=== PATIENT | female | born 1990 | race Caucasian/White ===

== ENCOUNTER 2022-03-24 09:41 | Outpatient (CLI) | payer BC, SELFPAY ==
--- OUTSIDE RECORDS SUMMARY | 2022-03-24 08:35 | XMS_ITS | Encounter Summary ---
:1990 Author Organization [place] Address [address] [place] [address] Care Team Providers Name Role Phone No Ref-Primary, Physician Primary Care Provider [phone] Encounter Details Date Type Department Care Team Description 12/14/2020 Travel Social History Tobacco Use Types Packs/Day Years Used Date Current Every Day Smoker Smokeless Tobacco: Never Used Sex Assigned at Date Recorded Not on file COVID-19 Exposure Response Date Recorded In the last month, have you been in contact with No / Unsure 12/14/2020 11:08 AM CDT someone who was confirmed or suspected to have Coronavirus / COVID-19? documented as of this encounter Plan of Treatment Not on filedocumented as of this encounter Visit Diagnoses Not on filedocumented in this encounter Care Teams Gas Line Servicer Relationship Specialty Start Date End Date No Ref-Primary, Physician PCP - General 12/14/20 documented as of this encounter
--- OUTSIDE RECORDS SUMMARY | 2022-03-24 08:35 | XMS_ITS | Encounter Summary ---
:1990 Author Organization [place] Address [address] [place] [address] Care Team Providers Name Role Phone No Ref-Primary, Physician Primary Care Provider [phone] Encounter Details Date Type Department Care Team Description 01/13/2022 Travel Social History Tobacco Use Types Packs/Day Years Used Date Current Every Day Smoker Smokeless Tobacco: Never Used Sex Assigned at Date Recorded Not on file COVID-19 Exposure Response Date Recorded In the last 10 days, have you been in contact with No / Unsu re 01/13/2022 8:33 AM CDT someone who was confirmed or suspected to have Coronavirus/COVID-19? documented as of this encounter Plan of Treatment Not on filedocumented as of this encounter Visit Diagnoses Not on filedocumented in this encounter Care Teams Elect Equip Maint Eng Relationship Specialty Start Date End Date No Ref-Primary, Physician PCP - General 12/14/20 documented as of this encounter
--- OUTSIDE RECORDS SUMMARY | 2022-03-24 08:35 | XMS_ITS | Encounter Summary ---
:1990 Author Organization [place] Address [address] [place] [address] Care Team Providers Name Role Phone No Ref-Primary, Physician Primary Care Provider [phone] Reason for Visit Reason Comments Ultrasound L2- covid in Encounter Details Date Type Department Care Team Description 01/05/2022 PRE VISIT [facility], Ultrasound (L2- covid in Maternal Medicine TIFFANIE Chavira ) [place] [address] [facility] [address] [place] [address] Social History Tobacco Use Types Packs/Day Years Used Date Current Every Day Smoker Smokeless Tobacco: Never Used Sex Assigned at Date Recorded Not on file documented as of this encounter Plan of Treatment Not on filedocumented as of this encounter Visit Diagnoses Not on filedocumented in this encounter Care Teams Paper Sales Representative Relationship Specialty Start Date End Date No Ref-Primary, Physician PCP - General 12/14/20 documented as of this encounter
--- OUTSIDE RECORDS SUMMARY | 2022-03-24 08:35 | XMS_ITS | Encounter Summary ---
:1990 Author Organization [place] Address [facility] [place] [address] Care Team Providers Name Role Phone No Ref-Primary, Physician Primary Care Provider [phone] Reason for Visit Reason Comments Ultrasound L2- covid in Encounter Details Date Type Department Care Team Description 01/13/[address] [facility] Non-Fv Credent ialed Provider, Radiology COVID-19 affecting Maternal Contag, Chau Frazier MD [address] [place], [place] [address] in [facility] Osmin Aiken MD [address] [place] [address] trimester (Primary [place] Dx) [address] [facility] [address] [place] [address] Social History Tobacco Use Types [...] have Coronavirus/COVID-19? documented as of this encounter Progress Notes Osmin Aiken MD - 01/13/2022 9:15 AM CDT Please see Imaging tab under Chart Review for details of today's US at the [facility]. Osmin Aiken MD Maternal- Medicine documented in this encounter Plan of Treatment Not on filedocumented as of this encounter Visit Diagnoses Diagnosis COVID-19 affecting in second t rimester - Primary documented in this encounter Care Teams Construction Skills Teacher Relationship Specialty Start Date End Date No Ref-Primary, Physician PCP - General 12/14/20 documented as of this encounter
--- OUTSIDE RECORDS SUMMARY | 2022-03-24 08:35 | XMS_ITS | Encounter Summary ---
:1990 Author Organization [place] Address [address] [place] [address]. [place] [address] Care Team Providers Name Role Phone No Ref-Primary, Physician Primary Care Provider [phone] Encounter Details Date Type Department Care Team Description 07/13/2021 Medical Correspondence [facility] Scan, MATERNAL Health Info Mgmt Non-Provider MEDICINE CE NTER Srvcs PROVIDER SERVICE [address] [place] [address] [place] [address] [facility] [phone] [place] Social History Tobacco Use Types Packs/Day Years Used Date Current Every Day Smoker Smokeless Tobacco: Never Used Sex Assigned at Date Recorded Not on file documented as of this encounter Plan of Treatment Not on filedocumented as of this encounter Visit Diagnoses Not on filedocumented in this encounter Care Teams Customer Service Advisor Relationship Specialty Start Date End Date No Ref-Primary, Physician PCP - General 12/14/20 documented as of this encounter
--- OUTSIDE RECORDS SUMMARY | 2022-03-24 08:35 | XMS_ITS | Encounter Summary ---
:1990 Author Organization [place] Address [address] [place] [address] Care Team Providers Name Role Phone No Ref-Primary, Physician Primary Care Provider [phone] Reason for Referral Diagnostic Imaging Ultrasound (Routine) - Pending Review Specialty Diagnoses / Procedures Referred By Contact Refer red To Contact Diagnoses related condition, antepartum Rh Maternal Med Procedures [facility] US Comprehensive Single [address] [facility] [address] [place] [address] Referral ID Status Reason Start Date Expiration Date Visits V isits Requested Authorized [id number] Pending 01/03/2022 01/03/2023 1 1 Review Reason for Visit Diagnostic Imaging Ultrasound (Routine) - Pending Review Specialty Diagnoses / Procedures Referred By Contact Refer red To Contact Diagnoses related condition, antepartum Rh Maternal Med Procedures [facility] US Comprehensive Single [address] [facility] [address] [place] [address] Referral ID Status Reason Start Date Expiration Date Visits V isits Requested Authorized [id number] Pending 01/03/2022 01/03/2023 1 1 Review Encounter Details Date Type Department Care Team Description 01/13/2022 [facility] Non-Fv Credentialed Pro vider, Radiology related Encounter Maternal ContChau bey MD [address] [place] [address] condition, Medicine Center Osmin Aiken MD [address] [place] [address] antepartum [place] [address] [facility] [address] [place] [address] Social History Tobacco Use Types [...] have Coronavirus/COVID-19? documented as of this encounter Medications at Time of Discharge Medication Sig Dispensed Refills Start Date End Date ciprofloxacin (CIPRO) 500 Take 1 tablet (500 1 tablet 0 MG tabletIndications: mg) by mouth 2 times Kidney stone daily HYDROcodone-acetaminophen Take 1-2 tablets by 5 tablet 0 0 04/06/2017 (NORCO) 5-325 MG per mouth every 4 hours tabletIndications: as needed for Calculus of left ureter moderate to severe pain (Moderate to Severe Pain) tamsulosin (FLOMAX) 0.4 MG Take 1 capsule (0.4 10 capsule 1 04/06/2017 capsuleIndications: mg) by mouth daily Calculus of left ureter documented as of this encounter Plan of Treatment Not on filedocumented as of this encounter Procedures Procedure Name Priority Date/Time Associated Comments Diagnosis [facility] US COMPREHENSIVE Routine 01/13/2022 9:39 AM rela seferino Results for this SINGLE CDT condition, procedure are i n antepartum the results section. documented in this encounter Results [facility] US Comprehensive Single (01/13/2022 9:39 AM CDT) Anatomical Region Laterality Modality Ultrasound Specimen (Source) Anatomical Collection Method Collection Time Re ceived Time Location / / Volume Laterality 01/13/2022 8:45 AM CDT Impressions 01/13/2022 9:41 AM CDT IMPRESSION Sonographic biometry agrees with gestati onal age predicted by LMP. The anatomy was adequately visualized and appeared normal. None of the anomalies commonly detected by ultrasound were evident. Narrative 01/13/2022 9:41 AM CDT Comprehensive Pat. Name: ALE COLEMANLRFAUZIA MEJÍA Study Date: 01/13/2022 8:45am Pat. NO: [id number] Referring ??MD: NIURKA MENDIETA Site: [facility] Cartography Teacher: Salma Piña : 1990 Age: 31 INDICATION COVID in METHOD Transabdominal ultrasound examination. V iew: Sufficient Contreras . Number of fetuses: 1 DATING ? Date ?Details ?Gest. age ?EBER LMP ?08/27/2021 ? 19 w + 6 d ? 06/03/2022 Prior assessment ? 4/ 05/2022 ? GA: 9 w + 2 d ?19 w + 6 d ? 06/03/2022 U/S ? 01/13/2022 ? based upon AC, BPD, Femur, HC ? 21 w + 1 d ? 05/25/2022 Assigned dating ?Dating performed on 01/13/2022, based on the LMP ?19 w + 6 d ? 06/03/2022 GENERAL EVALUATION Cardiac activity present. FHR 148 bpm. movements present. Presentation Variable. Placenta Anterior, No Previa, > 2 cm fro m internal os. Umbilical cord 3 vessel cord. Amniotic fluid Amount of AF: normal. MVP 6.5 cm. BIOMETRY Main Biometry: BPD ?48.6 ?mm ? 20w 5d ?Hadlock OFD ?66.9 ?mm ? 21w 0d ?Nicolaides HC ?185.5 ?mm ?20w 6d ?Hadlock Cerebellum tr ?21.8 ? mm ?20w 6d ?Nicolaides AC ?174.3 ?mm ?22w 3d ?98% ?Hadlock Femur ?33.3 ? mm ?20w 3d ?Hadlock Humerus ?31.8 ?mm ? 20w 4d ?Shay Weight Calculation: EFW ? 421 ? g ? 99% ?Hadlock EFW (lb,oz) ? 0 lb 15 ? oz EFW by ?Hadlock ([id number]) Head / Face / Neck Biometry: [employer] ? 6.5 ? mm CM ?4.2 ? mm Nasal bone ? 5.3 ? mm Nuchal fold ? 5.1 ? mm ANATOMY The following structures appear normal: Head / Neck ? Cranium. Head size. Head shape. Lateral ventricles. Choroid plexus. Midline falx. Cavum septi pellucidi. Cerebellum. Cisterna magna. ? Parenchyma. Thalami. Vermis. ? Neck. Nuchal fold. Face ? Lips. Profile. Nose. Maxilla. Mandible. Orbits. Lens. Heart / Thorax ?4-chamber view. RVOT view. LVOT view. Situs. Aortic arch view. Bicaval view. Ductal arch view. Superior vena cava. Inferior vena cava. 3-vessel ? view. 5-mhxapc-peffzxy view. Cardiac position. Cardiac size. Cardiac rhythm. ? Right lung. Left lung. Diaphragm. Abdomen ? Abdominal wall. Cord insertion. Stomach. Kidneys. Bladder. Liver. Bowel. Genitals. Spine ?Cervical spine. Thoracic spine. Lumbar spine. Sacral spine. Extremities / Skeleton ?Rig ht arm. Right hand. Left arm. Left hand. Right leg. Right foot. Left leg. Left foot. Gender: male. MATERNAL STRUCTURES Cervix ?Visualized ? Appearance: Appears Closed ? Cervical length 45.3 mm Right Ovary ?Visualized Left Ovary ?Visualized RECOMMENDATION We discussed the findings on today's ult rasound with the patient. COVID infection in early has n ot been associated with any defects. We therefore no longer recommend a comprehensive ultrasound for this indication alone. We do however recommend that you assess growth at 32 weeks due to the association of COVID infection with increased risk for FGR. Return to primary provider for continued care. Thank-you for the opportunity to particvivien paris in the care of this patient. If you have questions regarding today's evaluation or if we can be of further service, please contact the Maternal- Medicine Center. anomalies may be present but not detected Procedure Note Osmin Aiken MD - 01/13/2022Forma tting of this note might be different from the original. Comprehensive Name:Newton ESPOSITO te:01/13/2022 8:45am Pat. NO: [id number] MD:MAGY MENDIETA Site:Tobygrapher:Germainbhakti Mcnally RDMS :1990Age:31 INDICATION COVID in METHOD Transabdominal ultrasound examination. V iew: Sufficient Contreras . Number of fetuses: 1 DATING Date Details Gest. age EBER LMP 08/27/2021 19 w + 6 d 06/03/2022 Prior assessment 10/31/2021 GA: 9 w + 2 d 19 w + 6 d 06/03/2022 U/S 01/13/2022 based upon AC, BPD, Femur, HC 21 w + 1 d 05/25/2022 Assigned dating Dating performed on 12/22, based on the LMP 19 w + 6 d 06/03/2022 GENERAL EVALUATION Cardiac activity present. FHR 148 bpm. movements present. Presentation Variable. Placenta Anterior, No Previa, > 2 cm fro m internal os. Umbilical cord 3 vessel cord. Amniotic fluid Amount of AF: normal. MVP 6.5 cm. BIOMETRY Main Biometry: BPD 48.6 mm 20w 5d Hadlock OFD 66.9 mm 21w 0d Nicolaides HC 185.5 mm 20w 6d Hadlock Cerebellum tr 21.8 mm 20w 6d Nicolaides AC 174.3 mm 22w 3d 98% Hadlock Femur 33.3 mm 20w 3d Hadlock Humerus 31.8 mm 20w 4d Shay Weight Calculation: EFW 421 g 99% Hadlock EFW (lb,oz) 0 lb 15 oz EFW by Hadlock ([id number]) Head / Face / Neck Biometry: [employer] 6.5 mm CM 4.2 mm Nasal bone 5.3 mm Nuchal fold 5.1 mm ANATOMY The following structures appear normal: Head / Neck Cranium. Head size. Head sha pe. Lateral ventricles. Choroid plexus. Midline falx. Cavum septi pellucidi. Cerebellum. Cisterna magna. Parenchyma. Thalami. Vermis. Neck. Nuchal fold. Face Lips. Profile. Nose. Maxilla. Anastasia ble. Orbits. Lens. Heart / Thorax 4-chamber view. RVOT view . LVOT view. Situs. Aortic arch view. Bicaval view. Ductal arch view. Superior vena cava. Inferior vena cava. 3-vessel view. 1-pvjheb-iicdwgl view. Cardiac po sition. Cardiac size. Cardiac rhythm. Right lung. Left lung. Diaphragm. Abdomen Abdominal wall. Cord insertion. Stomach. Kidneys. Bladder. Liver. Bowel. Genitals. Spine Cervical spine. Thoracic spine. Katt mbar spine. Sacral spine. Extremities / Skeleton Right arm. Right hand. Left arm. Left hand. Right leg. Right foot. Left leg. Left foot. Gender: male. MATERNAL STRUCTURES Cervix Visualized Appearance: Appears Closed Cervical length 45.3 mm Right Ovary Visualized Left Ovary Visualized RECOMMENDATION We discussed the findings on today's ult rasound with the patient. COVID infection in early has n ot been associated with any defects. We therefore no longer recommend a comprehensive ultrasound for this indication alone. We do however recommend that you assess growth at 32 weeks due to the association of COVID infection with increased risk for FGR. Return to primary provider for continued care. Thank-you for the opportunity to partici raina in the care of this patient. If you have questions regarding today's evaluation or if we can be of further service, please contact the Maternal- Medicine Center. anomalies may be present but not detected IMPRESSION Sonographic biometry agrees with gestati onal age predicted by LMP. The anatomy was adequately visualized and appeared normal. None of the anomalies commonly detected by ultrasound were evident. Radiology Non-Fv Credentialed Provider ELAINE [facility] US TL LEWIS documented in this encounter Visit Diagnoses Diagnosis related condition, antepartum documented in this encounter Care Teams Psychiatric Aide Relationship Specialty Start Date End Date No Ref-Primary, Physician PCP - General 12/14/20 documented as of this encounter
--- OUTSIDE RECORDS SUMMARY | 2022-03-24 08:35 | XMS_ITS | Clinical Summary ---
:1990 Author Organization [place] Address [address] [place] [address] Care Team Providers Name Role Phone No Ref-Primary, Physician Primary Care Provider [phone] Allergies Active Allergy Reactions Severity Noted Date Comments Penicillins Shortness Of Breath High 04/06/2017 Medications Medication Sig Dispensed Refills Start Date End Date Status HYDROcodone-acetaminop Take 1-2 tablets 5 tablet 0 04/06/2017 Active hen (NORCO) 5-325 MG by mouth every 4 per tabletIndications: hours as needed Calculus of left for moderate to ureter severe pain (Moderate to Severe Pain) tamsulosin (FLOMAX) Take 1 capsule 10 capsule 1 04/06/2017 Active 0.4 MG (0.4 mg) by mouth capsuleIndications: daily Calculus of left ureter ciprofloxacin (CIPRO) Take 1 tablet 1 tablet 0 04/17/2017 Active 500 MG (500 mg) by mouth tabletIndications: 2 times daily Kidney stone Resolved Problems Problem Noted Date Resolved Date Calculus of left ureter 04/06/2017 04/06/2017 Encounters Date Type Specialty Care Team Description 01/13/2022 Office Visit Maternal and Non-Fv Credentialed COVID-19 affecting Medicine Provider, Radiol ogy in second Chau Kessler, trimester (Primary MD Dx) Osmin Aiken MD 01/13/2022 Hospital Encounter Radiology. Non-Fv Credentialed Pr egnancy related Provider, Radiol ogy condition, Chau Kessler, antepartu m Osmin Jaramillo MD 01/13/2022 Travel 01/05/2022 PRE VISIT Maternal and Cait Davis Ultrasou nd (L2- Medicine RN covid in preg yosef ) 01/03/2022 Transcribe Orders Maternal and Jimbo, Lexi, Pregn eva related Medicine METAL FURNITURE ASSEMBLY SUPERVISOR CNM condition, antepartum (Audra neely Dx) from Last 3 Months Family History Medical History Relation Comments Cancer Paternal Grandmother Relation Status Comments Paternal Grandmother Social History Tobacco Use Types Packs/Day Years Used Date Current Every Day Smoker Smokeless Tobacco: Never Used Estimated Date of Delivery Comments Yes 06/03/2022 Based on last menstr ual period of 08/27/2021 Sex Assigned at Date Recorded Not on file Last Filed Vital Signs Vital Sign Reading Time Taken Comments Blood Pressure 118/74 12/14/2020 5:37 PM CDT Pulse 68 12/14/2020 5:37 PM CDT Temperature 36.9 ??C (98.4 ??F) 12/14/2020 5:37 PM CDT Respiratory Rate 16 12/14/2020 5:37 PM CDT Oxygen Saturation 100% 12/14/2020 5:37 PM CDT Inhaled Oxygen Concentration - - Weight 88.5 kg (195 lb) 12/14/2020 11:09 AM CDT Height 182.9 cm (6') 12/14/2020 11:09 AM CDT Body Mass Index 26.45 12/14/2020 11:09 AM CDT Plan of Treatment Health Maintenance Due Date Last Done Comments ADVANCE CARE PLANNING 1990 ANNUAL REVIEW OF HM ORDERS 1990 NICOTINE/TOBACCO CESSATION 1990 COUNSELING Q 1 YR PREVENTIVE CARE VISIT 1990 Pneumococcal Vaccine: 1998 Pediatrics (0 to 5 Years) and At-Risk Patients (6 to 64 Years) (1 - PCV) HEPATITIS B IMMUNIZATION (3 08/07/2005 06/12/2005, 02/29/20 05 of 3 - 3-dose primary series) HIV SCREENING 2007 HEPATITIS C SCREENING 2010 PAP 2013 DTAP/TDAP/TD IMMUNIZATION 02/28/2015 02/28/2005, 02/28/2005 , (6 - Td or Tdap) 03/03/1998, Additional history exists PHQ-2 (once per calendar 07/23/2021 year) MATERNAL SCREENING 12/10/2021 OBGCT (OB) 02/11/2022 REPEAT ANTIBODY SCREEN (OB) 03/11/2022 INFLUENZA VACCINE (#1) 2022 07/13/2021, 04/06/2016 IPV IMMUNIZATION Aged Out 10/03/1995, 09/05/1994, No long er eligible 1990 based on patient 's age to complete this topic COVID-19 Vaccine Completed 08/31/2021, 12/17/2020, 11/19/2020 MENINGITIS IMMUNIZATION Aged Out No longe r eligible based on patient 's age to complete this topic Medical Devices Implanted Type Area Zoology Technical Officer Device Shelf Model / Identifier Expiration Serial / Date Lot Stent Ureteral Dbl Pigtail Inlay [id number] Stent Left: CR BARD 05/12/2021 [id number] / Implanted: Qty: 1 on 04/06/2017 by Jae diego, Chau Ribeiro MD at [facility] [employer]-UR[employer]IC / [id number] Procedures Procedure Name Priority Date/Time Associated Comments Diagnosis [facility] US COMPREHENSIVE Routine 01/13/2022 9:39 AM rela seferino Results for this SINGLE CDT condition, procedure are i n antepartum the results section. from Last 3 Months Results [facility] US Comprehensive Single (01/13/2022 9:39 AM CDT) [...] 01/13/2022 9:41 AM CDT Comprehensive Pat. Name: FAUZIA ESPOSITO Study Date: 01/13/2022 8:45am Pat. NO: [id number] Referring ??MD: NIURKA MENDIETA Site: [facility] [employer] Balancer: Salma Piña : 1990 Age: 31 INDICATION COVID in METHOD Transabdominal ultrasound examination. V iew: Sufficient Contreras . Number of fetuses: 1 DATING ? Date ?Details ?Gest. age ?EBER LMP ?08/27/2021 ? 19 w + 6 d ? 06/03/2022 Prior assessment ? 05/2022 ? GA: 9 w + 2 [...] Biometry: BPD ?48.6 ?mm ? 20w 5d ?Angus ABEL ?66.9 ?mm ? 21w 0d ?Nicolaides HC ?185.5 ?mm ?20w 6d ?Hadlock Cerebellum tr ?21.8 ? mm ?20w 6d ?Nicolaides AC ?174.3 ?mm ?22w 3d ?98% ?Hadlock Femur ?33.3 ? mm ?20w 3d ?Hadlock Humerus ?31.8 ?mm ? 20w 4d ?Shay Weight Calculation: EFW ? 421 ? g ? 99% ?Hadlock EFW (lb,oz) ? 0 lb 15 ? oz EFW by ?Hadlock ([id number]) Head / Face / Neck Biometry: Warehouse Worker 2Nd Shift ? 6.5 ? mm CM ?4.2 ? [...] cava. Inferior vena cava. 3-vessel ? view. 5-xataus-ltigcmi view. Cardiac position. Cardiac size. Cardiac rhythm. [...] might be different from the original. Comprehensive Pat. Name:Newton ESPOSITO te:01/13/2022 8:45am Pat. NO: [id number] :LEXI MENDIETA [facility]Germain Mcnally RDMS :1990Age:31 INDICATION COVID in METHOD [...] 0 lb 15 oz EFW by Hadlock ([id number]) Head / Face / Neck Biometry: Warehouse Worker 2Nd Shift 6.5 mm CM 4.2 mm Nasal bone [...] vena cava. Inferior vena cava. 3-vessel view. 1-hgvovj-uoojgun view. Cardiac po sition. Cardiac size. Cardiac [...] care. Thank-you for the opportunity to partici paris in the care of this patient. [...] ultrasound were evident. Radiology Non-Fv Credentialed Provider [facility] TL [facility] from Last 3 Months Insurance Payer Benefit Plan / Subscriber ID Effective Dates Phone Addre ss Type Group BCBS BCBS OUT OF [id number] 2021-Present [phone] [address] [address] [place] [address] Advance Directives For more information, please contact: [phone] Latest Code Status on File Code Status Date Activated Date Inactivated Comments Full Code 04/06/2017 9:39 AM 12/14/2020 10:47 AM Full Code 04/06/2017 6:57 AM 04/06/2017 9:39 AM Care Teams Cold Mill Supervisor Relationship Specialty Start Date End Date No Ref-Primary, Physician PCP - General 12/14/20
--- OUTSIDE RECORDS SUMMARY | 2022-03-24 08:35 | XMS_ITS | Encounter Summary ---
:1990 Author Organization [facility] Address [address] [place] [id number] Care Team Providers Name Role Phone No Ref-Primary, Physician Primary Care Provider [phone] Reason for Referral Diagnostic Imaging Ultrasound (Routine) - Pending Review Specialty Diagnoses / Procedures Referred By Contact Refer red To Contact Diagnoses related condition, antepartum Rh Maternal Med Procedures MFM US Comprehensive Single [address] [place] [address] Referral ID Status Reason Start Date Expiration Date Visits V isits Requested Authorized [id number] Pending 01/03/2022 01/03/2023 1 1 Review onsultation (Routine: Next available opening) - Pending Review Specialty Diagnoses / Procedures Referred By Contact Refer red To Contact Diagnoses related condition, antepartum Rh Maternal Med [address] [place] [address] Referral ID Status Reason Start Date Expiration Date Visits V isits Requested Authorized [id number] Pending 01/03/2022 01/03/2023 1 1 Review Encounter Details Date Type Department Care Team Description 01/03/2022 Transcribe Orders [facility] Lexi Mendieta, related [facility] antepartum (Primary [address] Dx) [address] [place] [place] [phone] Social History Tobacco Use Types Packs/Day Years Used Date Current Every Day Smoker Smokeless Tobacco: Never Used Sex Assigned at Date Recorded Not on file documented as of this encounter Plan of Treatment Scheduled Referrals Name Type Priority Associated Diagnoses Order [facility] Referral Routine: Next related Expe cted: Referral - available opening condition, 01/03/2022 antepartum (Approximate), Expires: 07/02/2022 documented as of this encounter Results [facility] US Comprehensive Single (01/13/2022 9:39 AM CDT) [...] ESPOSITO Study Date: 01/13/2022 8:45am Pat. NO: [id number] Referring ??: NIURKA MENDIETA Site: [facility] [employer] Architect: Salma Piña : 1990 Age: 31 INDICATION COVID in METHOD Transabdominal ultrasound examination. V iew: Sufficient Contreras . Number of fetuses: 1 DATING ? Date ?Details ?Gest. age ?EBER LMP ?08/27/2021 ? 19 w + 6 d ? 06/03/2022 Prior assessment ? / 05/2022 ? GA: 9 w + 2 [...] lb 15 ? oz EFW by ?Hadlock ([id number]) Head / Face / Neck Biometry: Pit Manager ? 6.5 ? mm CM ?4.2 ? [...] cava. Inferior vena cava. 3-vessel ? view. 3-enybfh-ktftegu view. Cardiac position. Cardiac size. Cardiac rhythm. [...] Pat. Name:Newton ESPOSITO te:01/13/2022 8:45am Pat. NO: [id number] MD:LEXI MENDIETA [facility]Germain Mcnally RDMS :1990Age:31 INDICATION COVID in METHOD [...] 0 lb 15 oz EFW by Hadlock ([id number]) Head / Face / Neck Biometry: Pit Manager 6.5 mm CM 4.2 mm Nasal bone [...] vena cava. Inferior vena cava. 3-vessel view. 7-pdclel-mtvxfdv view. Cardiac po sition. Cardiac size. Cardiac [...] ultrasound were evident. Radiology Non-Fv Credentialed Provider IMBrandon STOCK US TL LEWIS documented in this encounter Visit Diagnoses Diagnosis related condition, antepartum - Primary related condition, antepartum documented in this encounter Care Teams Experimental Worker Relationship Specialty Start Date End Date No Ref-Primary, Physician PCP - General 12/14/20 documented as of this encounter
--- OUTSIDE RECORDS SUMMARY | 2022-03-24 08:36 | XMS_ITS | Encounter Summary ---
:1990 Author Organization [facility] Address [address] [place] [address] Care Team Providers Name Role Phone No Ref-Primary, Physician Primary Care Provider Unavailable Encounter Details Date Type Department Care Team Description 04/11/2017 Telephone [facility] Pricilla Shin, [address] [place] [address] [address] [phone] [place], [place] [phone] (Wo rk) Social History Tobacco Use Types Packs/Day Years Used Date Never Assessed Sex Assigned at Date Recorded Not on file documented as of this encounter Miscellaneous Notes Telephone Encounter - Pricilla Shin PA-C - 04/11/2017 3:46 PM CDT Attempted to call patient regarding positive urine culture for E coli. Would like to start on antibiotic based on if she is breast feeding or not. documented in this encounter Plan of Treatment Not on filedocumented as of this encounter Visit Diagnoses Not on filedocumented in this encounter Care Teams Medical Services Coordinator Relationship Specialty Start Date End Date No Ref-Primary, Physician PCP - General 04/06/17 documented as of this encounter
--- OUTSIDE RECORDS SUMMARY | 2022-03-24 08:36 | XMS_ITS | Encounter Summary ---
:1990 Author Organization [facility] Address [address] [place] [id number] Care Team Providers Name Role Phone No Ref-Primary, Physician Primary Care Provider Unavailable Reason for Visit Reason Comments Flank Pain Encounter Details Date Type Department Care Team Description 04/06/2017 [facility] Luis Jones MD [facility] [address] [place] [address] [place] [id number] Calculus of left ureter (Primary Dx); [facility] Mary Beth Barry MD Pyelonephritis; [address] [place] [address] Social History Tobacco Use Types Packs/Day Years Used Date Never Assessed Sex Assigned at Date Recorded Not on file documented as of this encounter Last Filed Vital Signs Vital Sign Reading Time Taken Comments Blood Pressure 113/68 04/06/2017 2:04 PM CDT Pulse 72 04/06/2017 7:00 AM CDT Temperature 36.3 ??C (97.4 ??F) 04/06/2017 2:04 PM CDT Respiratory Rate 16 04/06/2017 2:04 PM CDT Oxygen Saturation 99% 04/06/2017 2:04 PM CDT Inhaled Oxygen Concentration - - Weight - - Height - - Body Mass Index - - documented in this encounter Discharge Summaries Vilma Carvajal PA-C - 04/06/2017 9:39 AM CDT [facility] Outpatient / Observation Unit Discharge Summary Fauzia Stubbs Date of : 1990 Age: [age] year old Date of Admission: 04/06/2017 Date of Discharge: 04/06/2017 Admitting Physician: Mary Beth Barry MD Discharge Physician: Vilma Carvajal PA-C Discharging Service: Hospitalist Primary Provider: No Ref-Primary, Physician Primary Care Physician Phone Number: None Primary Discharge Diagnoses: Fauzia Stubbs was admitted on 04/06/2017 for acute renal colic. 1. Acute renal colic-sxs improved. 2. S/p Cysto and stent, please see Op notes Secondary Discharge Diagnoses: History reviewed. No pertinent past medical history. Code Status: Full Code Brief Hospital Summary: Reason for your hospital stay You were admitted for left sided kidney stone. You were seen by Urology and underwent surgery. Please follow up with Dr. Ortega as instructed. Please refer to initial admission history and physical for further details. Briefly, Fauzia Stubbs was admitted on 04/06/2017 with acute renal colic. Initial work up in the ED did not reveal evidence of grossly infected stone or significant renal failure/ATN to require inpatient hospitalization. Pt was registered to the Observation Unit for pain control and supportive measures. Pt was resuscitated with IVF, and anti-emetics. Urology consult was obtained. She underwent cysto and stent (pls see op note). Follow up with Dr. Ortega as instructed. Pain control was transitioned from IV to PO form. Labs reviewed and significant results addressed. On the day of discharge, pt's pain was controlled and was able to tolerate PO intake. Medications werereviewed and adjustments made as necessary. Pt is instructed to follow up as below. Significant Lab During Hospitalization: Recent Labs Lab 04/06/17 0410 WBC 8.1 HGB 13.5 HCT 40.0 MCV 91 PLT 278 Recent Labs Lab 04/06/17 0410 NA 137 POTASSIUM 3.2* CHLORIDE 104 CO2 25 ANIONGAP 8 GLC 102* BUN 12 CR 0.80 GFRESTIMATED 88 GFRESTBLACK >90 MARILYN 8.9 Significant Imaging During Hospitalization: Results for orders placed or performed during the hospital encounter of 04/06/17 Abd/pelvis CT no contrast - Stone Protocol Narrative CT ABDOMEN PELVIS W/O CONTRAST 04/06/2017 5:02 AM HISTORY: Left flank pain. TECHNIQUE: Imaging performed from the diaphragm to the base of the bladder using the renal stone protocol. No oral or intravenous contrast. Radiation dose for this scan was reduced using automated exposure control, adjustment of the mA and/or kV according to patient size, or iterative reconstruction technique. COMPARISON: None. FINDINGS: Abdomen: There is moderate dilatation of the left renal collecting system and ureter into the pelvis where there are two distal ureteral stones measuring up to 0.7 cm. These are approximately 4 cm above the ureterovesical junction. There is a single 0.1 cm stone in the lower pole of the left kidney. No right-sided urinary stones. There is minimal dependent atelectasis at the lung bases. Evaluation of the solid abdominal organs is limited by the lack of intravenous contrast. The liver, spleen, gallbladder, pancreas and adrenal glands are normal in appearance. There is no abdominal or pelvic lymph node enlargement. Pelvis: There is an IUD in place. No adnexal mass. There is no bowel obstruction. The appendix is within normal limits. No free intraperitoneal gas or fluid. Multiple pelvic phleboliths. Impression IMPRESSION: 1. There are two distal left ureteral stones measuring up to 0.7 cm and causing moderate hydronephrosis. 2. Single tiny left intrarenal stone. NARAYAN ARROYO MD Pending Results: Unresulted Labs Ordered in the Past 30 Days of this Admission Date and Time Order Name Status Description 04/06/2017 0450 Urine Culture Aerobic Bacterial Preliminary Consultations This Hospital Stay: Consultation during this admission received from urology Discharge Instructions and Follow-Up: Follow-up and recommended labs and tests Follow up with Dr. Nair as instructed. Discharge Disposition: Discharged to home Discharge Medications: There are no discharge medications for this patient. Allergies: Allergies Allergen Reactions ??? Penicillins Condition and Physical on Discharge: Discharge condition: Stable Vitals: Blood pressure 124/69, pulse 72, temperature 96.4 ??F (35.8 ??C), temperature source Oral, resp. rate 16, SpO2 96 %. 0 lbs 0 oz GENERAL: Comfortable. PSYCH: pleasant, oriented, No acute distress. HEENT: PERRLA. Normal conjunctiva, normal hearing, nasal mucosa and Oropharynx are normal. NECK: Supple, no neck vein distention, adenopathy or bruits, normal thyroid. HEART: Normal S1, S2 with no murmur, no pericardial rub, gallops or S3 or S4. LUNGS: Clear to auscultation, normal Respiratory effort. No wheezing, rales or ronchi. ABDOMEN: Soft, no hepatosplenomegaly, normal bowel sounds. Non-tender, non distended. EXTREMITIES: No pedal edema, +2 pulses bilateral and equal. SKIN: Dry to touch, No rash, wound or ulcerations. NEUROLOGIC: CN 2-12 intact, BL 5/5 symmetric upper and lower extremity strength, sensation is intactwith no focal deficits. Associated attestation - Jesse Zaragoza MD - 04/06/2017 10:16 AM CDT Physician Attestation I, Jesse Zaragoza, have reviewed and discussed with the advanced practice provider their discharge plan for Fauzia Stubbs. I did not participate in a shared visit by interviewing or examining the patient and this should be billed as an advanced practice provider only discharge. Jesse Zaragoza Date of Service (when I saw the patient): I did not personally see this patient today. documented in this encounter Discharge Instructions Discharge InstructionsMary Jane Napoles RN - 04/06/2017 1:28 PM CDT CYSTOSCOPY DISCHARGE INSTRUCTIONS YOU MAY GO BACK TO YOUR NORMAL DIET AND ACTIVITY, UNLESS YOUR DOCTOR TELLS YOU NOT TO. FOR THE NEXT TWO DAYS, YOU MAY NOTICE: SOME BLOOD IN YOUR URINE. SOME BURNING WHEN YOU URINATE (USE THE TOILET). AN URGE TO URINATE MORE OFTEN. BLADDER SPASMS. THESE ARE NORMAL AFTER THE PROCEDURE. THEY SHOULD GO AWAY AFTER A DAY OR TWO. TO RELIEVE THESE PROBLEMS: DRINK 6 TO 8 LARGE GLASSES OF WATER EACH DAY (INCLUDES DRINKS AT MEALS). THIS WILL HELP CLEAR THE URINE. TAKE WARM BATHS TO RELIEVE PAIN AND BLADDER SPASMS. DO NOT ADD ANYTHING TO THE BATH WATER. YOUR DOCTOR MAY PRESCRIBE PAIN MEDICINE. YOU MAY ALSO TAKE TYLENOL (ACETAMINOPHEN) FOR PAIN. CALL YOUR SURGEON IF YOU HAVE: A FEVER OVER 100 DEGREES FOR MORE THAN A DAY. CHECK YOUR TEMPERATURE UNDER YOUR TONGUE. CHILLS. FAILURE TO URINATE (NO URINE COMES OUT WHEN YOU TRY TO USE THE TOILET). TRY SOAKING IN A BATHTUB FULL OF WARM WATER. IF STILL NO URINE, CALL YOUR DOCTOR. A LOT OF BLOOD IN THE URINE, OR BLOOD CLOTS LARGER THAN A NICKEL. PAIN IN THE BACK OR BELLY AREA (ABDOMEN). PAIN OR SPASMS THAT ARE NOT RELIEVED BY WARM TUB BATHS AND PAIN MEDICINE. SEVERE PAIN, BURNING OR OTHER PROBLEMS WHILE PASSING URINE. PAIN THAT GETS WORSE AFTER TWO DAYS. STENT INFORMATION/DISCHARGE INSTRUCTIONS [facility] [phone] During surgery, a stent may be placed in the ureter. The ureter is the tube that drains urine from the kidney to the bladder. The stent is placed to dilate (open) the ureter so stone fragments can passeasily through the ureter or to decrease ureteral swelling after surgery or to relieve an obstruction. The stent is made of silicone. The upper end of the stent curls in the kidney while the lower end rests in the bladder. While the stent is in place you may experience the following symptoms: Blood and/or small blood clots in the urine Bladder spasms (frequency and urgency of urination) Discomfort or aching in the back or side where the stent is Burning or discomfort at the end of urine stream To decrease these symptoms you should: Take antispasmodic medication as prescribed (Detrol, Ditropan, etc.) Drink plenty of fluids but avoid caffeine and citrus (include cranberry) If you are having discomfort in back or side, decrease activity Please call your physician or the physician track repair person if you experience: Fever greater than 101 degrees Severe pain not relieved by pain medication or rest Please make an appointment for the removal of the stent according to your physician's instructions. EXTRACORPOREAL SHOCK LITHOTRIPSY (ESWL) DISCHARGE INSTRUCTIONS [facility] [phone] Your stone(s) has been fragmented into many tiny pieces, which must now pass in your urine. Usually this process is uneventful. Most fragments pass in the first one or two weeks, but some may continue to pass for three months or more. Some pain or discomfort may accompany the passage of these fragments. To aid in the passage of fragments, drink lots of fluid. Aim for 2 liters of water daily for the next one to two weeks. Most patients will benefit from a continued high fluid intake and urine output indefinitely, even after the fragments are gone. This helps prevent new stone formation. Strain your urine. Take the stone fragments to your urologist. They will have them analyzed to help determine the cause of your stone(s). You should walk around and resume every day activities. Activity may help the stone fragments pass. You should, however, avoid sports or really strenuous exercise for about one week, or at least until there is no more blood in your urine. You may resume regular diet. Call your urologist if you have: a. Persistent severe pain not relieved by oral medications. b. Fever (over 101??). c. Persistent vomiting. See your urologist as directed. They will need to take an x-ray to check your progress. Take your stone fragments to your follow-up appointment. You were give 1 pain pill at 12:17 pm today GENERAL ANESTHESIA OR SEDATION ADULT DISCHARGE INSTRUCTIONS SPECIAL PRECAUTIONS FOR 24 HOURS AFTER SURGERY IT IS NOT UNUSUAL TO FEEL LIGHT-HEADED OR FAINT, UP TO 24 HOURS AFTER SURGERY OR WHILE TAKING PAIN MEDICATION. IF YOU HAVE THESE SYMPTOMS; SIT FOR A FEW MINUTES BEFORE STANDING AND HAVE SOMEONE ASSIST YOU WHEN YOU GET UP TO WALK OR USE THE BATHROOM. YOU SHOULD REST AND RELAX FOR THE NEXT 24 HOURS AND YOU MUST MAKE ARRANGEMENTS TO HAVE SOMEONE STAY WITH YOU FOR AT LEAST 24 HOURS AFTER YOUR DISCHARGE. AVOID HAZARDOUS AND STRENUOUS ACTIVITIES. DO NOTMAKE IMPORTANT DECISIONS FOR [address] ANY VEHICLE OR OPERATE MECHANICAL EQUIPMENT FOR 24 HOURS FOLLOWING THE END OF YOUR SURGERY. EVEN THOUGH YOU MAY FEEL NORMAL, YOUR REACTIONS MAY BE AFFECTED BY THE MEDICATION YOU HAVE RECEIVED. DO NOT DRINK ALCOHOLIC BEVERAGES FOR 24 HOURS FOLLOWING YOUR SURGERY. DRINK CLEAR LIQUIDS (APPLE JUICE, FARRAH LASHAE, 7-UP, BROTH, ETC.). PROGRESS TO YOUR REGULAR DIET YOU FEEL ABLE. YOU MAY HAVE A DRY MOUTH, A SORE THROAT, MUSCLES ACHES OR TROUBLE SLEEPING. THESE SHOULD GO AWAY AFTER 24 HOURS. CALL YOUR DOCTOR FOR ANY OF THE FOLLOWING: SIGNS OF INFECTION (FEVER, GROWING TENDERNESS AT THE SURGERY SITE, A LARGE AMOUNT OF DRAINAGE OR BLEEDING, SEVERE PAIN, FOUL-SMELLING DRAINAGE, REDNESS OR SWELLING. IT HAS BEEN OVER 8 TO 10 HOURS SINCE SURGERY AND YOU ARE STILL NOT ABLE TO URINATE (PASS WATER). documented in this encounter Medications at Time of Discharge Medication Sig Dispensed Refills Start Date End Date HYDROcodone-acetaminophe Take 1-2 tablets by 5 tablet 0 n (NORCO) 5-325 MG per mouth every 4 hours as tabletIndications: needed for moderate to Calculus of left ureter severe pain (Moderate to Severe Pain) tamsulosin (FLOMAX) 0.4 Take 1 capsule (0.4 10 capsule 1 MG capsuleIndications: mg) by mouth daily Calculus of left ureter documented as of this encounter Progress Notes Ting Nava RN - 04/06/2017 8:40 AM CDT OBSERVATION PRE-OP NOTE Discharge Plan (Initial) - plan is for pt to discharge from Same Day Surgery: Yes. Discharge Order - has been entered by the attending hospitalist or P.A.: Ride Home/Caregiver - pt has someone to take them home and stay with them for 24 hours: Yes. Name: Sindhu (sammy), Contact information: [phone] Belongings/Valuables - Will be sent to [facility] with pt. Prosthetics Lab Technician - Pt DOES NOT need an parts interpreter. Beta Kristi - Pt is NOT on a beta kristi. LABS Last Labs: Recent Labs Lab 04/06/17 0410 HGB 13.5 PLT 278 POTASSIUM 3.2* BUN 12 CR 0.80 HCG - has been completed on day of surgery. Last Result is: Negative Abnormal Labs - n/a NPO - Pt has been NPO since 04/06/17 at 12:00 AM. Shower/Bath - PreOp shower or OREN bath has not been done on day of surgery. Consent Status (if pt unable to sign consent) - Family IS present and able to be in the PreOp area to sign consent. Pt able to sign own consent. OBS Nurse Completing Pre-Op Handoff: Ting Nava, 8:41 AM Above Pre Op Nurse Handoff Report was reviewed by: documented in this encounter H&P Notes Mary Beth Barry MD - 04/06/2017 6:19 AM CDT Chief complaint Severe left flank pain beginning at 2 AM radiating to the groin area Primary care none History of present illness Fauzia Stubbs is a 26-year-old female in good health and who presents to the ER after developing severe left flank pain radiating to the groin that woke her up from sleep at 2 AM. She states that thepain was worse than her labor contractions and she was unable to find any way to relieve it. The intensity of the pain would increase intermittently. Before she awoke at 2 AM she did not have any problems and denies any nausea, vomiting, fevers or shaking chills. White count is normal along with lactic acid. Urinalysis showed 126 white cells, 15 red cells, large amount leukocyte esterase. CT showed 2distal left ureteral stones measuring up to 0.7 cm located 4 cm above the ureterovesical junction wit h moderate dilatation of the left renal collecting system. IV Dilaudid has helped her discomfort. She has never had any kidney stones before. Past medical history 1.Vaginal delivery and is the mother of a 10 month old son 2. 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 No smoking,occasional alcohol intake Family history Family history of kidney stones or coronary artery disease Physical exam Interactive and not uncomfortable at this time Understands the treatment plan 116/80 80 18 temperature 97 HEENT exam mucous membranes are moist JVP normal carotids normal Lungs clear throughout without wheezing rhonchi or rales Heart sounds normal without murmur Abdomen soft and nontender active bowel sounds no nausea no dysuria when urinating, there is left flank tenderness Musculoskeletal negative joint swelling or inflammation Skin is without lesions or rashes Neurologic no focal weakness is alert and oriented Psychologically coping well Medications None Results CT moderate dilatation of the left renal collecting system to distal left ureter stones measuring upto 0.7 cm 4 cm above the ureterovesical junction Sodium 137 potassium 3.2 bicarbonate 25 creatinine 0.8 hCG negative lactic acid 0.4 Venous 7.38 PCO2 38 White count 8.1 hemoglobin 13.5 platelets 278 Urinalysis large leukocyte esterase 126 white cells 15 red cells Impression Fauzia Stubbs is a 26-year-old female in good health and who presents to the ER after developing severe left flank pain radiating to the groin that woke her up from sleep at 2 AM. She has renal colicand to obstructing stones in the distal ureter 4 cm above the ureterovesical junction. And she has evidence for urinary tract infection. She is admitted under observational stay to undergo cystoscopic ureter stone extraction,stent placement and IV antibiotics. Plan 1 admit to observational stay. n.p.o. for anticipated cystoscopic exam for removal of the distal ureters stones and placement of stents. 2. She is allergic to penicillin and IV ciprofloxacin has been started, this will be continued 3. Lactated Ringer's at 100 cc/h, replace potassium as per protocol 4. IV Dilaudid and oral oxycodone for pain control 5. Follow the results of the urine culture documented in this encounter Consult Notes Aliya Dahl PA-C - 04/06/2017 8:28 AM CDTAssociated Order(s): UROLOGY IP CONSULT [facility] Consult Name: Fauzia Stubbs Date of : 1990 We were asked to see Fauzia Stubbs at the request of Dr. Barry for evaluation and treatment of the following chief complaint. Chief Complaint: Ureteral stone History is obtained from pt and EMR. History of Present Illness: Fauzia Stubbs is a 26 year old female with newly diagnosed left ureteral stones measuring 7mm. Presented to the ED with left flank and groin pain. No nausea, vomiting, fevers or chills. U/A revealed WBC and RBCs, large leuk est. Cx pending. CT showed two obstructing distal ureteral stones. Currently much more comfortable. Has been NPO. No previous history of stones. Past Medical History: History reviewed. No pertinent past medical history. Past Surgical History: History reviewed. No pertinent surgical history. Social History: Denies tobacco or ETOH abuse. Family History: No history of stones. Allergies: Allergies Allergen Reactions ??? Penicillins Medications: Current Facility-Administered Medications Medication ??? naloxone (NARCAN) injection 0.1-0.4 mg ??? lactated ringers infusion ??? acetaminophen (TYLENOL) tablet 650 mg ??? oxyCODONE (ROXICODONE) IR tablet 5-10 mg ??? HYDROmorphone (PF) (DILAUDID) injection 0.3-0.5 mg ??? senna-docusate (SENOKOT-S;PERICOLACE) 8.6-50 MG per tablet 1-2 tablet ??? polyethylene glycol (MIRALAX/GLYCOLAX) Packet 17 g ??? ondansetron (ZOFRAN-ODT) ODT tab 4 mg Or ??? ondansetron (ZOFRAN) injection 4 mg ??? prochlorperazine (COMPAZINE) injection 5-10 mg Or ??? prochlorperazine (COMPAZINE) tablet 5-10 mg Or ??? prochlorperazine (COMPAZINE) Suppository 25 mg ??? ciprofloxacin (CIPRO) infusion 400 mg Review of Systems: ROS: 14-point ROS negative other than that noted in the HPI. Physical Exam: VS: T: 96.4 HR: 72 BP: 124/69 RR: 16 GEN: AOx3. NAD. Pleasant. HEENT: EOMI NECK: Supple. CV: RRR LUNGS: Non-labored breathing. BACK: No costoverterbral tenderness. ABD: Soft. NT. EXT: Warm, well perfused. No lower extremity edema bilaterally SKIN: Warm. Dry. No rashes. NEURO: CN grossly intact. Normal gait Data: All laboratory data reviewed: Recent Labs Lab 04/06/17 0410 WBC 8.1 HGB 13.5 PLT 278 Recent Labs Lab 04/06/17 0410 NA 137 POTASSIUM 3.2* CHLORIDE 104 CO2 25 BUN 12 CR 0.80 GLC 102* MARILYN 8.9 Recent Labs Lab 04/06/17 0410 COLOR Yellow APPEARANCE Slightly Cloudy URINEGLC Negative URINEBILI Negative URINEKETONE Negative SG 1.013 URINEPH 5.0 PROTEIN 30* NITRITE Negative LEUKEST Large* RBCU 15* WBCU 126* All pertinent imaging reviewed: CT scan of the abdomen: CT ABDOMEN PELVIS W/O CONTRAST 04/06/2017 5:02 AM ?? HISTORY: Left flank pain. ?? TECHNIQUE: Imaging performed from the diaphragm to the base of the bladder using the renal stone protocol. No oral or intravenous contrast. Radiation dose for this scan was reduced using automated exposure control, adjustment of the mA and/or kV according to patient size, or iterative reconstruction technique. ?? COMPARISON: None. ?? FINDINGS: Abdomen: There is moderate dilatation of the left renal collecting system and ureter into the pelvis where there are two distal ureteral stones measuring up to 0.7 cm. These are approximately 4 cm above the ureterovesical junction. There is a single 0.1 cm stone in the lower pole of the left kidney. No right-sided urinary stones. ?? There is minimal dependent atelectasis at the lung bases. Evaluation of the solid abdominal organs is limited by the lack of intravenous contrast. The liver, spleen, gallbladder, pancreas and adrenal glands are normal in appearance. There is no abdominal or pelvic lymph node enlargement. ?? Pelvis: There is an IUD in place. No adnexal mass. There is no bowel obstruction. The appendix is within normal limits. No free intraperitoneal gas or fluid. Multiple pelvic phleboliths. ? IMPRESSION: 1. There are two distal left ureteral stones measuring up to 0.7 cm and causing moderate hydronephrosis. 2. Single tiny left intrarenal stone. Impression and Plan: Impression: Fauzia Stubbs is a 26 year old female with left ureteral stones. Plan: -plan to OR today for cysto, left ureteroscopy, poss laser and stent around 4:30pm today -IVF fluids -Flomax 0.4mg QHS - monitor for orthostatic hypotension. -Thank you for involving us in the care of this patient. We will continue to follow along. - Hopeful for home later today Discussed with Dr. Jordan Dahl PA-C [facility] Urology (text or call, Mon-Wed & Fri until 5pm) Associated attestation - Chau Ortega MD - 04/06/2017 9:25 AM CDT I have seen and examined the patient and I agree with the above findings and plan Discussed surgery and its risks, she wishes to proceed to OR today documented in this encounter ED Notes Du Cooper V, RN - 04/06/2017 6:10 AM CDT Hospitalist in to evaluate pt Du Cooper RN - 04/06/2017 6:02 AM CDT Observation Brochure and Video Patient and family informed of observation status based on provider's order. Observation Brochure was given and video watched. Du Cooper RN Chiqui Jeff RN - 04/06/2017 5:33 AM CDT [facility] ED Nurse Handoff Report Fauzia Stubbs is a 26 year old female ED Chief complaint: Flank Pain . ED Diagnosis: Final diagnoses: Pyelonephritis Calculus of ureter Allergies: Allergies Allergen Reactions ??? Penicillins Code Status: Full Code Activity level - Baseline/Home: Independent. Activity Level - Current: Independent. Lift room needed: No. Bariatric: No Prosthetics Lab Technician Needed: No Isolation: No. Infection: Not Applicable. Vital Signs: Vitals: 04/06/17 0351 04/06/17 0506 04/06/17 0507 BP: 124/85 117/74 Pulse: 88 Resp: 18 Temp: 97 ??F (36.1 ??C) SpO2: 100% 97% Cardiac Rhythm: , Pain level: 0-10 Pain Scale: 10 Patient confused: No. Patient Falls Risk: No. Elimination Status: Has voided Patient Report - Initial Complaint: Pt in with L sided flank pain. Focused Assessment: L sided flankpain and L sided abd tenderness. Pt is afebrile on arrival, pain and nausea controlled at this time.Pt A&O x 4, no S/S of acute distress Tests Performed: CT, Labs. Abnormal Results: Labs Ordered and Resulted from Time of ED Arrival Up to the Time of Departure from the ED ROUTINE UA WITH MICROSCOPIC - Abnormal; Notable for the following: Result Value Blood Urine Small (*) Protein Albumin Urine 30 (*) Leukocyte Esterase Urine Large (*) WBC Urine 126 (*) RBC Urine 15 (*) WBC Clumps Present (*) Bacteria Urine Many (*) Mucous Urine Present (*) All other components within normal limits COMPREHENSIVE METABOLIC PANEL - Abnormal; Notable for the following: Potassium 3.2 (*) Glucose 102 (*) All other components within normal limits ISTAT GASES LACTATE THOMAS POCT - Abnormal; Notable for the following: PCO2 Venous 38 (*) Lactic Acid 0.4 (*) All other components within normal limits HCG QUALITATIVE URINE CBC WITH PLATELETS DIFFERENTIAL LIPASE PERIPHERAL IV CATHETER ISTAT CG4 GASES LACTATE THOMAS NURSING POCT URINE CULTURE AEROBIC BACTERIAL Abd/pelvis CT no contrast - Stone Protocol (Preliminary result) Result time: 04/06/17 05:18:04 ?? Preliminary result by Rahul, Tia Ib (04/06/17 05:18:04) ?? Impression: ?? IMPRESSION: 1. There are two distal left ureteral stones measuring up to 0.7 cm and causing moderate hydronephrosis. 2. Single tiny left intrarenal stone. Treatments provided:IV fluid, IV abx Family Comments: Mother at bedside OBS brochure/video discussed/provided to patient: N/A ED Medications: Medications 0.9% sodium chloride BOLUS (1,000 mLs Intravenous New Bag 04/06/17414) Followed by 0.9% sodium chloride infusion (not administered) ondansetron (ZOFRAN) injection 4 mg (4 mg Intravenous Given 04/06/17415) ciprofloxacin (CIPRO) infusion 400 mg (not administered) HYDROmorphone (PF) (DILAUDID) injection 0.5 mg (not administered) tamsulosin (FLOMAX) capsule 0.4 mg (not administered) ketorolac (TORADOL) injection 30 mg (30 mg Intravenous Given 04/06/17415) Drips infusing: Yes For the majority of the shift, the patient's behavior Yellow. Interventions performed were . Severe Sepsis OR Septic Shock Diagnosis Present: No ED Nurse Name/Phone Number: Du Cooper, 5:33 AM RECEIVING UNIT ED HANDOFF REVIEW Above ED Nurse Handoff Report was reviewed: Yes Reviewed by: Chiqui Jeff on April 06, 2017 at 6:45 AM Du Cooper RN - 04/06/2017 4:22 AM CDT Pt in with C/O L flank pain, Pt A&O x 4 on arrival, family present Chula Shin RN - 04/06/2017 3:52 AM CDT Pt to ER with c/o left flank pain that awoke her from her sleep. Pt has hx of kidney infections, pt has has chills but no fever at this time Luis Jones MD - 04/06/2017 3:48 AM CDT History Chief Complaint: Flank Pain The history is provided by the patient. Fauzia Stubbs is a 26 year old female who presents with flank pain. Patient woke this morning [id number] with left sided flank pain associated by chills, nausea, and vomiting. It subsequently moved into her left abdomen prompting visit to the emergency department. Currently patient rates pain at 10/10 in severity. She notes it was initially constant but is now coming and going, lasting for approximately 1 minute at a time. This feels similar to when she had a past kidney infection. Patient had nothing for pain prior to arrival. She denies measured fever or other complaint. Allergies: Penicillins Medications: The patient is not currently taking any prescribed medications. Past Medical History: The patient does not have any past pertinent medical history. Past Surgical History: History reviewed. No pertinent surgical history. Family History: History reviewed. No pertinent family history. Social History: Presents with mother Marital Status: Single Review of Systems Constitutional: Positive for chills. Negative for fever. Gastrointestinal: Positive for abdominal pain, nausea and vomiting. Genitourinary: Positive for flank pain. All other systems reviewed and are negative. Physical Exam Patient Vitals for the past 24 hrs: BP Temp Pulse Resp SpO2 04/06/17 0507 - - - - 97 % 04/06/17 0506 117/74 - - - - 04/06/17 0351 124/85 97 ??F (36.1 ??C) 88 18 100 % Physical Exam Constitutional: Oriented to person, place, and time. In minor distress secondary to pain. HENT: Head: Normocephalic. Mouth/Throat: Oropharynx is clear and moist. Eyes: EOM are normal. Pupils are equal, round, and reactive to light. Neck: Neck supple. Cardiovascular: Normal rate, regular rhythm and normal heart sounds. Exam reveals no gallop and no friction rub. No murmur heard. Pulmonary/Chest: Effort normal and breath sounds normal. No respiratory distress. No wheezes. No rales. No reproducible chest wall pain. Abdominal: Soft. No distension. Mild LLQ tenderness, no guarding or rebound. Pain with percussion of left flank. Musculoskeletal: Normal range of motion. Neurological: Alert and oriented to person, place, and time. Moves all 4 extremities spontaneously Skin: No rash noted. No pallor. Emergency Department Course Imaging: Radiographic findings were communicated with the patient and family who voiced understanding of the findings. CT Abd/pelvis without contrast: IMPRESSION: 1. There are two distal left ureteral stones measuring up to 0.7 cm and causing moderate hydronephrosis. 2. Single tiny left intrarenal stone. Imaging independently reviewed and agree with radiologist interpretation. Laboratory: CBC: WNL (WBC 8.1, HGB 13.5, PLT 278) CMP: Potassium 3.2 (L), Glucose 102 (H) ow WNL (Creatinine 0.80) Lipase: 148 Venous Blood Gas Lab 04/06/17 0454 PHV 7.38 PCO2V 38* PO2V 35 HCO3V 22 Lactic 0.4 (L) UA: Blood small, Albumin 30, Leuk esterase large, WBC 126 (H), RBC 15 (H), WBC clumps present, Bacteria many, Mucous present, o/w Negative Urine culture: pending UPT: Negative Interventions: Medications 0.9% sodium chloride BOLUS (1,000 mLs Intravenous New Bag 04/06/17 3760) Followed by 0.9% sodium chloride infusion (not administered) ondansetron (ZOFRAN) injection 4 mg (4 mg Intravenous Given 04/06/17 4023) ciprofloxacin (CIPRO) infusion 400 mg (400 mg Intravenous New Bag 04/06/17 4764) HYDROmorphone (PF) (DILAUDID) injection 0.5 mg (not administered) ketorolac (TORADOL) injection 30 mg (30 mg Intravenous Given 04/06/17 0416) tamsulosin (FLOMAX) capsule 0.4 mg (0.4 mg Oral Given 04/06/17 0544) 0415: NS 1L IV Bolus 0416: Zofran 4 mg IV 0416: Toradol 30 mg IV 0543: Cipro 400 mg IV Infusion 0544: Flomax 0.4 mg PO Emergency Department Course: Past medical records, nursing notes, and vitals reviewed. 0401: I performed an exam of the patient and obtained history, as documented above. IV inserted and blood drawn. Above interventions provided. 0445: I rechecked the patient. Explained findings to patient and mother. The patient was sent for a CT while in the emergency department, findings above. 0527: Discussed patient with Dr. Eduardo of urology. 0530: The patient was offered additional pain medications while in the ED; they are declining this at this time. I personally reviewed the laboratory results with the Patient and mother and answered all related questions prior to admission. Findings and plan explained to the Patient and mother who consents to admission. 0558: Discussed the patient with Dr. Barry, who will admit the patient to a med surg bed for furthermonitoring, evaluation, and treatment. Impression & Plan Medical Decision Making: Fauzia Stubbs is a 26 year old female coming in with left sided flank pain. Differential includes renal colic, ureteral calculi, diverticulitis, ovarian cyst, ovarian torsion, among other causes. She underwent workup as seen. Urine has quite significant pyuria consistent with pyelonephritis. I didobtain a CT for possible ureteral calculi which does show 0.7 cm stones x2 in distal ureter. She is afebrile with negative lactic acid and otherwise stable for admission. I did consult with Dr. Eduardo of urology who agreed with plan to have patient go in for urological procedure in the am. Diagnosis: ICD-10-CM 1. Pyelonephritis N12 2. Calculus of ureter N20.1 Disposition: Admitted to hospitalist service. Osmin Toure 04/06/2017 [facility] EMERGENCY DEPARTMENT I, Osmin Toure, am serving as a scribe at 4:01 AM on 04/06/2017 to document services personally performed by Luis Jones MD based on my observations and the provider's statements to me. Luis Jones MD 04/06/17 0600 documented in this encounter Miscellaneous Notes Op Note - Chau Ortega MD - 04/06/2017 12:43 PM CDT DATE OF PROCEDURE: 04/06/2017 SURGEON: Chau Ortega MD PREOPERATIVE DIAGNOSIS: Left ureteral stone. POSTOPERATIVE DIAGNOSIS: Left ureteral stone. PROCEDURE PERFORMED: Cystoscopy, left retrograde pyelogram, interpretation of fluoroscopic views, left ureteroscopy with holmium laser lithotripsy and stone basketing, placement of 4.7 x 26 double-J left ureteral stent. ANESTHESIA: General. COMPLICATIONS: None. INDICATIONS FOR PROCEDURE: Fauzia Stubbs is a 26-year-old woman with a distal left ureteral stone and now presents for removal. DETAILS OF THE PROCEDURE: The risks and benefits of the procedure were explained in detail with the patient and informed consent was obtained. The patient was brought to the operating room, placed supine on the table. She underwent general endotracheal anesthetic. She was then moved down to the dorsallithotomy position where she was prepped and draped in standard sterile fashion. The procedure began by introducing the 22 [place] rigid cystoscope through the urethra into the bladder and performing cystoscopy. There were no urothelial abnormalities identified. The left ureter was identified and cathed with a ureteral catheter. Retrograde pyelogram was taken. There was found to be hydronephrosis, hydroureter down to the level of the distal ureteral stone. I passed a Glidewire into the left kidney and backed off the ureteral catheter along the scope. Alongside the Glidewire, I passed the rigid ureteroscope through the urethra into the bladder and up the left ureter. The stone was seen in the distal left ureter. I used the 365 micron holmium laser fiber to break up the stone in multiple fragments. The stone was quite soft and it broke up very easily. I used a stone basket to remove all of stone burden and placed it in the bladder. I then performed ureteroscopy all the way intothe left kidney and no stones remained. I removed the ureteroscope. I then loaded a 4.7 x 26 double-J ureteral stent over the wire. The wire was pulled back and a good curl could be seen in the renal pelvis under fluoroscopy. I reinserted the scope and a good curl seen in the bladder under direct visualization. I drained the stone fragments out of the bladder and the procedure was concluded. I placeda B&O suppository at the end of the case. The patient tolerated the procedure well without complications. She went to the post-anesthetic carein good condition. She will go home from there. She should come back to clinic in 1-2 weeks for stent removal in the office. CHAU ORTEGA MD MT: [id number] Name: FAUZIA STUBBS MRN: [id number] Account: [id number] : 1990 Procedure Date: 04/06/2017 Document: [id number] Pharmacy-Admission Medication History - Rosie Enrique RPH - 04/06/2017 9:41 AM CDT Admission medication history interview status for this patient is complete. See [facility] admission navigator for allergy information, prior to admission medications and immunization status. Medication history interview source(s): patient's mother Medication history resources (including written lists, pill bottles, clinic record):None Changes made to [employer] medication list: Added: none Deleted: none Changed: none No home medications. Actions taken by pharmacist (provider contacted, etc):None Additional medication history information:None Medication reconciliation/reorder completed by provider prior to medication history? yes Not on File Plan of Care - Ting Nava RN - 04/06/2017 8:16 AM CDT Problem: Discharge Planning Goal: Discharge Planning (Adult, OB, Behavioral, Peds) PRIMARY DIAGNOSIS: ACUTE RENAL COLIC OUTPATIENT/OBSERVATION GOALS TO BE MET BEFORE DISCHARGE 1. Pain Status: Pain free. 2. Tolerating adequate PO diet: NPO 3. Surgical Intervention planned: Pending urology consult 4. Cleared by consultants (if involved): No 5. Return to near baseline physical activity: Yes, SBA for safety d/t meds Pt A&Ox4, VSS. Pt denies pain or nausea at this time. NPO pending urology consult. IVF infusing.Straining urine. SBA when oob for safety. Will continue to monitor. Corrosion Technician Nurse Safe discharge environment identified: Yes Barriers to discharge: Not once medically cleared Entered by: Ting Nava 04/06/2017 8:37 AM Please review provider order for any additional goals. Nurse to notify provider when observation goals have been met and patient is ready for discharge. Plan of Care - Missy Blake RN - 04/06/2017 7:30 AM CDT Problem: Discharge Planning Goal: Discharge Planning (Adult, OB, Behavioral, Peds) ROOM # 227 Living Situation (if not independent, order SW consult): ind with boyfriend bellperson: Sindhu, (Mother) Activity level at baseline: Ind Activity level on admit: SBA Patient registered to observation; given Patient Bill of Rights; given the opportunity to ask questions about observation status and their plan of care. Patient has been oriented to the observation room, bathroom and call light is in place. Discussed discharge goals and expectations with patient/family. documented in this encounter Plan of Treatment Not on filedocumented as of this encounter Procedures Procedure Name Priority Date/Time Associated Diagnosis Comme nts XR SURGERY ANGELICA Routine 04/06/2017 11:30 Results for this FLUORO LESS THAN 5 AM CDT procedure are in MIN W STILLS the results section. SURGICAL PATHOLOGY Routine 04/06/2017 11:23 Resul ts for this EXAM AM CDT procedure are i n the results section. STONE ANALYSIS Routine 04/06/2017 11:23 Calculus of left Resul ts for this AM CDT ureter procedure are i n the results section. CYSTOURETEROSCOPY, 04/06/2017 10:54 unknown WITH LITHOTRIPSY AM CDT USING LASER AND URETERAL STENT INSERTION CT ABDOMEN PELVIS W/O STAT 04/06/2017 5:02 Res ults for this CONTRAST AM CDT procedure are i n the results section. ISTAT GASES LACTATE Routine 04/06/2017 4:54 Resul ts for this VENOUS POCT AM CDT procedure are i n the results section. HCG QUALITATIVE URINE STAT 04/06/2017 4:10 Res ults for this AM CDT procedure are i n the results section. CBC WITH PLATELETS & STAT 04/06/2017 4:10 Resu lts for this DIFFERENTIAL AM CDT procedure are i n the results section. ROUTINE UA WITH STAT 04/06/2017 4:10 Results f or this MICROSCOPIC AM CDT procedure are i n the results section. LIPASE STAT 04/06/2017 4:10 Results for this AM CDT procedure are i n the results section. COMPREHENSIVE STAT 04/06/2017 4:10 Results for this METABOLIC PANEL AM CDT procedure ar e in the results section. URINE CULTURE Routine 04/06/2017 4:10 Pyelonephritis Results f or this AM CDT procedure are i n the results section. documented in this encounter Results XR Surgery ANGELICA L/T 5 Min Fluoro w Stills (04/06/2017 11:30 AM CDT) Specimen (Source) Anatomical Location Collection Method / Collectio n Time Received Time / Laterality Volume Narrative [facility] - 04/06/2017 11:31 AM CDT This exam was marked as non-reportable because it will not be read by a radiologist or a [place] non-radiologis t provider. Chau Ortega MD IM DIAGNOSTIC IMAGING ORDER MARGARET Performing Organization Address City/State/ZIP Code Phon e Number [facility] Surgical pathology exam (04/06/2017 11:23 AM CDT) Component Value Ref Test Analysis Performed At [facility] Range Method Time Signature Copath Report Patient Name: FAUZIA STUBBS MR#: [id number] Specimen #: [id number] Collected: 04/06/2017 Received: 04/06/2017 Reported: 04/06/2017 13:04 Ordering Phy(s): CHAU ORTEGA For improved result formatting, select 'View Enhanced Report Format' under Linked Documents section. SPECIMEN(S): Stone, left ureteral FINAL DIAGNOSIS: Left ureteral stone(s)- - Gross pathology the admission performed. - Submitted for chemical/stone analysis (see separate [facility] oming report for results). Electronically signed out by: Aleta Cody M.D. CLINICAL HISTORY: Left ureteral stone. GROSS: The specimen labeled left ureteral stone consists of multi ple crawford-baldwin granular concretions with an aggregate dimension of 0.5 and 0.5 x 0.3 cm. ??Submitted for chemical/stone analysis (see separate rthcoming report for results). (Dictated by: Aleta Cody MD 04/06/20 17 12:38 PM) MICROSCOPIC: No microscopic sections are obtained. CPT Codes: A: 41390-PF TESTING LAB LOCATION: [address] ??[address] COLLECTION SITE: Client: [facility] Location: RHERA (R) Specimen Anatomical Collection Method Collection Time Receive d Time (Source) Location / / Volume Laterality 04/06/2017 11:23 04/06/2017 AM CDT 12:28 PM CDT Chau Ortega MD [facility] Performing Organization Address City/State/ZIP Code Phon e Number [place] Stone analysis (04/06/2017 11:23 AM CDT) [facility] Method Time Signature Stone SEE NOTE 04/10/2017 [place] Composition 6:47 PM CDT [facility] Comment: (Note) Calculi composed primarily of: 10% calcium oxalate monohydrate, and 90% calcium phosphate (hydroxy- and carb donnie- apatite). INTERPRETIVE INFORMATION: Calculi (Stone ) analysis Calculi are the products of physiologica l processes that yield crystalline compounds in a matrix of biological compounds and blood. ??Matrix components are not reported. ?? The clinically significant crystalline c omponents identified in calculi specimens are repo rted. ??Gross description may not be consistent with c omposition determined by FTIR analysis. Performed by [facility], [address] [place] [email or web address] Endy Reilly MD, Lab. Director Calculi Number Numerous 04/10/2017 6:47 PM CDT [facility] Calculi Size 1 to 4 mm 04/10/2017 6:47 PM CDT [facility] Calculi Description SEE NOTE 04/10/2017 6:[address] [facility] Comment: (Note) Specimen consists of numerous, small, brown/baldwin, irregular calculi fragments. Stone Mass 30 mg 04/10/2017 6:47 PM CDT [facility] Specimen (Source) Anatomical Collection Method Collection Time Re ceived Time Location / / Volume Laterality Calculus specimen STRUCTURE OF LEFT 04/06/2017 11:23 (specimen) URETER / Unknown AM CDT Chau Ortega MD LAB - BODY FLUIDS ORDERABLES Performing Organization Address City/State/ZIP Code Phon e Number M [place] [address], [place] [address] [facility] [address] [place], [place] [address] [phone] Abd/pelvis CT no contrast - Stone Protocol (04/06/2017 5:02 AM CDT) Anatomical Region Laterality Modality Abdomen/Pelvis, SUBRAD CT BODY, UMP CT ABDOMEN PELVIS Computed Tomography Specimen (Source) Anatomical Location Collection Method / Collectio n Time Received Time / Laterality Volume Impressions 04/06/2017 6:57 AM CDT IMPRESSION: 1. There are two distal left ureteral st ones measuring up to 0.7 cm and causing moderate hydronephrosis. 2. Single tiny left intrarenal stone. NARAYAN ARROYO MD Narrative 04/06/2017 6:[address] ABDOMEN PELVIS W/O CONTRAST ??04/06/2017 5:02 AM ?? HISTORY: Left flank pain. TECHNIQUE: Imaging performed from the di aphragm to the base of the bladder using the renal stone protocol. No oral or intravenous contrast. Radiation dose for this scan w as reduced using automated exposure control, adjustment of the mA a nd/or kV according to patient size, or iterative reconstruction techni que. COMPARISON: None. FINDINGS: Abdomen: There is moderate dilatation of the left renal collecting system and ureter into the pelvis where there are two distal ureteral stones measuring up to 0.7 cm. These are approximately 4 cm above the ureterovesical junction. There is a sing le 0.1 cm stone in the lower pole of the left kidney. No right-sided urinary stones. There is minimal dependent atelectasis a t the lung bases. Evaluation of the solid abdominal organs is limited by the lack of intravenous contrast. The liver, spleen, gallbladder , pancreas and adrenal glands are normal in appearance. There is no ab dominal or pelvic lymph node enlargement. Pelvis: There is an IUD in place. No adn exal mass. There is no bowel obstruction. The appendix is within norm al limits. No free intraperitoneal gas or fluid. Multiple p elvic phleboliths. Procedure Note Narayan Arroyo MD - 04/06/2017Form atting of this note might be different from the original. CT ABDOMEN PELVIS W/O CONTRAST 04/06/2017 5:02 AM HISTORY: Left flank pain. TECHNIQUE: Imaging performed from the di aphragm to the base of the bladder using the renal stone protocol. No oral or intravenous contrast. Radiation dose for this scan w as reduced using automated exposure control, adjustment of the mA a nd/or kV according to patient size, or iterative reconstruction techni que. COMPARISON: None. FINDINGS: Abdomen: There is moderate dilatation of the left renal collecting system and ureter into the pelvis where there are two distal ureteral stones measuring up to 0.7 cm. These are approximately 4 cm above the ureterovesical junction. There is a sing le 0.1 cm stone in the lower pole of the left kidney. No right-sided urinary stones. There is minimal dependent atelectasis a t the lung bases. Evaluation of the solid abdominal organs is limited by the lack of intravenous contrast. The liver, spleen, gallbladder , pancreas and adrenal glands are normal in appearance. There is no ab dominal or pelvic lymph node enlargement. Pelvis: There is an IUD in place. No adn exal mass. There is no bowel obstruction. The appendix is within norm al limits. No free intraperitoneal gas or fluid. Multiple p elvic phleboliths. IMPRESSION: 1. There are two distal left ureteral st ones measuring up to 0.7 cm and causing moderate hydronephrosis. 2. Single tiny left intrarenal stone. NARAYAN ARROYO MD Luis Jones MD IMG CT ORDERABLES (ABNORMAL) ISTAT gases lactate thomas POCT (04/06/2017 4:54 AM CDT) Analysis Performed At Patho logist Time Signature Ph Venous 7.38 7.32 - 04/06/2017 POINT OF CARE 7.43 pH 5:00 AM CDT TEST, HANDHELD METER PCO2 Venous 38 (L) 40 - 50 mm 04/06/2017 POINT OF CARE Hg 5:00 AM CDT TEST, HANDHELD METER PO2 Venous 35 25 - 47 mm 04/06/2017 POINT OF CARE Hg 5:00 AM CDT TEST, HANDHELD METER Bicarbonate 22 21 - 28 04/06/2017 POINT OF CARE Venous mmol/L 5:00 AM CDT TEST, HANDHELD METER O2 Sat Venous 66 % 04/06/2017 POINT OF CARE 5:00 AM CDT TEST, HANDHELD METER Lactic Acid 0.4 (L) 0.7 - 2.1 04/06/2017 POINT OF CARE mmol/L 5:00 AM CDT TEST, HANDHELD METER Specimen Anatomical Collection Method Collection Time Receive d Time (Source) Location / / Volume Laterality 04/06/2017 4:54 AM 7 5:00 CDT AM CDT Luis Jones MD LAB - BEAKER POCT Performing Organization Address City/State/ZIP Code Phon e Number FV POINT OF CARE TEST, HANDHELD METER POINT OF CARE TEST, HANDHELD METER (ABNORMAL) Urine Culture Aerobic Bacterial (04/06/2017 4:10 AM CDT) Component Value Ref Test Analysis Performed At [facility] gist Range Method Time Signature Specimen Midstream Urine [facility] Special Specimen 04/06/2017 [facility] Requests received in 8:[address] [facility] preservative [facility] Culture Micro >100,000 colonies/mL 04/07/2017 [facility] Escherichia coli 9:[address] [facility] (A) [facility] Specimen (Source) Anatomical Collection Method Collection Time Re ceived Time Location / / Volume Laterality Examination of 04/06/2017 4:10 04/06/2017 4:24 midstream urine AM CDT AM CDT specimen (procedure) Organism Antibiotic Method Susceptibility Escherichia coli Ampicillin REMA <=2 ug/mL: Susc eptible Escherichia coli Cefazolin REMA <=4 ug/mL: Susc eptible Comment: Cefazolin REMA breakpoints ar e for the treatment of uncomplicated urinary tract infections. ??For the treat ment of systemic infections, please contact the laboratory for additional te sting. Escherichia coli Cefoxitin REMA <=4 ug/mL: Susc eptible Escherichia coli Ceftazidime REMA <=1 ug/mL: Susc eptible Escherichia coli Ceftriaxone REMA <=1 ug/mL: Susc eptible Escherichia coli Ciprofloxacin REMA <=0.25 ug/mL: S usceptible Escherichia coli Gentamicin REMA <=1 ug/mL: Susc eptible Escherichia coli Levofloxacin REMA <=0.12 ug/mL: S usceptible Escherichia coli Nitrofurantoin REMA <=16 ug/mL: Graciela ceptible Escherichia coli Tobramycin REMA <=1 ug/mL: Susc eptible Escherichia coli Trimethoprim/Sulfamethoxazole REMA < =1/19 ug/mL: Susceptible Escherichia coli Ampicillin/Sulbactam REMA <=2 ug/mL: Susceptible Escherichia coli Piperacillin/Tazo REMA <=4 ug/mL: Almonte sceptible Escherichia coli Cefepime REMA <=1 ug/mL: Susc eptible Luis Jones MD LAB - MICRO GENERAL ORDERABL ES Performing Organization Address City/State/ZIP Code Phon e Number [address] [address] [facility] [place] Lipase (04/06/2017 4:10 AM CDT) athologist Signature Lipase 148 73 - 393 04/06/[address] [facility] U/L 4:44 AM [facility] Specimen Anatomical Collection Method Collection Time Receive d Time (Source) Location / / Volume Laterality Blood specimen 04/06/2017 4:10 AM 017 4:24 (specimen) CDT AM CDT Luis Jones MD LAB - BLOOD ORDERABLES Performing Organization Address City/[facility] Phon e Number [facility] [address] [address] [facility] [address] [phone] (ABNORMAL) Comprehensive metabolic panel (04/06/2017 4:10 AM CDT) athologist Signature Sodium 137 133 - 144 04/06/2017 [place] mmol/L 4:44 AM [facility] Potassium 3.2 (L) 3.4 - 5.3 04/06/2017 [place] mmol/L 4:44 AM [facility] Chloride 104 94 - 109 04/06/2017 [place] mmol/L 4:44 AM [facility] Carbon Dioxide 25 20 - 32 04/06/2017 [place] mmol/L 4:44 AM [facility] Anion Gap 8 3 - 14 04/06/2017 [place] mmol/L 4:44 AM [facility] Glucose 102 (H) 70 - 99 04/06/2017 [place] mg/dL 4:44 AM [facility] Urea Nitrogen 12 7 - 30 04/06/2017 [place] mg/dL 4:44 AM [facility] Creatinine 0.80 0.52 - 04/06/2017 [facility] 1.04 mg/dL 4:44 AM [facility] GFR Estimate 88 >60 04/06/2017 [place] mL/min/1.7 4:[address] Comment: Non GFR Calc GFR Estimate If >90 >60 mL/min/1.7m2 04/06/2017 4:[address] [facility] Comment: GFR Calc Calcium 8.9 8.5 - 10.1 mg/dL 04/06/2017 4:44 AM [facility] Bilirubin Total 0.4 0.2 - 1.3 mg/dL 04/06/2017 4:44 AM [facility] Albumin 4.1 3.4 - 5.0 g/dL 04/06/2017 4:44 AM [facility] Protein Total 8.1 6.8 - 8.8 g/dL 04/06/2017 4:[address] [facility] Alkaline Phosphatase 108 40 - 150 U/L 04/06/2017 4:44 AM [facility] ALT 23 0 - 50 U/L 04/06/2017 4:44 AM [facility] AST 10 0 - 45 U/L 04/06/2017 4:44 AM [facility] Specimen Anatomical Collection Method Collection Time Receive d Time (Source) Location / / Volume Laterality Blood specimen 04/06/2017 4:10 AM 017 4:24 (specimen) CDT [facility] Luis Jones MD LAB - BLOOD ORDERABLES Performing Organization Address City/State/ZIP Code Phon e Number M [facility] [address] [place], [place] [address] [facility] [address] [place], [place] [address] [phone] CBC with platelets differential (04/06/2017 4:10 AM T) [facility] gist Method Time Signature WBC 8.1 4.0 - 04/06/2017 [facility] 11.0 4:28 AM [facility] 10e9/L [facility] RBC Count 4.40 3.8 - 5.2 04/06/2017 [facility] 10e12/L 4:28 AM [facility] Hemoglobin 13.5 11.7 - 04/06/2017 [facility] 15.7 g/dL 4:28 AM [facility] Hematocrit 40.0 35.0 - 04/06/2017 [facility] 47.0 % 4:28 AM [facility] MCV 91 78 - 100 04/06/2017 [facility] fl 4:28 AM [facility] MCH 30.7 26.5 - 04/06/2017 [facility] 33.0 pg 4:28 AM [facility] MCHC 33.8 31.5 - 04/06/2017 [facility] 36.5 g/dL 4:28 AM [facility] RDW 13.1 10.0 - 04/06/2017 [facility] 15.0 % 4:28 AM [facility] Platelet Count 278 150 - 450 04/06/2017 [facility] 10e9/L 4:28 AM [facility] Diff Method Automated 04/06/2017 [facility] Method 4:28 AM [facility] % Neutrophils 60.6 % 04/06/2017 [facility] 4:28 AM [facility] % Lymphocytes 29.5 % 04/06/2017 [facility] 4:28 AM [facility] % Monocytes 7.7 % 04/06/2017 [facility] 4:28 AM [facility] % Eosinophils 1.5 % 04/06/2017 [facility] 4:28 AM [facility] % Basophils 0.5 % 04/06/2017 [facility] 4:28 AM [facility] % Immature 0.2 % 04/06/2017 [facility] Granulocytes 4:28 AM [facility] Nucleated RBCs 0 0 /100 04/06/2017 [facility] 4:28 AM [facility] Absolute 4.9 1.6 - 8.3 04/06/2017 [facility] Neutrophil 10e9/L 4:28 AM [facility] Absolute 2.4 0.8 - 5.3 04/06/2017 [facility] Lymphocytes 10e9/L 4:28 AM [facility] Absolute 0.6 0.0 - 1.3 04/06/2017 [facility] Monocytes 10e9/L 4:28 AM [facility] Absolute 0.1 0.0 - 0.7 04/06/2017 [facility] Eosinophils 10e9/L 4:28 AM [facility] Absolute 0.0 0.0 - 0.2 04/06/2017 [place] Basophils 10e9/L 4:28 AM [facility] Abs Immature 0.0 0 - 0.4 04/06/2017 [facility] Granulocytes 10e9/L 4:28 AM [facility] Absolute 0.0 04/06/2017 [facility] Nucleated RBC 4:28 AM [facility] Specimen Anatomical Collection Method Collection Time Receive d Time (Source) Location / / Volume Laterality Blood specimen 04/06/2017 4:10 AM 017 4:24 (specimen) CDT CDT Luis Jones MD LAB - BLOOD ORDERABLES Performing Organization Address City/State/ZIP Code Phon e Number [address] [place] [address] [facility] [address] [phone] (ABNORMAL) UA with Microscopic (04/06/2017 4:10 AM CDT) [facility] Method Time Signature Color Urine Yellow 04/06/2017 [facility] 4:38 AM [facility] Appearance Urine Slightly 04/06/2017 [place] Cloudy 4:38 AM [facility] Glucose Urine Negative NEG^Negat 04/06/2017 [facility] kvng mg/dL 4:38 AM [facility] Bilirubin Urine Negative NEG^Negat 04/06/2017 [facility] kvng 4:38 AM [facility] Ketones Urine Negative NEG^Negat 04/06/2017 [place] kvng mg/dL 4:38 AM [facility] Specific [place] 1.013 1.003 - 04/06/2017 [place] Urine 1.035 4:38 AM [facility] Blood Urine Small (A) NEG^Negat 04/06/2017 [facility] kvng 4:38 AM [facility] pH Urine 5.0 5.0 - 7.0 04/06/2017 [place] pH 4:38 AM [facility] Protein Albumin 30 (A) NEG^Negat 04/06/2017 [place] Urine kvng mg/dL 4:38 AM [facility] Urobilinogen 0.0 0.0 - 2.0 04/06/2017 [place] mg/dL mg/dL 4:38 AM [facility] Nitrite Urine Negative NEG^Negat 04/06/2017 [place] kvng 4:38 AM [facility] Leukocyte Large (A) NEG^Negat 04/06/2017 [place] Esterase Urine kvng 4:38 AM [facility] Source Midstream 04/06/2017 [place] Urine 4:25 AM [facility] WBC Urine 126 (H) 0 - 2 04/06/2017 [facility] /HPF 4:38 AM [facility] RBC Urine 15 (H) 0 - 2 04/06/2017 [facility] /HPF 4:38 AM [facility] WBC Clumps Present (A) NEG^Negat 04/06/2017 [place] kvng /HPF 4:38 AM [facility] Bacteria Urine Many (A) NEG^Negat 04/06/2017 [facility] kvng /HPF 4:38 AM [facility] Squamous 1 0 - 1 04/06/2017 [place] Epithelial /HPF /HPF 4:38 AM [facility] Mucous Urine Present (A) NEG^Negat 04/06/2017 [place] /LPF 4:38 AM [facility] Specimen (Source) Anatomical Collection Method Collection Time Re ceived Time Location / / Volume Laterality Examination of URINE SPECIMEN 04/06/2017 4:10 04/06/20 17 4:24 midstream urine OBTAINED BY CLEAN AM [facility] specimen CATCH PROCEDURE / (procedure) Unknown Luis Jones MD LAB - URINE ORDERABLES Performing Organization Address [facility] Phon e Number [facility] [address] [place], [place] [address] [facility] [address] [place], [place] [address] [phone] HCG qualitative urine (04/06/2017 4:10 AM CDT) athologist Signature HCG Qual Urine Negative NEG^Negati 04/06/2017 [facility] 4:41 AM CDT [facility] Comment: This test is for screening purposes. ??R esults should be interpreted along with the clinical picture. ??Confirmation te sting is available if warranted by ordering [id number], HCG Quantitative Pregna ncy. Specimen Anatomical Collection Method Collection Time Receive d Time (Source) Location / / Volume Laterality Urine specimen URINE SPECIMEN 04/06/2017 4:10 AM 04/06 4:24 (specimen) OBTAINED BY CLEAN CDT AM CDT CATCH PROCEDURE / Unknown Luis Jones MD LAB - URINE ORDERABLES Performing Organization Address [facility] Phon e Number [facility] [address] [place], [place] [address] [facility] [address] [place], [place] [address] [phone] documented in this encounter Visit Diagnoses Diagnosis Calculus of left ureter - Primary Calculus of ureter Pyelonephritis Pyelonephritis, unspecified Calculus of ureter documented in this encounter Administered Medications Inactive Administered Medications - up to 3 most recent administrations Medication Order MAR Action Action Date Dose Rate Site 0.9% sodium chloride BOLUS New Bag 04/06/2017 4:15 AM CDT 1,000 mLs 1000 mL/hr Intravenous, 1,000 mL, ONCE, at 1,000 mL/hr, Administer over 1 Hours, On Sun04/06/17 at 0406, For 1 dose ciprofloxacin (CIPRO) infusion 400 New Bag 04/06/2017 5:43 AM CDT 400 mg 200 mL/hr mg STAT, 400 mg, Intravenous, ONCE, On Sun04/06/17 at 0530, For 1 dose, FREQ per ED MD: Q12H. NOTE: This E.D. medication will NOT continue upon admission unless ordered by admitting physician. Irritant., Indications: Pyelonephritis fentaNYL (PF) (SUBLIMAZE) injection 25-50 Given 04/06/2017 12:27 PM CDT 50 mcg mcg 25-50 mcg, Intravenous, EVERY 2 MIN PRN, other, acute pain while in PACU., Starting on Sun04/06/17 at 1213, MAX cumulative dose = 250 mcg. Use Fentanyl initially, as a short acting agent for acute pain control. If insufficient, or a longer acting agent is needed, begin Morphine or Hydromorphone if ordered., PACU fentaNYL (PF) (SUBLIMAZE) injection 25-5 0 mcg 25-50 mcg, Intravenous, EVERY 15 MIN PRN, other, acute pain while in Phase II, Starting on Sun04/06/17 at 1213, MAX cumulative dose = 250 mcg. Use Fentanyl initially, as a short acting agent for a cute pain control. If insufficient, or a longer acting agent is needed, begin Mor phine or Hydromorphone if ordered., Phase ll HYDROcodone-acetaminophen (NORCO) 5-325 MG Given 04/06 12:17 PM CDT 1 tablet per tablet 1-2 tablet 1-2 tablet, Oral, EVERY 4 HOURS PRN, moderate to severe pain, Starting on Sun04/06/17 at 1214, Maximum acetaminophen dose from all sources= 75 mg/kg/day not to exceed 4 grams, PACU/Phase II HYDROmorphone (PF) (DILAUDID) injection 0.3-0.5 mg 0.3-0.5 mg, Intravenous, EVERY 10 MIN RI N, other, acute pain.?May administer if Respiratory Rate is greater than 10, Sta rting on Sun04/06/17 at 1213, If fentanyl is also ordered, use HYDROmorphone if pa in control insufficient with fentanyl or a longer acting agent is needed. Max cumulative dose = 2 mg, PACU/Phase II HYDROmorphone (PF) (DILAUDID) injection 0.5 Given 04/06/2017 6:19 AM CDT 0.5 mg mg 0.5 mg, Intravenous, EVERY 15 MIN PRN, moderate to severe pain, Starting on Sun04/06/17 at 0532, For 3 doses ketorolac (TORADOL) injection 30 mg Given 04/06/2017 4:16 AM CDT 30 mg 30 mg, Intravenous, ONCE, On Sun04/06/17 at 0406, For 1 dose, Do not give within 6 hours of Ibuprofen. lactated ringers infusion New Bag 04/06/2017 8:16 AM CDT 150 mL/hr at 150 mL/hr, Intravenous, CONTINUOUS, Starting on Sun04/06/17 at 0658, Until Sun04/06/17 at 1652 lactated ringers infusion New Bag 04/06/2017 12:24 PM CDT 100 mL/hr at 100 mL/hr, Intravenous, CONTINUOUS, Continue until IV catheter is weaned, PACU/Phase II, Starting on Sun04/06/17 at 1215, Until Sun04/06/17 at 1652 meperidine (DEMEROL) injection 12.5 mg 12.5 mg, Intravenous, EVERY 15 MIN PRN, post anesthesia shivering, Starting on Sun04/06/17 at 1213, For 2 doses, PACU/Phase II naloxone (NARCAN) injection 0.1-0.4 mg 0.1-0.4 mg, Intravenous, EVERY 2 MIN PRN , opioid reversal, Starting on Sun04/06/17 at 1213, For 24 hours, For apnea or imminent respirato ry arrest: give 0.4 mg IV undiluted Q 2 minutes PRN until desired degree of reversal is obtained, stop opioid and notify provider. Continue monitoring until dischar ge are criteria met for a minimum of 2 hours. For severe sedation, decrease in respiratory depth, quality or Respiratory Rate greater than 8: give 0. 1 mg IV Q 2 minutes x 3 doses, stop opioid and notify provider. Try to minimize reversal of analg esia especially in end-of-life patients. Continue monitorin g until discharge criteria are met for a minimum of 2 hours., PACU/Phase II ondansetron (ZOFRAN) injection 4 mg Given 04/06/2017 6:43 AM CDT 4 mg 4 mg, Intravenous, EVERY 30 MIN PRN, nausea, vomiting, Administer over 2-5 Minutes, Starting on Sun04/06/17 at 0405, For 3 doses, May repeat in 30 minutes as needed, up to 3 doses. Irritant. Given 04/06/2017 4:16 AM CDT 4 mg ondansetron (ZOFRAN) injection 4 mg Given 04/06/2017 11:15 AM CDT 4 mg 4 mg, Intravenous, EVERY 6 HOURS PRN, nausea, vomiting, Administer over 2-5 Minutes, Starting on Sun04/06/17 at 0657, This is Step 1 of nausea and vomiting management. If nausea not resolved in 15 minutes, go to Step 2 prochlorperazine (COMPAZINE). Irritant. ondansetron (ZOFRAN) injection 4 mg 4 mg, Intravenous, EVERY 30 MIN PRN, patricia sea, vomiting, Administer over 2-5 Minutes, Starting on Sun04/06/17 at 1213, For 2 d oses, MAX total dose = 8 mg, including OR dosing. This is step 1 of the nausea and vomiting protocol. If not resolved in 15 minutes, then go to step 2 (Prochlorpera zine if ordered). Irritant., PACU/Phase II ondansetron (ZOFRAN-ODT) ODT tab 4 mg 4 mg, Oral, EVERY 6 HOURS PRN, nausea, v omiting, Starting on Sun04/06/17 at 0657, This is Step 1 of nausea and vomiting management. If n ausea not resolved in 15 minutes, go to Step 2 prochlorperazine (COMPAZINE). Do not push through foil backing. Peel back foil and gently remove. Place on to ngue immediately. Administration with liquid unnecessary ondansetron (ZOFRAN-ODT) ODT tab 4 mg 4 mg, Oral, EVERY 30 MIN PRN, nausea, vo miting, Starting on Sun04/06/17 at 1213, For 2 doses, MAX total dose = 8 mg, including OR dosin g. This is step 1 of the nausea and vomiting protocol. If not resolved in 15 mi nutes, then go to step 2 (Prochlorperazine if ordered)., PACU/Phase II ORAL Pain Medications - may administer a s ordered by surgeon for take home use CONTINUOUS PRN, Starting on Sun04/06/17 at 1213, Until Sun04/06/17 at 1652, May administer oral pain medications as ordered by surgeon for take home use. Discontinue IV pain medication prior to administration of oral pain medication., PACU/Phase II prochlorperazine (COMPAZINE) injection 5 -10 mg 5-10 mg, Intravenous, EVERY 6 HOURS PRN, nausea, vomiting, Starting on Sun04/06/17 at 0657, This is Step 2 of nausea and vo miting management. If nausea not resolved in 15 minutes, give metoclopramide (REGLAN) if ordered (step 3 of nausea and vomiting management) prochlorperazine (COMPAZINE) injection 5 -10 mg 5-10 mg, Intravenous, EVERY 6 HOURS PRN, nausea, vomiting, Starting on Sun04/06/17 at 1213, This is Step 2 of the nausea an d vomiting protocol. If nausea not resolved in 15 minutes, give Metoclopramide if ordered (step 3 of nausea and vomiting protocol) , PACU/Phase II prochlorperazine (COMPAZINE) Suppository 25 mg 25 mg, Rectal, EVERY 12 HOURS PRN, nausea, vomiting, S tarting on Sun04/06/17 at 0657, This is Step 2 of nausea and vomit ing management. If nausea not resolved in 15 minutes, give metoclopramide (REGLAN) if ordered (step 3 of nausea and vomiting management) prochlorperazine (COMPAZINE) tablet 5-10 mg 5-10 mg, Oral, EVERY 6 HOURS PRN, vomiti ng, Starting on Sun04/06/17 at 0657, This is Step 2 of nausea and vomiting managem ent. If nausea not resolved in 15 minutes, give metoclopramide (REGLANI) if ordered (step 3 of nausea and vomiting management) tamsulosin (FLOMAX) capsule 0.4 mg Given 04/06/2017 5:44 AM CDT 0.4 mg 0.4 mg, Oral, ONCE, On Sun04/06/17 at 0533, For 1 dose, Administer 30 minutes after the same meal each day. Capsules should be swallowed whole; do not crush chew or open. documented in this encounter Active and Recently Administered Medications Times are shown in CDT. Scheduled Medication Order 04/04/2017 04/05/2017 04/06/2017 0.9% sodium chloride BOLUS (COMPLETED) 3789 (New Bag - Provider: Du Daniel RN)3815 (Stopped - Provider: Du Daniel RN) Intravenous, 1,000 mL, ONCE, at 1,000 mL /hr, Administer over 1 Hours, Sun04/06/17 at 0406, For 1 dose ciprofloxacin (CIPRO) infusion 400 mg (COMPLETED) 0543 (New Bag - Provider: Du Daniel RN)0651 (ED Infusing on Admission/transfer - Provider: Du Daniel RN) 400 mg, Intravenous, ONCE, Sun04/06/17 a t 0530, For 1 dose, FREQ per ED MD: Q12H. NOTE: This E.D. medication will NOT continue upon admission unless ordered by admitting physician. Irritant., Indications: Pyelonephritis ciprofloxacin (CIPRO) infusion 400 mg 1017 (Auto Hold - Provider: Orders Generic Provider - Reason: Transfer to a procedural area)165 (Unhold - Provider: Orders Generic Provider) 400 mg, Intravenous, EVERY 12 HOURS, Fir st dose on Sun04/06/17 at 1600, Irritant., Indications: Urinary Tract Infection ketorolac (TORADOL) injection 30 mg (COMPLETED) 041 (Given - Provider: Du Daniel RN) 30 mg, Intravenous, ONCE, Sun04/06/17 at 0406, For 1 dose, Do not give within 6 hours of Ibuprofen. senna-docusate (SENOKOT-S;PERICOLACE) 8.6-50 MG per tablet 1-2 t ablet 0819 (Not Given - Provider: Ting Nava RN - Reason: Patient/family refused)1017 (Auto Hold - Provider: Orders Generic Provider - Reason: Transfer to a procedural area)165 (Unhold - Provider: Orders Generic Provider) 1-2 tablet, Oral, 2 TIMES DAILY, First d ose on Sun04/06/17 at 0800, Start with 1 tablet PO BID, If no bowel movement in 24 hours, increase to 2 tablets PO BID. Hold for loose stools. tamsulosin (FLOMAX) capsule 0.4 mg (COMPLETED) 05 (Given - Provider: Du Daniel RN) 0.4 mg, Oral, ONCE, Sun04/06/17 at 0533, For 1 dose, Administer 30 minutes after the same meal each day. Capsules should be swallowed whole; do not crush chew or open. Continuous Medication Order 04/04/2017 04/05/2017 04/06/2017 lactated ringers infusion 0816 ( New Bag - Provider: Ting Nava RN) at 150 mL/hr, Intravenous, CONTINUOUS, S tarting Sun04/06/17 at 0658, Until Sun04/06/17 at 1652 lactated ringers infusion (CANCELED) 1051 (New Bag - Provider: Rahul Almaraz APRN TECHNICAL OPERATIONS MANAGER)1140 (Anesthesia Volume Adjustment - Provider: Rahul Almaraz APRN TECHNICAL OPERATIONS MANAGER) at 25 mL/hr, Intravenous, CONTINUOUS, IF patient NOT on dialysis., Pre- procedure, Starting Sun04/06/17 at 1030, Until Sun04/06/17 at 1137 lactated ringers infusion 1224 ( New Bag - Provider: Gloria Eduardo RN) at 100 mL/hr, Intravenous, CONTINUOUS, C ontinue until IV catheter is weaned, PACU/Phase II, Starting Sun04/06/17 at 1215, Until Sun04/06/17 at 1652 PRN Medication Order 04/04/2017 04/05/2017 04/06/2017 acetaminophen (TYLENOL) tablet 650 mg 1017 (Auto Hold - Provider: Orders Generic Provider - Reason: Transfer to a procedural area)1652 (Unhold - Provider: Orders Generic Provider) 650 mg, Oral, EVERY 4 HOURS PRN, mild pa in, Starting Sun04/06/17 at 0657, Alternate ibuprofen (if ordered) with acetaminophen. Maximum acetaminophen dose from all sources = 75 mg/kg/day not to exceed 4 grams/day. fentaNYL (PF) (SUBLIMAZE) injection 25-50 mcg (CANCELED) 1227 (Given - Provider: Gloria Eduardo RN) 25-50 mcg, Intravenous, EVERY 2 MIN PRN, Starting Sun04/06/17 at 1213, other, acute pain while in PACU., MAX cumulative dose = 250 mcg. Use Fentanyl initially, as a short acting agent for acute pain con trol. If insufficient, or a longer actin g agent is needed, begin Morphine or Hydromorphone if ordered., PACU fentaNYL (PF) (SUBLIMAZE) injection 25-50 mcg 25-50 mcg, Intravenous, EVERY 15 MIN PRN , Starting Sun04/06/17 at 1213, other, acute pain while in Phase II, MAX cumulative dose = 250 mcg. Use Fentanyl initially, as a short acting agent for acute pain control. If insufficient, or a longer a cting agent is needed, begin Morphine or Hydromorphone if ordered., Phase ll HYDROcodone-acetaminophen (NORCO) 5-325 MG per tablet 1-2 tablet 1217 (Given - Provider: Gloria Eduardo RN) 1-2 tablet, Oral, EVERY 4 HOURS PRN, mod erate to severe pain, Starting Sun04/06/17 at 1214, Maximum acetaminophen dose from all sources= 75 mg/kg/day not to exceed 4 grams, PACU/Phase II HYDROmorphone (PF) (DILAUDID) injection 0.3-0.5 mg 1017 (Auto Hold - Provider: Orders Generic Provider - Reason: Transfer to a procedural area)1652 (Unhold - Provider: Orders Generic Provider) 0.3-0.5 mg, Intravenous, EVERY 2 HOURS P RN, Starting Sun04/06/17 at 0657, Until Sun04/06/17 at 1652, severe pain, breakthrough pain, If needing IV pain meds for 2 or more doses call provider to have ora l medications adjusted to get pain contr olled on oral regimen prior to discharge. HYDROmorphone (PF) (DILAUDID) injection 0.3-0.5 mg 0.3-0.5 mg, Intravenous, EVERY 10 MIN RI N, Starting Sun04/06/17 at 1213, Until Sun04/06/17 at 1652, other, acute pain.?May administer if Respiratory Rate is greater than 10, PACU/Phase II, If fentany l is also ordered, use HYDROmorphone if pain control insufficient with fentanyl or a longer acting agent is needed. Max cumulative dose = 2 mg HYDROmorphone (PF) (DILAUDID) injection 0.5 mg (CANCELED) 0619 (Given - Provider: Du Daniel RN) 0.5 mg, Intravenous, EVERY 15 MIN PRN, 3 doses, Starting Sun04/06/17 at 0532, Until Sun04/06/17 at 0709, moderate to severe pain ioversol 68% (OPTIRAY 320) 50 mL + sterile water 50 mL injection (CANCELED) 1127 (Given - Provider: Chau Ortega MD) 60 ml given, PRN, Starting Sun04/06/17 at 1127, Intra-procedure meperidine (DEMEROL) injection 12.5 mg 12.5 mg, Intravenous, EVERY 15 MIN PRN, 2 doses, Starting Sun04/06/17 at 1213, Until Sun04/06/17 at 1652, post anesthesia shivering, PACU/Phase II naloxone (NARCAN) injection 0.1-0.4 mg 1017 (Auto Hold - Provider: Orders Generic Provider - Reason: Transfer to a procedural area)1652 (Unhold - Provider: Orders Generic Provider) 0.1-0.4 mg, Intravenous, EVERY 2 MIN PRN , opioid reversal, Starting Sun04/06/17 at 0657, For respiratory rate LESS than or EQUAL to 8. Partial reversal dose: 0.1 mg titrated q 2 minutes for Analgesia Si de Effects Monitoring Sedation Level of 3 (frequently drowsy, arousable, drifts to sleep during conversation).Full reversal dose: 0.4 mg bolus for Analgesia Side Effects Monitoring Sedation Level of 4 ( somnolent, minimal or no response to stimulation). naloxone (NARCAN) injection 0.1-0.4 mg 0.1-0.4 mg, Intravenous, EVERY 2 MIN PRN , opioid reversal, Starting Sun04/06/17 at 1213, For 24 hours, For apnea or imminent respiratory arrest: give 0.4 mg IV undiluted Q 2 minutes PRN until desired de gree of reversal is obtained, stop opioi d and notify provider. Continue monitoring until discharge are criteria met for a minimum of 2 hours. For severe sedation, decrease in respiratory depth, quality or Respiratory Rate greater than 8: give 0.1 mg IV Q 2 minutes x 3 doses, stop opioid and notify provider. Try to minimize reversal of analgesia especially in end-of-life patients. Continue monitoring u ntil discharge criteria are met for a minimum of 2 hours., PACU/ Phase II ondansetron (ZOFRAN) injection 4 mg (CANCELED) 0416 (Given - Provider: Du Daniel RN)0643 (Given - Provider: Du Daniel RN) 4 mg, Intravenous, EVERY 30 MIN PRN, patricia sea, vomiting, Administer over 2-5 Minutes, Starting Sun04/06/17 at 0405, For 3 doses, May repeat in 30 minutes as needed, up to 3 doses. Irritant. ondansetron (ZOFRAN) injection 4 mg(Linked Group 1) 1017 (Auto Hold - Provider: Orders Generic Provider - Reason: Transfer to a procedural area)1115 (Given - Provider: Rahul Almaraz APRN CRNA)165 (Unhold - Provider: Orders Generic Provider) 4 mg, Intravenous, EVERY 6 HOURS PRN, na usea, vomiting, Administer over 2-5 Minutes, Starting Sun04/06/17 at 0657, This is Step 1 of nausea and vomiting management. If nausea not resolved in 15 minutes, go to Step 2 prochlorperazine (COMPAZINE). Irritant. ondansetron (ZOFRAN) injection 4 mg(Linked Group 2) 4 mg, Intravenous, EVERY 30 MIN PRN, patricia sea, vomiting, Administer over 2-5 Minutes, Starting Sun04/06/17 at 1213, For 2 doses, MAX total dose = 8 mg, including OR dosing. This is step 1 of the nausea an d vomiting protocol. If not resolved in 15 minutes, then go to step 2 (Prochlorperazine if ordered). Irritant., PACU/Phase II ondansetron (ZOFRAN-ODT) ODT tab 4 mg(Linked Group 1) 1017 (Auto Hold - Provider: Orders Generic Provider - Reason: Transfer to a procedural area)1115 (See Alternative - Provider: Rahul Almaraz APRN TECHNICAL OPERATIONS MANAGER)165 (Unhold - Provider: Orders Generic Provider) 4 mg, Oral, EVERY 6 HOURS PRN, nausea, v omiting, Starting Sun04/06/17 at 0657, This is Step 1 of nausea and vomiting management. If nausea not resolved in 15 minutes, go to Step 2 prochlorperazine (COMP AZINE). Do not push through foil backing . Peel back foil and gently remove. Place on tongue immediately. Administration with liquid unnecessary ondansetron (ZOFRAN-ODT) ODT tab 4 mg(Linked Group 2) 4 mg, Oral, EVERY 30 MIN PRN, nausea, vo miting, Starting Sun04/06/17 at 1213, For 2 doses, MAX total dose = 8 mg, including OR dosing. This is step 1 of the nausea and vomiting protocol. If not resolved in 15 minutes, then go to step 2 (Prochlorperazine if ordered)., PACU/Phase II opium-belladonna (B&O SUPPRETTES) 30-16.2 MG per suppository (CA NCELED) 1125 (Given - Provider: Chau Ortega MD) PRN, Starting Sun04/06/17 at 1125, Intra-procedure ORAL Pain Medications - may administer as ordered by surgeon for take home use CONTINUOUS PRN, Starting Sun04/06/17 at 1213, Until Sun04/06/17 at 1652, May administer oral pain medications as ordered by surgeon for take home use. Discontinue IV pain medication prior to administration of oral pain medication., PACU/Phase II oxyCODONE (ROXICODONE) IR tablet 5-10 mg 1017 (Auto Hold - Provider: Orders Generic Provider - Reason: Transfer to a procedural area)1651 (Unhold - Provider: Orders Generic Provider) 5-10 mg, Oral, EVERY 3 HOURS PRN, modera te to severe pain, Starting Sun04/06/17 at 0657, If age greater than 65 use lower dose for first time use. polyethylene glycol (MIRALAX/GLYCOLAX) Packet 17 g 1017 (Auto Hold - Provider: Orders Generic Provider - Reason: Transfer to a procedural area)1651 (Unhold - Provider: Orders Generic Provider) 17 g, Oral, DAILY PRN, constipation, Sta rting Sun04/06/17 at 0657, Give in 8oz of water, juice, or soda. Hold for loose stools. This is the second step of a three step constipation treatment protocol. 1 Packet = 17 grams. Mixed prescribed dos e in 8 ounces of water. Follow with 8 oz. of water. prochlorperazine (COMPAZINE) injection 5-10 mg(Linked Group 3) 1017 (Auto Hold - Provider: Orders Generic Provider - Reason: Transfer to a procedural area)1651 (Unhold - Provider: Orders Generic Provider) 5-10 mg, Intravenous, EVERY 6 HOURS PRN, nausea, vomiting, Starting Sun04/06/17 at 0657, This is Step 2 of nausea and vomiting management. If nausea not resolved in 15 minutes, give metoclopramide (REGL AN) if ordered (step 3 of nausea and vomiting management) prochlorperazine (COMPAZINE) injection 5-10 mg 5-10 mg, Intravenous, EVERY 6 HOURS PRN, nausea, vomiting, Starting Sun04/06/17 at 1213, This is Step 2 of the nausea and vomiting protocol. If nausea not resolved in 15 minutes, give Metoclopramide if ordered (step 3 of nausea and vomiting protocol) , PACU/Phase II prochlorperazine (COMPAZINE) Suppository 25 mg(Linked Group 3) 1017 (Auto Hold - Provider: Orders Generic Provider - Reason: Transfer to a procedural area)1652 (Unhold - Provider: Orders Generic Provider) 25 mg, Rectal, EVERY 12 HOURS PRN, nause a, vomiting, Starting Sun04/06/17 at 0657, This is Step 2 of nausea and vomiting management. If nausea not resolved in 15 minutes, give metoclopramide (REGLAN) if ordered (step 3 of nausea and vomiting management) prochlorperazine (COMPAZINE) tablet 5-10 mg(Linked Group 3) 1017 (Auto Hold - Provider: Orders Generic Provider - Reason: Transfer to a procedural area)1652 (Unhold - Provider: Orders Generic Provider) 5-10 mg, Oral, EVERY 6 HOURS PRN, vomiti ng, Starting Sun04/06/17 at 0657, This is Step 2 of nausea and vomiting management. If nausea not resolved in 15 minutes, give metoclopramide (REGLANI) if ordered (step 3 of nausea and vomiting management) sterile water irrigation (bag) (CANCELED) 1125 (Given - Provider: Chau Ortega MD) PRN, Intra-procedure, Starting Sun04/06/17 at 1125, Until Sun at 1331 Linked Groups Order Group 1: ondansetron (ZOFRAN-ODT) ODT tab 4 mgJump to med 4 mg, Oral, EVERY 6 HOURS PRN, nausea, v omiting, Starting Sun04/06/17 at 0657
This is Step 1 of nausea and vomiting management. If nausea not resolved in 15 minutes, go to ep 2 prochlorperazine (COMPAZINE). Do no t push through foil backing. Peel back foil and gently remove. Place on tongue immediately. Administration with liquid unnecessary
Or ondansetron (ZOFRAN) injection 4 mgJump to med 4 mg, Intravenous, EVERY 6 HOURS PRN, na usea, vomiting, Administer over 2-5 Minutes, Starting Sun04/06/17 at 0657
This is Step 1 of nausea and vomiting management. If nausea not resolved in 15 minutes, go to Step 2 prochlorperazine (COMPAZINE). Irritant.
Group 2: ondansetron (ZOFRAN-ODT) ODT tab 4 mgJump to med 4 mg, Oral, EVERY 30 MIN PRN, nausea, vo miting, Starting Sun04/06/17 at 1213, For 2 doses
MAX total dose = 8 mg, including OR dosing. This is step 1 of the nausea and vomiting protocol.&nbs p; If not resolved in 15 minutes, t hen go to step 2 (Prochlorperazine if ordered).
PACU/Phase II Or ondansetron (ZOFRAN) injection 4 mgJump to med 4 mg, Intravenous, EVERY 30 MIN PRN, patricia sea, vomiting, Administer over 2-5 Minutes, Starting Sun04/06/17 at 1213, For 2 doses
MAX total dose = 8 mg, including OR dosing. This is step 1 of the n ausea and vomiting protocol. If not resolved in 15 minutes, then go to step 2 (Prochlorperazine if ordered). Irritant.
PACU/Phase II Group 3: prochlorperazine (COMPAZINE) injection 5-10 mgJump to med 5-10 mg, Intravenous, EVERY 6 HOURS PRN, nausea, vomiting, Starting Sun04/06/17 at 0657
This is Step 2 of nausea and vomiting management. If nausea not resolved in 15 minutes, give me toclopramide (REGLAN) if ordered (step 3 of nausea and vomiting management)
Or prochlorperazine (COMPAZINE) tablet 5-10 mgJump to med 5-10 mg, Oral, EVERY 6 HOURS PRN, vomiti ng, Starting 04/06/17 at 0657
This is Step 2 of nausea and vomiting management. If nausea not resolved in 15 minutes, give metoclopramide (R EGLANI) if ordered (step 3 of nausea and vomiting management)
Or prochlorperazine (COMPAZINE) Suppository 25 mgJump to med 25 mg, Rectal, EVERY 12 HOURS PRN, nause a, vomiting, Starting 04/06/17 at 0657
This is Step 2 of nausea and vomiting management. If nausea not resolved in 15 minutes, give metoclop ramide (REGLAN) if ordered (step 3 of na usea and vomiting management)
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
--- OUTSIDE RECORDS SUMMARY | 2022-03-24 08:36 | XMS_ITS | Encounter Summary ---
:1990 Author Organization [place] Address [address] [place] [address] Care Team Providers Name Role Phone No Ref-Primary, Physician Primary Care Provider Unavailable Reason for Visit Reason Comments Flank Pain Encounter Details Date Type Department Care Team Description 04/06/2017 Surgery [facility] Chau Ortega ED CYSTOSCOPY, [facility] Ribeiro MD LEFT URETEROSCOPY, [address] [facility] [place], [place] [address] LITHOTRIPSY URETER, [address] [place] [address] INSERTION LEFT STENT, (Wo rk) stone basketing, stone removal Surgery Details Date/Time Status Location OR Service Patient Class Case Case Trauma Class Type Case? 04/06/17 10:50 Posted [facility] OR OR 14 Laser Inpatient AM Urology Panel 1 Procedure LRB Anes Op Region Wound Class Commen ts COMBINED CYSTOSCOPY, Left General Flank II-Clean Contam inated COMBINED CYSTOSCOPY, LEFT URETEROSCOPY, LEFT U RETEROSCOPY, LASER HOLMIUM LASER HOLMI UM LITHOTRIPSY URETER, LITHO TRIPSY URETER, INSERTION LEFT STENT, INS ERTION LEFT stone basketing, STENT, s tone stone removal basketing, stone removal Surgeon Surgeon Role Service Panel Chau Ortega MD Primary Laser Urology 1 documented in this encounter Social History Tobacco Use Types Packs/Day Years Used Date Never Assessed Sex Assigned at Date Recorded Not on file documented as of this encounter Last Filed Vital Signs Vital Sign Reading Time Taken Comments Blood Pressure 115/87 04/06/2017 11:45 AM CDT Pulse 72 04/06/2017 7:00 AM CDT Temperature 36.5 ??C (97.7 ??F) 04/06/2017 11:41 AM CDT Respiratory Rate 13 04/06/2017 11:45 AM CDT Oxygen Saturation 100% 04/06/2017 11:45 AM CDT Inhaled Oxygen Concentration - - Weight - - Height - - Body Mass Index - - documented in this encounter Discharge Summaries Wei, Vilma Taylor PA-C - 04/06/2017 9:39 AM CDT [facility] Outpatient / Observation Unit Discharge Summary Fauzia [...] [facility] [phone] During surgery, a stent may be placed [...] Please call your physician or the physician litigation counsel if you experience: Fever greater than 101 degrees Severe pain not relieved by pain medication or rest Please make an appointment for the removal of the stent according to your physician's instructions. EXTRACORPOREAL SHOCK LITHOTRIPSY (ESWL) DISCHARGE INSTRUCTIONS [facility] [phone] Your stone(s) has been fragmented into many [...] them for 24 hours: Yes. Name: Sindhu (mom), Contact information: [phone] Belongings/Valuables - Will be sent to PeriOp with pt. Foam Tank Laminator - Pt DOES NOT need an acute dialysis registered nurse. 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 Jordan Dahl PA-C [facility] Urology (text or call, Sun-Sun & Fri until 5pm) Associated attestation - Chau Ortega MD - 04/06/2017 9:25 AM CDT I have seen and examined the patient and I agree with the above findings and plan Discussed surgery and its risks, she wishes to proceed to OR today documented in this encounter ED Notes Du Cooper RN - 04/06/2017 6:10 AM CDT Hospitalist in to evaluate pt Du Cooper RN - 04/06/2017 6:02 AM CDT Observation Brochure and Video Patient and family informed of observation status based on provider's order. Observation Brochure was given and video watched. Du Cooper RN Chiqui Jeff RN - 04/06/2017 5:[address] [facility] ED Nurse Handoff Report Fauzia Stubbs is a 26 year old female ED Chief complaint: Flank Pain . ED Diagnosis: Final diagnoses: Pyelonephritis Calculus of ureter Allergies: Allergies Allergen Reactions ??? Penicillins Code Status: Full Code Activity level - Baseline/Home: Independent. Activity Level - Current: Independent. Lift room needed: No. Bariatric: No Foam Tank Laminator Needed: No Isolation: No. Infection: Not Applicable. [...] time: 04/06/17 05:18:04 ?? Preliminary result by Tia Kay (04/06/17 05:18:04) ?? Impression: ?? IMPRESSION: 1. There are two distal left ureteral stones measuring up to 0.7 cm and causing moderate hydronephrosis. 2. Single tiny left intrarenal stone. Treatments provided:IV fluid, IV abx Family Comments: Mother at bedside OBS brochure/video discussed/provided to patient: N/A ED Medications: Medications 0.9% sodium chloride BOLUS (1,000 mLs Intravenous New Bag 04/06/17 2501) Followed by 0.9% sodium chloride infusion (not administered) ondansetron (ZOFRAN) injection 4 mg (4 mg Intravenous Given 04/06/17 5039) ciprofloxacin (CIPRO) infusion 400 mg (not administered) HYDROmorphone (PF) (DILAUDID) injection 0.5 mg (not administered) tamsulosin (FLOMAX) capsule 0.4 mg (not administered) ketorolac (TORADOL) injection 30 mg (30 mg Intravenous Given 04/06/17 0416) Drips infusing: Yes For the majority of [...] with flank pain. Patient woke this morning [id number] with left sided flank pain associated by [...] BOLUS (1,000 mLs Intravenous New Bag 04/06/17 0415) Followed by 0.9% sodium chloride infusion (not administered) ondansetron (ZOFRAN) injection 4 mg (4 mg Intravenous Given 04/06/17 0416) ciprofloxacin (CIPRO) infusion 400 mg (400 mg Intravenous New Bag 04/06/17 0543) HYDROmorphone (PF) (DILAUDID) injection 0.5 mg (not [...] N20.1 Disposition: Admitted to hospitalist service. Osmin Basurtoyder 04/06/2017 [facility] EMERGENCY DEPARTMENT I, Osmin Toure am serving as a scribe at 4:01 [...] The procedure began by introducing the 22 [place] rigid cystoscope through the urethra into the [...] in the office. CHAU ORTEGA MD MT: [id number] Name: FAUZIA STUBBS MRN: [id number] Account: [id number] : 1990 Procedure Date: 04/06/2017 Document: [id number] Pharmacy-Admission Medication History - Rosie Enrique [facility] - 04/06/2017 9:41 AM CDT Admission medication history interview status for this patient is complete. See [facility] admission navigator for allergy information, prior to admission medications and immunization status. 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 Will continue to monitor. Signal Repairer Nurse Safe discharge environment identified: Yes Barriers [...] independent, order SW consult): ind with boyfriend salesperson toy trains and accessories: Sindhu, (Mother) Activity level at baseline: Ind [...] be read by a radiologist or a [facility] non-radiologis t provider. Chau Ortega MD IMG DIAGNOSTIC IMAGING ORDER MARGARET Performing Organization Address City/State/ZIP Code Phon e Number [facility] Surgical pathology exam (04/06/2017 11:23 AM CDT) Component Value Ref Test Analysis Performed At [facility] Range Method Time Signature Copath Report Patient Name: FAUZIA STUBBS MR#: [id number] Specimen #: [id number] Collected: 04/06/2017 Received: 04/06/2017 Reported: 04/06/2017 13:04 Ordering Phy(s): CHAU ORTEGA For improved result formatting, select 'View Enhanced Report Format' under Linked Documents section. SPECIMEN(S): Stone, left ureteral FINAL DIAGNOSIS: Left ureteral stone(s)- - Gross pathology the admission performed. - Submitted for chemical/stone analysis (see separate [facility] oming report for results). Electronically signed out [...] microscopic sections are obtained. CPT Codes: A: 18503-ET TESTING LAB LOCATION: [address] ??[id number] COLLECTION SITE: Client: [facility] Location: [facility] (R) Specimen Anatomical Collection Method Collection Time Receive d Time (Source) Location / / Volume Laterality 04/06/2017 11:23 04/06/2017 AM CDT 12:28 PM CDT Chau Ortega MD LAB - [facility] Performing Organization Address City/State/ZIP Code Phon e Number [place] Stone analysis (04/06/2017 11:23 AM CDT) [facility] Method Time Signature Stone SEE NOTE 04/10/2017 [place] Composition 6:47 PM CDT [facility] Comment: (Note) Calculi composed primarily of: 10% [...] omposition determined by FTIR analysis. Performed by [employer], [facility] [place] [address] [email or web address], Endy Reilly MD, Lab. Director Calculi Number Numerous 04/10/2017 6:47 PM CDT [facility] Calculi Size 1 to 4 mm 04/10/2017 6:47 PM CDT [facility] Calculi Description SEE NOTE 04/10/2017 6:47 PM C DT [facility] Comment: (Note) Specimen consists of numerous, small, brown/baldwin, irregular calculi fragments. Stone Mass 30 mg 04/10/2017 6:47 PM CDT [facility] Specimen (Source) Anatomical Collection Method Collection Time Re ceived Time Location / / Volume Laterality Calculus specimen STRUCTURE OF LEFT 04/06/2017 11:23 (specimen) URETER / Unknown AM CDT Chau Ortega MD LAB - BODY FLUIDS ORDERABLES Performing Organization Address City/State/ZIP Code Phon e Number [place] [address] [facility] [address] [phone] Abd/pelvis CT no contrast - Stone Protocol [...] fluid. Multiple p elvic phleboliths. Procedure Note StrandNarayan MD - 04/06/2017Form atting of this note [...] Component Value Ref Test Analysis Performed At Patholo gist Range Method Time Signature Specimen Midstream Urine [facility] Description [facility] Special Specimen 04/06/2017 [facility] Requests received in 8:21 AM CDT [facility] preservative [facility] Culture Micro >100,000 colonies/mL 04/07/2017 [facility] Escherichia coli 9:26 PM CDT [facility] (A) [facility] Specimen (Source) Anatomical Collection Method Collection [...] Organization Address City/State/ZIP Code Phon e Number [address] [address] [facility] Lipase (04/06/2017 4:10 AM CDT) athologist Signature Lipase 148 73 - 393 04/06/2017 [facility] U/L 4:44 AM CDT HOSPITAL Specimen Anatomical Collection Method Collection Time Receive d Time (Source) Location / / Volume Laterality Blood specimen 04/06/2017 4:10 AM 017 4:24 (specimen) CDT AM CDT Luis Jones MD LAB - BLOOD ORDERABLES Performing Organization Address City/State/ZIP Code Phon e Number [facility] [address] [place] [phone] [facility] [address] [place], [place] [address] [place] [address] (ABNORMAL) Comprehensive metabolic panel (04/06/2017 4:10 AM [facility]) P athologist Signature Sodium 137 133 - 144 04/06/2017 [place] mmol/L 4:44 AM [facility] Potassium 3.2 (L) 3.4 - 5.3 04/06/2017 [place] mmol/L 4:44 AM [facility] Chloride 104 94 - 109 04/06/2017 [place] mmol/L 4:44 AM [facility] Carbon Dioxide 25 20 - 32 04/06/2017 [place] mmol/L 4:44 AM [facility] Anion Gap 8 3 - 14 04/06/2017 [place] mmol/L 4:44 AM [facility] Glucose 102 (H) 70 - 99 04/06/2017 [facility] mg/dL 4:44 AM [facility] Urea Nitrogen 12 7 - 30 04/06/2017 [place] mg/dL 4:44 AM [facility] Creatinine 0.80 0.52 - 04/06/2017 [place] 1.04 mg/dL 4:44 AM [facility] GFR Estimate 88 >60 04/06/2017 [place] mL/min/1.7 4:[address] Comment: Non GFR Calc GFR Estimate If >90 >60 mL/min/1.7m2 04/06/2017 4:44 A [facility] Comment: GFR Calc Calcium 8.9 8.5 - 10.1 mg/dL 04/06/2017 4:44 AM [facility] Bilirubin Total 0.4 0.2 - 1.3 mg/dL 04/06/2017 4:44 AM [facility] Albumin 4.1 3.4 - 5.0 g/dL 04/06/2017 4:44 AM [facility] Protein Total 8.1 6.8 - 8.8 g/dL 04/06/2017 4:44 AM [facility] Alkaline Phosphatase 108 40 - 150 U/L 04/06/2017 4:44 AM [facility] ALT 23 0 - 50 U/L 04/06/2017 4:44 AM [facility] AST 10 0 - 45 U/L 04/06/2017 4:44 AM [facility] Specimen Anatomical Collection Method Collection Time Receive d Time (Source) Location / / Volume Laterality Blood specimen 04/06/2017 4:10 AM 017 4:24 (specimen) CDT AM CDT Luis Jones MD LAB - BLOOD ORDERABLES Performing Organization Address City/State/ZIP Code Phon e Number [place] [address] [address] [place] [address] [facility] [address] [phone] CBC with platelets differential (04/06/2017 4:10 AM CDT) [facility] Method Time Signature WBC 8.1 4.0 - 04/06/2017 [facility] 11.0 4:28 AM [facility] 10e9/L [facility] RBC Count 4.40 3.8 - 5.2 04/06/2017 [facility] 10e12/L 4:28 AM [facility] Hemoglobin 13.5 11.7 - 04/06/2017 [facility] 15.7 g/dL 4:28 AM [facility] Hematocrit 40.0 35.0 - 04/06/2017 [facility] 47.0 % 4:28 AM [facility] MCV 91 78 - 100 04/06/2017 [facility] fl 4:28 AM [facility] MCH 30.7 26.5 - 04/06/2017 [facility] 33.0 pg 4:28 AM [facility] MCHC 33.8 31.5 - 04/06/2017 [facility] 36.5 g/dL 4:28 AM [facility] RDW 13.1 10.0 - 04/06/2017 [facility] 15.0 % 4:28 AM [facility] Platelet Count 278 150 - 450 04/06/2017 [facility] 10e9/L 4:28 AM [facility] Diff Method Automated 04/06/2017 [facility] Method 4:28 AM [facility] % Neutrophils 60.6 % 04/06/2017 [facility] 4:28 AM [facility] % Lymphocytes 29.5 % 04/06/2017 [facility] 4:28 AM [facility] % Monocytes 7.7 % 04/06/2017 [facility] 4:28 AM [facility] % Eosinophils 1.5 % 04/06/2017 [facility] 4:28 AM [facility] % Basophils 0.5 % 04/06/2017 [facility] 4:28 AM [facility] % Immature 0.2 % 04/06/2017 [facility] Granulocytes 4:28 AM [facility] Nucleated RBCs 0 0 /100 04/06/2017 [facility] 4:28 AM [facility] Absolute 4.9 1.6 - 8.3 04/06/2017 [place] Neutrophil 10e9/L 4:28 AM [facility] Absolute 2.4 0.8 - 5.3 04/06/2017 [place] Lymphocytes 10e9/L 4:28 AM [facility] Absolute 0.6 0.0 - 1.3 04/06/2017 [place] Monocytes 10e9/L 4:28 AM [facility] Absolute 0.1 0.0 - 0.7 04/06/2017 [facility] Eosinophils 10e9/L 4:28 AM [facility] Absolute 0.0 0.0 - 0.2 04/06/2017 [place] Basophils 10e9/L 4:28 AM [facility] Abs Immature 0.0 0 - 0.4 04/06/2017 [place] Granulocytes 10e9/L 4:28 AM [facility] Absolute 0.0 04/06/2017 [place] Nucleated RBC 4:28 AM [facility] Specimen Anatomical Collection Method Collection Time Receive d Time (Source) Location / / Volume Laterality Blood specimen 04/06/2017 4:10 AM 017 4:24 (specimen) CDT [facility] Luis Jones MD LAB - BLOOD ORDERABLES Performing Organization Address City/State/ZIP Code Phon e Number [place] [address] [address] [place] [address] [facility] [address] [phone] (ABNORMAL) UA with Microscopic (04/06/2017 4:10 AM T) [facility] Method Time Signature Color Urine Yellow 04/06/2017 [facility] 4:38 AM [facility] Appearance Urine Slightly 04/06/2017 [facility] Cloudy 4:38 AM [facility] Glucose Urine Negative NEG^Negat 04/06/2017 [facility] kvng mg/dL 4:38 AM [facility] Bilirubin Urine Negative NEG^Negat 04/06/2017 [facility] kvng 4:38 AM [facility] Ketones Urine Negative NEG^Negat 04/06/2017 [facility] kvng mg/dL 4:38 AM [facility] Specific [place] 1.013 1.003 - 04/06/2017 [facility] Urine 1.035 4:38 AM [facility] Blood Urine Small (A) NEG^Negat 04/06/2017 [facility] kvng 4:38 AM [facility] pH Urine 5.0 5.0 - 7.0 04/06/2017 [facility] pH 4:38 AM [facility] Protein Albumin 30 (A) NEG^Negat 04/06/2017 [facility] Urine kvng mg/dL 4:38 AM [facility] Urobilinogen 0.0 0.0 - 2.0 04/06/2017 [facility] mg/dL mg/dL 4:38 AM [facility] Nitrite Urine Negative NEG^Negat 04/06/2017 [facility] kvng 4:38 AM [facility] Leukocyte Large (A) NEG^Negat 04/06/2017 [facility] Esterase Urine kvng 4:38 AM [facility] Source Midstream 04/06/2017 [facility] Urine 4:25 AM [facility] WBC Urine 126 (H) 0 - 2 04/06/2017 [facility] /HPF 4:38 AM [facility] RBC Urine 15 (H) 0 - 2 04/06/2017 [facility] /HPF 4:38 AM [facility] WBC Clumps Present (A) NEG^Negat 04/06/2017 [facility] kvng /HPF 4:38 AM [facility] Bacteria Urine Many (A) NEG^Negat 04/06/2017 [facility] kvng /HPF 4:38 AM [facility] Squamous 1 0 - 1 04/06/2017 [place] Epithelial /HPF /HPF 4:38 AM [facility] Mucous Urine Present (A) NEG^Negat 04/06/2017 [place] kvng /LPF 4:38 AM [facility] Specimen (Source) Anatomical Collection Method Collection Time Re ceived Time Location / / Volume Laterality Examination of URINE SPECIMEN 04/06/2017 4:10 04/06/20 17 4:24 midstream urine OBTAINED BY CLEAN AM CDT AM CDT specimen CATCH PROCEDURE / (procedure) Unknown Luis Jones MD LAB - URINE ORDERABLES Performing Organization Address City/[facility] Phon e Number M [facility] [address] [place], [place] [address] [facility] [address] [place], [place] [address], [facility] [phone] HCG qualitative urine (04/06/2017 4:10 AM CDT) athologist Signature HCG Qual Urine Negative NEG^Negati 04/06/2017 [place] ve 4:41 AM [facility] Comment: This test is for screening purposes. ??R esults should be interpreted along with the clinical picture. ??Confirmation te sting is available if warranted by ordering [id number], HCG Quantitative Pregna ncy. Specimen Anatomical Collection Method Collection Time Receive d Time (Source) Location / / Volume Laterality Urine specimen URINE SPECIMEN 04/06/2017 4:10 AM 04/06 4:24 (specimen) OBTAINED BY CLEAN CDT AM CDT CATCH PROCEDURE / Unknown Luis Jones MD LAB - URINE ORDERABLES Performing Organization Address [facility] Phon e Number M [facility] [address] [place], [place] [address] [facility] [address] [place], [place] [address], [facility] [phone] documented in this encounter Visit Diagnoses Not on filedocumented in this encounter Administered Medications Inactive Administered [...] mg 0.3-0.5 mg, Intravenous, EVERY 10 MIN IN N, other, acute pain.?May administer if Respiratory [...] on Sun04/06/17 at 0532, For 3 doses ioversol 68% (OPTIRAY Given 04/06/2017 11:27 AM 60 ml given Operative 320) 50 mL + sterile CDT Site /Surgical Site water 50 mL injection PRN, Starting on Sun04/06/17 at 1127, Intra-procedure ketorolac (TORADOL) injection 30 mg Given 04/06/2017 [...] PACU/Phase II opium-belladonna (B&O SUPPRETTES) 30-16.2 MG Given 11:25 AM CDT 30 mg per suppository PRN, Starting on Sun04/06/17 at 1125, Intra-procedure ORAL Pain Medications - may administer a [...] nausea and vomiting management) sterile water irrigation Given 04/06/2017 11:25 AM 500 mLs Operative Site/Surgical (bag) CDT Site PRN, Intra-procedure, Starting on Sun04/06/17 at 1125, Until Sun04/06/17 at 1331 tamsulosin (FLOMAX) capsule 0.4 mg Given 04/06/2017 [...] 04/05/2017 04/06/2017 0.9% sodium chloride BOLUS (COMPLETED) 0415 (New Bag - Provider: Du Daniel RN)0515 (Stopped - Provider: Du Daniel RN) Intravenous, [...] area)1652 (Unhold - Provider: Orders Generic Provider) 400 mg, Intravenous, EVERY 12 HOURS, Fir st dose on Sun04/06/17 at 1600, Irritant., Indications: Urinary Tract Infection ketorolac (TORADOL) injection 30 mg (COMPLETED) 0416 (Given - Provider: Du Daniel RN) 30 [...] area)1652 (Unhold - Provider: Orders Generic Provider) 1-2 [...] (New Bag - Provider: Rahul Almaraz APRN MUD TRUCKER)1140 (Anesthesia Volume Adjustment - Provider: Rahul Almaraz APRN CRNA) at 25 mL/hr, Intravenous, CONTINUOUS, IF patient [...] area)165 (Unhold - Provider: Orders Generic Provider) 650 [...] area)165 (Unhold - Provider: Orders Generic Provider) 0.3-0.5 [...] mg 0.3-0.5 mg, Intravenous, EVERY 10 MIN IN N, Starting Sun04/06/17 at 1213, Until Sun04/06/17 at 1652, other, acute pain.?May administer if Respiratory Rate is greater than 10, PACU/Phase II, If fentany l is also ordered, use HYDROmorphone if pain control insufficient with fentanyl or a longer acting agent is needed. Max cumulative dose = 2 mg HYDROmorphone (PF) (DILAUDID) injection 0.5 mg (CANCELED) 0619 (Given - Provider: Du Cooper V RN) 0.5 mg, Intravenous, EVERY 15 MIN [...] a procedural area)1115 (Given - Provider: Rahul Almaraz, ARMY MANAGER MUD TRUCKER)1652 (Unhold - Provider: Orders Generic Provider) 4 [...] procedural area)1115 (See Alternative - Provider: Rahul Almaraz, ARMY MANAGER MUD TRUCKER)165 (Unhold - Provider: Orders Generic Provider) 4 [...] area)165 (Unhold - Provider: Orders Generic Provider) 5-10 [...] prochlorperazine (COMPAZINE) injection 5-10 mg(Linked Group 3) 1016 (Auto Hold - Provider: Orders Generic Provider [...] prochlorperazine (COMPAZINE) Suppository 25 mg(Linked Group 3) 7 (Auto Hold - Provider: Orders Generic Provider - Reason: Transfer to a procedural area)1651 (Unhold - Provider: Orders Generic Provider) 25 [...] not resolved in 15 minutes, go to St ep 2 prochlorperazine (COMPAZINE). Do no t [...] HOURS PRN, vomiti ng, Starting Sun04/06/17 at 0657
This is Step 2 of nausea and vomiting management. If nausea not resolved in 15 minutes, give metoclopramide (R EGLANI) if ordered (step 3 of nausea and vomiting management)
Or prochlorperazine (COMPAZINE) Suppository 25 mgJump to med 25 mg, Rectal, EVERY 12 HOURS PRN, nause a, vomiting, Starting Sun04/06/17 at 0657
This is Step 2 of nausea and vomiting management. If nausea not resolved in 15 minutes, give metoclop ramide (REGLAN) if ordered (step 3 of na usea and vomiting management)
documented in this encounter Care Teams Kiln [employer] House Operator Relationship Specialty Start Date End Date No Ref-Primary, Physician PCP - General 04/06/17 documented as of this encounter
--- OUTSIDE RECORDS SUMMARY | 2022-03-24 08:36 | XMS_ITS | Encounter Summary ---
:1990 Author Organization [facility] Address [address] [place] [address] Care Team Providers Name Role Phone No Ref-Primary, Physician Primary Care Provider [phone] Reason for Visit Reason Comments Chest Pain Encounter Details Date Type Department Care Team Description 12/14/2020 Emergency [facility] Daniel Avelar, Chest pain Emergency Dept PA-C [address] [facility] [place] [phone] [employer]ael ALEXANDER [phone] [address] [place], [place] [id number] (Wo rk) Social History Tobacco Use Types [...] / COVID-19? documented as of this encounter Last Filed [...] Mass Index 26.45 12/14/2020 11:09 AM CDT documented in this encounter Discharge Instructions Discharge InstructionsDaniel Mckinnon PA-C - 12/14/2020 4:58 PM CDT Discharge Instructions Chest Pain You have been seen today for chest pain or discomfort. At this time, your provider has found no signs that your chest pain is due to a serious or life- threatening condition, (or you have declined more testing and/or admission to the hospital). However, sometimes there is a serious problem that does not show up right away. Your evaluation today may not be complete and you may need further testing and evaluation. Generally, every Emergency Department visit should have a follow-up clinic visit with either a primary or a specialty clinic/provider. Please follow-up as instructed by your emergency provider today. Return to the Emergency Department if: Your chest pain changes, gets worse, starts to happen more often, or comes with less activity. You are newly short of breath. You get very weak or tired. You pass out or faint. You have any new symptoms, like fever, cough, numb legs, or you cough up blood. You have anything else that worries you. Until you follow-up with your regular provider, please do the following: Take one aspirin daily unless you have an allergy or are told not to by your provider. If a stress test appointment has been made, go to the appointment. If you have questions, contact your regular provider. Follow-up with your regular provider/clinic as directed; this is very important. If you were given a prescription for medicine here today, be sure to read all of the information (including the package insert) that comes with your prescription. This will include important information about the medicine, its side effects, and any warnings that you need to know about. The pharmacist who fills the prescription can provide more information and answer questions you may have about the medicine. If you have questions or concerns that the pharmacist cannot address, please call or return to the Emergency Department. Remember that you can always come back to the Emergency Department if you are not able to see your regular provider in the amount of time listed above, if you get any new symptoms, or if there is anything that worries you. AttachmentsThe following attachments cannot be sent through Care Everywhere. Chest Pain, Noncardiac (Thai)documented in this encounter Medications at Time of [...] left ureter documented as of this encounter ED Notes Nely Riggins RN - 12/14/2020 11:09 AM CDT Patient complaining of several days of chest pain that comes of goes. Worse when she is up and working. Better when she sits and rests. ABCs intact. Alert and oriented x 3. Daniel Mckinnon PA-C - 12/14/2020 10:47 AM CDT History Chief Complaint: Chest Pain The history is provided by the patient. Fauzia Moore is a 30 year old female who presents for evaluation of chest pain. For the last 2-3 days, she reports dealing with a constant chest pressure that will radiate into her neck. Shestates the pressure is constant but she has been experiencing intermittent sharp pains throughout these days. She states this sharpening tends to happen when she exhales as she describes feeling her chest clench up with breathing. 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 She states the pain improves at rest or when she bends forward. She does report a previous episode of this type of chest pain however it occurred a couple years ago and resolved on its own after less than a day of symptoms. Given the more prolonged nature of this pain, she presented to the ED today. In addition to the pain, she reports feeling warm and feverish however her temperature has always been normal when checked. She also reports mild shortness of breath, but she states this is not worse than her baseline as she is a smoker. She denies nausea, vomiting, orcough. She does report about one week of right leg pain without swelling. She denies recent surgery,long travel, hospitalizations, or other immobilizations. She also denies personal or family history of heart or lung disease. She also denies chance of . Allergies: Penicillins Medications: The patient is currently on no regular medications. Past Medical History: Kidney stones Past Surgical History: Laser holmium lithotripsy, left stent placed Family History: She denies family history of heart problems in parents or siblings. Social History: Presents with her fiance Philip. She does report tobacco use. Review of Systems Constitutional: Positive for diaphoresis. Negative for fever. Respiratory: Positive for shortness of breath. Cardiovascular: Positive for chest pain. Negative for leg swelling. Gastrointestinal: Negative for nausea and vomiting. Musculoskeletal: Right leg pain All other systems reviewed and are negative. Physical Exam Patient Vitals for the past 24 hrs: BP Temp Temp src Pulse Resp SpO2 Height Weight 12/14/20 1109 130/87 98.3 ??F (36.8 ??C) Temporal 102 18 97 % 1.829 m (6') 88.5 kg (195 lb) Physical Exam General: Awake, alert, pleasant, non-toxic. Head: Scalp is NC/AT Eyes: Conjunctiva normal, PERRL ENT: The external nose and ears are normal. Neck: Normal range of motion without rigidity. CV: Regular rate and rhythm No pathologic murmur, rubs, or gallops. Resp: Breath sounds are clear bilaterally. No crackles, wheezes, rhonchi, stridor. Non-labored, no retractions or accessory muscle use Abdomen: Abdomen is soft, no distension, no tenderness, no masses. No CVA tenderness. MS: No lower extremity edema or asymmetric calf swelling. Normal ROM in all joints without effusions. No midline cervical, thoracic, or lumbar tenderness Skin: Warm and dry, No rash or lesions noted. 2+ peripheral pulses in all extremities Neuro: Alert and oriented x3. No gross motor deficits. No facial asymmetry. Psych: Awake. Alert. Normal affect. Appropriate interactions. Emergency Department Course ECG ECG taken at 1242, ECG read at [address] Estrada Normal sinus rhythm with sinus arrhythmia. Normal ECG. Rate 66 bpm. ME interval 138 ms. QRS duration 104 ms. QT/QTc 402/421 ms. P-R-T axes 43 44 61. Imaging: Chest XR, PA & LAT: Heart size is normal. No pleural effusion, pneumothorax, or abnormal area of consolidation. Reading per radiology. Laboratory: CBC: WBC 5.5, HGB: 11.9, PLT: 195 BMP: Gl: 110 (H), o/w WNL (Creatinine: 0.88) Troponin (Collected at 1355): <0.015 D dimer: 0.3 Qualitative hCG: Negative Emergency Department Course: Reviewed: I reviewed the patient's nursing notes, vitals, past medical records, and Care Everywhere. Assessments: 1453: I performed an exam of the patient, as documented above. History obtained and plan for ED workup discussed as well. 165: I reassessed the patient and discussed the results of the work up and discussed recommendations for home. Disposition: The patient was discharged to home. Impression & Plan Medical Decision Makin30 year old female who presents with chest pain. Patient history and records reviewed. Broad differential considered including: ACS, PE, dissection, pneumothorax, pneumonia, esophageal rupture, musculoskeletal chest wall pain, referred pain from abdomen. Patient well appearing with non-concerning vitals. EKG without evidence of acute ischemia or arrythmia. Troponin negative despite constant symptoms >6 hours, and patient is a HEART score of 1 ([id number]) and I feel ACS or mycocarditis is unlikely. D dimer negative and not high risk by Well's criteria making PE very unlikely. Chest x-ray shows no evidence of pneumonia, pneumothorax, CHF, or mediastinal widening. No other high risk factors present for aortic dissection very unlikely at this time. Abdominal examination non-tender and doubt referred pain from intra-abdominal catastrophe, pancreatitis, gallbladder pathology. Suspect musculoskeletal etiology is most likely. Counseled on smoking cessation. OTC analgesics and anti-inflammatories. Follow-up with PCP within 2 to 3 days. Return precautions for new or worsening symptoms given. Diagnosis: ICD-10-CM 1. Chest pain R07.9 Scribe Disclosure: I, Zulema Umanzor, am serving as a scribe on 12/14/2020 at 2:53 PM to personally document services performed by Daniel Mckinnno PA-C, based on my observations and the provider's statements to me. 12/14/2020 EMERGENCY DEPARTMENT Daniel Mckinnon PA-C 12/14/20 1835 documented in this encounter Plan of Treatment Not on filedocumented as of this encounter Procedures Procedure Name Priority Date/Time Associated Comments Diagnosis XR CHEST 2 VIEWS STAT 12/14/2020 4:48 PM Resul ts for this CDT procedure are i n the results section. CBC WITH PLATELETS & STAT 12/14/2020 3:45 PM R esults for this DIFFERENTIAL CDT procedure are i n the results section. D DIMER QUANTITATIVE STAT 12/14/2020 3:45 PM R esults for this CDT procedure are i n the results section. TROPONIN I STAT 12/14/2020 1:55 PM Results f or this CDT procedure are i n the results section. HCG QUALITATIVE Routine 12/14/2020 1:55 PM Result s for this CDT procedure are i n the results section. BASIC METABOLIC PANEL STAT 12/14/2020 1:55 PM Results for this CDT procedure are i n the results section. EKG 12-LEAD, TRACING STAT 12/14/2020 12:42 Res ults for this ONLY PM CDT procedure are i n the results section. documented in this encounter Results Chest XR, PA & LAT (12/14/2020 4:48 PM CDT) Anatomical Region Laterality Modality Chest Computed Radiography Specimen (Source) Anatomical Location Collection Method / Collectio n Time Received Time / Laterality Volume Impressions 12/14/2020 4:53 PM CDT IMPRESSION: Heart size is normal. No pleural effusion, pneumothorax, or abnormal area of consolidation. TONY CEDILLO MD Narrative 12/14/2020 4:53 PM CDT CHEST TWO VIEWS ??12/14/2020 4:48 PM HISTORY: 30-year-old woman with chest pa in. COMPARISON: None Procedure Note Tony Cedillo MD - 12/14/2020 CHEST TWO VIEWS 12/14/2020 4:48 PM HISTORY: 30-year-old woman with chest pa in. COMPARISON: None IMPRESSION: Heart size is normal. No ple ural effusion, pneumothorax, or abnormal area of consolidation. TONY CEDILLO MD Daniel Mckinnon PA-C IMG DIAGNOSTIC IMAGING TL MTMICKIE (ABNORMAL) CBC with platelets differential (12/14/2020 3:45 PM CDT) [facility] Method Time Signature WBC 5.5 4.0 - 12/14/2020 [facility] 11.0 4:09 PM [facility] 10e9/L [facility] RBC Count 3.79 (L) 3.8 - 5.2 12/14/2020 [facility] 10e12/L 4:09 PM [facility] Hemoglobin 11.9 11.7 - 12/14/2020 [facility] 15.7 g/dL 4:09 PM [facility] Hematocrit 37.2 35.0 - 12/14/2020 [facility] 47.0 % 4:09 PM [facility] MCV 98 78 - 100 12/14/2020 [facility] fl 4:09 PM [facility] MCH 31.4 26.5 - 12/14/2020 [facility] 33.0 pg 4:09 PM [facility] MCHC 32.0 31.5 - 12/14/2020 [facility] 36.5 g/dL 4:09 PM [facility] RDW 12.8 10.0 - 12/14/2020 [facility] 15.0 % 4:09 PM [facility] Platelet Count 195 150 - 450 12/14/2020 [facility] 10e9/L 4:09 PM [facility] Diff Method Automated 12/14/2020 [facility] Method 4:09 PM [facility] % Neutrophils 58.3 % 12/14/2020 [facility] 4:09 PM [facility] % Lymphocytes 27.5 % 12/14/2020 [facility] 4:09 PM [facility] % Monocytes 11.5 % 12/14/2020 [facility] 4:09 PM [facility] % Eosinophils 1.8 % 12/14/2020 [facility] 4:09 PM [facility] % Basophils 0.5 % 12/14/2020 [facility] 4:09 PM [facility] % Immature 0.4 % 12/14/2020 [facility] Granulocytes 4:09 PM [facility] Nucleated RBCs 0 0 /100 12/14/2020 [facility] 4:09 PM [facility] Absolute 3.2 1.6 - 8.3 12/14/2020 [facility] Neutrophil 10e9/L 4:09 PM [facility] Absolute 1.5 0.8 - 5.3 12/14/2020 [facility] Lymphocytes 10e9/L 4:09 PM [facility] Absolute 0.6 0.0 - 1.3 12/14/2020 [facility] Monocytes 10e9/L 4:09 PM [facility] Absolute 0.1 0.0 - 0.7 12/14/2020 [facility] Eosinophils 10e9/L 4:09 PM [facility] Absolute 0.0 0.0 - 0.2 12/14/2020 [facility] Basophils 10e9/L 4:09 PM [facility] Abs Immature 0.0 0 - 0.4 12/14/2020 [facility] Granulocytes 10e9/L 4:09 PM [facility] Absolute 0.0 12/14/2020 [place] [place] Nucleated RBC 4:09 PM [facility] Specimen Anatomical Collection Method Collection Time Receive d Time (Source) Location / / Volume Laterality 12/14/2020 3:45 PM 3:58 CDT PM CDT Daniel Mckinnon PA-C LAB - BLOOD ORDERABLES Performing Organization Address City/State/ZIP Code Phon e Number M [facility] [address] [place], [place] [address] [facility] [address] [place] [id number] [phone] D dimer quantitative (12/14/2020 3:45 PM CDT) athologist Signature D Dimer 0.3 0.0 - 0.50 12/14/2020 [facility] ug/ml FEU 4:30 PM CDT [facility] Comment: This D-dimer assay is intended for use i n conjunction with a clinical pretest probability assessment model to exclude pulmonary embolism (PE) and deep venous thrombosis (DVT) in outpatients s uspected of PE or DVT. The cut-off value is 0.5 ug/mL FEU. Specimen Anatomical Collection Method Collection Time Receive d Time (Source) Location / / Volume Laterality Blood 12/14/2020 3:45 PM 1 3:58 CDT PM CDT Daniel Mckinnon PA-C LAB - BLOOD ORDERABLES Performing Organization Address [facility] Phon e Number [facility] [address] [place], [place] [address] [facility] [address] [place], [place] [address], [facility] [phone] HCG qualitative (12/14/2020 1:55 PM CDT) [facility] Method Time Signature HCG Qualitative Negative NEG^Negati 12/14/2020 [place] [place] Serum ve 3:57 PM CDT [facility] Comment: This test is for screening purposes. ??R esults should be interpreted along with the clinical picture. ??Confirmation te sting is available if warranted by ordering [id number], HCG Quantitative Pregna ncy. Specimen Anatomical Collection Method Collection Time Receive d Time (Source) Location / / Volume Laterality 12/14/2020 1:55 PM 1 2:45 CDT PM CDT Edith Ortega MD LAB - BLOOD ORDERABLES Performing Organization Address [facility] Phon e Number [facility] [address] [place], [place] [address] [facility] [address] [place], [place] [address], [facility] [phone] Troponin I (12/14/2020 1:55 PM CDT) athologist Signature Troponin I ES <0.015 0.000 - 12/14/2020 [place] 0.045 ug/L 3:23 PM [facility] Comment: The 99th percentile for upper reference range is 0.045 ug/L. ??Troponin values in the range of 0.045 - 0.120 ug/L may b e associated with risks of adverse clinical events. Specimen Anatomical Collection Method Collection Time Receive d Time (Source) Location / / Volume Laterality Blood 12/14/2020 1:55 PM 2:45 CDT PM CDT Daniel Mckinnon PA-C LAB - BLOOD ORDERABLES Performing Organization Address City/State/ZIP Code Phon e Number M [facility] [address] [phone] [facility] [address] [address], [phone] (ABNORMAL) Basic metabolic panel (12/14/2020 1:55 PM CDT) athologist Signature Sodium 139 133 - 144 12/14/2020 [place] mmol/L 3:23 PM [facility] Potassium 3.8 3.4 - 5.3 12/14/2020 [place] mmol/L 3:23 PM [facility] Comment: Specimen slightly hemolyzed, po tassium may be falsely elevated Chloride 110 (H) 94 - 109 mmol/L 12/14/2020 3:23 PM [facility] Carbon Dioxide 23 20 - 32 mmol/L 12/14/2020 3:23 PM [facility] Anion Gap 6 3 - 14 mmol/L 12/14/2020 3:23 PM [facility] Glucose 84 70 - 99 mg/dL 12/14/2020 3:23 PM [facility] Urea Nitrogen 12 7 - 30 mg/dL 12/14/2020 3:23 PM [facility] Creatinine 0.88 0.52 - 1.04 mg/dL 12/14/2020 3:23 PM [facility] GFR Estimate 89 >60 12/14/2020 3:23 PM [facility] mL/min/{1.73_m2} [facility] Comment: Non GFR Calc Starting 07/09/2018, serum creatinine ba sed estimated GFR (eGFR) will be calculated using the Chronic Kidney Dise [facility] Epidemiology Collaboration (CKD-EPI) equation. GFR Estimate If >90 >60 mL/min/{1.73_m2} 12/14/2020 3: 23 PM [facility] Comment: GFR Calc Starting 07/09/2018, serum creatinine ba sed estimated GFR (eGFR) will be calculated using the Chronic Kidney Dise [facility] Epidemiology Collaboration (CKD-EPI) equation. Calcium 8.7 8.5 - 10.1 mg/dL 12/14/2020 3:23 PM CDT [facility] Specimen Anatomical Collection Method Collection Time Receive d Time (Source) Location / / Volume Laterality Blood 12/14/2020 1:55 PM 2:45 CDT PM CDT Daniel Mckinnon PA-C LAB - BLOOD ORDERABLES Performing Organization Address City/State/ZIP Code Phon e Number [facility] [address] [phone] [facility] [address] [place] [address], [facility] [phone] EKG 12 lead (12/14/2020 12:42 PM CDT) [facility] Method Time Signature Interpretation ECG Click View RADIOLOGY Image link RESULTS to view waveform and result Specimen (Source) Anatomical Collection Method Collection Time Re ceived Time Location / / Volume Laterality 12/14/2020 12:42 PM CDT Daniel Mckinnon PA-C ECG ORDERABLES Performing Organization Address City/State/ZIP Code Phon e Number RADIOLOGY RESULTS documented in this encounter Visit Diagnoses Diagnosis Chest pain Chest pain, unspecified documented in this encounter Care Teams Line Assigner Relationship Specialty Start Date End Date No Ref-Primary, Physician PCP - General 12/14/20 documented as of this encounter
--- OUTSIDE RECORDS SUMMARY | 2022-03-24 08:36 | XMS_ITS | Encounter Summary ---
:1990 Author Organization [facility] Address [address] [place] [address] Care Team Providers Name Role Phone No Ref-Primary, Physician Primary Care Provider Unavailable Encounter Details Date Type Department Care Team Description 04/06/2017 Anesthesia Event M [facility] Eleanor Alfredo mami PeriOp Services MD [place] [address] [place], [place] ANESTHESIA [address] [address] [place], [place] [address] Anesthesia Record Procedure Summary Procedure Name Responsible Anesthesia Start Anesthesia Stop Anesthesiologist Time Time COMBINED CYSTOSCOPY, Tarik Alfredo, 04/06/17 1105 0 04/06/17 1140 LEFT URETEROSCOPY, LASER HOLMIUM LITHOTRIPSY URETER, INSERTION LEFT STENT, stone basketing, stone removal (Left Flank) Events Date Time Event Comment 04/06/2017 1105 An Start 1105 An Start Data 1108 An Induction 1108 MD Present 1109 AN START SEVO 1110 An LMA 1135 AN END SEVO 1135 LMA Removed 1136 an stop data 1140 An Stop Electronically s igned by Rahul Almaraz on April 06 11:40 AM 1140 Present Name Total midazolam 1mg/mL 2 mg fentaNYL (SUBLIMAZE) injection 50 mcg lidocaine 1% 50 mg propofol (DIPRIVAN) injection 10 mg/mL vial 200 mg dexamethasone 4 mg/mL 4 mg ondansetron (ZOFRAN) injection 4 mg 4 mg lactated ringers infusion 600 mL Agents Name NO HELIOX O2 N2O Air Exp Sevoflurane Exp Isoflurane Exp Desflurane Exp N2O Ins Sevoflurane Ins Isoflurane Ins Desflurane O2 Auxiliary Blood No blood administrations on file. Lines, Drains, and Airways Type Details Placement Removal Incision/Surgical Site 04/06/17; 1118; Other 04/06/17 1118 by (Comment); urethra Angelique Porter, TIFFANIE Retired Non-Surgical 04/06/17; 1110; Easy; 04/06/17 1110 by 03/23 12/06 1135 by Airway Intravenous; Easy; 4; Almaraz, Rahul Joshua, Buen o, Rahul laryngeal mask airway; FACTORY HAND KOSHER DIETARY SERVICE SUPERVISOR Joshua, FACTORY HAND KOSHER DIETARY SERVICE SUPERVISOR center of mouth; Equal, clear and bilateral; KOSHER DIETARY SERVICE SUPERVISOR Peripheral IV 04/06/17; 1140; 20 G; 04/06/17 1140 by 04/06/17 1408 by Right Gloria Eduardo Seal, Jennif er RN RN documented in this encounter Social History Tobacco Use Types Packs/Day Years Used Date Never Assessed Sex Assigned at Date Recorded Not on file documented as of this encounter OR Notes Anesthesia Postprocedure Evaluation - Tarik Alfredo MD - 04/06/2017 12:01 PM CDT Patient: Fauzia Richard Procedure(s): COMBINED CYSTOSCOPY, LEFT URETEROSCOPY, LASER HOLMIUM LITHOTRIPSY URETER, INSERTION LEFT STENT, stone basketing, stone removal - Wound Class: II-Clean Contaminated Diagnosis:unknown Diagnosis Additional Information: Left ureteral stone Anesthesia Type: General, LMA Note: Anesthesia Post Evaluation Patient location during evaluation: PACU Patient participation: Able to fully participate in evaluation Level of consciousness: awake and alert Pain management: adequate Airway patency: patent Cardiovascular status: acceptable Respiratory status: acceptable Hydration status: acceptable PONV: none Anesthetic complications: None Last vitals: Vitals: 04/06/17 1020 04/06/17 1021 04/06/17 1141 BP: 99/65 115/84 Pulse: Resp: 16 26 Temp: 97.3 ??F (36.3 ??C) 97.7 ??F (36.5 ??C) SpO2: 100% 100% Electronically Signed By: Tarik Alfredo MD April 06, 2017 12:01 PM Anesthesia Preprocedure Evaluation - Tarik Alfredo MD - 04/06/2017 10:46 AM CDT Anesthesia Evaluation . Pt has had prior anesthetic. Type: General No history of anesthetic complications ROS/MED HX ENT/Pulmonary: - neg pulmonary ROS Neurologic: - neg neurologic ROS Cardiovascular: - neg cardiovascular ROS METS/Exercise Tolerance: Hematologic: - neg hematologic ROS Musculoskeletal: - neg musculoskeletal ROS GI/Hepatic: - neg GI/hepatic ROS Renal/Genitourinary: (+) Nephrolithiasis , Endo: - neg endo ROS Psychiatric: - neg psychiatric ROS Infectious Disease: - neg infectious disease ROS Malignancy: - no malignancy Other: - neg other ROS Physical Exam Normal systems: cardiovascular, pulmonary and dental Airway Mallampati: I TM distance: >3 FB Neck ROM: full Dental Cardiovascular Pulmonary Anesthesia Plan History & Physical Review History and physical reviewed and following examination; no interval change. ASA Status: 1 . NPO Status: > 8 hours Plan for General and LMA with Intravenous and Propofol induction. Maintenance will be Balanced. PONV prophylaxis: Ondansetron (or other 5HT-3) and Dexamethasone or Solumedrol Postoperative Care Postoperative pain management: IV analgesics and Oral pain medications. Consents Anesthetic plan, risks, benefits and alternatives discussed with: Patient or food service representative and Patient.. . documented in this encounter Miscellaneous Notes Anesthesia Care Transfer Note - Rahul Almaraz APRN CRNA - 04/06/2017 11:40 AM CDT Patient: Fauzia Richard Procedure(s): COMBINED CYSTOSCOPY, LEFT URETEROSCOPY, LASER HOLMIUM LITHOTRIPSY URETER, INSERTION LEFT STENT, stone basketing, stone removal - Wound Class: II-Clean Contaminated Diagnosis: unknown Diagnosis Additional Information: No value filed. Anesthesia Type: General, LMA Note: Airway :Face Mask Patient transferred to:PACU Comments: Pt sv good tidal volumes, awake LMA removed prepare to transfer to PACU, Report to GROUND OPERATIONS CREW MEMBER. VSS transfer care Vitals: (Last set prior to Anesthesia Care Transfer) KOSHER DIETARY SERVICE SUPERVISOR VITALS 04/06/2017 1106 - 04/06/2017 1140 04/06/2017 Pulse: 126 SpO2: 100 % Resp Rate (observed): 10 Electronically Signed By: Rahul Almaraz APRN CRNA April 06, 2017 11:40 AM documented in this encounter Plan of Treatment Not on filedocumented as of this encounter Visit Diagnoses Not on filedocumented in this encounter Administered Medications Inactive Administered Medications - up to 3 most recent administrations Medication Order MAR Action Action Date Dose Rate Site dexamethasone (DECADRON) injection Given 04/06/2017 11:09 AM CDT 4 mg Intravenous, PRN, Administer over 1-4 Minutes, Starting on Sun04/06/17 at 1109, Anesthesia Intra-op fentaNYL (PF) (SUBLIMAZE) injection Given 04/06/2017 11:08 AM CDT 50 mcg PRN, moderate to severe pain, Starting on Sun04/06/17 at 1108, Anesthesia Intra-op lactated ringers infusion New Bag 04/06/2017 10:51 AM CDT at 25 mL/hr, Intravenous, CONTINUOUS, IF patient NOT on dialysis., Pre-procedure, Starting on Sun04/06/17 at 1030, Until Sun04/06/17 at 1137 lidocaine 1 % injection Given 04/06/2017 11:08 AM CDT 50 mg PRN, Starting on Sun04/06/17 at 1108, Anesthesia Intra-op midazolam (VERSED) injection Given 04/06/2017 11:10 AM CDT 2 mg PRN, anxiety, Starting on Sun04/06/17 at 1110, Anesthesia Intra-op ondansetron (ZOFRAN) injection 4 mg Given 04/06/2017 11:15 AM CDT 4 mg 4 mg, Intravenous, EVERY 6 HOURS PRN, nausea, vomiting, Administer over 2-5 Minutes, Starting on Sun04/06/17 at 0657, This is Step 1 of nausea and vomiting management. If nausea not resolved in 15 minutes, go to Step 2 prochlorperazine (COMPAZINE). Irritant. propofol (DIPRIVAN) injection 10 mg/mL v ial Given 04/06/2017 11:08 AM CDT 200 mg PRN, Starting on Sun04/06/17 at 1108, Anesthesia Intra-op documented in this encounter Care Teams Field Aide Relationship Specialty Start Date End Date No Ref-Primary, Physician PCP - General 04/06/17 documented as of this encounter
--- OUTSIDE RECORDS SUMMARY | 2022-03-24 08:36 | XMS_ITS | Encounter Summary ---
:1990 Author Organization [facility] Address [address] [place] [address] Care Team Providers Name Role Phone Unavailable Primary Care Provider Unavailable Encounter Details Date Type Department Care Team Description 05/01/2017 Telephone [facility] RE[facility] Chioma Harding PA-C [address] [place] [address] [place] [address] [address] [place], [place] [address] (Wo rk) Social History Tobacco Use Types Packs/Day Years Used Date Current Every Day Smoker Smokeless Tobacco: Never Used Sex Assigned at Date Recorded Not on file documented as of this encounter Miscellaneous Notes Telephone Encounter - Chioam Harding PA-C - 05/01/2017 4:55 PM CDT Attempted to call patient but no answer. Positive urine culture, has followed up with urology at this point and did get a dose of ciprofloxacin in the clinic. Was unable to discuss with patient if she was on an abx course vs a one-time dose. Would recommend attempting to call again tomorrow. Chioma Harding PA-C documented in this encounter Plan of Treatment Not on filedocumented as of this encounter Visit Diagnoses Not on filedocumented in this encounter
--- OUTSIDE RECORDS SUMMARY | 2022-03-24 08:36 | XMS_ITS | Encounter Summary ---
:1990 Author Organization [facility] Address [address] [place] [address]. [place] [address] Care Team Providers Name Role Phone No Ref-Primary, Physician Primary Care Provider Unavailable Reason for Visit Reason Comments Cystoscopy Stent Removal: Ureteral Ston e Encounter Details Date Type Department Care Team Description 04/17/2017 [facility] Rowena Babin MD Dx) [address] [place] [address] [place] [address] [phone] Social History Tobacco Use Types Packs/Day Years Used Date Current Every Day Smoker Smokeless Tobacco: Never Used Sex Assigned at Date Recorded Not on file documented as of this encounter Last Filed Vital Signs Vital Sign Reading Time Taken Comments Blood Pressure 116/70 04/17/2017 10:30 AM CDT Pulse 70 04/17/2017 10:30 AM CDT Temperature - - Respiratory Rate - - Oxygen Saturation - - Inhaled Oxygen Concentration - - Weight - - Height - - Body Mass Index - - documented in this encounter Patient Instructions Patient InstructionsGeorge Goldberg MD - 04/17/2017 11:20 AM CDT AFTER YOUR CYSTOSCOPY ? You have just completed a cystoscopy, or cysto, which allowed your physician to learn more about your bladder (or to remove a stent placed after surgery). We suggest that you continue to avoid caffeine, fruit juice, and alcohol for the next 24 hours, however, you are encouraged to return to your normal activities. ? A few things that are considered normal after your cystoscopy: ?? * Small amount of bleeding (or spotting) that clears within the next 24 hours ?? * Slight burning sensation with urination ?? * Sensation to of needing to avoid more frequently ?? * The feeling of air in your urine ?? * Mild discomfort that is relieved with Tylenol ? Please contact our office promptly if you: ?? * Develop a fever above 101 degrees ?? * Are unable to urinate ?? * Develop bright red blood that does not stop ?? * Severe pain or swelling ? Please contact our office with any concerns or questions @[facility], [facility]. documented in this encounter Progress Notes George Goldberg MD - 04/17/2017 10:00 AM CDT This very pleasant 26-year-old lady returns today for cystoscopy and removal of the stent. We recall, she recently presented with left ureteric colic as a result of an 8 mm stone in the left distal ureter. This was subsequently treated by ureteroscopy with holmium laser lithotripsy. A stent was placed. Stone analysis shows the stone is 10% calcium oxalate and 90% calcium phosphate. Procedure. Cystoscopy with removal of stent. Surgeon.Ashlyn Anesthesia. Local anesthesia. Description. With the patient in the dorsal lithotomy position, and with the genital area prepped and draped in the customary fashion with flexible cystoscope was carefully inserted. The urethra is normal. The interior of the bladder was carefully inspected. No neoplasm was seen in the bladder. Stent was, seen, grasped, and removed without difficulty. There were no other remarkable features. Impression. This was her first stone and there is no apparent family history of stones. The CT scan is showing no other significant stones in the urinary tract other than 1 mm stone in thelower calyx of the left kidney. I had a discussion with her today about preventative measures including hydration, reduction in salt, and increasing citrate, magnesium and calcium in the diet. I do not think we need to embark upon formal metabolic evaluation at this point as this was her first stone, but should there be evidence of recurrence of stone we will need to have consultation with anephrologist. I did discuss entire situation with the patient in detail today. I answered all questions Plan. I will see him on a p.r.n. Basis Time. 10 minutes was spent in addition to the procedure in order to discuss the findings, discussed the stone analysis, talked about any other stones and urinary tract, and to talk about preventative measures. This dictation was performed with voice recognition software and may contain errors, omissions and inadvertent word substitution. . documented in this encounter Nursing Notes Roaslee Shin LPN - 04/17/2017 10:00 AM CDT Chief Complaint Patient presents with ??? Cystoscopy Stent Removal: Ureteral Stone Prior to the start of the procedure and with procedural staff participation, I verbally confirmed the patient???s identity using two indicators, relevant allergies, that the procedure was appropriate and matched the consent or emergent situation, and that the correct equipment/implants were available. Immediately prior to starting the procedure I conducted the Time Out with the procedural staff and re-confirmed the patient???s name, procedure, and site/side. (The Joint Commission universal protocol was followed.) Yes Sedation (Moderate or Deep): None Rosalee Shin LPN documented in this encounter Plan of Treatment Not on filedocumented as of this encounter Procedures Procedure Name Priority Date/Time Associated Diagnosis Comme nts HC CYSTOURETHROSCOPY Routine 04/17/2017 11:20 AM Kidney stone CDT HC CYSTOSCOPY W FOREIGN BODY Routine 04/17/2017 11:09 AM Kidne y stone REMOVAL, SIMPLE CDT documented in this encounter Visit Diagnoses Diagnosis Kidney stone - Primary Calculus of kidney documented in this encounter Care Teams Subcontracts Manager Relationship Specialty Start Date End Date No Ref-Primary, Physician PCP - General 04/06/17 documented as of this encounter
[2022-03-25 17:29] LABS: Rapid Plasma Reagin (RPR) Reactive (Non Reactive)
[2022-03-27 07:27] LABS: Treponema pallidum AbTP-PA Non Reactive (Non Reactive)
== END 2022-03-24 09:42 | disposition home or self-care (01) ==
PROVIDERS: Visit Provider Advanced Practice Midwife
DX: Z34.90 Encounter for supervision of normal pregnancy, unspecified, unspecified trimester (principal)
CPT/HCPCS: 86592

== ENCOUNTER 2022-03-28 07:57 | Outpatient (CLI) | payer BC, SELFPAY ==
--- OUTSIDE RECORDS SUMMARY | 2022-03-28 08:08 | XMS_ITS | Encounter Summary ---
:1990 Author Organization [facility] Address [address] [place] [address]. [place] [address] Care Team Providers Name Role Phone No Ref-Primary, Physician Primary Care Provider Unavailable Reason for Visit Reason Comments Cystoscopy Stent Removal: Ureteral Ston e Encounter Details Date Type Department Care Team Description [facility] Rowena Babin MD Dx) [address] [place] [address] [place] [address] [phone] Social History Tobacco Use Types Packs/Day Years [...] our office with any concerns or questions @[facility]. documented in this encounter Progress Notes George [...] . documented in this encounter Nursing Notes Rosalee Shin LPN - 04/17/2017 10:00 AM CDT [...] kidney documented in this encounter Care Teams Nuclear Radiologist Relationship Specialty Start Date End Date No Ref-Primary, Physician PCP - General 04/06/17 documented as of this encounter
--- OUTSIDE RECORDS SUMMARY | 2022-03-28 08:08 | XMS_ITS | Encounter Summary ---
:1990 Author Organization [facility] Address [address] [place] [address] Care Team Providers Name Role Phone No Ref-Primary, Physician Primary Care Provider [phone] Encounter Details Date Type Department Care [...] on filedocumented in this encounter Care Teams Community Affairs Director Relationship Specialty Start Date End Date No Ref-Primary, Physician PCP - General 12/14/20 documented as of this encounter
--- OUTSIDE RECORDS SUMMARY | 2022-03-28 08:08 | XMS_ITS | Encounter Summary ---
:1990 Author Organization [facility] [facility] Address [facility] [place] [address] Care Team Providers Name Role Phone No Ref-Primary, Physician Primary Care Provider [phone] Reason for Visit Reason Comments Ultrasound L2- covid in Encounter Details Date Type Department Care Team Description 01/13/2022 Office Visit [facility] Non-Fv Credent ialed Provider, Radiology COVID-19 affecting Maternal Contag, Chau Frazier MD [address] [place], [place] [address] in [facility] Osmin Aiken MD [address] [place] [address] trimester (Primary [place] Dx) [address] [facility] [address] [place] [address] Social History Tobacco Use Types [...] for details of today's US at the [facility]. Osmin Aiken MD Maternal- Medicine documented in this encounter Plan of Treatment Not on filedocumented as of this encounter Visit Diagnoses Diagnosis COVID-19 affecting in second t rimester - Primary documented in this encounter Care Teams Assistant Manager Airside Operations Relationship Specialty Start Date End Date No Ref-Primary, Physician PCP - General 12/14/20 documented as of this encounter
--- OUTSIDE RECORDS SUMMARY | 2022-03-28 08:08 | XMS_ITS | Encounter Summary ---
:1990 Author Organization [facility] Address [address] [place] [address] Care Team Providers Name Role Phone No Ref-Primary, Physician Primary Care Provider [phone] Reason for Referral Diagnostic Imaging Ultrasound (Routine) - Pending Review Specialty Diagnoses / Procedures Referred By Contact Refer red To Contact Diagnoses related condition, antepartum Rh Maternal Med Procedures [facility] US Comprehensive Single [address] [facility] [address] [place] [address] Referral ID Status Reason Start Date Expiration Date Visits V isits Requested Authorized [id number] Pending 01/03/2022 01/03/2023 1 1 Review Reason for Visit Diagnostic Imaging Ultrasound (Routine) - Pending Review Specialty Diagnoses / Procedures Referred By Contact Refer red To Contact Diagnoses related condition, antepartum Rh Maternal Med Procedures [facility] US Comprehensive Single [address] [facility] [address] [place] [address] Referral ID Status Reason Start Date Expiration Date Visits V isits Requested Authorized [id number] Pending 01/03/2022 01/03/2023 1 1 Review Encounter Details Date Type Department Care Team Description 01/13/2022 [facility] Non-Fv Credentialed Pro vider, Radiology related Encounter Maternal ContChau bey MD [address] [place] [address] condition, Medicine Center Osmin Aiken MD [address] [place] [address] antepartum [place] [address] [facility] [address] [place] [address] Social History Tobacco Use Types [...] Procedure Name Priority Date/Time Associated Comments Diagnosis [facility] US COMPREHENSIVE Routine 01/13/2022 9:39 AM rela seferino Results for this SINGLE CDT condition, procedure are i n antepartum the results section. documented in this encounter Results [facility] US Comprehensive Single (01/13/2022 9:39 AM CDT) [...] MEJÍA Study Date: 01/13/2022 8:45am Pat. NO: [id number] Referring ??MD: NIURKA MENDIETA Site: [facility] Millinery Salesperson: Salma Piña : 1990 Age: 31 INDICATION [...] lb 15 ? oz EFW by ?Hadlock (LCT-[id number]-FL) Head / Face / Neck Biometry: Diamond Picker ? 6.5 ? mm CM ?4.2 ? [...] cava. Inferior vena cava. 3-vessel ? view. 4-nriyhq-mrqtzhm view. Cardiac position. Cardiac size. Cardiac rhythm. [...] Comprehensive Name:Newton ESPOSITO te:01/13/2022 8:45am Pat. NO: [id number] MD:MAGY MENDIETA Site:Tobygrapher:Germainbhakti Mcnally RDMS :1990Age:31 INDICATION [...] 0 lb 15 oz EFW by Hadlock (RNA-AD-BE-FL) Head / Face / Neck Biometry: Diamond Picker 6.5 mm CM 4.2 mm Nasal bone [...] vena cava. Inferior vena cava. 3-vessel view. 7-kdwbfr-wismfja view. Cardiac po sition. Cardiac size. Cardiac [...] were evident. Radiology Non-Fv Credentialed Provider ELAINE [facility] US TL LEWIS documented in this encounter Visit Diagnoses Diagnosis related condition, antepartum documented in this encounter Care Teams Contract Admin Relationship Specialty Start Date End Date No Ref-Primary, Physician PCP - General 12/14/20 documented as of this encounter
--- OUTSIDE RECORDS SUMMARY | 2022-03-28 08:08 | XMS_ITS | Clinical Summary ---
:1990 Author Organization [facility] Address [address] [place] [address] Care Team Providers Name Role Phone No Ref-Primary, Physician Primary Care Provider [phone] Allergies Active Allergy Reactions Severity Noted [...] and Jimbo, Lexi, Pregn eva related Medicine FIREARMS SPECIALIST CNM condition, antepartum (Audra neely Dx) from [...] this topic Medical Devices Implanted Type Area Utility Inspector Device Shelf Model / Identifier Expiration Serial / Date Lot Stent Ureteral Dbl Pigtail Inlay [id number] Stent Left: CR BARD 05/12/2021 [id number] / Implanted: Qty: 1 on 04/06/2017 by Jae diego, Chau Ribeiro MD at [facility] [employer] / [id number] Procedures Procedure Name Priority Date/Time Associated Comments Diagnosis [facility] US COMPREHENSIVE Routine 01/13/2022 9:39 AM rela seferino Results for this SINGLE CDT condition, procedure are i n antepartum the results section. from Last 3 Months Results [facility] US Comprehensive Single (01/13/2022 9:39 AM [...] ESPOSITO Study Date: 01/13/2022 8:45am Pat. NO: [id number] Referring ??MD: NIURKA MENDIETA Site: [facility] [place] [employer] Apprentice: Salma Piña : 1990 Age: 31 INDICATION [...] lb 15 ? oz EFW by ?Hadlock (LIW-FK-ZL-FL) Head / Face / Neck Biometry: Parking Enforcer ? 6.5 ? mm CM ?4.2 ? [...] cava. Inferior vena cava. 3-vessel ? view. 0-wxayfj-viabkzk view. Cardiac position. Cardiac size. Cardiac rhythm. [...] Pat. Name:Newton ESPOSITO te:01/13/2022 8:45am Pat. NO: [id number] :LEXI MENDIETA [facility]Germain Mcnally RDMS :1990Age:31 INDICATION COVID in [...] 0 lb 15 oz EFW by Hadlock (ZRP-YN-PF-FL) Head / Face / Neck Biometry: Parking Enforcer 6.5 mm CM 4.2 mm Nasal bone [...] vena cava. Inferior vena cava. 3-vessel view. 5-alxtti-xbdjtaa view. Cardiac po sition. Cardiac size. Cardiac [...] ultrasound were evident. Radiology Non-Fv Credentialed Provider [facility] from Last 3 Months Insurance Payer Benefit Plan / Subscriber ID Effective Dates Phone Addre ss Type Group BCBS BCBS OUT OF [id number] 2021-Present [phone] [address] [address] [place] [address] Advance Directives For more information, please contact: [phone] Latest Code Status on File Code Status Date Activated Date Inactivated Comments Full Code 04/06/2017 9:39 AM 12/14/2020 10:47 AM Full Code 04/06/2017 6:57 AM 04/06/2017 9:39 AM Care Teams Continuous Churn Buttermaker Relationship Specialty Start Date End Date No Ref-Primary, Physician PCP - General 12/14/20
--- OUTSIDE RECORDS SUMMARY | 2022-03-28 08:08 | XMS_ITS | Encounter Summary ---
:1990 Author Organization [facility] Address [address] [place] [address] Care Team Providers Name Role Phone No Ref-Primary, Physician Primary Care Provider Unavailable Encounter Details Date Type Department Care Team Description 04/11/2017 Telephone [facility] REPORTING Pricilla Shin, [address] [place] [address] [address] [phone] [place], [place] [address] (Wo rk) Social History [...] on filedocumented in this encounter Care Teams Paperhanger Pipe Relationship Specialty Start Date End Date No Ref-Primary, Physician PCP - General 04/06/17 documented as of this encounter
--- OUTSIDE RECORDS SUMMARY | 2022-03-28 08:08 | XMS_ITS | Encounter Summary ---
:1990 Author Organization [place] Address [address] [place] [address] Care Team Providers Name Role Phone No Ref-Primary, Physician Primary Care Provider [phone] Reason for Visit Reason Comments Chest Pain Encounter Details Date Type Department Care Team Description 12/14/2020 Emergency [facility] Daniel Avelar, Chest pain Emergency Dept PA-C [address] [facility] [address] LogicSARATOGAYael ALEXANDER [phone] [address] [place], [place] [address] (Wo rk) Social History Tobacco Use Types [...] sent through Care Everywhere. Chest Pain, Noncardiac (Portuguese)documented in this encounter Medications at Time of [...] sinus arrhythmia. Normal ECG. Rate 66 bpm. WA interval 138 ms. QRS duration 104 ms. [...] patient is a HEART score of 1 ([id number]) and I feel ACS or mycocarditis is [...] to personally document services performed by Daniel Mckinnon PA-C, based on my observations and the [...] with platelets differential (12/14/2020 3:45 PM CDT) [facility] Method Time Signature WBC 5.5 4.0 - 12/14/2020 [facility] 11.0 4:09 PM [facility] 10e9/L [facility] RBC Count 3.79 (L) 3.8 - 5.2 12/14/2020 [facility] 10e12/L 4:09 PM [facility] Hemoglobin 11.9 11.7 - 12/14/2020 [facility] 15.7 g/dL 4:09 PM [facility] Hematocrit 37.2 35.0 - 12/14/2020 [facility] 47.0 % 4:09 PM [facility] MCV 98 78 - 100 12/14/2020 [facility] fl 4:09 PM [facility] MCH 31.4 26.5 - 12/14/2020 [facility] 33.0 pg 4:09 PM [facility] MCHC 32.0 31.5 - 12/14/2020 [facility] 36.5 g/dL 4:09 PM [facility] RDW 12.8 10.0 - 12/14/2020 [facility] 15.0 % 4:09 PM [facility] Platelet Count 195 150 - 450 12/14/2020 [facility] 10e9/L 4:09 PM [facility] Diff Method Automated 12/14/2020 [facility] Method 4:09 PM [facility] % Neutrophils 58.3 % 12/14/2020 [facility] 4:09 PM [facility] % Lymphocytes 27.5 % 12/14/2020 [facility] 4:09 PM [facility] % Monocytes 11.5 % 12/14/2020 [facility] 4:09 PM [facility] % Eosinophils 1.8 % 12/14/2020 [facility] 4:09 PM [facility] % Basophils 0.5 % 12/14/2020 [facility] 4:09 PM [facility] % Immature 0.4 % 12/14/2020 [facility] Granulocytes 4:09 PM [facility] Nucleated RBCs 0 0 /100 12/14/2020 [facility] 4:09 PM [facility] Absolute 3.2 1.6 - 8.3 12/14/2020 [facility] Neutrophil 10e9/L 4:09 PM [facility] Absolute 1.5 0.8 - 5.3 12/14/2020 [facility] Lymphocytes 10e9/L 4:09 PM [facility] Absolute 0.6 0.0 - 1.3 12/14/2020 [facility] Monocytes 10e9/L 4:09 PM [facility] Absolute 0.1 0.0 - 0.7 12/14/2020 [facility] Eosinophils 10e9/L 4:09 PM [facility] Absolute 0.0 0.0 - 0.2 [facility] Bas[facility] 10[facility]9/L 4:09 PM [facility] Abs Immature 0.0 0 - 0.4 12/14/2020 [facility] Granulocytes 10e9/L 4:09 PM [facility] Absolute 0.0 12/14/2020 [facility] Nucleated RBC 4:09 PM [facility] Specimen Anatomical Collection Method Collection Time Receive d Time (Source) Location / / Volume Laterality 12/14/2020 3:45 PM 3:58 CDT PM CDT Daniel Mckinnon PA-C LAB - BLOOD ORDERABLES Performing Organization Address City/State/ZIP Code Phon e Number M [facility] [address], [place] [address] [facility] [address] [address] [facility] [phone] D dimer quantitative (12/14/2020 3:45 PM CDT) athologist Signature D Dimer 0.3 0.0 - 0.50 12/14/2020 [facility] ug/ml FEU 4:30 PM CDT [facility] Comment: This D-dimer assay is intended [...] LAB - BLOOD ORDERABLES Performing Organization Address [facility] Phon e Number [facility] [address], [place] [address] [facility] [address], [place] [address], [facility] [phone] HCG qualitative (12/14/2020 1:55 PM CDT) [facility] Method Time Signature HCG Qualitative Negative NEG^Negati 12/14/2020 [facility] Serum ve 3:57 PM CDT [facility] Comment: This test is for screening purposes. ??R esults should be interpreted along with the clinical picture. ??Confirmation te sting is available if warranted by ordering [id number], HCG Quantitative Pregna ncy. Specimen Anatomical Collection Method Collection Time Receive d Time (Source) Location / / Volume Laterality 12/14/2020 1:55 PM 1 2:45 CDT PM CDT Edith Ortega MD LAB - BLOOD ORDERABLES Performing Organization Address [facility] Phon e Number [facility] [address], [place] [address] [facility] [address], [place] [address], [facility] [phone] Troponin I (12/14/2020 1:55 PM CDT) athologist Signature Troponin I ES <0.015 0.000 - 12/14/2020 [facility] 0.045 ug/L 3:23 PM [facility] Comment: The 99th percentile for upper reference [...] Address City/State/ZIP Code Phon e Number M [facility] [address] [address] [phone] [facility] [address] [address], U [phone] (ABNORMAL) Basic metabolic panel (12/14/2020 1:55 PM CDT) athologist Signature Sodium 139 133 - 144 12/14/2020 [facility] mmol/L 3:23 PM [facility] Potassium 3.8 3.4 - 5.3 12/14/2020 [facility] mmol/L 3:23 PM [facility] Comment: Specimen slightly hemolyzed, po tassium may be falsely elevated Chloride 110 (H) 94 - 109 mmol/L 12/14/2020 3:23 PM [facility] Carbon Dioxide 23 20 - 32 mmol/L 12/14/2020 3:23 PM [facility] Anion Gap 6 3 - 14 mmol/L 12/14/2020 3:23 PM [facility] Glucose 84 70 - 99 mg/dL 12/14/2020 3:23 PM [facility] Urea Nitrogen 12 7 - 30 mg/dL 12/14/2020 3:23 PM [facility] Creatinine 0.88 0.52 - 1.04 mg/dL 12/14/2020 3:23 PM [facility] GFR Estimate 89 >60 12/14/2020 3:23 PM [facility] mL/min/{1.73_m2} [facility] Comment: Non GFR Calc Starting 07/09/2018, serum creatinine ba sed estimated GFR (eGFR) will be calculated using the Chronic Kidney Dise [facility] Epidemiology Collaboration (CKD-EPI) equation. GFR Estimate If >90 >60 mL/min/{1.73_m2} 12/14/2020 3: 23 PM [facility] Comment: GFR Calc Starting 07/09/2018, serum creatinine ba sed estimated GFR (eGFR) will be calculated using the Chronic Kidney Dise [facility] Epidemiology Collaboration (CKD-EPI) equation. Calcium 8.7 8.5 - 10.1 mg/dL 12/14/2020 3:23 PM CDT [facility] Specimen Anatomical Collection Method Collection Time Receive d Time (Source) Location / / Volume Laterality Blood 12/14/2020 1:55 PM 2:45 CDT PM CDT Daniel Mckinnon PA-C LAB - BLOOD ORDERABLES Performing Organization Address City/State/ZIP Code Phon e Number [facility] [address] [phone] [facility] [address] [place] [address], [facility] [phone] EKG 12 lead (12/14/2020 12:42 PM CDT) [facility] Method Time Signature Interpretation ECG [...] unspecified documented in this encounter Care Teams Risk Management Professional Relationship Specialty Start Date End Date No Ref-Primary, Physician PCP - General 12/14/20 documented as of this encounter
--- OUTSIDE RECORDS SUMMARY | 2022-03-28 08:08 | XMS_ITS | Encounter Summary ---
:1990 Author Organization [place] Address [address] [place] [address] Care Team Providers Name Role Phone No Ref-Primary, Physician Primary Care Provider [phone] Encounter Details Date Type Department Care Team [...] on filedocumented in this encounter Care Teams Vehicle Controls Engineer Relationship Specialty Start Date End Date No Ref-Primary, Physician PCP - General 12/14/20 documented as of this encounter
--- OUTSIDE RECORDS SUMMARY | 2022-03-28 08:08 | XMS_ITS | Encounter Summary ---
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 . documented in this [...] prepare to transfer to PACU, Report to WAX BLEACHER. VSS transfer care Vitals: (Last set prior to Anesthesia Care Transfer) SUPERVISOR [employer] VITALS 04/06/2017 1106 - 04/06/2017 1140 04/06/2017 [...] Intra-op documented in this encounter Care Teams Manager Chinese Relationship Specialty Start Date End Date No Ref-Primary, Physician PCP - General 04/06/17 documented as of this encounter
--- OUTSIDE RECORDS SUMMARY | 2022-03-28 08:08 | XMS_ITS | Encounter Summary ---
:1990 Author Organization [place] Address [address] [place] [address] Care Team Providers Name Role Phone No Ref-Primary, Physician Primary Care Provider [phone] Reason for Referral Diagnostic Imaging Ultrasound (Routine) - Pending Review Specialty Diagnoses / Procedures Referred By Contact Refer red To Contact Diagnoses related condition, antepartum Rh Maternal Med Procedures MFM US Comprehensive Single [address] [place] [address] Referral ID Status Reason Start Date Expiration Date Visits V isits Requested Authorized [id number] Pending 01/03/2022 01/03/2023 1 1 Review onsultation (Routine: Next available opening) - Pending Review Specialty Diagnoses / Procedures Referred By Contact Refer red To Contact Diagnoses related condition, antepartum Rh Maternal Med [address] [place] [address] Referral ID Status Reason Start Date Expiration Date Visits V isits Requested Authorized [id number] Pending 01/03/2022 01/03/2023 1 1 Review Encounter Details Date Type Department Care Team Description 01/03/2022 Transcribe Orders [facility] Lexi Mendieta, related Maternal MEDICAL BILLING SPECIALIST [facility] antepartum (Primary [address] Dx) [address] [place] [address] Social History Tobacco Use Types Packs/Day [...] 07/02/2022 documented as of this encounter Results [facility] US Comprehensive Single (01/13/2022 9:39 AM [...] ESPOSITO Study Date: 01/13/2022 8:45am Pat. NO: [id number] Referring ??: NIURKA MENDIETA Site: [facility] [employer] Security Analyst: Salma Piña : 1990 Age: 31 INDICATION [...] lb 15 ? oz EFW by ?Hadlock ([id number]) Head / Face / Neck Biometry: Sales Team Leader ? 6.5 ? mm CM ?4.2 ? [...] cava. Inferior vena cava. 3-vessel ? view. 2-dramvh-zvifmmd view. Cardiac position. Cardiac size. Cardiac rhythm. [...] Pat. Name:Newton ESPOSITO te:01/13/2022 8:45am Pat. NO: [id number] MD:LEXI MENDIETA [facility]Germain Mcnally RDMS :1990Age:31 INDICATION COVID in [...] 0 lb 15 oz EFW by Hadlock ([id number]) Head / Face / Neck Biometry: Sales Team Leader 6.5 mm CM 4.2 mm Nasal bone [...] vena cava. Inferior vena cava. 3-vessel view. 5-pgwqro-oitingz view. Cardiac po sition. Cardiac size. Cardiac [...] antepartum documented in this encounter Care Teams Rn Interventional Relationship Specialty Start Date End Date No Ref-Primary, Physician PCP - General 12/14/20 documented as of this encounter
--- OUTSIDE RECORDS SUMMARY | 2022-03-28 08:08 | XMS_ITS | Encounter Summary ---
:1990 Author Organization [place] Address [address] [place] [address]. [place] [address] Care Team Providers Name Role Phone No Ref-Primary, Physician Primary Care Provider [phone] Encounter Details Date Type Department Care Team Description 07/13/2021 Medical Correspondence [facility] Scan, MATERNAL Health Info Mgmt Non-Provider MEDICINE CE NTER Srvcs PROVIDER SERVICE [address] [place] [address] [place] [address] [facility] [phone] [place] Social History Tobacco Use Types Packs/Day Years Used Date Current Every Day Smoker Smokeless Tobacco: Never Used Sex Assigned at Date Recorded Not on file documented as of this encounter Plan of Treatment Not on filedocumented as of this encounter Visit Diagnoses Not on filedocumented in this encounter Care Teams Teacher Of Gifted Students Relationship Specialty Start Date End Date No Ref-Primary, Physician PCP - General 12/14/20 documented as of this encounter
--- OUTSIDE RECORDS SUMMARY | 2022-03-28 08:09 | XMS_ITS | Encounter Summary ---
:1990 Author Organization [facility] Address [address] [place] [address] Care Team Providers Name Role Phone No Ref-Primary, Physician Primary Care Provider Unavailable Reason for Visit Reason Comments Flank Pain Encounter Details Date Type Department Care Team Description 04/06/2017 Surgery [facility] Chau Ortega ED CYSTOSCOPY, [facility]ane Ribeiro MD LEFT URETEROSCOPY, [address] [facility] [place], [place] [address] LITHOTRIPSY URETER, [address] [place] [address] INSERTION LEFT STENT, (Wo rk) stone basketing, [...] Taylor PA-C - 04/06/2017 9:39 AM CDT [facility] Outpatient / Observation Unit Discharge Summary Fauzia [...] [facility] VICENTE BLANDON & JORDAN [phone] During surgery, a stent may be placed [...] Please call your physician or the physician percussion instructor if you experience: Fever greater than 101 degrees Severe pain not relieved by pain medication or rest Please make an appointment for the removal of the stent according to your physician's instructions. EXTRACORPOREAL SHOCK LITHOTRIPSY (ESWL) DISCHARGE INSTRUCTIONS VICENTE BLANDON & JORDAN [phone] Your stone(s) has been fragmented into many [...] hours: Yes. Name: Sindhu (mom), Contact information: [phone] Belongings/Valuables - Will be sent to PeriOp with pt. Starch And Prosize Mixer - Pt DOES NOT need an icebox man. 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 Urology Consult Name: Fauzia Stubbs Date [...] today Discussed with Dr. Jordan Dahl PA-C [facility] Urology (text or call, Sun-Sun & Fri [...] Jeff RN - 04/06/2017 5:33 AM CDT [facility] ED Nurse Handoff Report Fauzia Stubbs is a 26 year old female ED Chief complaint: Flank Pain . ED Diagnosis: Final diagnoses: Pyelonephritis Calculus of ureter Allergies: Allergies Allergen Reactions ??? Penicillins Code Status: Full Code Activity level - Baseline/Home: Independent. Activity Level - Current: Independent. Lift room needed: No. Bariatric: No Starch And Prosize Mixer Needed: No Isolation: No. Infection: Not Applicable. [...] BOLUS (1,000 mLs Intravenous New Bag 04/06/17 3109) Followed by 0.9% sodium chloride infusion (not administered) ondansetron (ZOFRAN) injection 4 mg (4 mg Intravenous Given 04/06/17 3735) ciprofloxacin (CIPRO) infusion 400 mg (not administered) [...] with flank pain. Patient woke this morning [id number] with left sided flank pain associated by [...] Admitted to hospitalist service. Osmin Basurtoyder 04/06/2017 [facility] EM[facility]Y [facility] I, Osmin Toure am serving [...] The procedure began by introducing the 22 Nepalese rigid cystoscope through the urethra into the [...] EM#[id number] Name: FAUZIA STUBBS MRN: [id number] Account: [id number] : 1990 Procedure Date: 04/06/2017 Document: [id number] Pharmacy-Admission Medication History - Rosie Enrique [facility] - 04/06/2017 9:41 AM CDT Admission medication history interview status for this patient is complete. See [facility] admission navigator for allergy information, prior to admission medications and immunization status. Medication history interview source(s): patient's mother Medication history resources (including written lists, pill bottles, clinic record):None Changes made to [employer] medication list: Added: none Deleted: none Changed: [...] oob for safety. Will continue to monitor. Supervisor Television Chassis Repair Nurse Safe discharge environment identified: Yes Barriers [...] independent, order SW consult): ind with boyfriend communications department chairperson: Sindhu, (Mother) Activity level at baseline: Ind [...] documented in this encounter Results XR Surgery [place] L/T 5 Min Fluoro w Stills (04/06/2017 11:30 AM CDT) Specimen (Source) Anatomical Location Collection Method / Collectio n Time Received Time / Laterality Volume Narrative [facility] - 04/06/2017 11:31 AM CDT This exam was marked as non-reportable because it will not be read by a radiologist or a [facility] non-radiologis t provider. Chau Ortega MD IMG DIAGNOSTIC IMAGING ORDER MARGARET Performing Organization Address City/State/ZIP Code Phon e Number [facility] Surgical pathology exam (04/06/2017 11:23 AM CDT) Component Value Ref Test Analysis Performed At [facility] Range Method Time Signature Copath Report Patient Name: FAUZIA STUBBS MR#: [id number] Specimen #: [id number] Collected: 04/06/2017 Received: 04/06/2017 Reported: 04/06/2017 13:04 Ordering Phy(s): HCAU ORTEGA For improved result formatting, select 'View Enhanced Report Format' under Linked Documents section. SPECIMEN(S): Stone, left ureteral FINAL DIAGNOSIS: Left ureteral stone(s)- - Gross pathology the admission performed. - Submitted for chemical/stone analysis (see separate [facility] oming report for results). Electronically signed out [...] microscopic sections are obtained. CPT Codes: A: 56983-DE TESTING LAB LOCATION: [address] ??[address] COLLECTION SITE: Client: [facility] Location: [facility] (R) Specimen Anatomical Collection Method Collection Time Receive d Time (Source) Location / / Volume Laterality 04/06/2017 11:23 04/06/2017 AM CDT 12:28 PM CDT Chau Ortega MD LAB - [facility] Performing Organization Address City/State/ZIP Code Phon e Number [place] Stone analysis (04/06/2017 11:23 AM CDT) [facility] Method Time Signature Stone SEE NOTE 04/10/2017 [place] Composition 6:47 PM CDT [facility] Comment: (Note) Calculi composed primarily of: 10% [...] omposition determined by FTIR analysis. Performed by [employer], [facility] [place] [address] [email or web address], Endy Reilly MD, Lab. Director Calculi Number Numerous 04/10/2017 6:47 PM CDT [facility] Calculi Size 1 to 4 mm 04/10/2017 6:47 PM CDT [facility] Calculi Description SEE NOTE 04/10/2017 6:47 PM C DT [facility] Comment: (Note) Specimen consists of numerous, small, brown/baldwin, irregular calculi fragments. Stone Mass 30 mg 04/10/2017 6:47 PM CDT [facility] Specimen (Source) Anatomical Collection Method Collection Time Re ceived Time Location / / Volume Laterality Calculus specimen STRUCTURE OF LEFT 04/06/2017 11:23 (specimen) URETER / Unknown AM CDT Chau Ortega MD LAB - BODY FLUIDS ORDERABLES Performing Organization Address City/State/ZIP Code Phon e Number [place] [address] [facility] [address] [phone] Abd/pelvis CT no contrast - Stone Protocol [...] Signature Specimen Midstream Urine [facility] Description [facility] Special Specimen 04/06/2017 [facility] Requests received in 8:21 AM CDT [facility] preservative [facility] Culture Micro >100,000 colonies/mL 04/07/2017 [facility] Escherichia coli 9:26 PM CDT [facility] (A) [facility] Specimen (Source) Anatomical Collection Method Collection Time [...] Organization Address City/State/ZIP Code Phon e Number [address] [phone] [place] Lipase (04/06/2017 4:10 AM CDT) athologist Signature Lipase 148 73 - 393 04/06/2017 [facility] U/L 4:44 AM CDT HOSPITAL Specimen Anatomical Collection Method Collection Time Receive d Time (Source) Location / / Volume Laterality Blood specimen 04/06/2017 4:10 AM 017 4:24 (specimen) CDT AM CDT Luis Jones MD LAB - BLOOD ORDERABLES Performing Organization Address City/State/ZIP Code Phon e Number [facility] [address] [place] [phone] [facility] [address] [place], [place] [address] [place] [address] (ABNORMAL) Comprehensive metabolic panel (04/06/2017 4:10 AM [facility]) P athologist Signature Sodium 137 133 - 144 04/06/2017 [place] mmol/L 4:44 AM [facility] Potassium 3.2 (L) 3.4 - 5.3 04/06/2017 [place] mmol/L 4:44 AM [facility] Chloride 104 94 - 109 04/06/2017 [place] mmol/L 4:44 AM [facility] Carbon Dioxide 25 20 - 32 04/06/2017 [place] mmol/L 4:44 AM [facility] Anion Gap 8 3 - 14 04/06/2017 [place] mmol/L 4:44 AM [facility] Glucose 102 (H) 70 - 99 04/06/2017 [facility] mg/dL 4:44 AM [facility] Urea Nitrogen 12 7 - 30 04/06/2017 [place] mg/dL 4:44 AM [facility] Creatinine 0.80 0.52 - 04/06/2017 [place] 1.04 mg/dL 4:44 AM [facility] GFR Estimate 88 >60 04/06/2017 [place] mL/min/1.7 4:[address] Comment: Non GFR Calc GFR Estimate If >90 >60 mL/min/1.7m2 04/06/2017 4:44 A [facility] Comment: GFR Calc Calcium 8.9 8.5 - 10.1 mg/dL 04/06/2017 4:44 AM [facility] Bilirubin Total 0.4 0.2 - 1.3 mg/dL 04/06/2017 4:44 AM [facility] Albumin 4.1 3.4 - 5.0 g/dL 04/06/2017 4:44 AM [facility] Protein Total 8.1 6.8 - 8.8 g/dL 04/06/2017 4:44 AM [facility] Alkaline Phosphatase 108 40 - 150 U/L 04/06/2017 4:44 AM [facility] ALT 23 0 - 50 U/L 04/06/2017 4:44 AM [facility] AST 10 0 - 45 U/L 04/06/2017 4:44 AM [facility] Specimen Anatomical Collection Method Collection Time Receive d Time (Source) Location / / Volume Laterality Blood specimen 04/06/2017 4:10 AM 017 4:24 (specimen) CDT AM CDT Luis Jones MD LAB - BLOOD ORDERABLES Performing Organization Address City/State/ZIP Code Phon e Number [place] [address] [address] [place] [address] [facility] [address] [phone] CBC with platelets differential (04/06/2017 4:10 AM CDT) [facility] Method Time Signature WBC 8.1 4.0 - 04/06/2017 [facility] 11.0 4:28 AM [facility] 10e9/L [facility] RBC Count 4.40 3.8 - 5.2 04/06/2017 [facility] 10e12/L 4:28 AM [facility] Hemoglobin 13.5 11.7 - 04/06/2017 [facility] 15.7 g/dL 4:28 AM [facility] Hematocrit 40.0 35.0 - 04/06/2017 [facility] 47.0 % 4:28 AM [facility] MCV 91 78 - 100 04/06/2017 [facility] fl 4:28 AM [facility] MCH 30.7 26.5 - 04/06/2017 [facility] 33.0 pg 4:28 AM [facility] MCHC 33.8 31.5 - 04/06/2017 [facility] 36.5 g/dL 4:28 AM [facility] RDW 13.1 10.0 - 04/06/2017 [facility] 15.0 % 4:28 AM [facility] Platelet Count 278 150 - 450 04/06/2017 [facility] 10e9/L 4:28 AM [facility] Diff Method Automated 04/06/2017 [facility] Method 4:28 AM [facility] % Neutrophils 60.6 % 04/06/2017 [facility] 4:28 AM [facility] % Lymphocytes 29.5 % 04/06/2017 [facility] 4:28 AM [facility] % Monocytes 7.7 % 04/06/2017 [facility] 4:28 AM [facility] % Eosinophils 1.5 % 04/06/2017 [facility] 4:28 AM [facility] % Basophils 0.5 % 04/06/2017 [facility] 4:28 AM [facility] % Immature 0.2 % 04/06/2017 [facility] Granulocytes 4:28 AM [facility] Nucleated RBCs 0 0 /100 04/06/2017 [facility] 4:28 AM [facility] Absolute 4.9 1.6 - 8.3 04/06/2017 [place] Neutrophil 10e9/L 4:28 AM [facility] Absolute 2.4 0.8 - 5.3 04/06/2017 [place] Lymphocytes 10e9/L 4:28 AM [facility] Absolute 0.6 0.0 - 1.3 04/06/2017 [place] Monocytes 10e9/L 4:28 AM [facility] Absolute 0.1 0.0 - 0.7 04/06/2017 [facility] Eosinophils 10e9/L 4:28 AM [facility] Absolute 0.0 0.0 - 0.2 04/06/2017 [place] Basophils 10e9/L 4:28 AM [facility] Abs Immature 0.0 0 - 0.4 04/06/2017 [place] Granulocytes 10e9/L 4:28 AM [facility] Absolute 0.0 04/06/2017 [place] Nucleated RBC 4:28 AM [facility] Specimen Anatomical Collection Method Collection Time Receive d Time (Source) Location / / Volume Laterality Blood specimen 04/06/2017 4:10 AM 017 4:24 (specimen) CDT [facility] MD LAB - BLOOD ORDERABLES Performing Organization Address City/State/ZIP Code Phon e Number [place] [address] [address] [place] [address] [facility] [address] [phone] (ABNORMAL) UA with Microscopic (04/06/2017 4:10 AM T) [facility] Method Time Signature Color Urine Yellow 04/06/2017 [facility] 4:38 AM [facility] Appearance Urine Slightly 04/06/2017 [facility] Cloudy 4:38 AM [facility] Glucose Urine Negative NEG^Negat 04/06/2017 [facility] kvng mg/dL 4:38 AM [facility] Bilirubin Urine Negative NEG^Negat 04/06/2017 [facility] kvng 4:38 AM [facility] Ketones Urine Negative NEG^Negat 04/06/2017 [facility] kvng mg/dL 4:38 AM [facility] Specific [place] 1.013 1.003 - 04/06/2017 [facility] Urine 1.035 4:38 AM [facility] Blood Urine Small (A) NEG^Negat 04/06/2017 [facility] kvng 4:38 AM [facility] pH Urine 5.0 5.0 - 7.0 04/06/2017 [facility] pH 4:38 AM [facility] Protein Albumin 30 (A) NEG^Negat 04/06/2017 [facility] Urine kvng mg/dL 4:38 AM [facility] Urobilinogen 0.0 0.0 - 2.0 04/06/2017 [facility] mg/dL mg/dL 4:38 AM [facility] Nitrite Urine Negative NEG^Negat 04/06/2017 [facility] kvng 4:38 AM [facility] Leukocyte Large (A) NEG^Negat 04/06/2017 [facility] Esterase Urine kvng 4:38 AM [facility] Source Midstream 04/06/2017 [facility] Urine 4:25 AM [facility] WBC Urine 126 (H) 0 - 2 04/06/2017 [facility] /HPF 4:38 AM [facility] RBC Urine 15 (H) 0 - 2 04/06/2017 [facility] /HPF 4:38 AM [facility] WBC Clumps Present (A) NEG^Negat 04/06/2017 [facility] kvng /HPF 4:38 AM [facility] Bacteria Urine Many (A) NEG^Negat 04/06/2017 [facility] kvng /HPF 4:38 AM [facility] Squamous 1 0 - 1 04/06/2017 [place] Epithelial /HPF /HPF 4:38 AM [facility] Mucous Urine Present (A) NEG^Negat 04/06/2017 [place] kvng /LPF 4:38 AM [facility] Specimen (Source) Anatomical Collection Method Collection Time Re ceived Time Location / / Volume Laterality Examination of URINE SPECIMEN 04/06/2017 4:10 04/06/20 17 4:24 midstream urine OBTAINED BY CLEAN AM CDT AM CDT specimen CATCH PROCEDURE / (procedure) Unknown Luis Jones MD LAB - URINE ORDERABLES Performing Organization Address City/[facility] Phon e Number M [facility] [address] [place], [place] [address] [facility] [address] [place], [place] [address], [facility] [phone] HCG qualitative urine (04/06/2017 4:10 AM CDT) athologist Signature HCG Qual Urine Negative NEG^Negati 04/06/2017 [place] ve 4:41 AM [facility] Comment: This test is for screening purposes. ??R esults should be interpreted along with the clinical picture. ??Confirmation te sting is available if warranted by ordering [id number], HCG Quantitative Pregna ncy. Specimen Anatomical Collection Method Collection Time Receive d Time (Source) Location / / Volume Laterality Urine specimen URINE SPECIMEN 04/06/2017 4:10 AM 04/06 4:24 (specimen) OBTAINED BY CLEAN CDT AM CDT CATCH PROCEDURE / Unknown Luis Jones MD LAB - URINE ORDERABLES Performing Organization Address [facility] Phon e Number M [facility] [address] [place], [place] [address] [facility] [address] [place], [place] [address], [facility] [phone] documented in this encounter Visit Diagnoses Not [...] mg 0.3-0.5 mg, Intravenous, EVERY 10 MIN IL N, other, acute pain.?May administer if Respiratory [...] RN)0651 (ED Infusing on Admission/transfer - Provider: uD Daniel RN) 400 mg, Intravenous, ONCE, Sun04/06/17 [...] (New Bag - Provider: Rahul Almaraz APRN DELINQUENT ACCOUNT CLERK)1140 (Anesthesia Volume Adjustment - Provider: Rahul Almaraz [...] mg 0.3-0.5 mg, Intravenous, EVERY 10 MIN IL N, Starting Sun04/06/17 at 1213, Until Sun04/06/17 [...] procedural area)1115 (Given - Provider: Rahul Almaraz, STRAW HAT MACHINE OPERATOR DELINQUENT ACCOUNT CLERK)1652 (Unhold - Provider: Orders Generic Provider) 4 [...] area)1115 (See Alternative - Provider: Rahul Almaraz, STRAW HAT MACHINE OPERATOR DELINQUENT ACCOUNT CLERK)165 (Unhold - Provider: Orders Generic Provider) 4 [...] management)
documented in this encounter Care Teams Mail Handler Sorter Relationship Specialty Start Date End Date No Ref-Primary, Physician PCP - General 04/06/17 documented as of this encounter
--- OUTSIDE RECORDS SUMMARY | 2022-03-28 08:09 | XMS_ITS | Encounter Summary ---
:1990 Author Organization [facility] Address [address] [place] [address] Care Team Providers Name Role Phone No Ref-Primary, Physician Primary Care Provider Unavailable Reason for Visit Reason Comments Flank Pain Encounter Details Date Type Department Care Team Description 04/06/2017 [facility] Luis Jones MD [facility] [address] [place] [address] [place] [phone] Calculus of left ureter (Primary Dx); [facility] PreOP/PostOP Mary Beth Barry MD Pyelonephritis; [address] [place] [address] Social History Tobacco Use Types [...] Carvajal PA-C - 04/06/2017 9:39 AM CDT [facility] Outpatient / Observation Unit Discharge Summary Fauzia [...] [facility]ENTE BL[facility]ON [facility] JORDAN [phone] During surgery, a stent may be placed [...] Please call your physician or the physician asic verification engineer if you experience: Fever greater than 101 degrees Severe pain not relieved by pain medication or rest Please make an appointment for the removal of the stent according to your physician's instructions. EXTRACORPOREAL SHOCK LITHOTRIPSY (ESWL) DISCHARGE INSTRUCTIONS [facility]ON [facility] JORDAN [phone] Your stone(s) has been fragmented into many [...] hours: Yes. Name: Sindhu (sammy), Contact information: [phone] Belongings/Valuables - Will be sent to [facility] with pt. Shop Welder - Pt DOES NOT need an safe deposit clerk. 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 Jordan Dahl PA-C [facility] Urology (text or call, Mon-Wed & Fri [...] Jeff RN - 04/06/2017 5:33 AM CDT [facility] ED Nurse Handoff Report Fauzia Stubbs is a 26 year old female ED Chief complaint: Flank Pain . ED Diagnosis: Final diagnoses: Pyelonephritis Calculus of ureter Allergies: Allergies Allergen Reactions ??? Penicillins Code Status: Full Code Activity level - Baseline/Home: Independent. Activity Level - Current: Independent. Lift room needed: No. Bariatric: No Shop Welder Needed: No Isolation: No. Infection: Not Applicable. [...] with flank pain. Patient woke this morning [id number] with left sided flank pain associated by [...] BOLUS (1,000 mLs Intravenous New Bag 04/06/17 1769) Followed by 0.9% sodium chloride infusion (not administered) ondansetron (ZOFRAN) injection 4 mg (4 mg Intravenous Given 04/06/17 0497) ciprofloxacin (CIPRO) infusion 400 mg (400 mg Intravenous New Bag 04/06/17 3860) HYDROmorphone (PF) (DILAUDID) injection 0.5 mg (not [...] Admitted to hospitalist service. Osmin Toure 04/06/2017 [facility] EMERGENCY DEPARTMENT I, Osmin Toure, am serving [...] The procedure began by introducing the 22 Nigerian rigid cystoscope through the urethra into the [...] JUDSON#[id number] Name: FAUZIA STUBBS MRN: [id number] Account: [id number] : 1990 Procedure Date: 04/06/2017 Document: [id number] Pharmacy-Admission Medication History - Rosie Enrique RPH - 04/06/2017 9:41 AM CDT Admission medication history interview status for this patient is complete. See [facility] admission navigator for allergy information, prior to admission medications and immunization status. Medication history interview source(s): patient's mother Medication history resources (including written lists, pill bottles, clinic record):None Changes made to MANAGER RETIREMENT medication list: Added: none Deleted: none Changed: [...] oob for safety. Will continue to monitor. Police Aide Nurse Safe discharge environment identified: Yes Barriers [...] order SW consult): ind with boyfriend salesperson men's hats: Sindhu, (Mother) Activity level at baseline: Ind [...] be read by a radiologist or a [facility] non-radiologis t provider. Chau Ortega MD IM DIAGNOSTIC IMAGING ORDER MARGARET Performing Organization Address City/State/ZIP Code Phon e Number RADIANT Surgical pathology exam (04/06/2017 11:23 AM CDT) Component Value Ref Test Analysis Performed At [facility] Range Method Time Signature Copath Report Patient Name: FAUZIA STUBBS MR#: [id number] Specimen #: [id number] Collected: 04/06/2017 Received: 04/06/2017 Reported: 04/06/2017 13:04 Ordering Phy(s): CHAU ORTEGA For improved result formatting, select 'View Enhanced Report Format' under Linked Documents section. SPECIMEN(S): Stone, left ureteral FINAL DIAGNOSIS: Left ureteral stone(s)- - Gross pathology the admission performed. - Submitted for chemical/stone analysis (see separate [facility] oming report for results). Electronically signed out by: Aleta Cody M.D. CLINICAL HISTORY: Left ureteral stone. GROSS: The specimen labeled left ureteral stone consists of multi ple crawford-baldiwn granular concretions with an aggregate dimension of 0.5 and 0.5 x 0.3 cm. ??Submitted for chemical/stone analysis (see separate rthcoming report for results). (Dictated by: Aleta Cody MD 04/06/20 17 12:38 PM) MICROSCOPIC: No microscopic sections are obtained. CPT Codes: A: 83648-TM TESTING LAB LOCATION: [address] ??[phone] COLLECTION SITE: Client: [facility] Location: RHERA (R) Specimen Anatomical Collection Method Collection Time Receive d Time (Source) Location / / Volume Laterality 04/06/2017 11:23 04/06/2017 AM CDT 12:28 PM CDT Chau Ortega MD [facility] Performing Organization Address City/State/ZIP Code Phon e Number COPATH Stone analysis (04/06/2017 11:23 AM CDT) [facility] Method Time Signature Stone SEE NOTE 04/10/2017 [place] Composition 6:47 PM CDT [facility] Comment: (Note) Calculi composed primarily of: 10% [...] omposition determined by FTIR analysis. Performed by [facility], [address] [place] [id number] [email or web address], Endy Reilly MD, Lab. Director Calculi Number Numerous 04/10/2017 6:47 PM CDT [facility] Calculi Size 1 to 4 mm 04/10/2017 6:47 PM CDT [facility] Calculi Description SEE NOTE 04/10/2017 6:47 PM C DT [facility] Comment: (Note) Specimen consists of numerous, small, brown/baldwin, irregular calculi fragments. Stone Mass 30 mg 04/10/2017 6:47 PM CDT [facility] Specimen (Source) Anatomical Collection Method Collection Time Re ceived Time Location / / Volume Laterality Calculus specimen STRUCTURE OF LEFT 04/06/2017 11:23 (specimen) URETER / Unknown AM CDT Chau Ortega MD LAB - BODY FLUIDS ORDERABLES Performing Organization Address City/State/ZIP Code Phon e Number [place] [address] [address] [place], [place] [address] [facility] [address] [place], [place] [address] [phone] Abd/pelvis CT no contrast - Stone Protocol [...] Component Value Ref Test Analysis Performed At [facility] gist Range Method Time Signature Specimen Midstream Urine [facility] Description [facility] Special Specimen 04/06/2017 [facility] Requests received in 8:21 AM CDT [facility] preservative [facility] Culture Micro >100,000 colonies/mL 04/07/2017 [facility] Escherichia coli 9:26 PM CDT [facility] (A) [facility] Specimen (Source) Anatomical Collection Method Collection [...] Organization Address City/State/ZIP Code Phon e Number [address] [address] [place] Lipase (04/06/2017 4:10 AM CDT) athologist Signature Lipase 148 73 - 393 04/06/2017 [facility] U/L 4:44 AM T HOSPITAL Specimen Anatomical Collection Method Collection Time Receive d Time (Source) Location / / Volume Laterality Blood specimen 04/06/2017 4:10 AM 017 4:24 (specimen) CDT AM CDT Luis Jones MD LAB - BLOOD ORDERABLES Performing Organization Address City/[facility] Phon e Number [facility] [address] [place] [address] [facility] [address] [phone] (ABNORMAL) Comprehensive metabolic panel (04/06/2017 4:10 AM CDT) athologist Signature Sodium 137 133 - 144 04/06/2017 [place] mmol/L 4:44 AM [facility] Potassium 3.2 (L) 3.4 - 5.3 04/06/2017 [place] mmol/L 4:44 AM [facility] Chloride 104 94 - 109 04/06/2017 [place] mmol/L 4:44 AM [facility] Carbon Dioxide 25 20 - 32 04/06/2017 [place] mmol/L 4:44 AM [facility] Anion Gap 8 3 - 14 04/06/2017 [place] mmol/L 4:44 AM [facility] Glucose 102 (H) 70 - 99 04/06/2017 [place] mg/dL 4:44 AM [facility] Urea Nitrogen 12 7 - 30 04/06/2017 [place] mg/dL 4:44 AM [facility] Creatinine 0.80 0.52 - 04/06/2017 [facility] 1.04 mg/dL 4:44 AM [facility] GFR Estimate 88 >60 04/06/2017 [place] mL/min/1.7 4:[address] Comment: Non GFR Calc GFR Estimate If >90 >60 mL/min/1.7m2 04/06/2017 4:44 A [facility] Comment: GFR Calc Calcium 8.9 8.5 - 10.1 mg/dL 04/06/2017 4:44 AM [facility] Bilirubin Total 0.4 0.2 - 1.3 mg/dL 04/06/2017 4:[address] [facility] Albumin 4.1 3.4 - 5.0 g/dL 04/06/2017 4:44 AM [facility] Protein Total 8.1 6.8 - 8.8 g/dL 04/06/2017 4:44 AM [facility] Alkaline Phosphatase 108 40 - 150 U/L 04/06/2017 4:[address] [facility] ALT 23 0 - 50 U/L 04/06/2017 4:44 AM [facility] AST 10 0 - 45 U/L 04/06/2017 4:44 AM [facility] Specimen Anatomical Collection Method Collection Time Receive d Time (Source) Location / / Volume Laterality Blood specimen 04/06/2017 4:10 AM 017 4:24 (specimen) CDT [facility] Luis Jones MD LAB - BLOOD ORDERABLES Performing Organization Address City/State/ZIP Code Phon e Number M [facility] [address] [place], [place] [address] [facility] [address] [place], [place] [address] [phone] CBC with platelets differential (04/06/2017 4:10 AM T) [facility] gist Method Time Signature WBC 8.1 4.0 - 04/06/2017 [facility] 11.0 4:28 AM [facility] 10e9/L [facility] RBC Count 4.40 3.8 - 5.2 04/06/2017 [facility] 10e12/L 4:28 AM [facility] Hemoglobin 13.5 11.7 - 04/06/2017 [facility] 15.7 g/dL 4:28 AM [facility] Hematocrit 40.0 35.0 - 04/06/2017 [facility] 47.0 % 4:28 AM [facility] MCV 91 78 - 100 04/06/2017 [facility] fl 4:28 AM [facility] MCH 30.7 26.5 - 04/06/2017 [facility] 33.0 pg 4:28 AM [facility] MCHC 33.8 31.5 - 04/06/2017 [facility] 36.5 g/dL 4:28 AM [facility] RDW 13.1 10.0 - 04/06/2017 [facility] 15.0 % 4:28 AM [facility] Platelet Count 278 150 - 450 04/06/2017 [facility] 10e9/L 4:28 AM [facility] Diff Method Automated 04/06/2017 [facility] Method 4:28 AM [facility] % Neutrophils 60.6 % 04/06/2017 [facility] 4:28 AM [facility] % Lymphocytes 29.5 % 04/06/2017 [facility] 4:28 AM [facility] % Monocytes 7.7 % 04/06/2017 [facility] 4:28 AM [facility] % Eosinophils 1.5 % 04/06/2017 [facility] 4:28 AM [facility] % Basophils 0.5 % 04/06/2017 [facility] 4:28 AM [facility] % Immature 0.2 % 04/06/2017 [facility] Granulocytes 4:28 AM [facility] Nucleated RBCs 0 0 /100 04/06/2017 [facility] 4:28 AM [facility] Absolute 4.9 1.6 - 8.3 04/06/2017 [facility] Neutrophil 10e9/L 4:28 AM [facility] Absolute 2.4 0.8 - 5.3 04/06/2017 [facility] Lymphocytes 10e9/L 4:28 AM [facility] Absolute 0.6 0.0 - 1.3 04/06/2017 [facility] Monocytes 10e9/L 4:28 AM [facility] Absolute 0.1 0.0 - 0.7 04/06/2017 [facility] Eosinophils 10e9/L 4:28 AM [facility] Absolute 0.0 0.0 - 0.2 04/06/2017 [place] Basophils 10e9/L 4:28 AM [facility] Abs Immature 0.0 0 - 0.4 04/06/2017 [facility] Granulocytes 10e9/L 4:28 AM [facility] Absolute 0.0 04/06/2017 [facility] Nucleated RBC 4:28 AM [facility] Specimen Anatomical Collection Method Collection Time Receive d Time (Source) Location / / Volume Laterality Blood specimen 04/06/2017 4:10 AM 017 4:24 (specimen) CDT CDT Luis Jones MD LAB - BLOOD ORDERABLES Performing Organization Address City/State/ZIP Code Phon e Number [place] [address] [address] [place] [address] [facility] [address] [phone] (ABNORMAL) UA with Microscopic (04/06/2017 4:10 AM CDT) [facility] Method Time Signature Color Urine Yellow 04/06/2017 [facility] 4:38 AM [facility] Appearance Urine Slightly 04/06/2017 [place] Cloudy 4:38 AM [facility] Glucose Urine Negative NEG^Negat 04/06/2017 [facility] kvng mg/dL 4:38 AM [facility] Bilirubin Urine Negative NEG^Negat 04/06/2017 [facility] kvng 4:38 AM [facility] Ketones Urine Negative NEG^Negat 04/06/2017 [place] kvng mg/dL 4:38 AM [facility] Specific Perry 1.013 1.003 - 04/06/2017 [place] Urine 1.035 4:38 AM [facility] Blood Urine Small (A) NEG^Negat 04/06/2017 [facility] kvng 4:38 AM [facility] pH Urine 5.0 5.0 - 7.0 04/06/2017 [place] pH 4:38 AM [facility] Protein Albumin 30 (A) NEG^Negat 04/06/2017 [place] Urine kvng mg/dL 4:38 AM [facility] Urobilinogen 0.0 0.0 - 2.0 04/06/2017 [place] mg/dL mg/dL 4:38 AM [facility] Nitrite Urine Negative NEG^Negat 04/06/2017 [place] kvng 4:38 AM [facility] Leukocyte Large (A) NEG^Negat 04/06/2017 [place] Esterase Urine kvng 4:38 AM [facility] Source Midstream 04/06/2017 [place] Urine 4:25 AM [facility] WBC Urine 126 (H) 0 - 2 04/06/2017 [facility] /HPF 4:38 AM [facility] RBC Urine 15 (H) 0 - 2 04/06/2017 [facility] /HPF 4:38 AM [facility] WBC Clumps Present (A) NEG^Negat 04/06/2017 [place] kvng /HPF 4:38 AM [facility] Bacteria Urine Many (A) NEG^Negat 04/06/2017 [facility] kvng /HPF 4:38 AM [facility] Squamous 1 0 - 1 04/06/2017 [place] Epithelial /HPF /HPF 4:38 AM [facility] Mucous Urine Present (A) NEG^Negat 04/06/2017 [place] kvng /LPF 4:38 AM [facility] Specimen (Source) Anatomical Collection Method Collection Time Re ceived Time Location / / Volume Laterality Examination of URINE SPECIMEN 04/06/2017 4:10 04/06/20 17 4:24 midstream urine OBTAINED BY CLEAN AM [facility] specimen CATCH PROCEDURE / (procedure) Unknown Luis Jones MD LAB - URINE ORDERABLES Performing Organization Address [facility] Phon e Number [facility] [address] [place], [place] [address] [facility] [address], [place] [address] [phone] HCG qualitative urine (04/06/2017 4:10 AM CDT) athologist Signature HCG Qual Urine Negative NEG^Negati 04/06/2017 [facility] 4:41 AM CDT [facility] Comment: This test is for screening purposes. ??R esults should be interpreted along with the clinical picture. ??Confirmation te sting is available if warranted by ordering [id number], HCG Quantitative Pregna ncy. Specimen Anatomical Collection Method Collection Time Receive d Time (Source) Location / / Volume Laterality Urine specimen URINE SPECIMEN 04/06/2017 4:10 AM 04/06 4:24 (specimen) OBTAINED BY CLEAN CDT AM CDT CATCH PROCEDURE / Unknown Luis Jones MD LAB - URINE ORDERABLES Performing Organization Address [facility] Phon e Number [facility] [address] [place], [place] [address] [facility] [address], [place] [address] [phone] documented in this encounter Visit Diagnoses Diagnosis [...] mg 0.3-0.5 mg, Intravenous, EVERY 10 MIN AR N, other, acute pain.?May administer if Respiratory [...] 04/05/2017 04/06/2017 0.9% sodium chloride BOLUS (COMPLETED) 6376 (New Bag - Provider: Du Daniel RN)6415 (Stopped - Provider: Du Daniel RN) Intravenous, [...] (New Bag - Provider: Rahul Almaraz APRN CERAMIC TILE SETTER)1140 (Anesthesia Volume Adjustment - Provider: Rahul Almaraz APRN CERAMIC TILE SETTER) at 25 mL/hr, Intravenous, CONTINUOUS, IF patient [...] mg 0.3-0.5 mg, Intravenous, EVERY 10 MIN AR N, Starting Sun04/06/17 at 1213, Until Sun04/06/17 [...] 4 mg, Intravenous, EVERY 30 MIN PRN, patricai sea, vomiting, Administer over 2-5 Minutes, Starting [...] (See Alternative - Provider: Rahul Almaraz APRN CERAMIC TILE SETTER)165 (Unhold - Provider: Orders Generic Provider) 4 [...] management)
documented in this encounter Care Teams Pilling Machine Operator Relationship Specialty Start Date End Date No Ref-Primary, Physician PCP - General 04/06/17 documented as of this encounter
[2022-03-28 12:49] LABS: Glucose 1 Hour Gest 164 mg/dl (70-180)
[2022-03-28 13:30] LABS: Glucose GTT-Gestational 3 Hr 36 mg/dl (70-140)
[2022-03-28 15:49] LABS: Glucose Fasting Check 85 mg/dl (60-115)
== END 2022-03-28 07:58 | disposition home or self-care (01) ==
PROVIDERS: Visit Provider Advanced Practice Midwife
DX: R73.09 Other abnormal glucose (principal)
CPT/HCPCS: 82951; 82952

== ENCOUNTER 2022-04-11 07:23 | Outpatient (CLI) | payer BC, SELFPAY ==
--- NOTE | 2022-04-11 07:15 | CRLHL7_ITS ---
For Patients: As a result of the Century Cures Act, medical imaging exams and procedure reports are released immediately into your electronic medical record. You may view this report before your referring provider. If you have questions, please contact your health care provider. INDICATION: Third trimester scan, evaluate growth. COVID IN COMPARISON: 10/31/2021 TECHNIQUE: Real time crawford scale imaging of the fetus was performed. FINDINGS: Sonographic imaging demonstrates a single living intrauterine gestation. Fetus demonstrates a regular cardiac rate of 171 beats per minute. Fetus has a vertex position. The placenta lies right anterior. Amniotic fluid volume appears normal and there is a single deepest vertical pocket: 7.3 cm. The estimated weight is 2632gm which lies at the greater than 97th %. BPD, HC, AC greater than 97th percentile. FL 54th percentile. The HC/AC ratio measures 1.02 range (0.93-1.10). IMPRESSION: Sonographic gestational age 35 weeks 3 days and sonographic due date 05/13/2022. Sonographic age 3 weeks ahead of the clinical age. Estimated weight greater than 97th percentile. BPD, HC, AC all greater than 97th percentile. Dictated by Quintin Leach MD @ 04/11/2022 9:08:42 AM (Electronically Signed)
--- OUTSIDE RECORDS SUMMARY | 2022-04-11 07:47 | XMS_ITS | Encounter Summary ---
:1990 Author Organization [place] Address [address] [place] [address] Care Team Providers Name Role Phone Unavailable Primary Care Provider Unavailable Encounter Details Date Type Department Care Team Description 05/01/2017 Telephone [facility] REPORTING Chioma Harding PA-C [address] [place] [address] [place] [address] [address] [address] [place], [place] [address] (Wo rk) Social History Tobacco Use Types Packs/Day Years Used Date Current Every Day Smoker Smokeless Tobacco: Never Used Sex Assigned at Date Recorded Not on file documented as of this encounter Miscellaneous Notes Telephone Encounter - Chioma Harding PA-C - 05/01/2017 4:55 PM CDT [...]
--- OUTSIDE RECORDS SUMMARY | 2022-04-11 07:47 | XMS_ITS | Encounter Summary ---
:1990 Author Organization [place] Address [address] [place] [address] Care Team Providers Name Role Phone No Ref-Primary, Physician Primary Care Provider [phone] Reason for Referral Diagnostic Imaging Ultrasound (Routine) - Pending Review Specialty Diagnoses / Procedures Referred By Contact Refer red To Contact Diagnoses related condition, antepartum Rh Maternal Med Procedures MFM US Comprehensive Single [address] [place] [address] Referral ID Status Reason Start Date Expiration Date Visits V isits Requested Authorized [id number] Pending 01/03/2022 01/03/2023 1 1 Review onsultation (Routine: Next available opening) - Pending Review Specialty Diagnoses / Procedures Referred By Contact Refer red To Contact Diagnoses related condition, antepartum Rh Maternal Med [address] [place] [address] Referral ID Status Reason Start Date Expiration Date Visits V isits Requested Authorized [id number] Pending 01/03/2022 01/03/2023 1 1 Review Encounter Details Date Type Department Care Team Description 01/03/2022 Transcribe Orders [facility] Lexi Mendieta, related Maternal NUTRITION COUNSELOR [facility] antepartum (Primary [address] Dx) [address] [facility] [address] [place] [address] Social History Tobacco Use Types Packs/Day [...] 07/02/2022 documented as of this encounter Results [facility] US Comprehensive Single (01/13/2022 9:39 AM [...] ESPOSITO Study Date: 01/13/2022 8:45am Pat. NO: [id number] Referring ??: NIURKA MENDIETA Site: [facility] Mgr: Salma Piña : 1990 Age: 31 INDICATION [...] lb 15 ? oz EFW by ?Hadlock ([id number]) Head / Face / Neck Biometry: Hr Associate ? 6.5 ? mm CM ?4.2 ? [...] cava. Inferior vena cava. 3-vessel ? view. 7-mviygm-gurieml view. Cardiac position. Cardiac size. Cardiac rhythm. [...] Pat. Name:Newton ESPOSITO te:01/13/2022 8:45am Pat. NO: [id number] MD:LEXI MENDIETA [facility]Germain Mcnally RDMS :1990Age:31 INDICATION COVID in METHOD [...] 0 lb 15 oz EFW by Hadlock ([id number]) Head / Face / Neck Biometry: Hr Associate 6.5 mm CM 4.2 mm Nasal bone [...] vena cava. Inferior vena cava. 3-vessel view. 9-govnfq-qramdad view. Cardiac po sition. Cardiac size. Cardiac [...] antepartum documented in this encounter Care Teams Assembler Relationship Specialty Start Date End Date No Ref-Primary, Physician PCP - General 12/14/20 documented as of this encounter
--- OUTSIDE RECORDS SUMMARY | 2022-04-11 07:47 | XMS_ITS | Encounter Summary ---
:1990 Author Organization [place] Address [address] [place] [address] Care Team Providers Name Role Phone No Ref-Primary, Physician Primary Care Provider [phone] Reason for Visit Reason Comments Chest Pain Encounter Details Date Type Department Care Team Description 12/14/2020 Emergency [facility] Daniel Avelar, Chest pain Emergency Dept PA-C [address] [facility] [address] Dem[address] LessonGLENBROOKYael ALEXANDER [phone] [address] [place], [place] [address] (Wo rk) Social History Tobacco Use Types [...] sent through Care Everywhere. Chest Pain, Noncardiac (Venezuelan)documented in this encounter Medications at Time of [...] sinus arrhythmia. Normal ECG. Rate 66 bpm. NV interval 138 ms. QRS duration 104 ms. [...] patient is a HEART score of 1 ([id number]) and I feel ACS or mycocarditis is [...] with platelets differential (12/14/2020 3:45 PM CDT) [facility] Method Time Signature WBC 5.5 4.0 - 12/14/2020 [facility] 11.0 4:09 PM [facility] 10e9/L [facility] RBC Count 3.79 (L) 3.8 - 5.2 12/14/2020 [facility] 10e12/L 4:09 PM [facility] Hemoglobin 11.9 11.7 - 12/14/2020 [facility] 15.7 g/dL 4:09 PM [facility] Hematocrit 37.2 35.0 - 12/14/2020 [facility] 47.0 % 4:09 PM [facility] MCV 98 78 - 100 12/14/2020 [facility] fl 4:09 PM [facility] MCH 31.4 26.5 - 12/14/2020 [facility] 33.0 pg 4:09 PM [facility] MCHC 32.0 31.5 - 12/14/2020 [facility] 36.5 g/dL 4:09 PM [facility] RDW 12.8 10.0 - 12/14/2020 [facility] 15.0 % 4:09 PM [facility] Platelet Count 195 150 - 450 12/14/2020 [facility] 10e9/L 4:09 PM [facility] Diff Method Automated 12/14/2020 [facility] Method 4:09 PM [facility] % Neutrophils 58.3 % 12/14/2020 [facility] 4:09 PM [facility] % Lymphocytes 27.5 % 12/14/2020 [facility] 4:09 PM [facility] % Monocytes 11.5 % 12/14/2020 [facility] 4:09 PM [facility] % Eosinophils 1.8 % 12/14/2020 [facility] 4:09 PM [facility] % Basophils 0.5 % 12/14/2020 [facility] 4:09 PM [facility] % Immature 0.4 % 12/14/2020 [facility] Granulocytes 4:09 PM [facility] Nucleated RBCs 0 0 /100 12/14/2020 [facility] 4:09 PM [facility] Absolute 3.2 1.6 - 8.3 12/14/2020 [place] Neutrophil 10e9/L 4:09 PM [facility] Absolute 1.5 0.8 - 5.3 12/14/2020 [place] Lymphocytes 10e9/L 4:09 PM [facility] Absolute 0.6 0.0 - 1.3 12/14/2020 [place] Monocytes 10e9/L 4:09 PM [facility] Absolute 0.1 0.0 - 0.7 12/14/2020 [facility] Eosinophils 10e9/L 4:09 PM [facility] Absolute 0.0 0.0 - 0.2 12/14/2020 [facility] Basophils 10e9/L 4:09 PM [facility] Abs Immature 0.0 0 - 0.4 12/14/2020 [place] Granulocytes 10e9/L 4:09 PM [facility] Absolute 0.0 12/14/2020 [place] Nucleated RBC 4:09 PM [facility] Specimen Anatomical Collection Method Collection Time Receive d Time (Source) Location / / Volume Laterality 12/14/2020 3:45 PM 3:58 CDT PM CDT Daniel Mckinnon PA-C LAB - BLOOD ORDERABLES Performing Organization Address City/State/ZIP Code Phon e Number M [facility] [address], [place] [address] [facility] [address] [address] [phone] D dimer quantitative (12/14/2020 3:45 PM CDT) athologist Signature D Dimer 0.3 0.0 - 0.50 12/14/2020 [facility] ug/ml FEU 4:[address] [facility] Comment: This D-dimer assay is intended [...] LAB - BLOOD ORDERABLES Performing Organization Address [facility] Phon e Number [facility] [address], [place] [address] [facility] [address] [place], [place] [address], [facility] [phone] HCG qualitative (12/14/2020 1:55 PM CDT) [facility] Method Time Signature HCG Qualitative Negative NEG^Negati 12/14/2020 [place] Serum ve 3:57 PM CDT [facility] Comment: This test is for screening purposes. ??R esults should be interpreted along with the clinical picture. ??Confirmation te sting is available if warranted by ordering [id number], HCG Quantitative Pregna ncy. Specimen Anatomical Collection Method Collection Time Receive d Time (Source) Location / / Volume Laterality 12/14/2020 1:55 PM 1 2:45 CDT PM CDT Edith Ortega MD LAB - BLOOD ORDERABLES Performing Organization Address [facility] Phon e Number [facility] [address], [place] [address] [facility] [address] [place], [place] [address], [facility] [phone] Troponin I (12/14/2020 1:55 PM CDT) athologist Signature Troponin I ES <0.015 0.000 - 12/14/2020 [place] 0.045 ug/L 3:23 PM [facility] Comment: The 99th percentile for upper [...] Address City/State/ZIP Code Phon e Number M [facility] [address] [address] [phone] [facility] [address] [address], U [phone] (ABNORMAL) Basic metabolic panel (12/14/2020 1:55 PM CDT) athologist Signature Sodium 139 133 - 144 12/14/2020 [place] mmol/L 3:23 PM [facility] Potassium 3.8 3.4 - 5.3 12/14/2020 [place] mmol/L 3:23 PM [facility] Comment: Specimen slightly hemolyzed, po tassium may be falsely elevated Chloride 110 (H) 94 - 109 mmol/L 12/14/2020 3:23 PM [facility] Carbon Dioxide 23 20 - 32 mmol/L 12/14/2020 3:23 PM [facility] Anion Gap 6 3 - 14 mmol/L 12/14/2020 3:23 PM [facility] Glucose 84 70 - 99 mg/dL 12/14/2020 3:23 PM [facility] Urea Nitrogen 12 7 - 30 mg/dL 12/14/2020 3:23 PM [facility] Creatinine 0.88 0.52 - 1.04 mg/dL 12/14/2020 3:23 PM [facility] GFR Estimate 89 >60 12/14/2020 3:23 PM [facility] mL/min/{1.73_m2} [facility] Comment: Non GFR Calc Starting 07/09/2018, serum creatinine ba sed estimated GFR (eGFR) will be calculated using the Chronic Kidney Dise [facility] Epidemiology Collaboration (CKD-EPI) equation. GFR Estimate If >90 >60 mL/min/{1.73_m2} 12/14/2020 3: 23 PM [facility] Comment: GFR Calc Starting 07/09/2018, serum creatinine ba sed estimated GFR (eGFR) will be calculated using the Chronic Kidney Dise [facility] Epidemiology Collaboration (CKD-EPI) equation. Calcium 8.7 8.5 - 10.1 mg/dL 12/14/2020 3:23 PM CDT [facility] Specimen Anatomical Collection Method Collection Time Receive d Time (Source) Location / / Volume Laterality Blood 12/14/2020 1:55 PM 2:45 CDT PM CDT Daniel Mckinnon PA-C LAB - BLOOD ORDERABLES Performing Organization Address City/State/ZIP Code Phon e Number [facility] [address] [address] [phone] [facility] [address] [place] [address], [facility] [phone] EKG 12 lead (12/14/2020 12:42 PM CDT) [facility] Method Time Signature Interpretation ECG Click View [...] unspecified documented in this encounter Care Teams Centrifugal Chiller Technician Relationship Specialty Start Date End Date No Ref-Primary, Physician PCP - General 12/14/20 documented as of this encounter
--- OUTSIDE RECORDS SUMMARY | 2022-04-11 07:47 | XMS_ITS | Clinical Summary ---
:1990 Author Organization [place] Address [address] [place] [address] Care Team Providers Name Role Phone No Ref-Primary, Physician Primary Care Provider [phone] Allergies Active Allergy Reactions Severity Noted [...] egnancy related Provider, Radiol ogy condition, Chau Kessler anteOsmin [place] MD, MD 01/13/2022 Travel from Last 3 Months Family History Medical [...] this topic Medical Devices Implanted Type Area Student Ministries Director Device Shelf Model / Identifier Expiration Serial / Date Lot Stent Ureteral Dbl Pigtail Inlay [id number] Stent Left: CR BARD 05/12/2021 [id number] / Implanted: Qty: 1 on 04/06/2017 by Jae diego, Chau Ribeiro MD at [facility] [employer]-UR[employer] / [id number] Procedures Procedure Name Priority Date/Time Associated Comments Diagnosis [facility] US COMPREHENSIVE Routine 01/13/2022 9:39 AM rela seferino Results for this SINGLE CDT condition, procedure are i n antepartum the results section. from Last 3 Months Results [facility] US Comprehensive Single (01/13/2022 9:39 AM CDT) [...] [place] Study Date: 01/13/2022 8:45am Pat. NO: [id number] Referring ??: NIURKA MENDIETA Site: [facility] Dairy Processing Equipment Operator: Salma Piña : 1990 Age: 31 INDICATION [...] lb 15 ? oz EFW by ?Hadlock ([id number]) Head / Face / Neck Biometry: Media Aid ? 6.5 ? mm CM ?4.2 ? [...] cava. Inferior vena cava. 3-vessel ? view. 2-rbmpxe-xozbjgs view. Cardiac position. Cardiac size. Cardiac rhythm. [...] from the original. Comprehensive Pat. Name:Newton ESPOSITO Jose te:01/13/2022 8:45am Pat. NO: [id number] MD:MAGY MENDIETA Site:[facility] Caregrapher:Germain Mcnally RDMS :1990Age:31 INDICATION COVID in METHOD [...] 0 lb 15 oz EFW by Hadlock ([id number]) Head / Face / Neck Biometry: Media Aid 6.5 mm CM 4.2 mm Nasal bone [...] vena cava. Inferior vena cava. 3-vessel view. 1-ojmmeo-kwotbpj view. Cardiac po sition. Cardiac size. Cardiac [...] ultrasound were evident. Radiology Non-Fv Credentialed Provider [facility] US TL [place] from Last 3 Months Insurance Payer Benefit Plan / Subscriber ID Effective Dates Phone Addre ss Type Group BCBS BCBS OUT OF [id number] 2021-Present [phone] [address] [address] [place] [address] Advance Directives For more information, please contact: [phone] Latest Code Status on File Code Status Date Activated Date Inactivated Comments Full Code 04/06/2017 9:39 AM 12/14/2020 10:47 AM Full Code 04/06/2017 6:57 AM 04/06/2017 9:39 AM Care Teams Sap Basis Consultant Relationship Specialty Start Date End Date No Ref-Primary, Physician PCP - General 12/14/20
--- OUTSIDE RECORDS SUMMARY | 2022-04-11 07:47 | XMS_ITS | Encounter Summary ---
:1990 Author Organization [place] Address [address] [place] [address]. [place] [address] Care Team Providers Name Role Phone No Ref-Primary, Physician Primary Care Provider Unavailable Reason for Visit Reason Comments Cystoscopy Stent Removal: Ureteral Ston e Encounter Details Date Type Department Care Team Description [facility] Rowena Babin MD Dx) [address] [place] [address] [place] [address] [phone] Social History Tobacco Use Types Packs/Day Years [...] office with any concerns or questions @[facility]. documented in this encounter Progress Notes George [...] kidney documented in this encounter Care Teams Retirement Specialist Relationship Specialty Start Date End Date No Ref-Primary, Physician PCP - General 04/06/17 documented as of this encounter
--- OUTSIDE RECORDS SUMMARY | 2022-04-11 07:47 | XMS_ITS | Encounter Summary ---
:1990 Author Organization [place] Address [address] [place] [address] Care Team Providers Name Role Phone No Ref-Primary, Physician Primary Care Provider Unavailable Encounter Details Date Type Department Care Team Description 04/06/2017 Anesthesia Event M [facility] Eleanor Alfredo mami PeriOp Services MD [place] [address] [place], [place] ANESTHESIA [address] [address] [place], [place] [address] Anesthesia Record Procedure Summary [...] Joshua, Buen o, Rahul laryngeal mask airway; LABEL DESIGNER AIRCRAFT MAINTENANCE DIRECTOR Joshua, LABEL DESIGNER AIRCRAFT MAINTENANCE DIRECTOR center of mouth; Equal, clear and bilateral; AIRCRAFT MAINTENANCE DIRECTOR Peripheral IV 04/06/17; 1140; 20 G; 04/06/17 [...] benefits and alternatives discussed with: Patient or international representative and Patient.. . documented in this [...] prepare to transfer to PACU, Report to TELECOMMUNICATOR. VSS transfer care Vitals: (Last set prior to Anesthesia Care Transfer) AIRCRAFT MAINTENANCE DIRECTOR VITALS 04/06/2017 1106 - 04/06/2017 1140 04/06/2017 [...] Intra-op documented in this encounter Care Teams Community Organization Worker Relationship Specialty Start Date End Date No Ref-Primary, Physician PCP - General 04/06/17 documented as of this encounter
--- OUTSIDE RECORDS SUMMARY | 2022-04-11 07:47 | XMS_ITS | Encounter Summary ---
:1990 Author Organization [place] Address [address] [address] Care Team Providers Name Role Phone No Ref-Primary, Physician Primary Care Provider [phone] Reason for Visit Reason Comments Ultrasound L2- covid in Encounter Details Date Type Department Care Team Description 01/05/[address] [facility], Ultrasound (L2- covid in Maternal Medicine TIFFANIE Chavira ) [place] [address] [address] [facility] [address] [place] [address] Social History Tobacco Use Types Packs/Day Years Used Date Current Every Day Smoker Smokeless Tobacco: Never Used Sex Assigned at Date Recorded Not on file documented as of this encounter Plan of Treatment Not on filedocumented as of this encounter Visit Diagnoses Not on filedocumented in this encounter Care Teams Mine Laborer Relationship Specialty Start Date End Date No Ref-Primary, Physician PCP - General 12/14/20 documented as of this encounter
--- OUTSIDE RECORDS SUMMARY | 2022-04-11 07:47 | XMS_ITS | Encounter Summary ---
:1990 Author Organization [place] Address [address] [place] [address]. [place] [address] Care Team Providers Name Role Phone No Ref-Primary, Physician Primary Care Provider [phone] Encounter Details Date Type Department Care Team Description 07/13/2021 Medical Correspondence [facility] Scan, MATERNAL Health Info Mgmt Non-Provider MEDICINE CE NTER Srvcs PROVIDER SERVICE [address] [place] [address] [place] [address] [facility] [phone] AMES Social History Tobacco Use Types Packs/Day Years Used Date Current Every Day Smoker Smokeless Tobacco: Never Used Sex Assigned at Date Recorded Not on file documented as of this encounter Plan of Treatment Not on filedocumented as of this encounter Visit Diagnoses Not on filedocumented in this encounter Care Teams Aircraft Pneudraulic Systems Mechanic Relationship Specialty Start Date End Date No Ref-Primary, Physician PCP - General 12/14/20 documented as of this encounter
--- OUTSIDE RECORDS SUMMARY | 2022-04-11 07:47 | XMS_ITS | Encounter Summary ---
:1990 Author Organization [place] Address [address] [place] [address] Care Team Providers Name Role Phone No Ref-Primary, Physician Primary Care Provider [phone] Encounter Details Date Type Department Care [...] on filedocumented in this encounter Care Teams Train Brake Operator Relationship Specialty Start Date End Date No Ref-Primary, Physician PCP - General 12/14/20 documented as of this encounter
--- OUTSIDE RECORDS SUMMARY | 2022-04-11 07:47 | XMS_ITS | Encounter Summary ---
:1990 Author Organization [place] Address [facility] [place] [address] Care Team Providers Name Role Phone No Ref-Primary, Physician Primary Care Provider [phone] Reason for Visit Reason Comments Ultrasound L2- covid in Encounter Details Date Type Department Care Team Description 01/13/2022 Office Visit [facility] Non-Fv Credent ialed Provider, Radiology COVID-19 affecting Maternal Contag, Chau Frazier MD [address] [place], [place] [address] in [facility] Osmin Aiken MD [address] [place] [address] trimester (Primary [place] Dx) [address] [facility] [address] [place] [address] Social History Tobacco Use Types [...] for details of today's US at the [facility]. Osmin Aiken MD Maternal- Medicine documented in this encounter Plan of Treatment Not on filedocumented as of this encounter Visit Diagnoses Diagnosis COVID-19 affecting in second t rimester - Primary documented in this encounter Care Teams Continuous Pickling Line Pickler Helper Relationship Specialty Start Date End Date No Ref-Primary, Physician PCP - General 12/14/20 documented as of this encounter
--- OUTSIDE RECORDS SUMMARY | 2022-04-11 07:47 | XMS_ITS | Encounter Summary ---
:1990 Author Organization [place] Address [address] [place] [address] Care Team Providers Name Role Phone No Ref-Primary, Physician Primary Care Provider Unavailable Encounter Details Date Type Department Care Team Description 04/11/2017 Telephone [facility] Pricilla Shin, [address] [place] [address] [address] [phone] [place], [place] [address] (Wo rk) Social History [...] on filedocumented in this encounter Care Teams Fruit Harvest Machine Operator Relationship Specialty Start Date End Date No Ref-Primary, Physician PCP - General 04/06/17 documented as of this encounter
--- OUTSIDE RECORDS SUMMARY | 2022-04-11 07:47 | XMS_ITS | Encounter Summary ---
:1990 Author Organization [facility] Address [address] [place] [address] Care Team Providers Name Role Phone No Ref-Primary, Physician Primary Care Provider [phone] Reason for Referral Diagnostic Imaging Ultrasound (Routine) - Pending Review Specialty Diagnoses / Procedures Referred By Contact Refer red To Contact Diagnoses related condition, antepartum Rh Maternal Med Procedures [facility] US Comprehensive Single [address] [facility] [address] [place] [address] Referral ID Status Reason Start Date Expiration Date Visits V isits Requested Authorized [id number] Pending 01/03/2022 01/03/2023 1 1 Review Reason for Visit Diagnostic Imaging Ultrasound (Routine) - Pending Review Specialty Diagnoses / Procedures Referred By Contact Refer red To Contact Diagnoses related condition, antepartum Rh Maternal Med Procedures [facility] US Comprehensive Single [address] [facility] [address] [place] [address] Referral ID Status Reason Start Date Expiration Date Visits V isits Requested Authorized [id number] Pending 01/03/2022 01/03/2023 1 1 Review Encounter Details Date Type Department Care Team Description 01/13/2022 [facility] Non-Fv Credentialed Pro vider, Radiology related Encounter Maternal ContChau bey MD [address] [place] [address] condition, Medicine Center Osmin Aiken MD [address] [place] [address] antepartum Perry [address] [facility] [address] [place] [address] Social History Tobacco Use Types [...] Procedure Name Priority Date/Time Associated Comments Diagnosis [facility] US COMPREHENSIVE Routine 01/13/2022 9:39 AM rela seferino Results for this SINGLE CDT condition, procedure are i n antepartum the results section. documented in this encounter Results [facility] US Comprehensive Single (01/13/2022 9:39 AM [...] MEJÍA Study Date: 01/13/2022 8:45am Pat. NO: [id number] Referring ??MD: NIURKA MENDIETA Site: [facility] Asphalt Tamper: Salma Piña : 1990 Age: 31 INDICATION [...] lb 15 ? oz EFW by ?Hadlock ([id number]) Head / Face / Neck Biometry: Vendor Management Specialist ? 6.5 ? mm CM ?4.2 ? [...] cava. Inferior vena cava. 3-vessel ? view. 2-akssbr-qqmqhjg view. Cardiac position. Cardiac size. Cardiac rhythm. [...] Comprehensive Name:Newton ESPOSITO te:01/13/2022 8:45am Pat. NO: [id number] MD:MAGY MENDIETA Site:Tobygrapher:Germainbhakti Mcnally RDMS :1990Age:31 INDICATION [...] 0 lb 15 oz EFW by Hadlock ([id number]) Head / Face / Neck Biometry: Vendor Management Specialist 6.5 mm CM 4.2 mm Nasal bone [...] vena cava. Inferior vena cava. 3-vessel view. 3-jdvkxj-fwyksyt view. Cardiac po sition. Cardiac size. Cardiac [...] were evident. Radiology Non-Fv Credentialed Provider [facility] US TL LEWIS documented in this encounter Visit Diagnoses Diagnosis related condition, antepartum documented in this encounter Care Teams Laundromat Manager Relationship Specialty Start Date End Date No Ref-Primary, Physician PCP - General 12/14/20 documented as of this encounter
--- OUTSIDE RECORDS SUMMARY | 2022-04-11 07:47 | XMS_ITS | Encounter Summary ---
:1990 Author Organization [facility] Address [address] [place] [address] Care Team Providers Name Role Phone No Ref-Primary, Physician Primary Care Provider Unavailable Reason for Visit Reason Comments Flank Pain Encounter Details Date Type Department Care Team Description 04/06/2017 Surgery [facility] Chau Ortega ED CYSTOSCOPY, [facility]ane Ribeiro MD LEFT URETEROSCOPY, [address] [facility] [place], [place] [address] LITHOTRIPSY [address]TER, [address] [place] [address] INSERTION LEFT STENT, (Wo rk) stone basketing, [...] Taylor PA-C - 04/06/2017 9:39 AM CDT [facility] Outpatient / Observation Unit Discharge Summary Fauzia [...] [facility]E [facility]ON [facility] JORDAN [phone] During surgery, a stent may be placed [...] Please call your physician or the physician correspondence analyst if you experience: Fever greater than 101 degrees Severe pain not relieved by pain medication or rest Please make an appointment for the removal of the stent according to your physician's instructions. EXTRACORPOREAL SHOCK LITHOTRIPSY (ESWL) DISCHARGE INSTRUCTIONS [facility]ON [facility] JORDAN [phone] Your stone(s) has been fragmented into many [...] hours: Yes. Name: Sindhu (mom), Contact information: [phone] Belongings/Valuables - Will be sent to PeriOp with pt. Doorshaker - Pt DOES NOT need an online editor. 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 Jordan Dahl PA-C [facility] Urology (text or call, Sun-Sun & Fri [...] RN - 04/06/2017 5:[address] [facility] ED Nurse Handoff Report Fauzia Stubbs is a 26 year old female ED Chief complaint: Flank Pain . ED Diagnosis: Final diagnoses: Pyelonephritis Calculus of ureter Allergies: Allergies Allergen Reactions ??? Penicillins Code Status: Full Code Activity level - Baseline/Home: Independent. Activity Level - Current: Independent. Lift room needed: No. Bariatric: No Doorshaker Needed: No Isolation: No. Infection: Not Applicable. [...] BOLUS (1,000 mLs Intravenous New Bag 04/06/17 5861) Followed by 0.9% sodium chloride infusion (not administered) ondansetron (ZOFRAN) injection 4 mg (4 mg Intravenous Given 04/06/17 8999) ciprofloxacin (CIPRO) infusion 400 mg (not administered) [...] with flank pain. Patient woke this morning [id number] with left sided flank pain associated by [...] Admitted to hospitalist service. Osmin Basurtoyder 04/06/2017 [facility] EMERGENCY DEPARTMENT I, Osmin Toure am serving [...] The procedure began by introducing the 22 Serbian rigid cystoscope through the urethra into the [...] EM#[id number] Name: FAUZIA STUBBS MRN: [id number] Account: [id number] : 1990 Procedure Date: 04/06/2017 Document: [id number] Pharmacy-Admission Medication History - Rosie Enrique [facility] - 04/06/2017 9:41 AM CDT Admission medication history interview status for this patient is complete. See [facility] admission navigator for allergy information, prior to admission medications and immunization status. Medication history interview source(s): patient's mother Medication history resources (including written lists, pill bottles, clinic record):None Changes made to MENTAL HEALTH CASE MANAGER medication list: Added: none Deleted: none Changed: [...] oob for safety. Will continue to monitor. 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 Chau Ortega MD IMG DIAGNOSTIC IMAGING ORDER MARGARET Performing Organization Address City/State/ZIP Code Phon e Number [facility] Surgical pathology exam (04/06/2017 11:23 AM CDT) Component Value Ref Test Analysis Performed At [facility] Range Method Time Signature Copath Report Patient Name: FAUZIA STUBBS MR#: [id number] Specimen #: [id number] Collected: 04/06/2017 Received: 04/06/2017 Reported: 04/06/2017 13:04 Ordering Phy(s): CHAU ORTEGA For improved result formatting, select 'View Enhanced Report Format' under Linked Documents section. SPECIMEN(S): Stone, left ureteral FINAL DIAGNOSIS: Left ureteral stone(s)- - Gross pathology the admission performed. - Submitted for chemical/stone analysis (see separate [facility] oming report for results). [...] microscopic sections are obtained. CPT Codes: A: 25053-JT TESTING LAB LOCATION: [address] ??[address] COLLECTION SITE: Client: [facility] Location: [facility] (R) Specimen Anatomical Collection Method Collection Time Receive d Time (Source) Location / / Volume Laterality 04/06/2017 11:23 04/06/2017 AM CDT 12:28 PM CDT Chau Ortega MD LAB - [facility] Performing Organization Address City/State/ZIP Code Phon e Number COPATH Stone analysis (04/06/2017 11:23 AM CDT) [facility] Method Time Signature Stone SEE NOTE 04/10/2017 [place] Composition 6:47 PM CDT [facility] Comment: (Note) Calculi composed primarily [...] omposition determined by FTIR analysis. Performed by [employer], [facility] [place] [facility] [place] [address] [email or web address], Endy Reilly MD, Lab. Director Calculi Number Numerous 04/10/2017 6:47 PM CDT [facility] Calculi Size 1 to 4 mm 04/10/2017 6:47 PM CDT [facility] Calculi Description SEE NOTE 04/10/2017 6:47 PM C DT [facility] Comment: (Note) Specimen consists of numerous, small, brown/baldwin, irregular calculi fragments. Stone Mass 30 mg 04/10/2017 6:47 PM CDT [facility] Specimen (Source) Anatomical Collection Method Collection Time Re ceived Time Location / / Volume Laterality Calculus specimen STRUCTURE OF LEFT 04/06/2017 11:23 (specimen) URETER / Unknown AM CDT Chau Ortega MD LAB - BODY FLUIDS ORDERABLES Performing Organization Address City/State/ZIP Code Phon e Number [place] [address] [facility] [address] [phone] Abd/pelvis CT no contrast - Stone Protocol [...] Signature Specimen Midstream Urine [facility] Description [facility] Special Specimen 04/06/2017 [facility] Requests received in 8:21 AM CDT [facility] preservative [facility] Culture Micro >100,000 colonies/mL 04/07/2017 [facility] Escherichia coli 9:26 PM CDT [facility] (A) [facility] Specimen (Source) Anatomical Collection Method [...] <=4 ug/mL: Susc eptible Escherichia coli Ceftazidime ERMA <=1 ug/mL: Susc eptible Escherichia coli Ceftriaxone [...] Organization Address City/State/ZIP Code Phon e Number [address] [address] [place] Lipase (04/06/2017 4:10 AM CDT) athologist Signature Lipase 148 73 - 393 04/06/2017 [facility] U/L 4:44 AM CDT HOSPITAL Specimen Anatomical Collection Method Collection Time Receive d Time (Source) Location / / Volume Laterality Blood specimen 04/06/2017 4:10 AM 017 4:24 (specimen) CDT AM CDT Luis Jones MD LAB - BLOOD ORDERABLES Performing Organization Address City/State/ZIP Code Phon e Number [facility] [address] [place] [id number] [facility] [address] [place], [place] [address] [place] [address] (ABNORMAL) Comprehensive metabolic panel (04/06/2017 4:10 AM [facility]) P athologist Signature Sodium 137 133 - 144 04/06/2017 [place] mmol/L 4:44 AM [facility] Potassium 3.2 (L) 3.4 - 5.3 04/06/2017 [place] mmol/L 4:44 AM [facility] Chloride 104 94 - 109 04/06/2017 [place] mmol/L 4:44 AM [facility] Carbon Dioxide 25 20 - 32 04/06/2017 [place] mmol/L 4:44 AM [facility] Anion Gap 8 3 - 14 04/06/2017 [place] mmol/L 4:44 AM [facility] Glucose 102 (H) 70 - 99 04/06/2017 [facility] mg/dL 4:44 AM [facility] Urea Nitrogen 12 7 - 30 04/06/2017 [place] mg/dL 4:44 AM [facility] Creatinine 0.80 0.52 - 04/06/2017 [place] 1.04 mg/dL 4:44 AM [facility] GFR Estimate 88 >60 04/06/2017 [place] mL/min/1.7 4:[address] Comment: Non GFR Calc GFR Estimate If >90 >60 mL/min/1.7m2 04/06/2017 4:[address] [facility] Comment: GFR Calc Calcium 8.9 8.5 - 10.1 mg/dL 04/06/2017 4:44 AM [facility] Bilirubin Total 0.4 0.2 - 1.3 mg/dL 04/06/2017 4:44 AM [facility] Albumin 4.1 3.4 - 5.0 g/dL 04/06/2017 4:44 AM [facility] Protein Total 8.1 6.8 - 8.8 g/dL 04/06/2017 4:44 AM [facility] Alkaline Phosphatase 108 40 - 150 U/L 04/06/2017 4:44 AM [facility] ALT 23 0 - 50 U/L 04/06/2017 4:44 AM [facility] AST 10 0 - 45 U/L 04/06/2017 4:44 AM [facility] Specimen Anatomical Collection Method Collection Time Receive d Time (Source) Location / / Volume Laterality Blood specimen 04/06/2017 4:10 AM 017 4:24 (specimen) CDT AM CDT Luis Jones MD LAB - BLOOD ORDERABLES Performing Organization Address City/State/ZIP Code Phon e Number [place] [address] [address] [place] [address] HOSPITAL [facility] [address] [phone] CBC with platelets differential (04/06/2017 4:10 AM CDT) [facility] Method Time Signature WBC 8.1 4.0 - 04/06/2017 [facility] 11.0 4:28 AM [facility] 10e9/L [facility] RBC Count 4.40 3.8 - 5.2 04/06/2017 [facility] 10e12/L 4:28 AM [facility] Hemoglobin 13.5 11.7 - 04/06/2017 [facility] 15.7 g/dL 4:28 AM [facility] Hematocrit 40.0 35.0 - 04/06/2017 [facility] 47.0 % 4:28 AM [facility] MCV 91 78 - 100 04/06/2017 [facility] fl 4:28 AM [facility] MCH 30.7 26.5 - 04/06/2017 [facility] 33.0 pg 4:28 AM [facility] MCHC 33.8 31.5 - 04/06/2017 [facility] 36.5 g/dL 4:28 AM [facility] RDW 13.1 10.0 - 04/06/2017 [facility] 15.0 % 4:28 AM [facility] Platelet Count 278 150 - 450 04/06/2017 [facility] 10e9/L 4:28 AM [facility] Diff Method Automated 04/06/2017 [facility] Method 4:28 AM [facility] % Neutrophils 60.6 % 04/06/2017 [facility] 4:28 AM [facility] % Lymphocytes 29.5 % 04/06/2017 [facility] 4:28 AM [facility] % Monocytes 7.7 % 04/06/2017 [facility] 4:28 AM [facility] % Eosinophils 1.5 % 04/06/2017 [facility] 4:28 AM [facility] % Basophils 0.5 % 04/06/2017 [facility] 4:28 AM [facility] % Immature 0.2 % 04/06/2017 [facility] Granulocytes 4:28 AM [facility] Nucleated RBCs 0 0 /100 04/06/2017 [facility] 4:28 AM [facility] Absolute 4.9 1.6 - 8.3 04/06/2017 [place] Neutrophil 10e9/L 4:28 AM [facility] Absolute 2.4 0.8 - 5.3 04/06/2017 [place] Lymphocytes 10e9/L 4:28 AM [facility] Absolute 0.6 0.0 - 1.3 04/06/2017 [place] Monocytes 10e9/L 4:28 AM [facility] Absolute 0.1 0.0 - 0.7 04/06/2017 [facility] Eosinophils 10e9/L 4:28 AM [facility] Absolute 0.0 0.0 - 0.2 04/06/2017 [place] Basophils 10e9/L 4:28 AM [facility] Abs Immature 0.0 0 - 0.4 04/06/2017 [place] Granulocytes 10e9/L 4:28 AM [facility] Absolute 0.0 04/06/2017 [place] Nucleated RBC 4:28 AM [facility] Specimen Anatomical Collection Method Collection Time Receive d Time (Source) Location / / Volume Laterality Blood specimen 04/06/2017 4:10 AM 017 4:24 (specimen) CDT [facility] Luis Jones MD LAB - BLOOD ORDERABLES Performing Organization Address City/State/ZIP Code Phon e Number [place] [address] [address] [place] [address] [facility] [address] [phone] (ABNORMAL) UA with Microscopic (04/06/2017 4:10 AM T) [facility] Method Time Signature Color Urine Yellow 04/06/2017 [facility] 4:38 AM [facility] Appearance Urine Slightly 04/06/2017 [facility] Cloudy 4:38 AM [facility] Glucose Urine Negative NEG^Negat 04/06/2017 [facility] kvng mg/dL 4:38 AM [facility] Bilirubin Urine Negative NEG^Negat 04/06/2017 [facility] kvng 4:38 AM [facility] Ketones Urine Negative NEG^Negat 04/06/2017 [facility] kvng mg/dL 4:38 AM [facility] Specific [place] 1.013 1.003 - 04/06/2017 [facility] Urine 1.035 4:38 AM [facility] Blood Urine Small (A) NEG^Negat 04/06/2017 [facility] kvng 4:38 AM [facility] pH Urine 5.0 5.0 - 7.0 04/06/2017 [facility] pH 4:38 AM [facility] Protein Albumin 30 (A) NEG^Negat 04/06/2017 [facility] Urine kvng mg/dL 4:38 AM [facility] Urobilinogen 0.0 0.0 - 2.0 04/06/2017 [facility] mg/dL mg/dL 4:38 AM [facility] Nitrite Urine Negative NEG^Negat 04/06/2017 [facility] kvng 4:38 AM [facility] Leukocyte Large (A) NEG^Negat 04/06/2017 [facility] Esterase Urine kvng 4:38 AM [facility] Source Midstream 04/06/2017 [facility] Urine 4:25 AM [facility] WBC Urine 126 (H) 0 - 2 04/06/2017 [facility] /HPF 4:38 AM [facility] RBC Urine 15 (H) 0 - 2 04/06/2017 [facility] /HPF 4:38 AM [facility] WBC Clumps Present (A) NEG^Negat 04/06/2017 [facility] kvng /HPF 4:38 AM [facility] Bacteria Urine Many (A) NEG^Negat 04/06/2017 [facility] kvng /HPF 4:38 AM [facility] Squamous 1 0 - 1 04/06/2017 [place] Epithelial /HPF /HPF 4:38 AM [facility] Mucous Urine Present (A) NEG^Negat 04/06/2017 [place] kvng /LPF 4:38 AM [facility] Specimen (Source) Anatomical Collection Method Collection Time Re ceived Time Location / / Volume Laterality Examination of URINE SPECIMEN 04/06/2017 4:10 04/06/20 17 4:24 midstream urine OBTAINED BY CLEAN AM CDT AM CDT specimen CATCH PROCEDURE / (procedure) Unknown Luis Jones MD LAB - URINE ORDERABLES Performing Organization Address City/[facility] Phon e Number M [facility] [address] [place], [place] [address] [facility] [address] [place], [place] [address], [facility] [phone] HCG qualitative urine (04/06/2017 4:10 AM CDT) athologist Signature HCG Qual Urine Negative NEG^Negati 04/06/2017 [place] ve 4:41 AM [facility] Comment: This test is for screening purposes. ??R esults should be interpreted along with the clinical picture. ??Confirmation te sting is available if warranted by ordering [id number], HCG Quantitative Pregna ncy. Specimen Anatomical Collection Method Collection Time Receive d Time (Source) Location / / Volume Laterality Urine specimen URINE SPECIMEN 04/06/2017 4:10 AM 04/06 4:24 (specimen) OBTAINED BY CLEAN CDT AM CDT CATCH PROCEDURE / Unknown Luis Jones MD LAB - URINE ORDERABLES Performing Organization Address [facility] Phon e Number M [facility] [address] [place], [place] [address] [facility] [address] [place], [place] [address], [facility] [phone] documented in this encounter Visit Diagnoses Not [...] (New Bag - Provider: Rahul Almaraz APRN OYSTER BUYER)1140 (Anesthesia Volume Adjustment - Provider: Rahul Almaraz [...] procedural area)1115 (Given - Provider: Rahul Almaraz, CIRCULAR SAWYER STONE OYSTER BUYER)1652 (Unhold - Provider: Orders Generic Provider) 4 [...] area)1115 (See Alternative - Provider: Rahul Almaraz, CIRCULAR SAWYER STONE OYSTER BUYER)165 (Unhold - Provider: Orders Generic Provider) 4 [...] management)
documented in this encounter Care Teams Crayon Sawyer Relationship Specialty Start Date End Date No Ref-Primary, Physician PCP - General 04/06/17 documented as of this encounter
--- OUTSIDE RECORDS SUMMARY | 2022-04-11 07:47 | XMS_ITS | Encounter Summary ---
:1990 Author Organization [facility] Address [address] [place] [address] Care Team Providers Name Role Phone No Ref-Primary, Physician Primary Care Provider [phone] Encounter Details Date Type Department Care Team [...] on filedocumented in this encounter Care Teams Energy Conservation Director Relationship Specialty Start Date End Date No Ref-Primary, Physician PCP - General 12/14/20 documented as of this encounter
--- OUTSIDE RECORDS SUMMARY | 2022-04-11 07:48 | XMS_ITS | Encounter Summary ---
:1990 Author Organization [facility] Address [address] [place] [address] Care Team Providers Name Role Phone No Ref-Primary, Physician Primary Care Provider Unavailable Reason for Visit Reason Comments Flank Pain Encounter Details Date Type Department Care Team Description 04/06/2017 [facility] Luis Jones MD [facility] [address] [place] [address] [place] [address] [id number] Calculus of left ureter (Primary Dx); [facility] Pre[facility]PostOP [facility] Barry MD Pyelonephritis; [address] [place] [address] Social History Tobacco Use Types [...] Carvajal PA-C - 04/06/2017 9:39 AM CDT [facility] Outpatient / Observation Unit Discharge Summary Fauzia [...] [facility]E [facility]ON [facility] JORDAN [phone] During surgery, a stent may be placed [...] Please call your physician or the physician hand stoner if you experience: Fever greater than 101 degrees Severe pain not relieved by pain medication or rest Please make an appointment for the removal of the stent according to your physician's instructions. EXTRACORPOREAL SHOCK LITHOTRIPSY (ESWL) DISCHARGE INSTRUCTIONS [facility] [phone] Your stone(s) has been fragmented into many [...] hours: Yes. Name: Sindhu (sammy), Contact information: [phone] Belongings/Valuables - Will be sent to [facility] with pt. Dental Cream Maker - Pt DOES NOT need an lubrication supervisor. 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 Jordan Dahl PA-C [facility] Urology (text or call, Mon-Wed & [...] Jeff RN - 04/06/2017 5:33 AM CDT [facility] ED Nurse Handoff Report Fauzia Stubbs is a 26 year old female ED Chief complaint: Flank Pain . ED Diagnosis: Final diagnoses: Pyelonephritis Calculus of ureter Allergies: Allergies Allergen Reactions ??? Penicillins Code Status: Full Code Activity level - Baseline/Home: Independent. Activity Level - Current: Independent. Lift room needed: No. Bariatric: No Dental Cream Maker Needed: No Isolation: No. Infection: Not Applicable. [...] with flank pain. Patient woke this morning [id number] with left sided flank pain associated by [...] BOLUS (1,000 mLs Intravenous New Bag 04/06/17 0959) Followed by 0.9% sodium chloride infusion (not administered) ondansetron (ZOFRAN) injection 4 mg (4 mg Intravenous Given 04/06/17 3430) ciprofloxacin (CIPRO) infusion 400 mg (400 mg Intravenous New Bag 04/06/17 4132) HYDROmorphone (PF) (DILAUDID) injection 0.5 mg (not [...] Admitted to hospitalist service. Osmin Toure 04/06/2017 [facility] EMERGENCY DEPARTMENT I, Osmin Toure, [...] The procedure began by introducing the 22 Turkish rigid cystoscope through the urethra into the [...] [id number] Name: FAUZIA STUBBS MRN: [id number] Account: [id number] : 1990 Procedure Date: 04/06/2017 Document: [id number] Pharmacy-Admission Medication History - Rosie Enrique RPH - 04/06/2017 9:41 AM CDT Admission medication history interview status for this patient is complete. See PSYCHIATRIC admission navigator for allergy information, prior to admission medications and immunization status. 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 Will continue to monitor. 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 Chau Ortega MD IM DIAGNOSTIC IMAGING ORDER MARGARET Performing Organization Address City/State/ZIP Code Phon e Number [facility] Surgical pathology exam (04/06/2017 11:23 AM CDT) Component Value Ref Test Analysis Performed At [facility] Range Method Time Signature Copath Report Patient Name: FAUZIA STUBBS MR#: [id number] Specimen #: [id number] Collected: 04/06/2017 Received: 04/06/2017 Reported: 04/06/2017 13:04 Ordering Phy(s): CHAU ORTEGA For improved result formatting, select 'View Enhanced Report Format' under Linked Documents section. SPECIMEN(S): Stone, left ureteral FINAL DIAGNOSIS: Left ureteral stone(s)- - Gross pathology the admission performed. - Submitted for chemical/stone analysis (see separate [facility] oming report for results). Electronically signed [...] microscopic sections are obtained. CPT Codes: A: 28928-RM TESTING LAB LOCATION: [address] ??[address] COLLECTION SITE: Client: [facility] Location: RHERA (R) Specimen Anatomical Collection Method Collection Time Receive d Time (Source) Location / / Volume Laterality 04/06/2017 11:23 04/06/2017 AM CDT 12:28 PM CDT Chau Ortega MD [facility] Performing Organization Address City/State/ZIP Code Phon e Number COPATH Stone analysis (04/06/2017 11:23 AM CDT) [facility] Method Time Signature Stone SEE NOTE 04/10/2017 [place] Composition 6:47 PM CDT [facility] Comment: (Note) Calculi composed primarily [...] omposition determined by FTIR analysis. Performed by [email or web address], [address] [place] [id number] [email or web address], Endy Reilly MD, Lab. Director Calculi Number Numerous 04/10/2017 6:47 PM CDT [facility] Calculi Size 1 to 4 mm 04/10/2017 6:47 PM CDT [facility] Calculi Description SEE NOTE 04/10/2017 6:47 PM C DT [facility] Comment: (Note) Specimen consists of numerous, small, brown/baldwin, irregular calculi fragments. Stone Mass 30 mg 04/10/2017 6:47 PM CDT [facility] Specimen (Source) Anatomical Collection Method Collection Time Re ceived Time Location / / Volume Laterality Calculus specimen STRUCTURE OF LEFT 04/06/2017 11:23 (specimen) URETER / Unknown AM CDT Chau Ortega MD LAB - BODY FLUIDS ORDERABLES Performing Organization Address City/State/ZIP Code Phon e Number [place] [address] [address] [place], [place] [address] [facility] [address] [place], [place] [address] [facility] [phone] Abd/pelvis CT no contrast - Stone Protocol [...] Component Value Ref Test Analysis Performed At [facility] gist Range Method Time Signature Specimen Midstream Urine [facility] Description [facility] Special Specimen 04/06/2017 [facility] Requests received in 8:21 AM CDT [facility] preservative [facility] Culture Micro >100,000 colonies/mL 04/07/2017 [facility] Escherichia coli 9:26 PM CDT [facility] (A) [facility] Specimen (Source) Anatomical Collection Method Collection [...] Organization Address City/State/ZIP Code Phon e Number [address] [address] [place] Lipase (04/06/2017 4:10 AM CDT) athologist Signature Lipase 148 73 - 393 04/06/2017 [facility] U/L 4:44 AM T HOSPITAL Specimen Anatomical Collection Method Collection Time Receive d Time (Source) Location / / Volume Laterality Blood specimen 04/06/2017 4:10 AM 017 4:24 (specimen) CDT AM CDT Luis Jones MD LAB - BLOOD ORDERABLES Performing Organization Address City/[facility] Phon e Number [facility] [address] [place] [address] [facility] [address] [phone] (ABNORMAL) Comprehensive metabolic panel (04/06/2017 4:10 AM CDT) athologist Signature Sodium 137 133 - 144 04/06/2017 [place] mmol/L 4:44 AM [facility] Potassium 3.2 (L) 3.4 - 5.3 04/06/2017 [place] mmol/L 4:44 AM [facility] Chloride 104 94 - 109 04/06/2017 [place] mmol/L 4:44 AM [facility] Carbon Dioxide 25 20 - 32 04/06/2017 [place] mmol/L 4:44 AM [facility] Anion Gap 8 3 - 14 04/06/2017 [place] mmol/L 4:44 AM [facility] Glucose 102 (H) 70 - 99 04/06/2017 [place] mg/dL 4:44 AM [facility] Urea Nitrogen 12 7 - 30 04/06/2017 [place] mg/dL 4:44 AM [facility] Creatinine 0.80 0.52 - 04/06/2017 [facility] 1.04 mg/dL 4:44 AM [facility] GFR Estimate 88 >60 04/06/2017 [place] mL/min/1.7 4:[address] Comment: Non GFR Calc GFR Estimate If >90 >60 mL/min/1.7m2 04/06/2017 4:44 A [facility] Comment: GFR Calc Calcium 8.9 8.5 - 10.1 mg/dL 04/06/2017 4:[address] [facility] Bilirubin Total 0.4 0.2 - 1.3 mg/dL 04/06/2017 4:44 AM [facility] Albumin 4.1 3.4 - 5.0 g/dL 04/06/2017 4:44 AM [facility] Protein Total 8.1 6.8 - 8.8 g/dL 04/06/2017 4:44 AM [facility] Alkaline Phosphatase 108 40 - 150 U/L 04/06/2017 4:44 AM [facility] ALT 23 0 - 50 U/L 04/06/2017 4:44 AM [facility] AST 10 0 - 45 U/L 04/06/2017 4:44 AM [facility] Specimen Anatomical Collection Method Collection Time Receive d Time (Source) Location / / Volume Laterality Blood specimen 04/06/2017 4:10 AM 017 4:24 (specimen) CDT [facility] Luis Jones MD LAB - BLOOD ORDERABLES Performing Organization Address City/State/ZIP Code Phon e Number M [facility] [address] [place], [place] [address] [facility] [address], [place] [address] [facility] [phone] CBC with platelets differential (04/06/2017 4:10 AM T) [facility] gist Method Time Signature WBC 8.1 4.0 - 04/06/2017 [facility] 11.0 4:28 AM [facility] 10e9/L [facility] RBC Count 4.40 3.8 - 5.2 04/06/2017 [facility] 10e12/L 4:28 AM [facility] Hemoglobin 13.5 11.7 - 04/06/2017 [facility] 15.7 g/dL 4:28 AM [facility] Hematocrit 40.0 35.0 - 04/06/2017 [facility] 47.0 % 4:28 AM [facility] MCV 91 78 - 100 04/06/2017 [facility] fl 4:28 AM [facility] MCH 30.7 26.5 - 04/06/2017 [facility] 33.0 pg 4:28 AM [facility] MCHC 33.8 31.5 - 04/06/2017 [facility] 36.5 g/dL 4:28 AM [facility] RDW 13.1 10.0 - 04/06/2017 [facility] 15.0 % 4:28 AM [facility] Platelet Count 278 150 - 450 04/06/2017 [facility] 10e9/L 4:28 AM [facility] Diff Method Automated 04/06/2017 [facility] Method 4:28 AM [facility] % Neutrophils 60.6 % 04/06/2017 [facility] 4:28 AM [facility] % Lymphocytes 29.5 % 04/06/2017 [facility] 4:28 AM [facility] % Monocytes 7.7 % 04/06/2017 [facility] 4:28 AM [facility] % Eosinophils 1.5 % 04/06/2017 [facility] 4:28 AM [facility] % Basophils 0.5 % 04/06/2017 [facility] 4:28 AM [facility] % Immature 0.2 % 04/06/2017 [facility] Granulocytes 4:28 AM [facility] Nucleated RBCs 0 0 /100 04/06/2017 [facility] 4:28 AM [facility] Absolute 4.9 1.6 - 8.3 04/06/2017 [facility] Neutrophil 10e9/L 4:28 AM [facility] Absolute 2.4 0.8 - 5.3 04/06/2017 [facility] Lymphocytes 10e9/L 4:28 AM [facility] Absolute 0.6 0.0 - 1.3 04/06/2017 [facility] Monocytes 10e9/L 4:28 AM [facility] Absolute 0.1 0.0 - 0.7 04/06/2017 [facility] Eosinophils 10e9/L 4:28 AM [facility] Absolute 0.0 0.0 - 0.2 04/06/2017 [place] Basophils 10e9/L 4:28 AM [facility] Abs Immature 0.0 0 - 0.4 04/06/2017 [facility] Granulocytes 10e9/L 4:28 AM [facility] Absolute 0.0 04/06/2017 [facility] Nucleated RBC 4:28 AM [facility] Specimen Anatomical Collection Method Collection Time Receive d Time (Source) Location / / Volume Laterality Blood specimen 04/06/2017 4:10 AM 017 4:24 (specimen) CDT CDT Luis Jones MD LAB - BLOOD ORDERABLES Performing Organization Address City/State/ZIP Code Phon e Number [place] [address] [place] [address] [facility] [address] [phone] (ABNORMAL) UA with Microscopic (04/06/2017 4:10 AM CDT) [facility] Method Time Signature Color Urine Yellow 04/06/2017 [facility] 4:38 AM [facility] Appearance Urine Slightly 04/06/2017 [place] Cloudy 4:38 AM [facility] Glucose Urine Negative NEG^Negat 04/06/2017 [facility] mg/dL 4:38 AM [facility] Bilirubin Urine Negative NEG^Negat 04/06/2017 [facility] 4:38 AM [facility] Ketones Urine Negative NEG^Negat 04/06/2017 [place] kvng mg/dL 4:38 AM [facility] Specific [place] 1.013 1.003 - 04/06/2017 [place] Urine 1.035 4:38 AM [facility] Blood Urine Small (A) NEG^Negat 04/06/2017 [facility] kvng 4:38 AM [facility] pH Urine 5.0 5.0 - 7.0 04/06/2017 [place] pH 4:38 AM [facility] Protein Albumin 30 (A) NEG^Negat 04/06/2017 [place] Urine kvng mg/dL 4:38 AM [facility] Urobilinogen 0.0 0.0 - 2.0 04/06/2017 [place] mg/dL mg/dL 4:38 AM [facility] Nitrite Urine Negative NEG^Negat 04/06/2017 [place] kvng 4:38 AM [facility] Leukocyte Large (A) NEG^Negat 04/06/2017 [place] Esterase Urine kvng 4:38 AM [facility] Source Midstream 04/06/2017 [place] Urine 4:25 AM [facility] WBC Urine 126 (H) 0 - 2 04/06/2017 [facility] /HPF 4:38 AM [facility] RBC Urine 15 (H) 0 - 2 04/06/2017 [facility] /HPF 4:38 AM [facility] WBC Clumps Present (A) NEG^Negat 04/06/2017 [place] kvng /HPF 4:38 AM [facility] Bacteria Urine Many (A) NEG^Negat 04/06/2017 [facility] kvng /HPF 4:38 AM [facility] Squamous 1 0 - 1 04/06/2017 [place] Epithelial /HPF /HPF 4:38 AM [facility] Mucous Urine Present (A) NEG^Negat 04/06/2017 [place] kvng /LPF 4:38 AM [facility] Specimen (Source) Anatomical Collection Method Collection Time Re ceived Time Location / / Volume Laterality Examination of URINE SPECIMEN 04/06/2017 4:10 04/06/20 17 4:24 midstream urine OBTAINED BY CLEAN AM [facility] specimen CATCH PROCEDURE / (procedure) Unknown Luis Jones MD LAB - URINE ORDERABLES Performing Organization Address [facility] Phon e Number [facility] [address] [place], [place] [address] [facility] [address] [place], [place] [address] [facility] [phone] HCG qualitative urine (04/06/2017 4:10 AM CDT) athologist Signature HCG Qual Urine Negative NEG^Negati 04/06/2017 [facility] 4:41 AM CDT [facility] Comment: This test is for screening purposes. ??R esults should be interpreted along with the clinical picture. ??Confirmation te sting is available if warranted by ordering [id number], HCG Quantitative Pregna ncy. Specimen Anatomical Collection Method Collection Time Receive d Time (Source) Location / / Volume Laterality Urine specimen URINE SPECIMEN 04/06/2017 4:10 AM 04/06 4:24 (specimen) OBTAINED BY CLEAN CDT AM CDT CATCH PROCEDURE / Unknown Luis Jones MD LAB - URINE ORDERABLES Performing Organization Address [facility] Phon e Number [facility] [address] [place], [place] [address] [facility] [address] [place], [place] [address] [facility] [phone] documented in this encounter Visit Diagnoses Diagnosis [...] 04/05/2017 04/06/2017 0.9% sodium chloride BOLUS (COMPLETED) 3879 (New Bag - Provider: Du Daniel RN)0715 (Stopped - Provider: Du Daniel RN) Intravenous, [...] (New Bag - Provider: Rahul Almaraz APRN AIR ANTISUBMARINE OFFICER)1140 (Anesthesia Volume Adjustment - Provider: Rahul Almaraz APRN AIR ANTISUBMARINE OFFICER) at 25 mL/hr, Intravenous, CONTINUOUS, IF patient [...] procedural area)1115 (See Alternative - Provider: Rahul Amlaraz APRN AIR ANTISUBMARINE OFFICER)165 (Unhold - Provider: Orders Generic Provider) 4 [...] management)
documented in this encounter Care Teams Geropsychologist Relationship Specialty Start Date End Date No Ref-Primary, Physician PCP - General 04/06/17 documented as of this encounter
== END 2022-04-11 07:24 | disposition home or self-care (01) ==
LOC: US 07:25
PROVIDERS: Visit Provider Advanced Practice Midwife
DX: O98.513 Other viral diseases complicating pregnancy, third trimester (principal); U07.1 COVID-19; Z3A.35 35 weeks gestation of pregnancy
CPT/HCPCS: 76816

== ENCOUNTER 2022-04-25 08:40 | Outpatient (CLI) | payer BC, SELFPAY ==
--- OUTSIDE RECORDS SUMMARY | 2022-04-25 08:43 | XMS_ITS | Encounter Summary ---
:1990 Author Organization [place] Address [facility] [place] [address] Care Team Providers Name Role Phone No Ref-Primary, Physician Primary Care Provider [phone] Encounter Details Date Type Department Care Team Description 04/24/2022 Hospital Encounter [facility] Cassie Coy [facility] [address] [facility] [address] [place] [address] [place] [address] [phone] (Wo rk) Social History Tobacco Use Types Packs/Day Years Used Date Former Smoker Quit: 12/2021 Smokeless Tobacco: Never Used Alcohol Use Standard Drinks/Week Comments Not Currently 0 (1 standard drink = 0.6 oz pure alcoho l) Sex Assigned at Date Recorded Not on file COVID-19 Exposure Response Date Recorded In the last 10 days, have you been in contact with No / Unsu re 04/24/2022 9:11 PM CDT someone who was confirmed or suspected to have Coronavirus/COVID-19? documented as of this encounter Discharge Instructions Discharge InstructionsNelly Israel RN - 04/24/2022 10:00 PM CDT Discharge Instruction for Undelivered Patients You were seen for: Membrane Assessment We Consulted: Zbigniew BAXTER You had (Test or Medicine): ROM+, NST, cervical check Diet: Drink 8 to 12 glasses of liquids (milk, juice, water) every day. Activity: Call your doctor or nurse pattern marker if your baby is moving less than usual. Call your provider if you notice: Swelling in your face or increased swelling in your hands or legs. Headaches that are not relieved by Tylenol (acetaminophen). Changes in your vision (blurring: seeing spots or stars.) Nausea (sick to your stomach) and vomiting (throwing up). Weight gain of 5 pounds or more per week. Heartburn that doesn't go away. Signs of bladder infection: pain when you urinate (use the toilet), need to go more often and more urgently. The bag of rosales (rupture of membranes) breaks, or you notice leaking in your underwear. Bright red blood in your underwear. Abdominal (lower belly) or stomach pain. Second (plus) baby: Contractions (tightening) less than 10 minutes apart and getting stronger. You will notice decreased discharge in the next few hours from the gel from cervical check. You may also notice some pink/brown discharge in the next 24-48 hours from the cervical exam. Follow-up: As scheduled in the clinic AttachmentsThe following attachments cannot be sent through Care Everywhere.Kick Counts ([place])documented in this encounter Medications at Time of [...] to severe pain (Moderate to Severe Pain) lamoTRIgine (LAMICTAL) 200 Take 100 mg by mouth 0 MG tablet 2 times daily tamsulosin (FLOMAX) 0.4 MG Take 1 capsule (0.4 10 capsule 1 04/06/2017 capsuleIndications: mg) by mouth daily Calculus of left ureter documented as of this encounter Progress Notes Nelly Israel RN - 04/24/2022 9:23 PM CDT 205 [place] [facility] [place] spouse. Brought to room 2 to change into gown. History collected by Mallory MORENO and miranda RN. Patient here with complaint of increased discharge, and lost her mucus plug. Mucus-y discharge started around 1000, since then, has noticed an increase in watery discharge. Denies bleeding, denies contractions, endorses mild back ache and a heaviness. She is planning to deliver in [place]. 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 ROM+ taken with consent 2149 Call to Zbigniew BAXTER, who is provider for unassigned this evening. Updated on patient arrival, patient history, FHT, complaint of lost mucus plug and watery mucus discharge. Telephone order to SVE patient and can discharge pt if closed. 2156 Sve by Mallory MORENO, with consent from patient. 050/-2. Monitors turned off. 2203 Discharge instructions reviewed with patient and partner. All questions and concerns answered. Patient has appointment in the clinic tomorrow morning with her OBGYN. Patient left ambulatory. documented in this encounter Plan of Treatment Not on filedocumented as of this encounter Procedures Procedure Name Priority Date/Time Associated Diagnosis Comme nts RUPTURE OF STAT 04/24/2022 9:12 PM Resul ts for this MEMBRANES BY ROM CDT procedure a re in PLUS the results section. documented in this encounter Results Rupture of Membranes by ROM Plus (04/24/2022 9:12 PM CDT) [facility] Method Time Signature Rupture of Negative Negative, REMA 04/24/2022 LABORATORY Invalid, 9:45 PM CDT Membranes by Suggest ROM Plus Repeat Specimen Anatomical Collection Method Collection Time Receive d Time (Source) Location / / Volume Laterality Swab VAGINAL STRUCTURE Non-blood 04/24/2022 9:12 PM 10/0 09/2021 9:18 / Unknown Collection / CDT PM CDT Unknown Narrative LABORATORY - 04/24/2022 9:45 PM CDT It is recommended that the tests to dete ct rupture of the amniotic membranes should not be used without other clinical asses sments to make clinical patient management decision. Cassie Coy MD LAB - BODY FLUIDS ORDERABLES Performing Organization Address City/State/ZIP Code Phon e Number LABORATORY [facility] [place] [address] Care Lab [address] floor, Room 20B documented in this encounter Visit Diagnoses Not on filedocumented in this encounter Administered Medications Inactive Administered Medications - up to 3 most recent administrations Medication Order MAR Action Action Date Dose Rate Site metoclopramide (REGLAN) injection 10 mg 10 mg, Intravenous, Administer over 2 Mi nutes, EVERY 6 HOURS PRN, nausea, vomiting, Starting on Sun04/24/22 at 2108, This is Step 1 of OB nausea and vomiting management. If nausea is not resolved in 30 minutes, go to Step 2 (Zofran). Avoid use if patient has full bowel obstruction or perforati on. Irritant., OB Preadmission metoclopramide (REGLAN) tablet 10 mg 10 mg, Oral, EVERY 6 HOURS PRN, nausea and vomiting, S tarting on Sun04/24/22 at 2108, This is Step 1 of OB nausea and vomiting managem ent. If nausea is not resolved in 30 minutes, go to Step 2 (Zo candice) Avoid use if patient has full bowel obstruction or perforation., OB Preadmission ondansetron (ZOFRAN ODT) ODT tab 4 mg 4 mg, Oral, EVERY 6 HOURS PRN, nausea, v omiting, Starting on Sun04/24/22 at 2108, This is Step 2 of OB nausea and vomiting management. Give If nausea not resolved in 30 minutes after giving metoclopramide ( REGLAN). If nausea is not resolved in 15 minutes, go to Step 3 (Compazine). With dry hands, pee l back foil backing and gently remove tablet. Do not push oral d isintegrating tablet through foil backing. Administer immediately on tongue and oral disintegrati ng tablet dissolves in seconds, then swallow with saliva. Liquid not required ., OB Preadmission ondansetron (ZOFRAN) injection 4 mg 4 mg, Intravenous, EVERY 6 HOURS PRN, nausea, vomiting , Administer over 2-5 Minutes, Starting on Sun04/24/22 at 2108 , This is Step 2 of OB nausea and vomiting management. Give if nausea not resolved 30 minutes aft er giving metoclopramide (REGLAN). If nausea is not resolved in 15 minutes, go to Step 3 (Compazine). Irritant., OB Preadmission prochlorperazine (COMPAZINE) injection 1 0 mg 10 mg, Intravenous, EVERY 6 HOURS PRN, n ausea, vomiting, Administer over 2 Minutes, Starting on Sun04/24/22 at 2108, This is Step 3 of OB nausea and vomiting management. Give if nausea not resolved 15 minutes aft er giving ondansetron (ZOFRAN). If nausea is not resolved in 30 minutes, not luz provider., OB Preadmission prochlorperazine (COMPAZINE) suppository 25 mg 25 mg, Rectal, EVERY 12 HOURS PRN, nausea, vomiting, S tarting on Sun04/24/22 at 2108, This is Step 3 of OB nausea and vomiting managem ent. Give if nausea not resolved 15 minutes after giving ondanse zulay (ZOFRAN). If nausea is not resolved in 30 minutes, notify provider., OB Preadmission prochlorperazine (COMPAZINE) tablet 10 m g 10 mg, Oral, EVERY 6 HOURS PRN, nausea, vomiting, Starting on Sun04/24/22 at 2108, This is Step 3 of OB nausea and vomiting management. Give if nausea not resolved 15 minutes after giving ondansetron (ZOFRAN ). If nausea is not resolved in 30 minutes, notify provider., OB Preadmission documented in this encounter Active and Recently Administered Medications Times are shown in CDT. PRN Medication Order 04/22/2022 04/23/2022 04/24/2022 metoclopramide (REGLAN) injection 10 mg(Linked Group 1) 10 mg, Intravenous, Administer over 2 Mi nutes, EVERY 6 HOURS PRN, nausea, vomiting, Starting on Sun04/24/22 at 2108, This is Step 1 of OB nausea and vomiting management. If nausea is not resolved in 30 minutes, go to Step 2 (Zofran). Avoid us e if patient has full bowel obstruction or perforation. Irritant., OB Preadmission metoclopramide (REGLAN) tablet 10 mg(Linked Group 1) 10 mg, Oral, EVERY 6 HOURS PRN, nausea a nd vomiting, Starting on Sun04/24/22 at 2108, This is Step 1 of OB nausea and vomiting management. If nausea is not resolved in 30 minutes, go to Step 2 (Zofran) Avoid use if patient has full bowel obst ruction or perforation., OB Preadmission ondansetron (ZOFRAN ODT) ODT tab 4 mg(Linked Group 2) 4 mg, Oral, EVERY 6 HOURS PRN, nausea, v omiting, Starting on Sun04/24/22 at 2108, This is Step 2 of OB nausea and vomiting management. Give If nausea not resolved in 30 minutes after giving metocloprami de (REGLAN). If nausea is not resolved i n 15 minutes, go to Step 3 (Compazine). With dry hands, peel back foil backing and gently remove tablet. Do not push oral disintegrating tablet through foil backi ng. Administer immediately on tongue and oral disintegrating tablet dissolves in seconds, then swallow with saliva. Liquid not required., OB Preadmission ondansetron (ZOFRAN) injection 4 mg(Linked Group 2) 4 mg, Intravenous, EVERY 6 HOURS PRN, na usea, vomiting, Administer over 2-5 Minutes, Starting on Sun04/24/22 at 2108, This is Step 2 of OB nausea and vomiting management. Give if nausea not resolved 30 minutes after giving metoclopramide (REG JAMES). If nausea is not resolved in 15 minutes, go to Step 3 (Compazine). Irritant., OB Preadmission prochlorperazine (COMPAZINE) injection 10 mg(Linked Group 3) 10 mg, Intravenous, EVERY 6 HOURS PRN, n ausea, vomiting, Administer over 2 Minutes, Starting on Sun04/24/22 at 2108, This is Step 3 of OB nausea and vomiting management. Give if nausea not resolved 15 m inutes after giving ondansetron (ZOFRAN) . If nausea is not resolved in 30 minutes, notify provider., OB Preadmission prochlorperazine (COMPAZINE) suppository 25 mg(Linked Group 3) 25 mg, Rectal, EVERY 12 HOURS PRN, nause a, vomiting, Starting on Sun04/24/22 at 2108, This is Step 3 of OB nausea and vomiting management. Give if nausea not resolved 15 minutes after giving ondansetron (ZOFRAN). If nausea is not resolved in 30 minutes, notify provider., OB Preadmission prochlorperazine (COMPAZINE) tablet 10 mg(Linked Group 3) 10 mg, Oral, EVERY 6 HOURS PRN, nausea, vomiting, Starting on Sun04/24/22 at 2108, This is Step 3 of OB nausea and vomiting management. Give if nausea not resolved 15 minutes after giving ondansetron (Z OFRAN). If nausea is not resolved in 30 minutes, notify provider., OB Preadmission Linked Groups Order Group 1: metoclopramide (REGLAN) injection 10 mgJump to med 10 mg, Intravenous, Administer over 2 Mi nutes, EVERY 6 HOURS PRN, nausea, vomiting, Starting on Sun04/24/22 at 2108
This is Step 1 of OB nausea and vomiting management. If na usea is not resolved in 30 minutes, go t o Step 2 (Zofran). Avoid use if patient has full bowel obstruction or perforation. Irritant.
OB Preadmission Or metoclopramide (REGLAN) tablet 10 mgJump to med 10 mg, Oral, EVERY 6 HOURS PRN, nausea a nd vomiting, Starting on Sun04/24/22 at 2108
This is Step 1 of OB nausea and vomiting management. If nausea is not resolved in 30 marianela otis, go to Step 2 (Zofran) Avoid us e if patient has full bowel obstruction or perforation.
OB Preadmission Group 2: ondansetron (ZOFRAN ODT) ODT tab 4 mgJump to med 4 mg, Oral, EVERY 6 HOURS PRN, nausea, v omiting, Starting on Sun04/24/22 at 2108
This is Step 2 of OB nausea and vomiting management. Give If nausea not resolved in 30 minute s after giving metoclopramide (REGLAN).& nbsp; If nausea is not resolved in 15 minutes, go to Step 3 (Compazine). With dry hands, peel back foil backing and gently remove tablet. Do not push oral disintegrating tablet thr ough foil backing. Administer immediately on tongue and oral disintegrating tablet dissolves in seconds, then swallow with saliva. Liquid not required.
OB Preadmission Or ondansetron (ZOFRAN) injection 4 mgJump to med 4 mg, Intravenous, EVERY 6 HOURS PRN, na usea, vomiting, Administer over 2-5 Minutes, Starting on Sun04/24/22 at 2108
This is Step 2 of OB nausea and vomiting management. Give if nausea not resolved 30 minutes after giving metoclopramide (REGLAN). If nausea is not resolved in 15 minutes, go to Step 3 (Compazine). Irritant.
OB Preadmission Group 3: prochlorperazine (COMPAZINE) injection 10 mgJump to med 10 mg, Intravenous, EVERY 6 HOURS PRN, n ausea, vomiting, Administer over 2 Minutes, Starting on Sun04/24/22 at 2108
This is Step 3 of OB nausea and vomiting management. Give if nausea not resol tevin 15 minutes after giving ondansetron (ZOFRAN). If nausea is not resolved in 30 minutes, notify provider.
OB Preadmission Or prochlorperazine (COMPAZINE) tablet 10 mgJump to med 10 mg, Oral, EVERY 6 HOURS PRN, nausea, vomiting, Starting on Sun04/24/22 at 210
This is Step 3 of OB nausea and vomiting management. Give if nausea not resolved 15 minutes after giving ondans etron (ZOFRAN). If nausea is not resolve d in 30 minutes, notify provider.
OB Preadmission Or prochlorperazine (COMPAZINE) suppository 25 mgJump to med 25 mg, Rectal, EVERY 12 HOURS PRN, nause a, vomiting, Starting on Sun04/24/22 at 210
This is Step 3 of OB nausea and vomiting management. Give if nausea not resolved 15 minutes after giving ond ansetron (ZOFRAN). If nausea is not reso lved in 30 minutes, notify provider.
OB Preadmission documented in this encounter Care Teams Paper Deliverer Relationship Specialty Start Date End Date No Ref-Primary, Physician PCP - General 12/14/20 documented as of this encounter
--- OUTSIDE RECORDS SUMMARY | 2022-04-25 08:43 | XMS_ITS | Encounter Summary ---
:1990 Author Organization [place] Address [address] [place] [address] Care Team Providers Name Role Phone No Ref-Primary, Physician Primary Care Provider [phone] Reason for Referral Diagnostic Imaging Ultrasound (Routine) - Pending Review Specialty Diagnoses / Procedures Referred By Contact Refer red To Contact Diagnoses related condition, antepartum Rh Maternal Med Procedures MFM US Comprehensive Single [address] [place] [address] Referral ID Status Reason Start Date Expiration Date Visits V isits Requested Authorized [id number] Pending 01/03/2022 01/03/2023 1 1 Review onsultation (Routine: Next available opening) - Pending Review Specialty Diagnoses / Procedures Referred By Contact Refer red To Contact Diagnoses related condition, antepartum Rh Maternal Med [address] [place] [address] Referral ID Status Reason Start Date Expiration Date Visits V isits Requested Authorized [id number] Pending 01/03/2022 01/03/2023 1 1 Review Encounter Details Date Type Department Care Team Description 01/03/2022 Transcribe Orders [facility] Lexi Mendieta, related Maternal DINING ROOM ATTENDANT [facility] [place][note 3] antepartum (Primary [address] Dx) [address] [employer] [address] [place] [id number] Social History Tobacco Use Types Packs/Day [...] 07/02/2022 documented as of this encounter Results [facility] US Comprehensive Single (01/13/2022 9:39 AM CDT) [...] ESPOSITO Study Date: 01/13/2022 8:45am Pat. NO: [id number] Referring ??: NIURKA MENDIETA Site: [facility] Digital Marketer: Salma Piña : 1990 Age: 31 INDICATION [...] lb 15 ? oz EFW by ?Hadlock ([id number]) Head / Face / Neck Biometry: Interactive Media Designer ? 6.5 ? mm CM ?4.2 ? [...] cava. Inferior vena cava. 3-vessel ? view. 3-ybhjlt-tbldthk view. Cardiac position. Cardiac size. Cardiac rhythm. [...] Pat. Name:Newton ESPOSITO te:01/13/2022 8:45am Pat. NO: [id number] MD:LEXI MENDIETA [facility]Germain Mcnally RDMS :1990Age:31 INDICATION COVID in [...] 0 lb 15 oz EFW by Hadlock ([id number]) Head / Face / Neck Biometry: Interactive Media Designer 6.5 mm CM 4.2 mm Nasal bone [...] vena cava. Inferior vena cava. 3-vessel view. 3-nbuopg-ppkwwin view. Cardiac po sition. Cardiac size. Cardiac [...] antepartum documented in this encounter Care Teams Director Of Recruitment And Admissions Relationship Specialty Start Date End Date No Ref-Primary, Physician PCP - General 12/14/20 documented as of this encounter
--- OUTSIDE RECORDS SUMMARY | 2022-04-25 08:43 | XMS_ITS | Encounter Summary ---
:1990 Author Organization [place] Address [address] [place] [address] Care Team Providers Name Role Phone No Ref-Primary, Physician Primary Care Provider [phone] Reason for Visit Reason Comments Ultrasound L2- covid in Encounter Details Date Type Department Care Team Description 01/05/2022 PRE VISIT [facility], Ultrasound (L2- covid in Maternal Medicine TIFFANIE Chavira ) [place] [address] [facility] [address] [place] [address] Social History Tobacco Use Types Packs/Day Years Used Date Current Every Day Smoker Smokeless Tobacco: Never Used Sex Assigned at Date Recorded Not on file documented as of this encounter Plan of Treatment Not on filedocumented as of this encounter Visit Diagnoses Not on filedocumented in this encounter Care Teams Regional Retail Sales Manager Relationship Specialty Start Date End Date No Ref-Primary, Physician PCP - General 12/14/20 documented as of this encounter
--- OUTSIDE RECORDS SUMMARY | 2022-04-25 08:43 | XMS_ITS | Encounter Summary ---
:1990 Author Organization [facility] Address [address] [place] [address] Care Team Providers Name Role Phone No Ref-Primary, Physician Primary Care Provider Unavailable Reason for Visit Reason Comments Flank Pain Encounter Details Date Type Department Care Team Description 04/06/2017 [facility] Luis Jones MD [facility] [address] [place] [address] [place] [id number] Calculus of left ureter (Primary Dx); [place] PreOP/PostOP Mary Beth Barry MD Pyelonephritis; [address] [address] Social History Tobacco Use Types [...] Carvajal PA-C - 04/06/2017 9:39 AM CDT [facility] Outpatient / Observation Unit Discharge [...] [facility] VICENTE BLANDON & JORDAN [phone] During surgery, a stent may be placed [...] Please call your physician or the physician parks recreation director if you experience: Fever greater than 101 degrees Severe pain not relieved by pain medication or rest Please make an appointment for the removal of the stent according to your physician's instructions. EXTRACORPOREAL SHOCK LITHOTRIPSY (ESWL) DISCHARGE INSTRUCTIONS [facility]E [facility]ON [facility] JORDAN [phone] Your stone(s) has been fragmented into many [...] hours: Yes. Name: Sindhu (sammy), Contact information: [phone] Belongings/Valuables - Will be sent to [facility] with pt. Sack Sewer - Pt DOES NOT need an oil well shooter. 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 Jordan Dahl PA-C [facility] Urology (text or call, Mon-Wed & Fri [...] Jeff RN - 04/06/2017 5:33 AM CDT [facility] ED Nurse Handoff Report Fauzia Stubbs is a 26 year old female ED Chief complaint: Flank Pain . ED Diagnosis: Final diagnoses: Pyelonephritis Calculus of ureter Allergies: Allergies Allergen Reactions ??? Penicillins Code Status: Full Code Activity level - Baseline/Home: Independent. Activity Level - Current: Independent. Lift room needed: No. Bariatric: No Sack Sewer Needed: No Isolation: No. Infection: Not Applicable. [...] with flank pain. Patient woke this morning [id number] with left sided flank pain associated by [...] BOLUS (1,000 mLs Intravenous New Bag 04/06/17 6492) Followed by 0.9% sodium chloride infusion (not administered) ondansetron (ZOFRAN) injection 4 mg (4 mg Intravenous Given 04/06/17 3081) ciprofloxacin (CIPRO) infusion 400 mg (400 mg Intravenous New Bag 04/06/17 3029) HYDROmorphone (PF) (DILAUDID) injection 0.5 mg (not [...] Admitted to hospitalist service. Osmin Toure 04/06/2017 [facility] EMERGENCY DEPARTMENT I, Osmin Toure, am serving as a scribe at 4:01 AM on 04/06/2017 to document services personally performed by Luis Jones MD based on my observations and the provider's statements to me. Luis Jones MD 04/06/17 0600 documented in this encounter Miscellaneous Notes Op Note - Chau rOtega MD - 04/06/2017 12:43 PM CDT DATE [...] The procedure began by introducing the 22 Hong Konger rigid cystoscope through the urethra into the [...] [id number] Name: FAUZIA STUBBS MRN: [id number] Account: [id number] : 1990 Procedure Date: 04/06/2017 Document: [id number] Pharmacy-Admission Medication History - Rosie Enrique RPH - 04/06/2017 9:41 AM CDT Admission medication history interview status for this patient is complete. See [facility] admission navigator for allergy information, prior to admission medications and immunization status. Medication history interview source(s): patient's mother Medication history resources (including written lists, pill bottles, clinic record):None Changes made to [employer] medication list: Added: none Deleted: none Changed: [...] oob for safety. Will continue to monitor. Patient Account Liaison Nurse Safe discharge environment identified: Yes Barriers [...] independent, order SW consult): ind with boyfriend instrument person: Sindhu, (Mother) Activity level at baseline: Ind [...] be read by a radiologist or a [facility] non-radiologis t provider. Chau Ortega MD IM DIAGNOSTIC IMAGING ORDER MARGARET Performing Organization Address City/State/ZIP Code Phon e Number RADIANT Surgical pathology exam (04/06/2017 11:23 AM CDT) Component Value Ref Test Analysis Performed At [facility] Range Method Time Signature Copath Report Patient Name: FAUZIA STUBBS MR#: [id number] Specimen #: [id number] Collected: 04/06/2017 Received: 04/06/2017 Reported: 04/06/2017 13:04 Ordering Phy(s): CHAU ORTEGA For improved result formatting, select 'View Enhanced Report Format' under Linked Documents section. SPECIMEN(S): Stone, left ureteral FINAL DIAGNOSIS: Left ureteral stone(s)- - Gross pathology the admission performed. - Submitted for chemical/stone analysis (see separate [facility] oming report for results). Electronically signed out by: Aleta Cody M.D. CLINICAL HISTORY: Left ureteral stone. GROSS: The specimen labeled left ureteral stone consists of multi ple crawofrd-baldwin granular concretions with an aggregate dimension of 0.5 and 0.5 x 0.3 cm. ??Submitted for chemical/stone analysis (see separate rthcoming report for results). (Dictated by: Aleta Cody MD 04/06/20 17 12:38 PM) MICROSCOPIC: No microscopic sections are obtained. CPT Codes: A: 70487-NB TESTING LAB LOCATION: [address] ??[address] COLLECTION SITE: Client: [facility] Location: RHERA (R) Specimen Anatomical Collection Method Collection Time Receive d Time (Source) Location / / Volume Laterality 04/06/2017 11:23 04/06/2017 AM CDT 12:28 PM CDT Chau Ortega MD [facility] Performing Organization Address City/State/ZIP Code Phon e Number COPATH Stone analysis (04/06/2017 11:23 AM CDT) [facility] Method Time Signature Stone SEE NOTE 04/10/2017 [place] Composition 6:47 PM CDT [facility] Comment: (Note) Calculi composed primarily of: [...] omposition determined by FTIR analysis. Performed by [employer], [address] [place] [id number] [email or web address], Endy Reilly MD, Lab. Director Calculi Number Numerous 04/10/2017 6:47 PM CDT FA [facility] Calculi Size 1 to 4 mm 04/10/2017 6:47 PM CDT [facility] Calculi Description SEE NOTE 04/10/2017 6:47 PM C DT [facility] Comment: (Note) Specimen consists of numerous, small, brown/baldwin, irregular calculi fragments. Stone Mass 30 mg 04/10/2017 6:47 PM CDT [facility] Specimen (Source) Anatomical Collection Method Collection Time Re ceived Time Location / / Volume Laterality Calculus specimen STRUCTURE OF LEFT 04/06/2017 11:23 (specimen) URETER / Unknown AM CDT Chau Ortega MD LAB - BODY FLUIDS ORDERABLES Performing Organization Address City/State/ZIP Code Phon e Number [place] [address] [address] [place], [place] [address] [facility] [address] [place], [place] [address] [facility] [phone] Abd/pelvis CT no contrast - Stone Protocol [...] Component Value Ref Test Analysis Performed At [facility] gist Range Method Time Signature Specimen Midstream Urine [facility] Description [facility] Special Specimen 04/06/2017 [facility] Requests received in 8:[address] [facility] preservative [facility] Culture Micro >100,000 colonies/mL 04/07/2017 [facility] Escherichia coli 9:[address] [facility] (A) [facility] Specimen (Source) Anatomical Collection Method Collection [...] Organization Address City/State/ZIP Code Phon e Number [address] [address] [place] Lipase (04/06/2017 4:10 AM CDT) athologist Signature Lipase 148 73 - 393 04/06/2017 [facility] U/L 4:44 AM T [facility]OSPITAL Specimen Anatomical Collection Method Collection Time Receive d Time (Source) Location / / Volume Laterality Blood specimen 04/06/2017 4:10 AM 017 4:24 (specimen) CDT AM CDT Luis Jones MD LAB - BLOOD ORDERABLES Performing Organization Address City/[facility] Phon e Number [facility] [address] [address] [facility] [address] [phone] (ABNORMAL) Comprehensive metabolic panel (04/06/2017 4:10 AM CDT) athologist Signature Sodium 137 133 - 144 04/06/2017 [place] mmol/L 4:44 AM [facility] Potassium 3.2 (L) 3.4 - 5.3 04/06/2017 [place] mmol/L 4:44 AM [facility] Chloride 104 94 - 109 04/06/2017 [place] mmol/L 4:44 AM [facility] Carbon Dioxide 25 20 - 32 04/06/2017 [place] mmol/L 4:44 AM [facility] Anion Gap 8 3 - 14 04/06/2017 [place] mmol/L 4:44 AM [facility] Glucose 102 (H) 70 - 99 04/06/2017 [place] mg/dL 4:44 AM [facility] Urea Nitrogen 12 7 - 30 04/06/2017 [place] mg/dL 4:44 AM [facility] Creatinine 0.80 0.52 - 04/06/2017 [facility] 1.04 mg/dL 4:44 AM [facility] GFR Estimate 88 >60 04/06/2017 [place] mL/min/1.7 4:[address] Comment: Non GFR Calc GFR Estimate If >90 >60 mL/min/1.7m2 04/06/2017 4:44 A M [facility] Comment: GFR Calc Calcium 8.9 8.5 - 10.1 mg/dL 04/06/2017 4:44 AM [facility] Bilirubin Total 0.4 0.2 - 1.3 mg/dL 04/06/2017 4:44 AM [facility] Albumin 4.1 3.4 - 5.0 g/dL 04/06/2017 4:44 AM [facility] Protein Total 8.1 6.8 - 8.8 g/dL 04/06/2017 4:44 AM [facility] Alkaline Phosphatase 108 40 - 150 U/L 04/06/2017 4:44 AM [facility] ALT 23 0 - 50 U/L 04/06/2017 4:44 AM [facility] AST 10 0 - 45 U/L 04/06/2017 4:44 AM [facility] Specimen Anatomical Collection Method Collection Time Receive d Time (Source) Location / / Volume Laterality Blood specimen 04/06/2017 4:10 AM 017 4:24 (specimen) CDT [facility] Luis Jones MD LAB - BLOOD ORDERABLES Performing Organization Address City/State/ZIP Code Phon e Number M [facility] [address] [place], [place] [address] [facility] [address] [place], [place] [address] [facility] [phone] CBC with platelets differential (04/06/2017 4:10 AM T) [facility] gist Method Time Signature WBC 8.1 4.0 - 04/06/2017 [facility] 11.0 4:28 AM [facility] 10e9/L [facility] RBC Count 4.40 3.8 - 5.2 04/06/2017 [facility] 10e12/L 4:28 AM [facility] Hemoglobin 13.5 11.7 - 04/06/2017 [facility] 15.7 g/dL 4:28 AM [facility] Hematocrit 40.0 35.0 - 04/06/2017 [facility] 47.0 % 4:28 AM [facility] MCV 91 78 - 100 04/06/2017 [facility] fl 4:28 AM [facility] MCH 30.7 26.5 - 04/06/2017 [facility] 33.0 pg 4:28 AM [facility] MCHC 33.8 31.5 - 04/06/2017 [facility] 36.5 g/dL 4:28 AM [facility] RDW 13.1 10.0 - 04/06/2017 [facility] 15.0 % 4:28 AM [facility] Platelet Count 278 150 - 450 04/06/2017 [facility] 10e9/L 4:28 AM [facility] Diff Method Automated 04/06/2017 [facility] Method 4:28 AM [facility] % Neutrophils 60.6 % 04/06/2017 [facility] 4:28 AM [facility] % Lymphocytes 29.5 % 04/06/2017 [facility] 4:28 AM [facility] % Monocytes 7.7 % 04/06/2017 [facility] 4:28 AM [facility] % Eosinophils 1.5 % 04/06/2017 [facility] 4:28 AM [facility] % Basophils 0.5 % 04/06/2017 [facility] 4:28 AM [facility] % Immature 0.2 % 04/06/2017 [facility] Granulocytes 4:28 AM [facility] Nucleated RBCs 0 0 /100 04/06/2017 [facility] 4:28 AM [facility] Absolute 4.9 1.6 - 8.3 04/06/2017 [facility] Neutrophil 10e9/L 4:28 AM [facility] Absolute 2.4 0.8 - 5.3 04/06/2017 [facility] Lymphocytes 10e9/L 4:28 AM [facility] Absolute 0.6 0.0 - 1.3 04/06/2017 [facility] Monocytes 10e9/L 4:28 AM [facility] Absolute 0.1 0.0 - 0.7 04/06/2017 [facility] Eosinophils 10e9/L 4:28 AM [facility] Absolute 0.0 0.0 - 0.2 04/06/2017 [place] Basophils 10e9/L 4:28 AM [facility] Abs Immature 0.0 0 - 0.4 04/06/2017 [facility] Granulocytes 10e9/L 4:28 AM [facility] Absolute 0.0 04/06/2017 [facility] Nucleated RBC 4:28 AM [facility] Specimen Anatomical Collection Method Collection Time Receive d Time (Source) Location / / Volume Laterality Blood specimen 04/06/2017 4:10 AM 017 4:24 (specimen) CDT CDT Luis Jones MD LAB - BLOOD ORDERABLES Performing Organization Address City/State/ZIP Code Phon e Number [place] [address] [address] [place] [address] [facility] [address] [phone] (ABNORMAL) UA with Microscopic (04/06/2017 4:10 AM CDT) [facility] Method Time Signature Color Urine Yellow 04/06/2017 [facility] 4:38 AM [facility] Appearance Urine Slightly 04/06/2017 [place] Cloudy 4:38 AM [facility] Glucose Urine Negative NEG^Negat 04/06/2017 [facility] kvng mg/dL 4:38 AM [facility] Bilirubin Urine Negative NEG^Negat 04/06/2017 [facility] kvng 4:38 AM [facility] Ketones Urine Negative NEG^Negat 04/06/2017 [place] kvng mg/dL 4:38 AM [facility] Specific [place] 1.013 1.003 - 04/06/2017 [place] Urine 1.035 4:38 AM [facility] Blood Urine Small (A) NEG^Negat 04/06/2017 [facility] kvng 4:38 AM [facility] pH Urine 5.0 5.0 - 7.0 04/06/2017 [place] pH 4:38 AM [facility] Protein Albumin 30 (A) NEG^Negat 04/06/2017 [place] Urine kvng mg/dL 4:38 AM [facility] Urobilinogen 0.0 0.0 - 2.0 04/06/2017 [place] mg/dL mg/dL 4:38 AM [facility] Nitrite Urine Negative NEG^Negat 04/06/2017 [place] kvng 4:38 AM [facility] Leukocyte Large (A) NEG^Negat 04/06/2017 [place] Esterase Urine kvng 4:38 AM [facility] Source Midstream 04/06/2017 [place] Urine 4:25 AM [facility] WBC Urine 126 (H) 0 - 2 04/06/2017 [facility] /HPF 4:38 AM [facility] RBC Urine 15 (H) 0 - 2 04/06/2017 [facility] /HPF 4:38 AM [facility] WBC Clumps Present (A) NEG^Negat 04/06/2017 [place] kvng /HPF 4:38 AM [facility] Bacteria Urine Many (A) NEG^Negat 04/06/2017 [facility] kvng /HPF 4:38 AM [facility] Squamous 1 0 - 1 04/06/2017 [place] Epithelial /HPF /HPF 4:38 AM [facility] Mucous Urine Present (A) NEG^Negat 04/06/2017 [place] kvng /LPF 4:38 AM [facility] Specimen (Source) Anatomical Collection Method Collection Time Re ceived Time Location / / Volume Laterality Examination of URINE SPECIMEN 04/06/2017 4:10 04/06/20 17 4:24 midstream urine OBTAINED BY CLEAN AM [facility] specimen CATCH PROCEDURE / (procedure) Unknown Luis Jones MD LAB - URINE ORDERABLES Performing Organization Address [facility] Phon e Number [facility] [address] [place], [place] [address] [facility] [address] [place], [place] [address] [facility] [phone] HCG qualitative urine (04/06/2017 4:10 AM CDT) athologist Signature HCG Qual Urine Negative NEG^Negati 04/06/2017 [facility] 4:41 AM CDT [facility] Comment: This test is for screening purposes. ??R esults should be interpreted along with the clinical picture. ??Confirmation te sting is available if warranted by ordering [id number], HCG Quantitative Pregna ncy. Specimen Anatomical Collection Method Collection Time Receive d Time (Source) Location / / Volume Laterality Urine specimen URINE SPECIMEN 04/06/2017 4:10 AM 04/06 4:24 (specimen) OBTAINED BY CLEAN CDT AM CDT CATCH PROCEDURE / Unknown Luis Jones MD LAB - URINE ORDERABLES Performing Organization Address [facility] Phon e Number [facility] [address] [place], [place] [address] [facility] [address] [place], [place] [address] [facility] [phone] documented in this encounter Visit Diagnoses Diagnosis [...] mg 0.3-0.5 mg, Intravenous, EVERY 10 MIN FL N, other, acute pain.?May administer if Respiratory [...] 04/05/2017 04/06/2017 0.9% sodium chloride BOLUS (COMPLETED) 4889 (New Bag - Provider: Du Daniel RN)2015 (Stopped - Provider: Du Daniel RN) Intravenous, [...] (New Bag - Provider: Rahul Almaraz APRN BOOM CAT OPERATOR)1140 (Anesthesia Volume Adjustment - Provider: Rahul Almaraz APRN BOOM CAT OPERATOR) at 25 mL/hr, Intravenous, CONTINUOUS, IF patient [...] mg 0.3-0.5 mg, Intravenous, EVERY 10 MIN FL N, Starting Sun04/06/17 at 1213, Until Sun04/06/17 [...] (See Alternative - Provider: Rahul Almaraz APRN BOOM CAT OPERATOR)165 (Unhold - Provider: Orders Generic Provider) 4 [...] management)
documented in this encounter Care Teams Aircraft Part Assembler Relationship Specialty Start Date End Date No Ref-Primary, Physician PCP - General 04/06/17 documented as of this encounter
--- OUTSIDE RECORDS SUMMARY | 2022-04-25 08:43 | XMS_ITS | Encounter Summary ---
:1990 Author Organization [place] Address [address] [place] [address]. [place] [address] Care Team Providers Name Role Phone No Ref-Primary, Physician Primary Care Provider Unavailable Reason for Visit Reason Comments Cystoscopy Stent Removal: Ureteral Ston e Encounter Details Date Type Department Care Team Description 04/17/2017 [facility] Rowena Babin MD Dx) [address] [place] [address] [place] [address] [phone] Social History Tobacco Use Types Packs/Day Years [...] our office with any concerns or questions @[facility]. documented in this encounter Progress Notes George [...] kidney documented in this encounter Care Teams Putty Remover Relationship Specialty Start Date End Date No Ref-Primary, Physician PCP - General 04/06/17 documented as of this encounter
--- OUTSIDE RECORDS SUMMARY | 2022-04-25 08:43 | XMS_ITS | Encounter Summary ---
:1990 Author Organization [facility] Address [address] [place] [address] Care Team Providers Name Role Phone Unavailable Primary Care Provider Unavailable Encounter Details Date Type Department Care Team Description 05/01/2017 Telephone [facility] REPORTING Chioma Harding PA-C [address] [place] [address] [place] [address] [address] [place], [place] [address] (Wo rk) Social History [...]
--- OUTSIDE RECORDS SUMMARY | 2022-04-25 08:43 | XMS_ITS | Encounter Summary ---
:1990 Author Organization [place] Address [address] [place] [address] Care Team Providers Name Role Phone No Ref-Primary, Physician Primary Care Provider [phone] Reason for Referral Diagnostic Imaging Ultrasound (Routine) - Pending Review Specialty Diagnoses / Procedures Referred By Contact Refer red To Contact Diagnoses related condition, antepartum Rh Maternal Med Procedures [facility] US Comprehensive Single [address] [facility] [address] [place] [address] Referral ID Status Reason Start Date Expiration Date Visits V isits Requested Authorized [id number] Pending 01/03/2022 01/03/2023 1 1 Review Reason for Visit Diagnostic Imaging Ultrasound (Routine) - Pending Review Specialty Diagnoses / Procedures Referred By Contact Refer red To Contact Diagnoses related condition, antepartum Rh Maternal Med Procedures [facility] US Comprehensive Single [address] [facility] [address] [place] [address] Referral ID Status Reason Start Date Expiration Date Visits V isits Requested Authorized [id number] Pending 01/03/2022 01/03/2023 1 1 Review Encounter Details Date Type Department Care Team Description 01/13/2022 [facility] Non-Fv Credentialed Pro vider, Radiology related Encounter Maternal ContChau bey MD [address] [place] [address] condition, Medicine Center Osmin Aiken MD [address] [place] [address] antepartum [place] [address] [facility] [address] [place] [address] Social History Tobacco Use Types [...] Procedure Name Priority Date/Time Associated Comments Diagnosis [facility] US COMPREHENSIVE Routine 01/13/2022 9:39 AM rela seferino Results for this SINGLE CDT condition, procedure are i n antepartum the results section. documented in this encounter Results [facility] US Comprehensive Single (01/13/2022 9:39 AM CDT) [...] MEJÍA Study Date: 01/13/2022 8:45am Pat. NO: [id number] Referring ??MD: NIURKA MENDIETA Site: [facility] Mold Machine Operator: Salma Piña : 1990 Age: 31 [...] lb 15 ? oz EFW by ?Hadlock ([id number]) Head / Face / Neck Biometry: Salesperson Stereo Equipment ? 6.5 ? mm CM ?4.2 ? [...] cava. Inferior vena cava. 3-vessel ? view. 8-zdwskc-krwpkwz view. Cardiac position. Cardiac size. Cardiac rhythm. [...] Comprehensive Name:Newton ESPOSITO te:01/13/2022 8:45am Pat. NO: [id number] MD:MAGY MENDIETA Site:Tobygrapher:Germainbhakti Mcnally RDMS :1990Age:31 INDICATION [...] 0 lb 15 oz EFW by Hadlock ([id number]) Head / Face / Neck Biometry: Salesperson Stereo Equipment 6.5 mm CM 4.2 mm Nasal bone [...] vena cava. Inferior vena cava. 3-vessel view. 4-syecpt-gwwunjp view. Cardiac po sition. Cardiac size. Cardiac [...] were evident. Radiology Non-Fv Credentialed Provider ELAINE [facility] US TL LEWIS documented in this encounter Visit Diagnoses Diagnosis related condition, antepartum documented in this encounter Care Teams Production Corrugator Relationship Specialty Start Date End Date No Ref-Primary, Physician PCP - General 12/14/20 documented as of this encounter
--- OUTSIDE RECORDS SUMMARY | 2022-04-25 08:43 | XMS_ITS | Encounter Summary ---
:1990 Author Organization [place] Address [address] [place] [address] Care Team Providers Name Role Phone No Ref-Primary, Physician Primary Care Provider [phone] Encounter Details Date Type Department Care Team [...] on filedocumented in this encounter Care Teams Crane Operator Cab Relationship Specialty Start Date End Date No Ref-Primary, Physician PCP - General 12/14/20 documented as of this encounter
--- OUTSIDE RECORDS SUMMARY | 2022-04-25 08:43 | XMS_ITS | Encounter Summary ---
:1990 Author Organization [place] Address [address] [place] [address] Care Team Providers Name Role Phone No Ref-Primary, Physician Primary Care Provider [phone] Encounter Details Date Type Department Care Team Description 04/24/2022 Travel Social History Tobacco Use Types Packs/Day [...] on filedocumented in this encounter Care Teams Call Center Director Relationship Specialty Start Date End Date No Ref-Primary, Physician PCP - General 12/14/20 documented as of this encounter
--- OUTSIDE RECORDS SUMMARY | 2022-04-25 08:43 | XMS_ITS | Clinical Summary ---
:1990 Author Organization [facility] Address [address] [place] [address] Care Team Providers Name Role Phone No Ref-Primary, Physician Primary Care Provider [phone] Allergies Active Allergy Reactions Severity Noted [...] mouth tabletIndications: 2 times daily Kidney stone lamoTRIgine (LAMICTAL) Take 100 mg by 0 Active 200 MG tablet mouth 2 times daily Resolved Problems Problem Noted Date Resolved Date Calculus of left ureter 04/06/2017 04/06/2017 Encounters Date Type Specialty Care Team Description 04/24/2022 Hospital Encounter medical center representative Cassie Coy M D 04/24/2022 Travel from Last 3 Months Family History Medical History Relation Comments Cancer Paternal Grandmother Relation Status Comments Paternal Grandmother Social History Tobacco Use Types Packs/Day Years Used Date Former Smoker Quit: 12/2021 Smokeless Tobacco: Never Used Alcohol Use Standard Drinks/Week Comments Not Currently 0 (1 standard drink = 0.6 oz pure alcoho l) Estimated Date of Delivery Comments Yes 06/03/2022 Based on last menstr ual period of 08/27/2021 Sex Assigned at Date Recorded Not on file COVID-19 Exposure Response Date Recorded In the last 10 days, have you been in contact with No / Unsu re 04/24/2022 9:11 PM CDT someone who was confirmed or suspected to have Coronavirus/COVID-19? Last Filed Vital Signs Vital Sign Reading [...] 1992 ANNUAL REVIEW OF HM ORDERS 1992 PREVENTIVE CARE VISIT 1992 HEPATITIS B IMMUNIZATION (3 08/07/2005 06/12/2005, 02/29/20 05 of 3 - 3-dose primary series) HIV SCREENING 2007 HEPATITIS C SCREENING 2010 PAP 2013 DTAP/TDAP/TD IMMUNIZATION 02/28/2015 02/28/2005, 02/28/2005 , (6 - Td or Tdap) 03/03/1998, Additional history exists PHQ-2 (once per calendar 07/23/2021 year) COVID-19 Vaccine (4 - 10/26/2021 08/31/2021, 12/17/2020, Booster for Moderna series) 11/19/2020 MATERNAL SCREENING 12/10/2021 OBGCT (OB) 02/11/2022 REPEAT ANTIBODY SCREEN (OB) 03/11/2022 INFLUENZA VACCINE (#1) 2022 07/13/2021, 04/06/2016 GROUP B STREP SCREENING 05/06/2022 IPV IMMUNIZATION Aged Out 10/03/1995, 09/05/1994, No long er eligible 1992 based on patient 's age to complete this topic MENINGITIS IMMUNIZATION Aged Out 02/28/2005 No longe r eligible based on patient 's age to complete this topic Pneumococcal Vaccine: Aged Out No longer eligible Pediatrics (0 to 5 Years) based on patient's age and At-Risk Patients (6 to to co mplete this topic 64 Years) Medical Devices Implanted Type Area Acid Cleaner Device Shelf Model / Identifier Expiration Serial / Date Lot Stent Ureteral Dbl Pigtail Inlay [id number] Stent Left: CR BARD 05/12/2021 [id number] / Implanted: Qty: 1 on 04/06/2017 by Jae diego, Chau Ribeiro MD at [facility] [employer]-UROLOG[employer] / [id number] Procedures Procedure Name Priority Date/Time Associated Diagnosis Comme nts RUPTURE OF STAT 04/24/2022 9:12 PM Resul ts for this MEMBRANES BY ROM CDT procedure a re in PLUS the results section. from Last 3 Months Results Rupture of Membranes by ROM Plus (04/24/2022 9:12 PM CDT) [facility] Method Time Signature Rupture of Negative Negative, REMA 04/24/2022 LABORATORY Invalid, 9:45 PM CDT Membranes by Suggest ROM Plus Repeat Specimen Anatomical Collection Method Collection Time Receive d Time (Source) Location / / Volume Laterality Swab VAGINAL STRUCTURE Non-blood 04/24/2022 9:12 PM 09/2021 9:18 / Unknown Collection / CDT PM CDT Unknown Narrative LABORATORY - 04/24/2022 9:45 PM CDT It is recommended that the tests to dete ct rupture of the amniotic membranes should not be used without other clinical asses sments to make clinical patient management decision. Cassie Coy MD LAB - BODY FLUIDS ORDERABLES Performing Organization Address City/State/ZIP Code Phon [place] [address] [facility] [address] 1[address] floor, Room 20B from Last 3 Months Insurance Payer Benefit Plan / Subscriber ID Effective Dates Phone Addre ss Type Group BCBS BCBS OUT OF [id number] 2021-Present [phone] [address] [address] [place] [address] Advance Directives For more information, please contact: [phone] Latest Code Status on File Code Status Date Activated Date Inactivated Comments Full Code 04/06/2017 9:39 AM 12/14/2020 10:47 AM Full Code 04/06/2017 6:57 AM 04/06/2017 9:39 AM Care Teams Potato Peeling Machine Operator Relationship Specialty Start Date End Date No Ref-Primary, Physician PCP - General 12/14/20
--- OUTSIDE RECORDS SUMMARY | 2022-04-25 08:43 | XMS_ITS | Encounter Summary ---
:1990 Author Organization [facility] Address [address] [place] [address]. [place] [address] Care Team Providers Name Role Phone No Ref-Primary, Physician Primary Care Provider [phone] Encounter Details Date Type Department Care Team Description 07/13/2021 Medical Correspondence [facility] Scan, MATERNAL Health Info Mgmt Non-Provider MEDICINE CE NTER Srvcs PROVIDER SERVICE [address] [place] [address] [place] [address] [facility] [phone] KE[place] Social History Tobacco Use Types Packs/Day Years Used Date Current Every Day Smoker Smokeless Tobacco: Never Used Sex Assigned at Date Recorded Not on file documented as of this encounter Plan of Treatment Not on filedocumented as of this encounter Visit Diagnoses Not on filedocumented in this encounter Care Teams Car Checker Relationship Specialty Start Date End Date No Ref-Primary, Physician PCP - General 12/14/20 documented as of this encounter
--- OUTSIDE RECORDS SUMMARY | 2022-04-25 08:43 | XMS_ITS | Encounter Summary ---
:1990 Author Organization [place] [facility] Address [address] [place] [address] Care Team Providers Name Role Phone No Ref-Primary, Physician Primary Care Provider Unavailable Encounter Details Date Type Department Care Team Description 04/06/[address] [facility] Eleanor Alfredo mami PeriOp Services MD [place] [address] [place], [place] ANESTHESIA [address] [address] [facility] [phone] [place] [address] Anesthesia Record Procedure Summary Procedure Name [...] Drains, and Airways Type Details Placement Removal Retired Non-Surgical 04/06/17; 1110; Easy; 04/06/17 1110 by 03/23 12/06 1135 by Airway Intravenous; Easy; 4; Rahul Almaraz, Rahul Mitchell laryngeal mask airway; SUPERVISOR CABINETMAKER ERIC Lewis APRN CRNA center of mouth; Equal, clear and bilateral; DIMENSION SPECIFICATION INSPECTOR Incision/Surgical Site 04/06/17; 1118; Other 04/06/17 1118 by 211 by (Comment); urethra; Angelique Porter Winkelma nn, Nelly S, 04/24/22; 2113 RN RN Peripheral IV 04/06/17; 1140; 20 G; 04/06/17 1140 by 04/06/17 1408 by Right Gloria Eduardo Seal, Jennif er, RN RN documented in this encounter Social [...] benefits and alternatives discussed with: Patient or parts sales representative and Patient.. . documented in this [...] prepare to transfer to PACU, Report to SENIOR C SOFTWARE ENGINEER. VSS transfer care Vitals: (Last set prior to Anesthesia Care Transfer) DIMENSION SPECIFICATION INSPECTOR VITALS 04/06/2017 1106 - 04/06/2017 1140 04/06/2017 [...] Intra-op documented in this encounter Care Teams Working Foreman Relationship Specialty Start Date End Date No Ref-Primary, Physician PCP - General 04/06/17 documented as of this encounter
--- OUTSIDE RECORDS SUMMARY | 2022-04-25 08:43 | XMS_ITS | Encounter Summary ---
:1990 Author Organization [facility] Address [facility] [place] [address] Care Team Providers Name Role Phone No Ref-Primary, Physician Primary Care Provider [phone] Reason for Visit Reason Comments Ultrasound L2- covid in Encounter Details Date Type Department Care Team Description 01/13/2022 Office Visit [facility] Non-Fv Credent ialed Provider, Radiology COVID-19 affecting Maternal Contag, Chau Frazier MD [address] [place], [place] [address] in [facility] Osmin Aiken MD [address] [place] [address] trimester (Primary [place] Dx) [address] [facility] [address] [place] [address] Social History Tobacco Use Types [...] for details of today's [facility] at the [facility]. Osmin Aiken MD Maternal- Medicine documented in this encounter Plan of Treatment Not on filedocumented as of this encounter Visit Diagnoses Diagnosis COVID-19 affecting in second t rimester - Primary documented in this encounter Care Teams Nonprofit Manager Relationship Specialty Start Date End Date No Ref-Primary, Physician PCP - General 12/14/20 documented as of this encounter
--- OUTSIDE RECORDS SUMMARY | 2022-04-25 08:43 | XMS_ITS | Encounter Summary ---
:1990 Author Organization [facility] Address [address] [place] [address] Care Team Providers Name Role Phone No Ref-Primary, Physician Primary Care Provider [phone] Encounter Details Date Type Department Care [...] on filedocumented in this encounter Care Teams Resolution Specialist Relationship Specialty Start Date End Date No Ref-Primary, Physician PCP - General 12/14/20 documented as of this encounter
--- OUTSIDE RECORDS SUMMARY | 2022-04-25 08:43 | XMS_ITS | Encounter Summary ---
:1990 Author Organization [facility] Address [address] [place] [address] Care Team Providers Name Role Phone No Ref-Primary, Physician Primary Care Provider [phone] Reason for Visit Reason Comments Chest Pain Encounter Details Date Type Department Care Team Description 12/14/2020 Emergency [facility] Daniel Avelar, Chest pain Emergency Dept PA-C [address] [facility] [address] [address] [phone] [address] [place], [place] [address] (Wo rk) Social History Tobacco Use Types [...] sent through Care Everywhere. Chest Pain, Noncardiac (Zambian)documented in this encounter Medications at Time of [...] ABCs intact. Alert and oriented x 3. Danile Mckinnon PA-C - 12/14/2020 10:47 AM CDT [...] sinus arrhythmia. Normal ECG. Rate 66 bpm. NH interval 138 ms. QRS duration 104 ms. [...] patient is a HEART score of 1 ([id number]) and I feel ACS or mycocarditis is [...] with platelets differential (12/14/2020 3:45 PM CDT) [facility] Method Time Signature WBC 5.5 4.0 - 12/14/2020 [facility] 11.0 4:09 PM [facility] 10e9/L [facility] RBC Count 3.79 (L) 3.8 - 5.2 12/14/2020 [facility] 10e12/L 4:09 PM [facility] Hemoglobin 11.9 11.7 - 12/14/2020 [facility] 15.7 g/dL 4:09 PM [facility] Hematocrit 37.2 35.0 - 12/14/2020 [facility] 47.0 % 4:09 PM [facility] MCV 98 78 - 100 12/14/2020 [facility] fl 4:09 PM [facility] MCH 31.4 26.5 - 12/14/2020 [facility] 33.0 pg 4:09 PM [facility] MCHC 32.0 31.5 - 12/14/2020 [facility] 36.5 g/dL 4:09 PM [facility] RDW 12.8 10.0 - 12/14/2020 [facility] 15.0 % 4:09 PM [facility] Platelet Count 195 150 - 450 12/14/2020 [facility] 10e9/L 4:09 PM [facility] Diff Method Automated 12/14/2020 [facility] Method 4:09 PM [facility] % Neutrophils 58.3 % 12/14/2020 [facility] 4:09 PM [facility] % Lymphocytes 27.5 % 12/14/2020 [facility] 4:09 PM [facility] % Monocytes 11.5 % 12/14/2020 [facility] 4:09 PM [facility] % Eosinophils 1.8 % 12/14/2020 [facility] 4:09 PM [facility] % Basophils 0.5 % 12/14/2020 [facility] 4:09 PM [facility] % Immature 0.4 % 12/14/2020 [facility] Granulocytes 4:09 PM [facility] Nucleated RBCs 0 0 /100 12/14/2020 [facility] 4:09 PM [facility] Absolute 3.2 1.6 - 8.3 12/14/2020 [facility] Neutrophil 10e9/L 4:09 PM [facility] Absolute 1.5 0.8 - 5.3 12/14/2020 [facility] Lymphocytes 10e9/L 4:09 PM [facility] Absolute 0.6 0.0 - 1.3 12/14/2020 [facility] Monocytes 10e9/L 4:09 PM [facility] Absolute 0.1 0.0 - 0.7 12/14/2020 [facility] Eosinophils 10e9/L 4:09 PM [facility] Absolute 0.0 0.0 - 0.2 12/14/2020 [facility] Basophils 10e9/L 4:09 PM [facility] Abs Immature 0.0 0 - 0.4 12/14/2020 [facility] Granulocytes 10e9/L 4:09 PM [facility] Absolute 0.0 12/14/2020 [facility] Nucleated RBC 4:09 PM [facility] Specimen Anatomical Collection Method Collection Time Receive d Time (Source) Location / / Volume Laterality 12/14/2020 3:45 PM 3:58 CDT PM CDT Daniel Mckinnon PA-C LAB - BLOOD ORDERABLES Performing Organization Address City/State/ZIP Code Phon e Number M [facility] [address] [place], [place] [address] [facility] [address] [place] [address] [phone] D dimer quantitative (12/14/2020 3:45 PM CDT) athologist Signature D Dimer 0.3 0.0 - 0.50 12/14/2020 [facility] ug/ml FEU 4:30 PM CDT [facility] Comment: This D-dimer assay is intended for [...] LAB - BLOOD ORDERABLES Performing Organization Address [facility] Phon e Number [facility] [address], [place] [address] [facility] [address] [place], [place] [address], [facility] [phone] HCG qualitative (12/14/2020 1:55 PM CDT) [facility] Method Time Signature HCG Qualitative Negative NEG^Negati 12/14/2020 [facility] Serum ve 3:57 PM CDT [facility] Comment: This test is for screening purposes. ??R esults should be interpreted along with the clinical picture. ??Confirmation te sting is available if warranted by ordering [id number], HCG Quantitative Pregna ncy. Specimen Anatomical Collection Method Collection Time Receive d Time (Source) Location / / Volume Laterality 12/14/2020 1:55 PM 1 2:45 CDT PM CDT Edith Ortega MD LAB - BLOOD ORDERABLES Performing Organization Address [facility] Phon e Number M [facility] [address], [place] [address] [facility] [address] [place], [place] [address], [facility] [phone] Troponin I (12/14/2020 1:55 PM CDT) athologist Signature Troponin I ES <0.015 0.000 - 12/14/2020 [facility] 0.045 ug/L 3:23 PM [facility] Comment: The 99th percentile for [...] Address City/State/ZIP Code Phon e Number M [facility] [address] [address] [phone] [facility] [address] [address], [place] [phone] (ABNORMAL) Basic metabolic panel (12/14/2020 1:55 PM CDT) athologist Signature Sodium 139 133 - 144 12/14/2020 [facility] mmol/L 3:23 PM [facility] Potassium 3.8 3.4 - 5.3 12/14/2020 [facility] mmol/L 3:23 PM [facility] Comment: Specimen slightly hemolyzed, po tassium may be falsely elevated Chloride 110 (H) 94 - 109 mmol/L 12/14/2020 3:23 PM [facility] Carbon Dioxide 23 20 - 32 mmol/L 12/14/2020 3:23 PM [facility] Anion Gap 6 3 - 14 mmol/L 12/14/2020 3:23 PM [facility] Glucose 84 70 - 99 mg/dL 12/14/2020 3:23 PM [facility] Urea Nitrogen 12 7 - 30 mg/dL 12/14/2020 3:23 PM [facility] Creatinine 0.88 0.52 - 1.04 mg/dL 12/14/2020 3:23 PM [facility] GFR Estimate 89 >60 12/14/2020 3:23 PM [facility] mL/min/{1.73_m2} [facility] Comment: Non GFR Calc Starting 07/09/2018, serum creatinine ba sed estimated GFR (eGFR) will be calculated using the Chronic Kidney Dise [facility] Epidemiology Collaboration (CKD-EPI) equation. GFR Estimate If >90 >60 mL/min/{1.73_m2} 12/14/2020 3: 23 PM [facility] Comment: GFR Calc Starting 07/09/2018, serum creatinine ba sed estimated GFR (eGFR) will be calculated using the Chronic Kidney Dise [facility] Epidemiology Collaboration (CKD-EPI) equation. Calcium 8.7 8.5 - 10.1 mg/dL 12/14/2020 3:23 PM CDT [facility] Specimen Anatomical Collection Method Collection Time Receive d Time (Source) Location / / Volume Laterality Blood 12/14/2020 1:55 PM 2:45 CDT PM CDT Daniel Mckinnon PA-C LAB - BLOOD ORDERABLES Performing Organization Address City/State/ZIP Code Phon e Number [facility] [address] [address] [facility] [address] [place] [address], [facility] [phone] EKG 12 lead (12/14/2020 12:42 PM CDT) [facility] Method Time Signature Interpretation ECG Click [...] unspecified documented in this encounter Care Teams Tower Helper Relationship Specialty Start Date End Date No Ref-Primary, Physician PCP - General 12/14/20 documented as of this encounter
--- OUTSIDE RECORDS SUMMARY | 2022-04-25 08:43 | XMS_ITS | Encounter Summary ---
:1990 Author Organization [facility] Address [address] [place] [address] Care Team Providers Name Role Phone No Ref-Primary, Physician Primary Care Provider Unavailable Reason for Visit Reason Comments Flank Pain Encounter Details Date Type Department Care Team Description 04/06/2017 Surgery [facility] Chau Ortega ED CYSTOSCOPY, [facility]ane Ribeiro MD LEFT URETEROSCOPY, [address] 3548 [facility] S [address] [place], [place] [address] LITHOTRIPSY URETER, [address] [place] [address] INSERTION LEFT STENT, (Wo rk) stone basketing, [...] Taylor PA-C - 04/06/2017 9:39 AM CDT [facility] Outpatient / Observation Unit Discharge Summary Fauzia [...] [facility] VICENTE BLANDON & JORDAN [phone] During surgery, a stent may be placed [...] Please call your physician or the physician conductor freight if you experience: Fever greater than 101 degrees Severe pain not relieved by pain medication or rest Please make an appointment for the removal of the stent according to your physician's instructions. EXTRACORPOREAL SHOCK LITHOTRIPSY (ESWL) DISCHARGE INSTRUCTIONS VICENTE BLANDON & JORDAN [phone] Your stone(s) has been fragmented into many [...] hours: Yes. Name: Sindhu (mom), Contact information: [phone] Belongings/Valuables - Will be sent to PeriOp with pt. Flatbed Truck Driver - Pt DOES NOT need an aerial photograph interpreter. 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 Jordan Dahl PA-C [facility] Urology (text or call, Mon-Sun & Fri until 5pm) Associated attestation - [...] Jeff RN - 04/06/2017 5:33 AM CDT [facility] ED Nurse Handoff Report Fauzia Stubbs is a 26 year old female ED Chief complaint: Flank Pain . ED Diagnosis: Final diagnoses: Pyelonephritis Calculus of ureter Allergies: Allergies Allergen Reactions ??? Penicillins Code Status: Full Code Activity level - Baseline/Home: Independent. Activity Level - Current: Independent. Lift room needed: No. Bariatric: No Flatbed Truck Driver Needed: No Isolation: No. Infection: Not Applicable. [...] BOLUS (1,000 mLs Intravenous New Bag 04/06/17 8320) Followed by 0.9% sodium chloride infusion (not administered) ondansetron (ZOFRAN) injection 4 mg (4 mg Intravenous Given 04/06/17 8107) ciprofloxacin (CIPRO) infusion 400 mg (not administered) [...] with flank pain. Patient woke this morning [id number] with left sided flank pain associated by [...] injection 30 mg (30 mg Intravenous Given 04/06/176) tamsulosin (FLOMAX) capsule 0.4 mg (0.4 mg [...] Admitted to hospitalist service. Osmin Toure 04/06/2017 [facility] I, Osmin Toure am serving [...] The procedure began by introducing the 22 Syriac rigid cystoscope through the urethra into the [...] EM#[id number] Name: FAUZIA STUBBS MRN: [id number] Account: [id number] : 1990 Procedure Date: 04/06/2017 Document: [id number] Pharmacy-Admission Medication History - Rosie Enrique [facility] - 04/06/2017 9:41 AM CDT Admission medication history interview status for this patient is complete. See [facility] admission navigator for allergy information, prior to admission medications and immunization status. Medication history interview source(s): patient's mother Medication history resources (including written lists, pill bottles, clinic record):None Changes made to MARKET SUPERINTENDENT medication list: Added: none Deleted: none Changed: [...] oob for safety. Will continue to monitor. Liaison Inspection Laboratory Assistant Nurse Safe discharge environment identified: Yes Barriers [...] independent, order SW consult): ind with boyfriend supersonic engineer: Sindhu, (Mother) Activity level at baseline: Ind [...] be read by a radiologist or a [facility] non-radiologis t provider. Chau Ortega MD IMG DIAGNOSTIC IMAGING ORDER MARGARET Performing Organization Address City/State/ZIP Code Phon e Number [facility] Surgical pathology exam (04/06/2017 11:23 AM CDT) Component Value Ref Test Analysis Performed At [facility] Range Method Time Signature Copath Report Patient Name: FAUZIA STUBBS MR#: [id number] Specimen #: [id number] Collected: 04/06/2017 Received: 04/06/2017 Reported: 04/06/2017 13:04 Ordering Phy(s): CHAU ORTEGA For improved result formatting, select 'View Enhanced Report Format' under Linked Documents section. SPECIMEN(S): Stone, left ureteral FINAL DIAGNOSIS: Left ureteral stone(s)- - Gross pathology the admission performed. - Submitted for chemical/stone analysis (see separate [facility] oming report for results). Electronically [...] microscopic sections are obtained. CPT Codes: A: 55532-FS TESTING LAB LOCATION: [address] ??[address] COLLECTION SITE: Client: [facility] Location: RHE (R) Specimen Anatomical Collection Method Collection Time Receive d Time (Source) Location / / Volume Laterality 04/06/2017 11:23 04/06/2017 AM CDT 12:28 PM CDT Chau Ortega MD [facility] Performing Organization Address City/State/ZIP Code Phon e Number COPATH Stone analysis (04/06/2017 11:23 AM CDT) [facility] Method Time Signature Stone SEE NOTE 04/10/2017 [facility] Composition 6:47 PM CDT [facility] Comment: (Note) Calculi composed primarily of: 10% [...] omposition determined by FTIR analysis. Performed by [facility], [address] [place] [id number] [email or web address], Endy Reilly MD, Lab. Director Calculi Number Numerous 04/10/2017 6:47 PM CDT [facility] Calculi Size 1 to 4 mm 04/10/2017 6:47 PM CDT [facility] Calculi Description SEE NOTE 04/10/2017 6:47 PM C DT [facility] Comment: (Note) Specimen consists of numerous, small, brown/baldwin, irregular calculi fragments. Stone Mass 30 mg 04/10/2017 6:47 PM CDT [facility] Specimen (Source) Anatomical Collection Method Collection Time Re ceived Time Location / / Volume Laterality Calculus specimen STRUCTURE OF LEFT 04/06/2017 11:23 (specimen) URETER / Unknown AM CDT Chau Ortega MD LAB - BODY FLUIDS ORDERABLES Performing Organization Address City/State/ZIP Code Phon e Number [place] [address] [phone] [facility] [address] [phone] Abd/pelvis CT no contrast - Stone Protocol [...] Signature Specimen Midstream Urine [facility] Description [facility] Special Specimen 04/06/2017 [facility] Requests received in 8:21 AM CDT [facility] preservative [facility] Culture Micro >100,000 colonies/mL 04/07/2017 [facility] Escherichia coli 9:26 PM CDT [facility] ([facility] Specimen (Source) Anatomical Collection Method [...] Organization Address City/State/ZIP Code Phon e Number [address] [address] [place] Lipase (04/06/2017 4:10 AM CDT) athologist Signature Lipase 148 73 - 393 04/06/2017 [facility] U/L 4:44 AM CDT HOSPITAL Specimen Anatomical Collection Method Collection Time Receive d Time (Source) Location / / Volume Laterality Blood specimen 04/06/2017 4:10 AM 017 4:24 (specimen) CDT AM CDT Luis Jones MD LAB - BLOOD ORDERABLES Performing Organization Address City/State/ZIP Code Phon e Number [facility] [address] [place], [place] [address] [facility] [address] [phone] (ABNORMAL) Comprehensive metabolic panel (04/06/2017 4:10 AM [facility]) P athologist Signature Sodium 137 133 - 144 04/06/2017 [place] mmol/L 4:44 AM [facility] Potassium 3.2 (L) 3.4 - 5.3 04/06/2017 [place] mmol/L 4:44 AM [facility] Chloride 104 94 - 109 04/06/2017 [place] mmol/L 4:44 AM [facility] Carbon Dioxide 25 20 - 32 04/06/2017 [place] mmol/L 4:44 AM [facility] Anion Gap 8 3 - 14 04/06/2017 [place] mmol/L 4:44 AM [facility] Glucose 102 (H) 70 - 99 04/06/2017 [place] mg/dL 4:44 AM [facility] Urea Nitrogen 12 7 - 30 04/06/2017 [place] mg/dL 4:44 AM [facility] Creatinine 0.80 0.52 - 04/06/2017 [place] 1.04 mg/dL 4:44 AM [facility] GFR Estimate 88 >60 04/06/2017 [place] mL/min/1.7 4:[address] Comment: Non GFR Calc GFR Estimate If >90 >60 mL/min/1.7m2 04/06/2017 4:44 A M [facility] Comment: GFR Calc Calcium 8.9 8.5 - 10.1 mg/dL 04/06/2017 4:44 AM [facility] Bilirubin Total 0.4 0.2 - 1.3 mg/dL 04/06/2017 4:44 AM [facility] Albumin 4.1 3.4 - 5.0 g/dL 04/06/2017 4:44 AM [facility] Protein Total 8.1 6.8 - 8.8 g/dL 04/06/2017 4:44 AM [facility] Alkaline Phosphatase 108 40 - 150 U/L 04/06/2017 4:44 AM [facility] ALT 23 0 - 50 U/L 04/06/2017 4:44 AM [facility] AST 10 0 - 45 U/L 04/06/2017 4:44 AM [facility] Specimen Anatomical Collection Method Collection Time Receive d Time (Source) Location / / Volume Laterality Blood specimen 04/06/2017 4:10 AM 017 4:24 (specimen) CDT AM CDT Luis Jones MD LAB - BLOOD ORDERABLES Performing Organization Address City/State/ZIP Code Phon e Number [place] [address] [address] [facility] [address] [phone] CBC with platelets differential (04/06/2017 4:10 AM CDT) [facility] Method Time Signature WBC 8.1 4.0 - 04/06/2017 [facility] 11.0 4:28 AM [facility] 10e9/L [facility] RBC Count 4.40 3.8 - 5.2 04/06/2017 [facility] 10e12/L 4:28 AM [facility] Hemoglobin 13.5 11.7 - 04/06/2017 [facility] 15.7 g/dL 4:28 AM [facility] Hematocrit 40.0 35.0 - 04/06/2017 [facility] 47.0 % 4:28 AM [facility] MCV 91 78 - 100 04/06/2017 [facility] fl 4:28 AM [facility] MCH 30.7 26.5 - 04/06/2017 [facility] 33.0 pg 4:28 AM [facility] MCHC 33.8 31.5 - 04/06/2017 [facility] 36.5 g/dL 4:28 AM [facility] RDW 13.1 10.0 - 04/06/2017 [facility] 15.0 % 4:28 AM [facility] Platelet Count 278 150 - 450 04/06/2017 [facility] 10e9/L 4:28 AM [facility] Diff Method Automated 04/06/2017 [facility] Method 4:28 AM [facility] % Neutrophils 60.6 % 04/06/2017 [facility] 4:28 AM [facility] % Lymphocytes 29.5 % 04/06/2017 [facility] 4:28 AM [facility] % Monocytes 7.7 % 04/06/2017 [facility] 4:28 AM [facility] % Eosinophils 1.5 % 04/06/2017 [facility] 4:28 AM [facility] % Basophils 0.5 % 04/06/2017 [facility] 4:28 AM [facility] % Immature 0.2 % 04/06/2017 [place] Granulocytes 4:28 AM [facility] Nucleated RBCs 0 0 /100 04/06/2017 [facility] 4:28 AM [facility] Absolute 4.9 1.6 - 8.3 04/06/2017 [place] Neutrophil 10e9/L 4:28 AM [facility] Absolute 2.4 0.8 - 5.3 04/06/2017 [place] Lymphocytes 10e9/L 4:28 AM [facility] Absolute 0.6 0.0 - 1.3 04/06/2017 [place] Monocytes 10e9/L 4:28 AM [facility] Absolute 0.1 0.0 - 0.7 04/06/2017 [place] Eosinophils 10e9/L 4:28 AM [facility] Absolute 0.0 0.0 - 0.2 04/06/2017 [place] Basophils 10e9/L 4:28 AM [facility] Abs Immature 0.0 0 - 0.4 04/06/2017 [place] Granulocytes 10e9/L 4:28 AM [facility] Absolute 0.0 04/06/2017 [place] Nucleated RBC 4:28 AM [facility] Specimen Anatomical Collection Method Collection Time Receive d Time (Source) Location / / Volume Laterality Blood specimen 04/06/2017 4:10 AM 017 4:24 (specimen) CDT AM CDT Luis Jones MD LAB - BLOOD ORDERABLES Performing Organization Address City/State/ZIP Code Phon e Number [place] [address], [place] [address] [facility] [address] [place], [place] [address] [place] [address] (ABNORMAL) UA with Microscopic (04/06/2017 4:10 AM T) [facility] Method Time Signature Color Urine Yellow 04/06/2017 [facility] 4:38 AM [facility] Appearance Urine Slightly 04/06/2017 [facility] Cloudy 4:38 AM [facility] Glucose Urine Negative NEG^Negat 04/06/2017 [facility] kvng mg/dL 4:38 AM [facility] Bilirubin Urine Negative NEG^Negat 04/06/2017 [facility] kvng 4:38 AM [facility] Ketones Urine Negative NEG^Negat 04/06/2017 [facility] kvng mg/dL 4:38 AM [facility] Specific [place] 1.013 1.003 - 04/06/2017 [facility] Urine 1.035 4:38 AM [facility] Blood Urine Small (A) NEG^Negat 04/06/2017 [facility] kvng 4:38 AM [facility] pH Urine 5.0 5.0 - 7.0 04/06/2017 [facility] pH 4:38 AM [facility] Protein Albumin 30 (A) NEG^Negat 04/06/2017 [facility] Urine kvng mg/dL 4:38 AM [facility] Urobilinogen 0.0 0.0 - 2.0 04/06/2017 [facility] mg/dL mg/dL 4:38 AM [facility] Nitrite Urine Negative NEG^Negat 04/06/2017 [facility] kvng 4:38 AM [facility] Leukocyte Large (A) NEG^Negat 04/06/2017 [facility] Esterase Urine kvng 4:38 AM [facility] Source Midstream 04/06/2017 [facility] Urine 4:25 AM [facility] WBC Urine 126 (H) 0 - 2 04/06/2017 [facility] /HPF 4:38 AM [facility] RBC Urine 15 (H) 0 - 2 04/06/2017 [facility] /HPF 4:38 AM [facility] WBC Clumps Present (A) NEG^Negat 04/06/2017 [facility] kvng /HPF 4:38 AM [facility] Bacteria Urine Many (A) NEG^Negat 04/06/2017 [facility] kvng /HPF 4:38 AM [facility] Squamous 1 0 - 1 04/06/2017 [place] Epithelial /HPF /HPF 4:38 AM [facility] Mucous Urine Present (A) NEG^Negat 04/06/2017 [place] kvng /LPF 4:38 AM [facility] Specimen (Source) Anatomical Collection Method Collection Time Re ceived Time Location / / Volume Laterality Examination of URINE SPECIMEN 04/06/2017 4:10 04/06/20 17 4:24 midstream urine OBTAINED BY CLEAN AM CDT AM CDT specimen CATCH PROCEDURE / (procedure) Unknown Luis Jones MD LAB - URINE ORDERABLES Performing Organization Address City/[facility] Phon e Number M [facility] [address], [place] [address] [facility] [address] [place], [place] [address] [phone] HCG qualitative urine (04/06/2017 4:10 AM CDT) athologist Signature HCG Qual Urine Negative NEG^Negati 04/06/2017 [place] ve 4:41 AM [facility] Comment: This test is for screening purposes. ??R esults should be interpreted along with the clinical picture. ??Confirmation te sting is available if warranted by ordering [id number], HCG Quantitative Pregna ncy. Specimen Anatomical Collection Method Collection Time Receive d Time (Source) Location / / Volume Laterality Urine specimen URINE SPECIMEN 04/06/2017 4:10 AM 04/06 4:24 (specimen) OBTAINED BY CLEAN CDT AM CDT CATCH PROCEDURE / Unknown Luis Jones MD LAB - URINE ORDERABLES Performing Organization Address City/[facility] Phon e Number M [facility] [address] [place], [place] [address] [facility] [address] [place], [place] [address] [phone] documented in this encounter Visit Diagnoses Not [...] mg 0.3-0.5 mg, Intravenous, EVERY 10 MIN MS N, other, acute pain.?May administer if Respiratory [...] (New Bag - Provider: Rahul Almaraz APRN SSAS DEVELOPER)1140 (Anesthesia Volume Adjustment - Provider: Rahul Almaraz [...] area)1651 (Unhold - Provider: Orders Generic Provider) 650 mg, Oral, EVERY 4 HOURS PRN, mild pa in, Starting Sun04/06/17 at 0657, Alternate ibuprofen (if ordered) with acetaminophen. Maximum acetaminophen dose from all sources = 75 mg/kg/day not to exceed 4 grams/day. fentaNYL (PF) (SUBLIMAZE) injection 25-50 mcg (CANCELED) 122 (Given - Provider: Gloria Eduardo RN) 25-50 [...] (NORCO) 5-325 MG per tablet 1-2 tablet 121 (Given - Provider: Gloria Eduardo RN) 1-2 [...] area)1651 (Unhold - Provider: Orders Generic Provider) 0.3-0.5 [...] mg 0.3-0.5 mg, Intravenous, EVERY 10 MIN MS N, Starting Sun04/06/17 at 1213, Until Sun04/06/17 [...] procedural area)1115 (Given - Provider: Rahul Almaraz, BIOLOGY RESEARCH ASSISTANT SSAS DEVELOPER)1652 (Unhold - Provider: Orders Generic Provider) 4 [...] area)1115 (See Alternative - Provider: Rahul Almaraz, BIOLOGY RESEARCH ASSISTANT SSAS DEVELOPER)1652 (Unhold - Provider: Orders Generic Provider) 4 [...] use. polyethylene glycol (MIRALAX/GLYCOLAX) Packet 17 g 1016 (Auto Hold - Provider: Orders Generic [...] prochlorperazine (COMPAZINE) Suppository 25 mg(Linked Group 3) 1016 (Auto Hold - [...] management)
documented in this encounter Care Teams Deckhand Sponge Boat Relationship Specialty Start Date End Date No Ref-Primary, Physician PCP - General 04/06/17 documented as of this encounter
--- OUTSIDE RECORDS SUMMARY | 2022-04-25 08:43 | XMS_ITS | Encounter Summary ---
:1990 Author Organization [facility] Address [address] [place] [address] Care Team Providers Name Role Phone No Ref-Primary, Physician Primary Care Provider Unavailable Encounter Details Date Type Department Care Team Description 04/11/2017 Telephone [facility] REPORTING Pricilla Shin, [address] [place] [address] [address] [phone] [place], [place] [address] (Wo rk) Social History [...] on filedocumented in this encounter Care Teams Environmental Compliance Manager Relationship Specialty Start Date End Date No Ref-Primary, Physician PCP - General 04/06/17 documented as of this encounter
[2022-04-25 11:36] LABS: Ferritin* 42.7 ng/mL (6.24-137.0)
== END 2022-04-25 08:41 | disposition home or self-care (01) ==
LOC: NFLDREF 08:41
PROVIDERS: Visit Provider Advanced Practice Midwife
DX: D64.9 Anemia, unspecified (principal)
CPT/HCPCS: 82728

== ENCOUNTER 2022-05-09 10:06 | Outpatient (CLI) | payer BC, SELFPAY ==
--- OUTSIDE RECORDS SUMMARY | 2022-05-09 10:12 | XMS_ITS | Encounter Summary ---
:1990 Author Organization [facility] Address [facility] [place] [address] Care Team Providers Name Role Phone No Ref-Primary, Physician Primary Care Provider [phone] Reason for Referral Diagnostic Imaging Ultrasound (Routine) - Pending Review Specialty Diagnoses / Procedures Referred By Contact Refer red To Contact Diagnoses related condition, antepartum Rh Maternal Med Procedures [facility] Comprehensive Single [address] [facility] [place] [address] Referral ID Status Reason Start Date Expiration Date Visits V isits Requested Authorized [id number] Pending 01/03/2022 01/03/2023 1 1 Review Reason for Visit Diagnostic Imaging Ultrasound (Routine) - Pending Review Specialty Diagnoses / Procedures Referred By Contact Refer red To Contact Diagnoses related condition, antepartum Rh Maternal Med Procedures [facility] Comprehensive Single [address] [place] [address] Referral ID Status Reason Start Date Expiration Date Visits V isits Requested Authorized [id number] Pending 01/03/2022 01/03/2023 1 1 Review Encounter Details Date Type Department Care Team Description 01/13/2022 [facility] Non-Fv Credentialed Pro vider, Radiology related Encounter Maternal Contag, Chau Frazier MD [address] [facility] [address] [place] [address] condition, Medicine Center Osmin Aiken MD [address] [place] [address] [place] [address] antepartum [place] [address] [facility] [address] [place] [address] Social History Tobacco Use Types Packs/Day Years Used Date Smoking Tobacco: Every Day Smokeless Tobacco: Never Sex Assigned at Date Recorded Not on [...] Procedure Name Priority Date/Time Associated Comments Diagnosis [facility] COMPREHENSIVE Routine 01/13/2022 9:39 AM rela seferino Results for this SINGLE CDT condition, procedure are i n antepartum the results section. documented in this encounter Results [facility] Comprehensive Single (01/13/2022 9:39 AM [...] 9:41 AM CDT Comprehensive Pat. Name: ALE COLEMANLROY FAUZIA Study Date: 01/13/2022 8:45am Pat. NO: [id number] Referring ??MD: NIURKA MENDIETA Site: [facility] Barrel Finisher: Salma Piña : 1990 Age: 31 INDICATION [...] lb 15 ? oz EFW by ?Hadlock ([id number]) Head / Face / Neck Biometry: Traffic Representative ? 6.5 ? mm CM ?4.2 ? [...] cava. Inferior vena cava. 3-vessel ? view. 2-evezqt-oeqyqhz view. Cardiac position. Cardiac size. Cardiac rhythm. [...] care. Thank-you for the opportunity to partici riana in the care of this patient. If you have questions regarding today's evaluation or if we can be of further service, please contact the [facility]. anomalies may be present but not detected Procedure Note Osmin Aiken MD - 01/13/2022Forma tting of this note might be different from the original. Comprehensive Name:Newton ESPOSITO te:01/13/2022 8:45am Pat. NO: [id number] MD:MAGY MENDIETA [facility]:Germain Mcnally RDMS :1990Age:31 INDICATION COVID in METHOD [...] 0 lb 15 oz EFW by Hadlock ([id number]) Head / Face / Neck Biometry: Traffic Representative 6.5 mm CM 4.2 mm Nasal bone [...] vena cava. Inferior vena cava. 3-vessel view. 1-txnmje-duxmoyq view. Cardiac po sition. Cardiac size. Cardiac [...] ultrasound were evident. Radiology Non-Fv Credentialed Provider [facility] TL LEWIS documented in this encounter Visit Diagnoses Diagnosis related condition, antepartum documented in this encounter Care Teams Hardware Supplies Sales Representative Relationship Specialty Start Date End Date No Ref-Primary, Physician PCP - General 12/14/20 documented as of this encounter
--- OUTSIDE RECORDS SUMMARY | 2022-05-09 10:12 | XMS_ITS | Encounter Summary ---
:1990 Author Organization [place] Address [address] [place] [address] Care Team Providers Name Role Phone Unavailable Primary Care Provider Unavailable Encounter Details Date Type Department Care Team Description 05/01/2017 Telephone [facility] REPORTING Chioma Harding PA-C [address] [place] [address] [address] [facility] [phone] [facility] [address] [place], [place] [address] (Wo rk) Social History [...]
--- OUTSIDE RECORDS SUMMARY | 2022-05-09 10:12 | XMS_ITS | Encounter Summary ---
:1990 Author Organization [place] Address [facility] [place] [address] Care Team Providers Name Role Phone No Ref-Primary, Physician Primary Care Provider [phone] Encounter Details Date Type Department Care Team Description 04/24/2022 Hospital Encounter [facility] Cassie Coy [facility] [address] [facility] [address] [place] [address] [place] [address] [phone] (Wo rk) Social History Tobacco Use Types Packs/Day Years Used Date Smoking Tobacco: Former Cigarettes Quit : 12/2021 Smokeless Tobacco: Never Alcohol Use Standard Drinks/Week Comments Not Currently [...] day. Activity: Call your doctor or nurse turkey boner if your baby is moving less than [...] cannot be sent through Care Everywhere.Kick Counts (Zimbabwean)documented in this encounter Medications at Time of Discharge Medication Sig Dispensed Refills Start Date End Date lamoTRIgine (LAMICTAL) 200 Take 100 mg by mouth 0 MG tablet 2 times daily ciprofloxacin (CIPRO) 500 Take 1 tablet (500 [...] 9:23 PM CDT 205 Patient arrived to [facility] ambulatory with spouse. Brought to room 2 to change into gown. History collected by Mallory RN and this RN. Patient here with complaint of increased discharge, and lost her mucus plug. Mucus-y discharge started around 1000, since then, has noticed an increase in watery discharge. Denies bleeding, denies contractions, endorses mild back ache and a heaviness. She is planning to deliver in [place]. 36 w 2 d Hx bipolar disorder, [...] by Mallory MORENO, with consent from patient. 0/50/-2. Monitors turned off. 2203 Discharge instructions reviewed [...] a re in PLUS the results section. NON-STRESS 04/24/2022 12:00 AM TEST - HIM SCAN CDT documented in this encounter Results Rupture of Membranes by ROM Plus (04/24/2022 9:12 PM CDT) [facility] Method Time Signature Rupture of Negative Negative, REMA 04/24/2022 LABORATORY Invalid, 9:45 PM CDT Membranes by Suggest ROM Plus Repeat Specimen Anatomical Collection Method Collection Time Receive d Time (Source) Location / / Volume Laterality Swab VAGINAL STRUCTURE Non-blood 04/24/2022 9:12 PM 10/09/2021 9:18 / Unknown Collection / CDT PM CDT Unknown Narrative LABORATORY - 04/24/2022 9:45 PM CDT It is recommended that the tests to dete ct rupture of the amniotic membranes should not be used without other clinical asses sments to make clinical patient management decision. Cassie Coy MD LAB - BODY FLUIDS ORDERABLES Performing Organization Address City/State/ZIP Code Phon e Number [place]ATORY [place] [address] [phone] Care Lab [address] [place] 1st floor, Room 20B NON-STRESS TEST - HIM SCAN (04/24/2022 12:00 AM CDT) Specimen (Source) Anatomical Location Collection Method / Collectio n Time Received Time / Laterality Volume 04/24/2022 Narrative This result has an attachment that is no t available. Provider Outside PROCEDURES documented in this encounter Visit Diagnoses Not [...] nause a, vomiting, Starting on Sun04/24/22 at 2108
This is Step 3 of OB nausea and vomiting management. Give if nausea not resolved 15 minutes after giving ond ansetron (ZOFRAN). If nausea is not reso lved in 30 minutes, notify provider.
OB Preadmission documented in this encounter Care Teams Operating Theatre Technician Relationship Specialty Start Date End Date No Ref-Primary, Physician PCP - General 12/14/20 documented as of this encounter
--- OUTSIDE RECORDS SUMMARY | 2022-05-09 10:12 | XMS_ITS | Clinical Summary ---
:1990 Author Organization [place] Address [address] [place] [address] Care Team Providers Name Role Phone No Ref-Primary, Physician Primary Care Provider Allergies Active Allergy Reactions Severity Noted Date [...] Specialty Care Team Description 04/24/2022 Hospital Encounter reinsurance analyst Cassie Coy M D 04/24/2022 Travel from [...] 1990 ANNUAL REVIEW OF HM ORDERS 1992 YEARLY PREVENTIVE VISIT 1992 HEPATITIS B IMMUNIZATION (3 08/07/2005 06/12/2005, 02/29/20 05 of 3 - 3-dose series) HIV SCREENING 2007 HEPATITIS C SCREENING [...] 64 Years) Medical Devices Implanted Type Area Flame Channeler Device Shelf Model / Identifier Expiration Serial / Date Lot Stent Ureteral Dbl Pigtail Inlay [id number] Stent Left: CR BARD 05/12/2021 [id number] / Implanted: Qty: 1 on 04/06/2017 by Jae diego, Chau Ribeiro MD at [facility] [employer]-UR[employer] / [id number] Procedures Procedure Name Priority Date/Time Associated Diagnosis Comme nts RUPTURE OF STAT 04/24/2022 9:12 PM Resul ts for this MEMBRANES BY ROM CDT procedure a re in PLUS the results section. NON-STRESS 04/24/2022 12:00 AM TEST - HIM SCAN CDT from Last 3 Months Results Rupture of Membranes by ROM Plus (04/24/2022 9:12 PM CDT) [facility] gist Method Time Signature Rupture of Negative Negative, [...] Address City/State/ZIP Code [place] [address] Care Lab [address] 1st floor, Room 20B NON-STRESS TEST - HIM SCAN (04/24/2022 12:00 AM CDT) Specimen (Source) Anatomical Location Collection Method / Collectio n Time Received Time / Laterality Volume 04/24/2022 Narrative This result has an attachment that is no t available. Provider Outside PROCEDURES from Last 3 Months Insurance Payer Benefit Plan / Subscriber ID Effective Dates Phone Addre ss Type Group BCBS BCBS OUT OF [id number] 2021-Present [phone] [address] [address] [place] [address] Advance Directives For more information, please contact: [phone] Latest Code Status on File Code Status Date Activated Date Inactivated Comments Full Code 04/06/2017 9:39 AM 12/14/2020 10:47 AM Code Status History Code Status Date Activated Date Inactivated Comments Full Code 04/06/2017 6:57 AM 04/06/2017 9:39 AM Care Teams Supervisor Liquefaction Relationship Specialty Start Date End Date No Ref-Primary, Physician PCP - General 12/14/20
--- OUTSIDE RECORDS SUMMARY | 2022-05-09 10:12 | XMS_ITS | Encounter Summary ---
:1990 Author Organization [place] Address [address] [place] [address] Care Team Providers Name Role Phone No Ref-Primary, Physician Primary Care Provider Reason for Visit Reason Comments Chest Pain Encounter Details Date Type Department Care Team Description 12/14/2020 [facility] Chest pain Emergency Dept PA-C [address] [facility] [place] [address] [address] [phone] [address] [place], [place] [address] (Wo rk) Social History Tobacco Use Types [...] documented in this encounter Discharge Instructions Discharge Daniel Asif PA-C - 12/14/2020 4:58 PM CDT Discharge [...] sent through Care Everywhere. Chest Pain, Noncardiac (Turkmen)documented in this encounter Medications at Time of [...] or siblings. Social History: Presents with her fiancePhilip. She does report tobacco use. Review of [...] sinus arrhythmia. Normal ECG. Rate 66 bpm. RI interval 138 ms. QRS duration 104 ms. [...] plan for ED workup discussed as well. 1656: I reassessed the patient and discussed the [...] patient is a HEART score of 1 ([id number]) and I feel ACS or mycocarditis is [...] MD Daniel Mckinnon PA-C IMG DIAGNOSTIC IMAGING ORDE JOSHUA (ABNORMAL) CBC with platelets differential (12/14/2020 3:45 PM CDT) [facility] Method Time Signature WBC 5.5 4.0 - 12/14/2020 [facility] 11.0 4:09 PM [facility] 10e9/L [facility] RBC Count 3.79 (L) 3.8 - 5.2 12/14/2020 [facility] 10e12/L 4:09 PM [facility] Hemoglobin 11.9 11.7 - 12/14/2020 [facility] 15.7 g/dL 4:09 PM [facility] Hematocrit 37.2 35.0 - 12/14/2020 [facility] 47.0 % 4:09 PM [facility] MCV 98 78 - 100 12/14/2020 [facility] fl 4:09 PM [facility] MCH 31.4 26.5 - 12/14/2020 [facility] 33.0 pg 4:09 PM [facility] MCHC 32.0 31.5 - 12/14/2020 [facility] 36.5 g/dL 4:09 PM [facility] RDW 12.8 10.0 - 12/14/2020 [facility] 15.0 % 4:09 PM [facility] Platelet Count 195 150 - 450 12/14/2020 [facility] 10e9/L 4:09 PM [facility] Diff Method Automated 12/14/2020 [facility] Method 4:09 PM [facility] % Neutrophils 58.3 % 12/14/2020 [facility] 4:09 PM [facility] % Lymphocytes 27.5 % 12/14/2020 [facility] 4:09 PM [facility] % Monocytes 11.5 % 12/14/2020 [facility] 4:09 PM [facility] % Eosinophils 1.8 % 12/14/2020 [facility] 4:09 PM [facility] % Basophils 0.5 % 12/14/2020 [facility] 4:09 PM [facility] % Immature 0.4 % 12/14/2020 [facility] Granulocytes 4:09 PM [facility] Nucleated RBCs 0 0 /100 12/14/2020 [facility] 4:09 PM [facility] Absolute 3.2 1.6 - 8.3 12/14/2020 [facility] Neutrophil 10e9/L 4:09 PM [facility] Absolute 1.5 0.8 - 5.3 12/14/2020 [facility] Lymphocytes 10e9/L 4:09 PM [facility] Absolute 0.6 0.0 - 1.3 12/14/2020 [facility] Monocytes 10e9/L 4:09 PM [facility] Absolute 0.1 0.0 - 0.7 12/14/2020 [facility] Eosinophils 10e9/L 4:09 PM [facility] Absolute 0.0 0.0 - 0.2 12/14/2020 [facility] Basophils 10e9/L 4:09 PM [facility] Abs Immature 0.0 0 - 0.4 12/14/2020 [facility] Granulocytes 10e9/L 4:09 PM [facility] Absolute 0.0 12/14/2020 [facility] Nucleated RBC 4:09 PM [facility] Specimen Anatomical Collection Method Collection Time Receive d Time (Source) Location / / Volume Laterality 12/14/2020 3:45 PM 3:58 CDT PM CDT Daniel Mckinnon PA-C LAB - BLOOD ORDERABLES Performing Organization Address City/State/ZIP Code Phon e Number M [facility] [address] [place], [place] [address] [facility] [address] [phone] D dimer quantitative (12/14/2020 3:45 PM CDT) athologist Signature D Dimer 0.3 0.0 - 0.50 12/14/2020 [facility] ug/ml FEU 4:30 PM CDT [facility] Comment: This D-dimer assay is intended [...] LAB - BLOOD ORDERABLES Performing Organization Address [facility] Phon e Number [facility] [address] [place], [place] [address] [address] [address] [address] [phone], [facility] [phone] HCG qualitative (12/14/2020 1:55 PM CDT) [facility] gist Method Time Signature HCG Qualitative Negative NEG^Negati 12/14/2020 [facility] Serum ve 3:57 PM CDT [facility] Comment: This test is for screening purposes. ??R esults should be interpreted along with the clinical picture. ??Confirmation te sting is available if warranted by ordering [id number], HCG Quantitative Pregna ncy. Specimen Anatomical Collection Method Collection Time Receive d Time (Source) Location / / Volume Laterality 12/14/2020 1:55 PM 1 2:45 CDT PM CDT Edith Ortega MD LAB - BLOOD ORDERABLES Performing Organization Address [facility]/ZIP [facility] Phon e Number M [facility] [address] [place], [place] [address] [facility] [address] [phone], [facility] [phone] Troponin I (12/14/2020 1:55 PM CDT) athologist Signature Troponin I ES <0.015 0.000 - 12/14/2020 [facility] 0.045 ug/L 3:23 PM [facility] Comment: The 99th percentile for upper [...] Address City/State/ZIP Code Phon e Number M [facility] [address] [place] [address] [phone] [facility] [address] [address], [place] [phone] (ABNORMAL) Basic metabolic panel (12/14/2020 1:55 PM CDT) athologist Signature Sodium 139 133 - 144 12/14/2020 [facility] mmol/L 3:23 PM [facility] Potassium 3.8 3.4 - 5.3 12/14/2020 [facility] mmol/L 3:23 PM [facility] Comment: Specimen slightly hemolyzed, po tassium may be falsely elevated Chloride 110 (H) 94 - 109 mmol/L 12/14/2020 3:23 PM [facility] Carbon Dioxide 23 20 - 32 mmol/L 12/14/2020 3:23 PM [facility] Anion Gap 6 3 - 14 mmol/L 12/14/2020 3:23 PM [facility] Glucose 84 70 - 99 mg/dL 12/14/2020 3:23 PM [facility] Urea Nitrogen 12 7 - 30 mg/dL 12/14/2020 3:[address] [facility] Creatinine 0.88 0.52 - 1.04 mg/dL 12/14/2020 3:23 PM [facility] GFR Estimate 89 >60 12/14/2020 3:23 PM [facility] mL/min/{1.73_m2} [facility] Comment: Non GFR Calc Starting 07/09/2018, serum creatinine ba sed estimated GFR (eGFR) will be calculated using the Chronic Kidney Dise [facility] Epidemiology Collaboration (CKD-EPI) equation. GFR Estimate If >90 >60 mL/min/{1.73_m2} 12/14/2020 3: 23 PM [facility] Black [facility] Comment: GFR Calc Starting 07/09/2018, serum creatinine ba sed estimated GFR (eGFR) will be calculated using the Chronic Kidney Dise [facility] Epidemiology Collaboration (CKD-EPI) equation. Calcium 8.7 8.5 - 10.1 mg/dL 12/14/2020 3:23 PM CDT [facility] Specimen Anatomical Collection Method Collection Time Receive d Time (Source) Location / / Volume Laterality Blood 12/14/2020 1:55 PM 2:45 CDT PM CDT Daniel Mckinnon PA-C LAB - BLOOD ORDERABLES Performing Organization Address City/State/ZIP Code Phon e Number [facility] [address] [place], [place] [address] [facility] [address] [place] [address], [facility] [phone] EKG 12 lead (12/14/2020 12:42 PM CDT) [facility] Method Time Signature Interpretation ECG Click [...] unspecified documented in this encounter Care Teams Template Reproduction Technician Relationship Specialty Start Date End Date No Ref-Primary, Physician PCP - General 12/14/20 documented as of this encounter
--- OUTSIDE RECORDS SUMMARY | 2022-05-09 10:12 | XMS_ITS | Encounter Summary ---
:1990 Author Organization [place] Address [address] [place] [address] Care Team Providers Name Role Phone No Ref-Primary, Physician Primary Care Provider Unavailable Encounter Details Date Type Department Care Team Description 04/11/2017 Telephone [facility] REPORTING Pricilla Shin, [address] [place] [address] [address] [phone] [place], [place] [address] (Wo rk) Social History Tobacco Use Types Packs/Day Years Used Date Smoking Tobacco: Never Assessed Sex Assigned at Date Recorded [...] in this encounter Care Teams Customer Service Representative Teller Relationship Specialty Start Date End Date No Ref-Primary, Physician PCP - General 04/06/17 documented as of this encounter
--- OUTSIDE RECORDS SUMMARY | 2022-05-09 10:12 | XMS_ITS | Encounter Summary ---
:1990 Author Organization [place] Address [address] [place] [address] Care Team Providers Name Role Phone No Ref-Primary, Physician Primary Care Provider [phone] Reason for Referral Diagnostic Imaging Ultrasound (Routine) - Pending Review Specialty Diagnoses / Procedures Referred By Contact Refer red To Contact Diagnoses related condition, antepartum Rh Maternal Med Procedures MFM US Comprehensive Single [address] [place] [address] Referral ID Status Reason Start Date Expiration Date Visits V isits Requested Authorized [id number] Pending 01/03/2022 01/03/2023 1 1 Review onsultation (Routine: Next available opening) - Pending Review Specialty Diagnoses / Procedures Referred By Contact Refer red To Contact Diagnoses related condition, antepartum Rh Maternal Med [address] [place] [address] Referral ID Status Reason Start Date Expiration Date Visits V isits Requested Authorized [id number] Pending 01/03/2022 01/03/2023 1 1 Review Encounter Details Date Type Department Care Team Description 01/03/2022 Transcribe Orders [facility] Lexi Mendieta, related Maternal ENGRAVER PANTOGRAPH [facility] antepartum (Primary [address] Dx) [address] [place], [place] [address] Social History Tobacco Use Types Packs/Day [...] 07/02/2022 documented as of this encounter Results [facility] US Comprehensive Single (01/13/2022 9:39 AM [...] ESPOSITO Study Date: 01/13/2022 8:45am Pat. NO: [id number] Referring ??: NIURKA MENDIETA Site: [facility] Stores Clerk: Salma Piña : 1990 Age: 31 INDICATION [...] lb 15 ? oz EFW by ?Hadlock ([id number]-AB-[id number]-FL) Head / Face / Neck Biometry: Assistant Offset Press Operator ? 6.5 ? mm CM ?4.2 ? [...] cava. Inferior vena cava. 3-vessel ? view. 4-fklwsr-eehvvlf view. Cardiac position. Cardiac size. Cardiac rhythm. [...] RECOMMENDATION We discussed the findings on today's ulro tobias with the patient. COVID infection in early [...] be different from the original. Comprehensive Pat. Name:ALE STUBBS Newton Jose te:01/13/2022 8:45am Pat. NO: [id number] MD:LEXI MENDIETA [facility]Germain Mcnally RDMS :1990Age:31 INDICATION COVID in METHOD [...] 0 lb 15 oz EFW by Hadlock (RSN-SL-GY-FL) Head / Face / Neck Biometry: Assistant Offset Press Operator 6.5 mm CM 4.2 mm Nasal bone [...] vena cava. Inferior vena cava. 3-vessel view. 4-bjffve-gvtdlvb view. Cardiac po sition. Cardiac size. Cardiac [...] were evident. Radiology Non-Fv Credentialed Provider IMG [facility] US TL LEWIS documented in this encounter Visit Diagnoses Diagnosis related condition, antepartum - Primary related condition, antepartum documented in this encounter Care Teams School Secretary Relationship Specialty Start Date End Date No Ref-Primary, Physician PCP - General 12/14/20 documented as of this encounter
--- OUTSIDE RECORDS SUMMARY | 2022-05-09 10:12 | XMS_ITS | Encounter Summary ---
:1990 Author Organization [place] Address [address] [place] [address] Care Team Providers Name Role Phone No Ref-Primary, Physician Primary Care Provider [phone] Encounter Details Date Type Department Care Team [...] on filedocumented in this encounter Care Teams Sail Maker Relationship Specialty Start Date End Date No Ref-Primary, Physician PCP - General 12/14/20 documented as of this encounter
--- OUTSIDE RECORDS SUMMARY | 2022-05-09 10:12 | XMS_ITS | Encounter Summary ---
:1990 Author Organization [place] Address [address] [place] [address] Care Team Providers Name Role Phone No Ref-Primary, Physician Primary Care Provider [phone] Encounter Details Date Type Department Care Team [...] on filedocumented in this encounter Care Teams Affiliate Manager Relationship Specialty Start Date End Date No Ref-Primary, Physician PCP - General 12/14/20 documented as of this encounter
--- OUTSIDE RECORDS SUMMARY | 2022-05-09 10:12 | XMS_ITS | Encounter Summary ---
:1990 Author Organization [place] Address [facility] [place] [address] Care Team Providers Name Role Phone No Ref-Primary, Physician Primary Care Provider [phone] Reason for Visit Reason Comments Ultrasound L2- covid in Encounter Details Date Type Department Care Team Description 01/13/2022 Office Visit [facility] Non-Fv Credent ialed Provider, Radiology COVID-19 affecting Maternal Contag, Chau Frazier MD [address] [place], [place] [address] in [facility] Osmin Aiken MD [address] [place] [address] trimester (Primary Abercrombie Dx) [address] [facility] [address] [place] [address] Social History Tobacco Use Types [...] for details of today's US at the [facility]. Osmin Aiken MD Maternal- Medicine documented in this encounter Plan of Treatment Not on filedocumented as of this encounter Visit Diagnoses Diagnosis COVID-19 affecting in second t rimester - Primary documented in this encounter Care Teams Scientific Aide Relationship Specialty Start Date End Date No Ref-Primary, Physician PCP - General 12/14/20 documented as of this encounter
--- OUTSIDE RECORDS SUMMARY | 2022-05-09 10:12 | XMS_ITS | Encounter Summary ---
:1990 Author Organization [place] Address [address] [place] [address] Care Team Providers Name Role Phone No Ref-Primary, Physician Primary Care Provider Unavailable Encounter Details Date Type Department Care Team Description 04/06/2017 Anesthesia Event M [facility] Eleanor Alfredo [place] [facility] MD [place] [address] [place], [place] ANESTHESIA [address] [address] [address] [place] [address] Anesthesia Record Procedure Summary Procedure Name Responsible Anesthesia Start Anesthesia Stop Anesthesiologist Time Time COMBINED CYSTOSCOPY, Tarik Alfredo, 04/06/17 1105 0 04/06/17 1140 LEFT URETEROSCOPY, LASER HOLMIUM LITHOTRIPSY URETER, INSERTION LEFT STENT, stone basketing, stone removal (Left: Flank) Events Date Time Event Comment 04/06/2017 [...] Rahul Almaraz, Rahul Mitchell laryngeal mask airway; INTERFACE ENGINEER PIPE ORGAN MECHANIC ISABELLA Lewis PIPE ORGAN MECHANIC center of mouth; Equal, clear and bilateral; PIPE ORGAN MECHANIC Incision/Surgical Site 04/06/17; 1118; Other 04/06/17 1118 by 2113 by (Comment); urethra; Angelique Porter Winkelma nn, Nelly S, 04/24/22; 2113 RN RN Peripheral IV 04/06/17; 1140; 20 G; 04/06/17 1140 by 04/06/17 1408 by Right Gloria Eduardo, Tripp Ramos, RN RN documented in this encounter Social [...] benefits and alternatives discussed with: Patient or care support representative and Patient.. . documented in this [...] prepare to transfer to PACU, Report to PARAMEDICAL AIDE. VSS transfer care Vitals: (Last set prior to Anesthesia Care Transfer) PIPE ORGAN MECHANIC VITALS 04/06/2017 1106 - 04/06/2017 1140 04/06/2017 Pulse: 126 SpO2: 100 % Resp Rate (observed): 10 Electronically Signed By: Rahul Almaraz APRN PIPE ORGAN MECHANIC April 06, 2017 11:40 AM documented in [...] Intra-op documented in this encounter Care Teams Supervisor Transcribing Operators Relationship Specialty Start Date End Date No Ref-Primary, Physician PCP - General 04/06/17 documented as of this encounter
--- OUTSIDE RECORDS SUMMARY | 2022-05-09 10:12 | XMS_ITS | Encounter Summary ---
:1990 Author Organization [place] Address [address] [place] [address]. [place] [address] Care Team Providers Name Role Phone No Ref-Primary, Physician Primary Care Provider Unavailable Reason for Visit Reason Comments Cystoscopy Stent Removal: Ureteral Ston e Encounter Details Date Type Department Care Team Description 04/17/2017 Office Visit [facility] George Goldberg [facility] (Primary Urology Clinic Rowena Babin MD Dx) [address] [place] [address] [place] [address] [phone] Social History Tobacco Use Types Packs/Day Years [...] our office with any concerns or questions @[facility]. documented in this encounter Progress Notes George [...] kidney documented in this encounter Care Teams Parlor Chaperone Relationship Specialty Start Date End Date No Ref-Primary, Physician PCP - General 04/06/17 documented as of this encounter
--- OUTSIDE RECORDS SUMMARY | 2022-05-09 10:12 | XMS_ITS | Encounter Summary ---
:1990 Author Organization [place] Address [address] [place] [address] Care Team Providers Name Role Phone No Ref-Primary, Physician Primary Care Provider [phone] Encounter Details Date Type Department Care [...] on filedocumented in this encounter Care Teams Software Development Coordinator Relationship Specialty Start Date End Date No Ref-Primary, Physician PCP - General 12/14/20 documented as of this encounter
--- OUTSIDE RECORDS SUMMARY | 2022-05-09 10:12 | XMS_ITS | Encounter Summary ---
:1990 Author Organization [place] Address [address] [place] [address]. [place] [address] Care Team Providers Name Role Phone No Ref-Primary, Physician Primary Care Provider [phone] Encounter Details Date Type Department Care Team Description 07/13/2021 Medical Correspondence [facility] Scan, MATERNAL Health Info Mgmt Non-Provider MEDICINE CE NTER Srvcs PROVIDER SERVICE [address] [place] [address] [place] [address] [facility] [phone] [place] Social History Tobacco Use Types Packs/Day Years Used Date Smoking Tobacco: Every Day Smokeless Tobacco: Never Sex Assigned at Date Recorded Not on file documented as of this encounter Plan of Treatment Not on filedocumented as of this encounter Visit Diagnoses Not on filedocumented in this encounter Care Teams Program Services Planner Relationship Specialty Start Date End Date No Ref-Primary, Physician PCP - General 12/14/20 documented as of this encounter
--- OUTSIDE RECORDS SUMMARY | 2022-05-09 10:12 | XMS_ITS | Encounter Summary ---
:1990 Author Organization [place] Address [address] [place] [address] Care Team Providers Name Role Phone No Ref-Primary, Physician Primary Care Provider [phone] Reason for Visit Reason Comments Ultrasound L2- covid in Encounter Details Date Type Department Care Team Description 01/05/2022 PRE VISIT [facility], Ultrasound (L2- covid in Maternal Medicine TIFFANIE Chavira ) [place] [address] [address] [facility] [address] [place] [address] Social History Tobacco Use Types Packs/Day Years Used Date Smoking Tobacco: Every Day Smokeless Tobacco: Never Sex Assigned at Date Recorded Not on file documented as of this encounter Plan of Treatment Not on filedocumented as of this encounter Visit Diagnoses Not on filedocumented in this encounter Care Teams Vacuum Metalizer Operator Relationship Specialty Start Date End Date No Ref-Primary, Physician PCP - General 12/14/20 documented as of this encounter
--- OUTSIDE RECORDS SUMMARY | 2022-05-09 10:13 | XMS_ITS | Encounter Summary ---
:1990 Author Organization [place] Address [address] [place] [address] Care Team Providers Name Role Phone No Ref-Primary, Physician Primary Care Provider Unavailable Reason for Visit Reason Comments Flank Pain Encounter Details Date Type Department Care Team Description 04/06/2017 Emergency [facility] Luis Jones MD [facility] [address] [place] [address] [place] [address] [id number] Calculus of left ureter (Primary Dx); [place] PreOP/PostOP Mary Beth Barry MD Pyelonephritis; [address] [address] Social History Tobacco Use Types [...] - documented in this encounter Discharge Summaries Carvajal, Vilma Taylor PA-C - 04/06/2017 9:39 AM CDT [facility] Outpatient / Observation Unit Discharge Summary Fauzia [...] [facility] [phone] During surgery, a stent may be placed [...] Please call your physician or the physician traveling construction superintendent if you experience: Fever greater than 101 degrees Severe pain not relieved by pain medication or rest Please make an appointment for the removal of the stent according to your physician's instructions. EXTRACORPOREAL SHOCK LITHOTRIPSY (ESWL) DISCHARGE INSTRUCTIONS [facility] [phone] Your stone(s) has been fragmented into many [...] hours: Yes. Name: Sindhu (sammy), Contact information: [phone] Belongings/Valuables - Will be sent to [facility] with pt. 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 Jordan Dahl PA-C [facility] Urology (text or call, Mon-Wed & [...] Jeff RN - 04/06/2017 5:33 AM CDT [facility] ED Nurse Handoff Report Fauzia Stubbs is a 26 year old female ED Chief complaint: Flank Pain . ED Diagnosis: Final diagnoses: Pyelonephritis Calculus of ureter Allergies: Allergies Allergen Reactions ??? Penicillins Code Status: Full Code Activity level - Baseline/Home: Independent. Activity Level - Current: Independent. Lift room needed: No. Bariatric: No Solo Truck Driver Needed: No Isolation: No. Infection: [...] chloride BOLUS (1,000 mLs Intravenous New Bag 04/06/175) Followed by 0.9% sodium chloride infusion (not administered) ondansetron (ZOFRAN) injection 4 mg (4 mg Intravenous Given 04/06/17415) ciprofloxacin (CIPRO) infusion 400 mg (not administered) HYDROmorphone (PF) (DILAUDID) injection 0.5 mg (not administered) tamsulosin (FLOMAX) capsule 0.4 mg (not administered) ketorolac (TORADOL) injection 30 mg (30 mg Intravenous Given 04/06/176) Drips infusing: Yes For the majority of [...] with flank pain. Patient woke this morning [id number] with left sided flank pain associated by [...] BOLUS (1,000 mLs Intravenous New Bag 04/06/17 6274) Followed by 0.9% sodium chloride infusion (not administered) ondansetron (ZOFRAN) injection 4 mg (4 mg Intravenous Given 04/06/17 1367) ciprofloxacin (CIPRO) infusion 400 mg (400 mg Intravenous New Bag 04/06/17 8149) HYDROmorphone (PF) (DILAUDID) injection 0.5 mg (not [...] Admitted to hospitalist service. Osmin Toure 04/06/2017 [facility] EMERGENCY DEPARTMENT I, Osmin Toure, [...] The procedure began by introducing the 22 Singaporean rigid cystoscope through the urethra into the [...] ORTEGA MD MT: JUDSON#[id number] Name: FAUZIA STUBBS Account: [id number] : 1990 Procedure Date: 04/06/2017 Document: [id number] Pharmacy-Admission Medication History - Rosie Enrique RPH - 04/06/2017 9:41 AM CDT Admission medication history interview status for this patient is complete. See [facility] admission navigator for allergy information, prior to admission medications and immunization status. Medication history interview source(s): patient's mother Medication history resources (including written lists, pill bottles, clinic record):None Changes made to SETTER OUT medication list: Added: none Deleted: none Changed: [...] oob for safety. Will continue to monitor. 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 Chau Ortega MD [facility] DIAGNOSTIC IMAGING ORDER MARGARET Performing Organization Address City/State/ZIP Code Phon e Number RADIANT Surgical pathology exam (04/06/2017 11:23 AM CDT) Component Value Ref Test Analysis Performed At [facility] gist Range Method Time Signature Copath Report Patient Name: FAUZIA STUBBS MR#: [id number] Specimen #: [id number] Collected: 04/06/2017 Received: 04/06/2017 Reported: 04/06/2017 13:04 Ordering Phy(s): CHAU ORTEGA For improved result formatting, select 'View Enhanced Report Format' under Linked Documents section. SPECIMEN(S): Stone, left ureteral FINAL DIAGNOSIS: Left ureteral stone(s)- - Gross pathology the admission performed. - Submitted for chemical/stone analysis (see separate [facility] oming report for results). Electronically signed out by: Aleta Cody M.D. CLINICAL HISTORY: Left ureteral stone. GROSS: The specimen labeled left ureteral stone consists of multi ple crawford-baldwin granular concretions with an aggregate dimension of 0.5 and 0.5 x 0.3 cm. ??Submitted for chemical/stone analysis (see separate rthcoming report for results). (Dictated by: Aleta Cody MD 04/06/20 12:38 PM) MICROSCOPIC: No microscopic sections are obtained. CPT Codes: A: 86167-IA TESTING LAB LOCATION: [address] ??[address] COLLECTION SITE: Client: [facility] Location: [facility] (R) Specimen Anatomical Collection Method Collection Time Receive d Time (Source) Location / / Volume Laterality 04/06/2017 11:23 04/06/2017 AM CDT 12:28 PM CDT Chau Ortega MD LAB - [facility] Performing Organization Address City/State/ZIP Code Phon e Number COPATH Stone analysis (04/06/2017 11:23 AM CDT) [facility] Method Time Signature Stone SEE NOTE 04/10/2017 [facility] Composition 6:47 PM CDT [facility] Comment: (Note) Calculi composed primarily of: 10% [...] omposition determined by FTIR analysis. Performed by [employer], [address] [place] [id number] [email or web address], Endy Reilly MD, Lab. Director Calculi Number Numerous 04/10/2017 6:47 PM CDT [facility] Calculi Size 1 to 4 mm 04/10/2017 6:47 PM CDT [facility] Calculi Description SEE NOTE 04/10/2017 6:47 PM C DT [facility] Comment: (Note) Specimen consists of numerous, small, brown/baldwin, irregular calculi fragments. Stone Mass 30 mg 04/10/2017 6:47 PM CDT [facility] Specimen (Source) Anatomical Collection Method Collection Time Re ceived Time Location / / Volume Laterality Calculus specimen STRUCTURE OF LEFT 04/06/2017 11:23 (specimen) URETER / Unknown AM CDT Chau Ortega MD LAB - BODY FLUIDS ORDERABLES Performing Organization Address City/State/ZIP Code Phon e Number [place] [address] [place] [address] [facility] [address] [place], [place] [address] [place] [address] Abd/pelvis CT no contrast - Stone Protocol [...] AM CDT Luis Jones MD [facility] - [facility] POCT Performing Organization Address City/State/ZIP Code Phon e Number FV POINT OF CARE TEST, HANDHELD METER POINT OF CARE TEST, HANDHELD METER (ABNORMAL) Urine Culture Aerobic Bacterial (04/06/2017 4:10 AM CDT) Component Value Ref Test Analysis Performed At [facility] gist Range Method Time Signature Specimen Midstream Urine [facility] Special Specimen 04/06/2017 [facility] Requests received in 8:21 AM CDT [facility] preservative [facility] Culture Micro >100,000 colonies/mL 04/07/2017 [facility] Escherichia coli 9:26 PM CDT [facility] (A) [facility] Specimen (Source) Anatomical Collection Method Collection [...] <=1 ug/mL: Susc eptible Escherichia coli Trimethoprim/Sulfamethoxazole ERMA < =1/19 ug/mL: Susceptible Escherichia coli Ampicillin/Sulbactam REMA <=2 ug/mL: Susceptible Escherichia coli Piperacillin/Tazo REMA <=4 ug/mL: [place] sceptible Escherichia coli Cefepime REMA <=1 ug/mL: Susc eptible Luis Jones MD LAB - MICRO GENERAL ORDERABL ES Performing Organization Address City/State/ZIP Code Phon e Number [address] [address] [facility] Lipase (04/06/2017 4:10 AM CDT) athologist Signature Lipase 148 73 - 393 04/06/2017 [facility] U/L 4:44 AM T [facility] Specimen Anatomical Collection Method Collection Time Receive d Time (Source) Location / / Volume Laterality Blood specimen 04/06/2017 4:10 AM 017 4:24 (specimen) CDT AM CDT Luis Jones MD LAB - BLOOD ORDERABLES Performing Organization Address City/[facility]/ZIP [facility] Phon e Number [facility] [address] [place] [address] [facility] [address] [phone] (ABNORMAL) Comprehensive metabolic panel (04/06/2017 4:10 AM CDT) athologist Signature Sodium 137 133 - 144 04/06/2017 [facility] mmol/L 4:44 AM T [facility] Potassium 3.2 (L) 3.4 - 5.3 04/06/2017 [facility] mmol/L 4:44 AM [facility] Chloride 104 94 - 109 04/06/2017 [place] mmol/L 4:44 AM [facility] Carbon Dioxide 25 20 - 32 04/06/2017 [place] mmol/L 4:44 AM [facility] Anion Gap 8 3 - 14 04/06/2017 [place] mmol/L 4:44 AM [facility] Glucose 102 (H) 70 - 99 04/06/2017 [place] mg/dL 4:44 AM [facility] Urea Nitrogen 12 7 - 30 04/06/2017 [place] mg/dL 4:44 AM [facility] Creatinine 0.80 0.52 - 04/06/2017 [facility] 1.04 mg/dL 4:44 AM [facility] GFR Estimate 88 >60 04/06/2017 [place] mL/min/1.7 4:[address] Comment: Non GFR Calc GFR Estimate If >90 >60 mL/min/1.7m2 04/06/2017 4:[address] [facility] Comment: GFR Calc Calcium 8.9 8.5 - 10.1 mg/dL 04/06/2017 4:44 AM [facility] Bilirubin Total 0.4 0.2 - 1.3 mg/dL 04/06/2017 4:44 AM [facility] Albumin 4.1 3.4 - 5.0 g/dL 04/06/2017 4:44 AM [facility] Protein Total 8.1 6.8 - 8.8 g/dL 04/06/2017 4:44 AM [facility] Alkaline Phosphatase 108 40 - 150 U/L 04/06/2017 4:44 AM [facility] ALT 23 0 - 50 U/L 04/06/2017 4:[address] [facility] AST 10 0 - 45 U/L 04/06/2017 4:[address] [facility] Specimen Anatomical Collection Method Collection Time Receive d Time (Source) Location / / Volume Laterality Blood specimen 04/06/2017 4:10 AM 017 4:24 (specimen) [facility] MD LAB - BLOOD ORDERABLES Performing Organization Address City/State/ZIP Code Phon e Number [facility] [address] [place], [place] [address] [facility] [address] [place], [place] [address] [address] [phone] CBC with platelets differential (04/06/2017 4:[address] [facility]) [facility] gist Method Time Signature WBC 8.1 4.0 - 04/06/2017 [facility] 11.0 4:28 AM [facility] 10e9/L [facility] RBC Count 4.40 3.8 - 5.2 04/06/2017 [facility] 10e12/L 4:28 AM [facility] Hemoglobin 13.5 11.7 - 04/06/2017 [facility] 15.7 g/dL 4:28 AM [facility] Hematocrit 40.0 35.0 - 04/06/2017 [facility] 47.0 % 4:28 AM [facility] MCV 91 78 - 100 04/06/2017 [facility] fl 4:28 AM [facility] MCH 30.7 26.5 - 04/06/2017 [facility] 33.0 pg 4:28 AM [facility] MCHC 33.8 31.5 - 04/06/2017 [facility] 36.5 g/dL 4:28 AM [facility] RDW 13.1 10.0 - 04/06/2017 [facility] 15.0 % 4:28 AM [facility] Platelet Count 278 150 - 450 04/06/2017 [facility] 10e9/L 4:28 AM [facility] Diff Method Automated 04/06/2017 [facility] Method 4:28 AM [facility] % Neutrophils 60.6 % 04/06/2017 [facility] 4:28 AM [facility] % Lymphocytes 29.5 % 04/06/2017 [facility] 4:28 AM [facility] % Monocytes 7.7 % 04/06/2017 [facility] 4:28 AM [facility] % Eosinophils 1.5 % 04/06/2017 [facility] 4:28 AM [facility] % Basophils 0.5 % 04/06/2017 [facility] 4:28 AM [facility] % Immature 0.2 % 04/06/2017 [facility] Granulocytes 4:28 AM [facility] Nucleated RBCs 0 0 /100 04/06/2017 [facility] 4:28 AM [facility] Absolute 4.9 1.6 - 8.3 [facility]/06[facility] Neutrophil 10e9/L 4:28 AM [facility] Absolute 2.4 0.8 - 5.3 04/06/2017 [facility] Lymphocytes 10e9/L 4:28 AM [facility] Absolute 0.6 0.0 - 1.3 04/06/2017 [facility] Monocytes 10e9/L 4:28 AM [facility] Absolute 0.1 0.0 - 0.7 04/06/2017 [facility] Eosinophils 10e9/L 4:28 AM [facility] Absolute 0.0 0.0 - 0.2 04/06/2017 [facility] Basophils 10e9/L 4:28 AM [facility] Abs Immature 0.0 0 - 0.4 04/06/2017 [facility] Granulocytes 10e9/L 4:28 AM [facility] Absolute 0.0 04/06/2017 [facility] Nucleated RBC 4:28 AM [facility] Specimen Anatomical Collection Method Collection Time Receive d Time (Source) Location / / Volume Laterality Blood specimen 04/06/2017 4:10 AM 017 4:24 (specimen) CDT AM CDT Luis Jones MD LAB - BLOOD ORDERABLES Performing Organization Address City/State/ZIP Code Phon e Number [place] [address] [address] [place] [address] [facility] [address] [phone] (ABNORMAL) UA with Microscopic (04/06/2017 4:10 AM CDT) [facility] Method Time Signature Color Urine Yellow 04/06/2017 [facility] 4:38 AM [facility] Appearance Urine Slightly 04/06/2017 [facility] Cloudy 4:38 AM [facility] Glucose Urine Negative NEG^Negat 04/06/2017 [facility] kvng mg/dL 4:38 AM [facility] Bilirubin Urine Negative NEG^Negat 04/06/2017 [facility] kvng 4:38 AM [facility] Ketones Urine Negative NEG^Negat 04/06/2017 [facility] kvng mg/dL 4:38 AM [facility] Specific [place] 1.013 1.003 - 04/06/2017 [facility] Urine 1.035 4:38 AM [facility] Blood Urine Small (A) NEG^Negat 04/06/2017 [facility] kvng 4:38 AM [facility] pH Urine 5.0 5.0 - 7.0 04/06/2017 [facility] pH 4:38 AM [facility] Protein Albumin 30 (A) NEG^Negat 04/06/2017 [facility] Urine kvng mg/dL 4:38 AM [facility] Urobilinogen 0.0 0.0 - 2.0 04/06/2017 [facility] mg/dL mg/dL 4:38 AM [facility] Nitrite Urine Negative NEG^Negat 04/06/2017 [facility] kvng 4:38 AM [facility] Leukocyte Large (A) NEG^Negat 04/06/2017 [facility] Esterase Urine kvng 4:38 AM [facility] Source Midstream 04/06/2017 [facility] Urine 4:25 AM [facility] WBC Urine 126 (H) 0 - 2 04/06/2017 [facility] /HPF 4:38 AM [facility] RBC Urine 15 (H) 0 - 2 04/06/2017 [facility] /HPF 4:38 AM [facility] WBC Clumps Present (A) NEG^Negat 04/06/2017 [facility] kvng /HPF 4:38 AM [facility] Bacteria Urine Many (A) NEG^Negat 04/06/2017 [facility] kvng /HPF 4:38 AM [facility] Squamous 1 0 - 1 04/06/2017 [facility] Epithelial /HPF /HPF 4:38 AM [facility] Mucous Urine Present (A) NEG^Negat 04/06/2017 [facility] kvng /LPF 4:38 AM [facility] Specimen (Source) Anatomical Collection Method Collection Time Re ceived Time Location / / Volume Laterality Examination of URINE SPECIMEN 04/06/2017 4:10 04/06/20 17 4:24 midstream urine OBTAINED BY CLEAN AM [facility] specimen CATCH PROCEDURE / (procedure) Unknown Luis Jones MD LAB - URINE ORDERABLES Performing Organization Address [facility]/ZIP [facility] Phon e Number [facility] [address] [place], [place] [address] [facility] [address] [place], [place] [address], [facility] [phone] HCG qualitative urine (04/06/2017 4:10 AM CDT) athologist Signature HCG Qual Urine Negative NEG^Negati 04/06/2017 [facility] 4:41 AM CDT [facility] Comment: This test is for screening purposes. ??R esults should be interpreted along with the clinical picture. ??Confirmation te sting is available if warranted by ordering [id number], HCG Quantitative Pregna ncy. Specimen Anatomical Collection Method Collection Time Receive d Time (Source) Location / / Volume Laterality Urine specimen URINE SPECIMEN 04/06/2017 4:10 AM 04/06 4:24 (specimen) OBTAINED BY CLEAN CDT AM CDT CATCH PROCEDURE / Unknown Luis Jones MD LAB - URINE ORDERABLES Performing Organization Address [facility]/ZIP [facility] Phon e Number [facility] [address] [place], [place] [address] [facility] [address] [place], [place] [address] [phone] documented in this encounter Visit Diagnoses Diagnosis Calculus of left ureter - Primary Calculus of ureter Pyelonephritis Pyelonephritis, unspecified Calculus of ureter Calculus of left ureter Calculus of ureter documented in this encounter [...] mg 0.3-0.5 mg, Intravenous, EVERY 10 MIN OK N, other, acute pain.?May administer if Respiratory [...] 04/05/2017 04/06/2017 0.9% sodium chloride BOLUS (COMPLETED) 9430 (New Bag - Provider: Du Daniel RN)4153 (Stopped - Provider: Du Daniel RN) Intravenous, [...] area)1651 (Unhold - Provider: Orders Generic Provider) 400 [...] area)1651 (Unhold - Provider: Orders Generic Provider) 1-2 [...] (New Bag - Provider: Rahul Almaraz APRN LIVE HANGER)1140 (Anesthesia Volume Adjustment - Provider: Rahul Almaraz APRN LIVE HANGER) at 25 mL/hr, Intravenous, CONTINUOUS, IF patient NOT on dialysis., Pre- procedure, Starting Sun04/06/17 at 1030, Until Sun04/06/17 at 1137 lactated ringers infusion 1224 ( New Bag - Provider: Gloria Eduardo, TIFFANIE) at 100 mL/hr, Intravenous, CONTINUOUS, C ontinue [...] mcg (CANCELED) 1227 (Given - Provider: Gloria Eduardo, TIFFANIE) 25-50 mcg, Intravenous, EVERY 2 MIN PRN, [...] mg 0.3-0.5 mg, Intravenous, EVERY 10 MIN OK N, Starting Sun04/06/17 at 1213, Until Sun04/06/17 [...] (See Alternative - Provider: Rahul Almaraz APRN LIVE HANGER)1651 (Unhold - Provider: Orders Generic Provider) 4 [...] area)165 (Unhold - Provider: Orders Generic Provider) 17 [...] management)
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
--- OUTSIDE RECORDS SUMMARY | 2022-05-09 10:13 | XMS_ITS | Encounter Summary ---
:1990 Author Organization [facility] Address [address] [place] [address] Care Team Providers Name Role Phone No Ref-Primary, Physician Primary Care Provider Unavailable Reason for Visit Reason Comments Flank Pain Encounter Details Date Type Department Care Team Description 04/06/2017 Surgery [facility] Chau Ortega ED CYSTOSCOPY, [facility]ane Ribeiro MD LEFT URETEROSCOPY, [address] [place], [place] [address] LITHOTRIPSY URETER, [address] [place] [address] INSERTION LEFT STENT, (Wo rk) stone basketing, [...] Taylor PA-C - 04/06/2017 9:39 AM CDT [facility] Outpatient / Observation Unit Discharge Summary Fauzia Stubbs Date of : 1990 Age: [age] year old Date of Admission: 04/06/2017 Date of Discharge: 04/06/2017 Admitting Physician: Mary Beth Barry MD Discharge Physician: iVlma Carvajal PA-C Discharging Service: Hospitalist Primary Provider: [...] [facility] J[facility] [phone] During surgery, a stent may be placed [...] Please call your physician or the physician air pollution inspector if you experience: Fever greater than 101 degrees Severe pain not relieved by pain medication or rest Please make an appointment for the removal of the stent according to your physician's instructions. EXTRACORPOREAL SHOCK LITHOTRIPSY (ESWL) DISCHARGE INSTRUCTIONS [facility] [phone] Your stone(s) has been fragmented into many [...] hours: Yes. Name: Sindhu (mom), Contact information: [phone] Belongings/Valuables - Will be sent to [facility] with pt. Tank Cleaner - Pt DOES NOT need an translator interpreter. 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 Jordan Dahl PA-C [facility] Urology (text or call, Sun-Sun & Fri [...] Jeff RN - 04/06/2017 5:33 AM CDT [facility] ED Nurse Handoff Report Fauzia Stubbs is a 26 year old female ED Chief complaint: Flank Pain . ED Diagnosis: Final diagnoses: Pyelonephritis Calculus of ureter Allergies: Allergies Allergen Reactions ??? Penicillins Code Status: Full Code Activity level - Baseline/Home: Independent. Activity Level - Current: Independent. Lift room needed: No. Bariatric: No Tank Cleaner Needed: No Isolation: No. Infection: Not Applicable. [...] BOLUS (1,000 mLs Intravenous New Bag 04/06/17 1974) Followed by 0.9% sodium chloride infusion (not administered) ondansetron (ZOFRAN) injection 4 mg (4 mg Intravenous Given 04/06/17 0222) ciprofloxacin (CIPRO) infusion 400 mg (not administered) [...] with flank pain. Patient woke this morning [id number] with left sided flank pain associated by [...] injection 4 mg (4 mg Intravenous Given 04/06/176) ciprofloxacin (CIPRO) infusion 400 mg (400 mg [...] N20.1 Disposition: Admitted to hospitalist service. Osmin Whiteer 04/06/2017 [facility] I, Osmin Basurtoyder, bruce serving as a scribe at 4:01 AM [...] The procedure began by introducing the 22 Senegalese rigid cystoscope through the urethra into the [...] EM#[id number] Name: FAUZIA STUBBS MRN: [id number] Account: [id number] : 1990 Procedure Date: 04/06/2017 Document: [id number] Pharmacy-Admission Medication History - Rosie Enrique [facility] - 04/06/2017 9:41 AM CDT Admission medication history interview status for this patient is complete. See [facility] admission navigator for allergy information, prior to admission medications and immunization status. 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 Will continue to monitor. Clearance Center Manager Nurse Safe discharge environment identified: Yes Barriers [...] independent, order SW consult): ind with boyfriend training personnel supervisor: Sindhu, (Mother) Activity level at baseline: Ind [...] be read by a radiologist or a [facility] non-radiologis t provider. Chau Ortega MD IMG DIAGNOSTIC IMAGING ORDER MARGARET Performing Organization Address City/State/ZIP Code Phon e Number [facility]IANT Surgical pathology exam (04/06/2017 11:23 AM CDT) Component Value Ref Test Analysis Performed At [facility] Range Method Time Signature Copath Report Patient Name: FAUZIA STUBBS MR#: [id number] Specimen #: [id number] Collected: 04/06/2017 Received: 04/06/2017 Reported: 04/06/2017 13:04 Ordering Phy(s): CHAU ORTEGA For improved result formatting, select 'View Enhanced Report Format' under Linked Documents section. SPECIMEN(S): Stone, left ureteral FINAL DIAGNOSIS: Left ureteral stone(s)- - Gross pathology the admission performed. - Submitted for chemical/stone analysis (see separate [facility] oming report for results). Electronically signed [...] microscopic sections are obtained. CPT Codes: A: 15777-CG TESTING LAB LOCATION: [address] ??[address] COLLECTION SITE: Client: [facility] Location: RHE (R) Specimen Anatomical Collection Method Collection Time Receive d Time (Source) Location / / Volume Laterality 04/06/2017 11:23 04/06/2017 AM CDT 12:28 PM CDT Chau Ortega MD [facility] Performing Organization Address City/State/ZIP Code Phon e Number [place] Stone analysis (04/06/2017 11:23 AM CDT) [facility] Method Time Signature Stone SEE NOTE 04/10/2017 [place] Composition 6:47 PM CDT [facility] Comment: (Note) Calculi composed primarily of: [...] omposition determined by FTIR analysis. Performed by [facility], [address] [place] [id number] [email or web address], Endy Reilly MD, Lab. Director Calculi Number Numerous 04/10/2017 6:47 PM CDT [facility] Calculi Size 1 to 4 mm 04/10/2017 6:47 PM CDT [facility] Calculi Description SEE NOTE 04/10/2017 6:47 PM C DT [facility] Comment: (Note) Specimen consists of numerous, small, brown/baldwin, irregular calculi fragments. Stone Mass 30 mg 04/10/2017 6:47 PM CDT [facility] Specimen (Source) Anatomical Collection Method Collection Time Re ceived Time Location / / Volume Laterality Calculus specimen STRUCTURE OF LEFT 04/06/2017 11:23 (specimen) URETER / Unknown AM CDT Chau Ortega MD LAB - BODY FLUIDS ORDERABLES Performing Organization Address City/State/ZIP Code Phon e Number [place] [address] [place] [address] [address] [facility] [address] [phone] Abd/pelvis CT no contrast - Stone Protocol [...] Requests received in 8:21 AM CDT [facility] preservative [facility] Culture Micro >100,000 colonies/mL 04/07/2017 UN[facility] ERSITY OF Escherichia coli 9:26 PM CDT [facility] (A) [facility] Specimen (Source) Anatomical Collection Method Collection Time [...] Organization Address City/State/ZIP Code Phon e Number [address] [address] [place] Lipase (04/06/2017 4:10 AM CDT) athologist Signature Lipase 148 73 - 393 04/06/2017 ISABELLA BEXARLashae U/L 4:44 AM CDT HOSPITAL Specimen Anatomical Collection Method Collection Time Receive d Time (Source) Location / / Volume Laterality Blood specimen 04/06/2017 4:10 AM 017 4:24 (specimen) CDT AM CDT Luis Jones MD LAB - BLOOD ORDERABLES Performing Organization Address City/State/ZIP Code Phon e Number [facility] [address] [place], [place] [address] [facility] [address] [place], [place] [address] [phone] (ABNORMAL) Comprehensive metabolic panel (04/06/2017 4:10 AM [facility]) athologist Signature Sodium 137 133 - 144 04/06/2017 [place] mmol/L 4:44 AM [facility] Potassium 3.2 (L) 3.4 - 5.3 04/06/2017 [place] mmol/L 4:44 AM [facility] Chloride 104 94 - 109 04/06/2017 [place] mmol/L 4:44 AM [facility] Carbon Dioxide 25 20 - 32 04/06/2017 [place] mmol/L 4:44 AM [facility] Anion Gap 8 3 - 14 04/06/2017 [place] mmol/L 4:44 AM [facility] Glucose 102 (H) 70 - 99 04/06/2017 [place] mg/dL 4:44 AM [facility] Urea Nitrogen 12 7 - 30 04/06/2017 [place] mg/dL 4:44 AM [facility] Creatinine 0.80 0.52 - 04/06/2017 [place] 1.04 mg/dL 4:44 AM [facility] GFR Estimate 88 >60 04/06/2017 [place] mL/min/1.7 4:[address] Comment: Non GFR Calc GFR Estimate If >90 >60 mL/min/1.7m2 04/06/2017 4:44 A [facility] Comment: GFR Calc Calcium 8.9 8.5 - 10.1 mg/dL 04/06/2017 4:44 AM [facility] Bilirubin Total 0.4 0.2 - 1.3 mg/dL 04/06/2017 4:44 AM [facility] Albumin 4.1 3.4 - 5.0 g/dL 04/06/2017 4:44 AM [facility] Protein Total 8.1 6.8 - 8.8 g/dL 04/06/2017 4:44 AM [facility] Alkaline Phosphatase 108 40 - 150 U/L 04/06/2017 4:44 AM [facility] ALT 23 0 - 50 U/L 04/06/2017 4:[address] [facility] AST 10 0 - 45 U/L 04/06/2017 4:[address] [facility] Specimen Anatomical Collection Method Collection Time Receive d Time (Source) Location / / Volume Laterality Blood specimen 04/06/2017 4:10 AM 017 4:24 (specimen) CDT AM CDT Luis Jones MD LAB - BLOOD ORDERABLES Performing Organization Address City/State/ZIP Code Phon e Number [place] [address] [address] [place], [place] [address] [facility] [address] [phone] CBC with platelets differential (04/06/2017 4:10 AM CDT) [facility] Method Time Signature WBC 8.1 4.0 - 04/06/2017 [facility] 11.0 4:28 AM [facility] 10e9/L [facility] RBC Count 4.40 3.8 - 5.2 04/06/2017 [facility] 10e12/L 4:28 AM [facility] Hemoglobin 13.5 11.7 - 04/06/2017 [facility] 15.7 g/dL 4:28 AM [facility] Hematocrit 40.0 35.0 - 04/06/2017 [facility] 47.0 % 4:28 AM [facility] MCV 91 78 - 100 04/06/2017 [facility] fl 4:28 AM [facility] MCH 30.7 26.5 - 04/06/2017 [facility] 33.0 pg 4:28 AM [facility] MCHC 33.8 31.5 - 04/06/2017 [facility] 36.5 g/dL 4:28 AM [facility] RDW 13.1 10.0 - 04/06/2017 [facility] 15.0 % 4:28 AM [facility] Platelet Count 278 150 - 450 04/06/2017 [facility] 10e9/L 4:28 AM [facility] Diff Method Automated 04/06/2017 [facility] Method 4:28 AM [facility] % Neutrophils 60.6 % 04/06/2017 [facility] 4:28 AM [facility] % Lymphocytes 29.5 % 04/06/2017 [facility] 4:28 AM [facility] % Monocytes 7.7 % 04/06/2017 [facility] 4:28 AM [facility] % Eosinophils 1.5 % 04/06/2017 [facility] 4:28 AM [facility] % Basophils 0.5 % 04/06/2017 [facility] 4:28 AM [facility] % Immature 0.2 % 04/06/2017 [facility] Granulocytes 4:28 AM [facility] Nucleated RBCs 0 0 /100 04/06/2017 [facility] 4:28 AM [facility] Absolute 4.9 1.6 - 8.3 04/06/2017 [place] Neutrophil 10e9/L 4:28 AM [facility] Absolute 2.4 0.8 - 5.3 04/06/2017 [facility] Lymphocytes 10e9/L 4:28 AM [facility] Absolute 0.6 0.0 - 1.3 04/06/2017 [facility] Monocytes 10e9/L 4:28 AM [facility] Absolute 0.1 0.0 - 0.7 04/06/2017 [facility] Eosinophils 10e9/L 4:28 AM [facility] Absolute 0.0 0.0 - 0.2 04/06/2017 [place] Basophils 10e9/L 4:28 AM [facility] Abs Immature 0.0 0 - 0.4 04/06/2017 [facility] Granulocytes 10e9/L 4:28 AM [facility] Absolute 0.0 04/06/2017 [place] Nucleated RBC 4:28 AM [facility] Specimen Anatomical Collection Method Collection Time Receive d Time (Source) Location / / Volume Laterality Blood specimen 04/06/2017 4:10 AM 017 4:24 (specimen) CDT AM T Luis Jones MD LAB - BLOOD ORDERABLES Performing Organization Address City/State/ZIP Code Phon e Number M [facility] [address] [place], [place] [address] [phone] [place] [address] [address] Yael Huang [address] [phone] (ABNORMAL) UA with Microscopic (04/06/2017 4:10 AM CDT) [facility] Method Time Signature Color Urine Yellow 04/06/2017 [facility] 4:38 AM [facility] Appearance Urine Slightly 04/06/2017 [facility] Cloudy 4:38 AM [facility] Glucose Urine Negative NEG^Negat 04/06/2017 [facility] kvng mg/dL 4:38 AM [facility] Bilirubin Urine Negative NEG^Negat 04/06/2017 [facility] kvng 4:38 AM [facility] Ketones Urine Negative NEG^Negat 04/06/2017 [place] kvng mg/dL 4:38 AM [facility] Specific [place] 1.013 1.003 - 04/06/2017 [place] Urine 1.035 4:38 AM [facility] Blood Urine Small (A) NEG^Negat 04/06/2017 [facility] kvng 4:38 AM [facility] pH Urine 5.0 5.0 - 7.0 04/06/2017 [place] pH 4:38 AM [facility] Protein Albumin 30 (A) NEG^Negat 04/06/2017 [place] Urine kvng mg/dL 4:38 AM [facility] Urobilinogen 0.0 0.0 - 2.0 04/06/2017 [place] mg/dL mg/dL 4:38 AM [facility] Nitrite Urine Negative NEG^Negat 04/06/2017 [facility] kvng 4:38 AM [facility] Leukocyte Large (A) NEG^Negat 04/06/2017 [facility] Esterase Urine kvng 4:38 AM [facility] Source Midstream 04/06/2017 [facility] Urine 4:25 AM [facility] WBC Urine 126 (H) 0 - 2 04/06/2017 [facility] /HPF 4:38 AM [facility] RBC Urine 15 (H) 0 - 2 04/06/2017 [facility] /HPF 4:38 AM [facility] WBC Clumps Present (A) NEG^Negat 04/06/2017 [facility] kvng /HPF 4:38 AM [facility] Bacteria Urine Many (A) NEG^Negat 04/06/2017 [place] kvng /HPF 4:38 AM [facility] Squamous 1 0 - 1 04/06/2017 [place] Epithelial /HPF /HPF 4:38 AM [facility] Mucous Urine Present (A) NEG^Negat 04/06/2017 [place] kvng /LPF 4:38 AM [facility] Specimen (Source) Anatomical Collection Method Collection Time Re ceived Time Location / / Volume Laterality Examination of URINE SPECIMEN 04/06/2017 4:10 04/06/20 17 4:24 midstream urine OBTAINED BY CLEAN AM CDT AM CDT specimen CATCH PROCEDURE / (procedure) Unknown Luis Jones MD LAB - URINE ORDERABLES Performing Organization Address [facility] Phon e Number [facility] [address] [place], [place] [address] [facility] [address] [place], [place] [address], [facility] [phone] HCG qualitative urine (04/06/2017 4:10 AM CDT) athologist Signature HCG Qual Urine Negative NEG^Negati 04/06/2017 [place] ve 4:41 AM [facility] Comment: This test is for screening purposes. ??R esults should be interpreted along with the clinical picture. ??Confirmation te sting is available if warranted by ordering [id number], HCG Quantitative Pregna ncy. Specimen Anatomical Collection Method Collection Time Receive d Time (Source) Location / / Volume Laterality Urine specimen URINE SPECIMEN 04/06/2017 4:10 AM 04/06 4:24 (specimen) OBTAINED BY CLEAN CDT AM CDT CATCH PROCEDURE / Unknown Luis Jones MD LAB - URINE ORDERABLES Performing Organization Address [facility] Phon e Number [facility] [address] [place], [place] [address] [facility] [address] [place], [place] [address], [facility] [phone] documented in this encounter Visit Diagnoses Not [...] mg 0.3-0.5 mg, Intravenous, EVERY 10 MIN MN N, other, acute pain.?May administer if Respiratory [...] (New Bag - Provider: Rahul Almaraz APRN FILL MANAGER)1140 (Anesthesia Volume Adjustment - Provider: Rahul [...] mg 0.3-0.5 mg, Intravenous, EVERY 10 MIN MN N, Starting Sun04/06/17 at 1213, Until Sun04/06/17 [...] procedural area)1115 (Given - Provider: Rahul Almaraz MEDICAL TECHNOLOGIST FILL MANAGER)1652 (Unhold - Provider: Orders Generic Provider) 4 [...] area)1115 (See Alternative - Provider: Rahul Almaraz, MEDICAL TECHNOLOGIST FILL MANAGER)1652 (Unhold - Provider: Orders Generic Provider) 4 [...] management)
documented in this encounter Care Teams Finish Carpenter Relationship Specialty Start Date End Date No Ref-Primary, Physician PCP - General 04/06/17 documented as of this encounter
[2022-05-10 10:31] LABS: Strep B DNA Probe NEGATIVE (Negative)
== END 2022-05-09 10:07 | disposition home or self-care (01) ==
LOC: NFLDREF 10:06
PROVIDERS: PCP Advanced Practice Midwife; Visit Provider Advanced Practice Midwife
DX: O98.513 Other viral diseases complicating pregnancy, third trimester (principal); Z3A.38 38 weeks gestation of pregnancy
CPT/HCPCS: 76816; 87081; 87653

== ENCOUNTER 2022-05-16 18:36 | Outpatient (CLI) | payer BC, SELFPAY ==
--- OUTSIDE RECORDS SUMMARY | 2022-05-16 18:38 | XMS_ITS | Encounter Summary ---
:1990 Author Organization [place] Address [facility] [place] [address] Care Team Providers Name Role Phone No Ref-Primary, Physician Primary Care Provider [phone] Reason for Referral Diagnostic Imaging Ultrasound (Routine) - Pending Review Specialty Diagnoses / Procedures Referred By Contact Refer red To Contact Diagnoses related condition, antepartum Rh Maternal Med Procedures [facility] Comprehensive Single [address] [facility] [facility] [address] [place] [address] Referral ID Status Reason Start Date Expiration Date Visits V isits Requested Authorized [id number] Pending 01/03/2022 01/03/2023 1 1 Review Reason for Visit Diagnostic Imaging Ultrasound (Routine) - Pending Review Specialty Diagnoses / Procedures Referred By Contact Refer red To Contact Diagnoses related condition, antepartum Rh Maternal Med Procedures [facility] Comprehensive Single [address] [facility] [address] [place] [address] Referral ID Status Reason Start Date Expiration Date Visits V isits Requested Authorized [id number] Pending 01/03/2022 01/03/2023 1 1 Review Encounter Details Date Type Department Care Team Description 01/13/2022 [facility] Non-Fv Credentialed Pro vider, Radiology related Encounter Maternal Contag, Chau Frazier MD [address] [facility] [address] [place] [address] condition, Medicine Center Osmin Aiken MD [address] [place] [address] [place] [address] antepartum [place] [address] [facility] [address] [place] [address] Social History Tobacco Use Types [...] Procedure Name Priority Date/Time Associated Comments Diagnosis [facility] US COMPREHENSIVE Routine 01/13/2022 9:39 AM rela seferino Results for this SINGLE CDT condition, procedure are i n antepartum the results section. documented in this encounter Results [facility] US Comprehensive Single (01/13/2022 9:39 AM [...] 9:41 AM CDT Comprehensive Pat. Name: ALE OCLEMANLROY FAUZIA Study Date: 01/13/2022 8:45am Pat. NO: [id number] Referring ??MD: NIURKA MENDIETA Site: [facility] Promotions Producer: Salma Piña : 1990 Age: 31 INDICATION [...] lb 15 ? oz EFW by ?Hadlock ([id number]) Head / Face / Neck Biometry: Mobile Application Developer ? 6.5 ? mm CM ?4.2 ? [...] cava. Inferior vena cava. 3-vessel ? view. 9-guewme-tkjdile view. Cardiac position. Cardiac size. Cardiac rhythm. [...] Comprehensive Name:Newton ESPOSITO te:01/13/2022 8:45am Pat. NO: [id number] MD:MAGY MENDIETA [facility]Germain Mcnally RDMS :1990Age:31 INDICATION COVID in METHOD [...] 0 lb 15 oz EFW by Hadlock ([id number]) Head / Face / Neck Biometry: Mobile Application Developer 6.5 mm CM 4.2 mm Nasal bone [...] vena cava. Inferior vena cava. 3-vessel view. 1-pqvude-xgsbktu view. Cardiac po sition. Cardiac size. Cardiac [...] ultrasound were evident. Radiology Non-Fv Credentialed Provider [facility] US TL LEWIS documented in this encounter Visit Diagnoses Diagnosis related condition, antepartum documented in this encounter Care Teams Development Expert Relationship Specialty Start Date End Date No Ref-Primary, Physician PCP - General 12/14/20 documented as of this encounter
--- OUTSIDE RECORDS SUMMARY | 2022-05-16 18:38 | XMS_ITS | Encounter Summary ---
:1990 Author Organization [facility] Address [address] [place] [address]. [place] [address] Care Team Providers Name Role Phone No Ref-Primary, Physician Primary Care Provider Unavailable Reason for Visit Reason Comments Cystoscopy Stent Removal: Ureteral Ston e Encounter Details Date Type Department Care Team Description 04/17/2017 Office Visit [facility] (Primary Urology Clinic Rowena Babin MD Dx) [address] [place] [address] [place] [address] [place] [address] [phone] Social History Tobacco Use Types Packs/Day Years [...] our office with any concerns or questions [facility]. documented in this encounter Progress Notes [...] kidney documented in this encounter Care Teams Magnetic Locater Relationship Specialty Start Date End Date No Ref-Primary, Physician PCP - General 04/06/17 documented as of this encounter
--- OUTSIDE RECORDS SUMMARY | 2022-05-16 18:38 | XMS_ITS | Encounter Summary ---
:1990 Author Organization [place] Address [address] [place] [address] Care Team Providers Name Role Phone No Ref-Primary, Physician Primary Care Provider [phone] Reason for Visit Reason Comments Chest Pain Encounter Details Date Type Department Care Team Description 12/14/2020 [facility] PA-C [address] [facility] [place] [address] [address] [phone] [address] [place], [place] [address] (Wo rk) Social History Tobacco Use Types [...] sent through Care Everywhere. Chest Pain, Noncardiac (Croatian)documented in this encounter Medications at Time of [...] sinus arrhythmia. Normal ECG. Rate 66 bpm. MA interval 138 ms. QRS duration 104 ms. [...] patient is a HEART score of 1 ([id number]) and I feel ACS or mycocarditis is [...] with platelets differential (12/14/2020 3:45 PM CDT) [facility] Method Time Signature WBC 5.5 4.0 - 12/14/2020 [facility] 11.0 4:09 PM ON LICENSE OF [facility] 10e9/L [facility] RBC Count 3.79 (L) 3.8 - 5.2 12/14/2020 [facility] 10e12/L 4:09 PM [facility] Hemoglobin 11.9 11.7 - 12/14/2020 [facility] 15.7 g/dL 4:09 PM [facility] Hematocrit 37.2 35.0 - 12/14/2020 [facility] 47.0 % 4:09 PM [facility] MCV 98 78 - 100 12/14/2020 [facility] fl 4:09 PM [facility] MCH 31.4 26.5 - 12/14/2020 [facility] 33.0 pg 4:09 PM [facility] MCHC 32.0 31.5 - 12/14/2020 [facility] 36.5 g/dL 4:09 PM [facility] RDW 12.8 10.0 - 12/14/2020 [facility] 15.0 % 4:09 PM [facility] Platelet Count 195 150 - 450 12/14/2020 [facility] 10e9/L 4:09 PM [facility] Diff Method Automated 12/14/2020 [facility] Method 4:09 PM [facility] % Neutrophils 58.3 % 12/14/2020 [facility] 4:09 PM [facility] % Lymphocytes 27.5 % 12/14/2020 [facility] 4:09 PM [facility] % Monocytes 11.5 % 12/14/2020 [facility] 4:09 PM [facility] % Eosinophils 1.8 % 12/14/2020 [facility] 4:09 PM [facility] % Basophils 0.5 % 12/14/2020 [facility] 4:09 PM [facility] % Immature 0.4 % 12/14/2020 [facility] Granulocytes 4:09 PM [facility] Nucleated RBCs 0 0 /100 12/14/2020 [facility] 4:09 PM [facility] Absolute 3.2 1.6 - 8.3 12/14/2020 [facility] Neutrophil 10e9/L 4:09 PM [facility] Absolute 1.5 0.8 - 5.3 12/14/2020 [facility] Lymphocytes 10e9/L 4:09 PM [facility] Absolute 0.6 0.0 - 1.3 12/14/2020 [facility] Monocytes 10e9/L 4:09 PM [facility] Absolute 0.1 0.0 - 0.7 12/14/2020 [facility] Eosinophils 10e9/L 4:09 PM [facility] Absolute 0.0 0.0 - 0.2 12/14/2020 [facility] Basophils 10e9/L 4:09 PM [facility] Abs Immature 0.0 0 - 0.4 12/14/2020 [facility] Granulocytes 10e9/L 4:09 PM [facility] Absolute 0.0 12/14/2020 [facility] Nucleated RBC 4:09 PM [facility] Specimen Anatomical Collection Method Collection Time Receive d Time (Source) Location / / Volume Laterality 12/14/2020 3:45 PM 3:58 CDT PM CDT Daniel Mckinnon PA-C LAB - BLOOD ORDERABLES Performing Organization Address City/State/ZIP Code Phon e Number M [facility] [address] [place], [place] [address] [facility] [address] [phone] D dimer quantitative (12/14/2020 3:45 PM CDT) athologist Signature D Dimer 0.3 0.0 - 0.50 12/14/2020 [facility] ug/ml FEU 4:30 PM CDT [facility] Comment: This D-dimer assay is intended for [...] - BLOOD ORDERABLES Performing Organization Address [facility] Phon e Number [facility] [address] [place], [place] [address] [address] [address] [phone], [facility] [phone] HCG qualitative (12/14/2020 1:55 PM CDT) [facility] gist Method Time Signature HCG Qualitative Negative NEG^Negati 12/14/2020 [facility] Serum ve 3:57 PM CDT [facility] Comment: This test is for screening purposes. ??R esults should be interpreted along with the clinical picture. ??Confirmation te sting is available if warranted by ordering [id number], HCG Quantitative Pregna ncy. Specimen Anatomical Collection Method Collection Time Receive d Time (Source) Location / / Volume Laterality 12/14/2020 1:55 PM 1 2:45 CDT PM CDT Edith Ortega MD LAB - BLOOD ORDERABLES Performing Organization Address [facility]/ZIP [facility] Phon e Number M [facility] [address] [place], [place] [address] [facility] [address] [place] [address] [address], [facility] [phone] Troponin I (12/14/2020 1:55 PM CDT) athologist Signature Troponin I ES <0.015 0.000 - 12/14/2020 [facility] 0.045 ug/L 3:23 PM [facility] Comment: The 99th percentile for upper reference [...] Address City/State/ZIP Code Phon e Number M [facility] [address] [address] [facility] [address] [address], [place] [phone] (ABNORMAL) Basic metabolic panel (12/14/2020 1:55 PM CDT) athologist Signature Sodium 139 133 - 144 12/14/2020 [facility] mmol/L 3:23 PM [facility] Potassium 3.8 3.4 - 5.3 12/14/2020 [facility] mmol/L 3:23 PM [facility] Comment: Specimen slightly hemolyzed, po tassium may be falsely elevated Chloride 110 (H) 94 - 109 mmol/L 12/14/2020 3:23 PM [facility] Carbon Dioxide 23 20 - 32 mmol/L 12/14/2020 3:23 PM [facility] Anion Gap 6 3 - 14 mmol/L 12/14/2020 3:23 PM [facility] Glucose 84 70 - 99 mg/dL 12/14/2020 3:23 PM [facility] Urea Nitrogen 12 7 - 30 mg/dL 12/14/2020 3:23 PM [facility] Creatinine 0.88 0.52 - 1.04 mg/dL 12/14/2020 3:[address] [facility] GFR Estimate 89 >60 12/14/2020 3:23 PM [facility] mL/min/{1.73_m2} [facility] Comment: Non GFR Calc Starting 07/09/2018, serum creatinine ba sed estimated GFR (eGFR) will be calculated using the Chronic Kidney Dise [facility] Epidemiology Collaboration (CKD-EPI) equation. GFR Estimate If >90 >60 mL/min/{1.73_m2} 12/14/2020 3: 23 PM [facility] Black [facility] Comment: GFR Calc Starting 07/09/2018, serum creatinine ba sed estimated GFR (eGFR) will be calculated using the Chronic Kidney Dise [facility] Epidemiology Collaboration (CKD-EPI) equation. Calcium 8.7 8.5 - 10.1 mg/dL 12/14/2020 3:23 PM CDT [facility] Specimen Anatomical Collection Method Collection Time Receive d Time (Source) Location / / Volume Laterality Blood 12/14/2020 1:55 PM 2:45 CDT PM CDT Daniel Mckinnon PA-C LAB - BLOOD ORDERABLES Performing Organization Address City/State/ZIP Code Phon e Number [facility] [address] [place], [place] [address] [facility] [address] [place] [address], [facility] [[email or web address]] [phone] EKG 12 lead (12/14/2020 12:42 PM CDT) [facility] Method Time Signature Interpretation ECG Click [...] unspecified documented in this encounter Care Teams Methods And Procedures Analyst Relationship Specialty Start Date End Date No Ref-Primary, Physician PCP - General 12/14/20 documented as of this encounter
--- OUTSIDE RECORDS SUMMARY | 2022-05-16 18:38 | XMS_ITS | Encounter Summary ---
:1990 Author Organization [facility] Address [address] [place] [address] Care Team Providers Name Role Phone No Ref-Primary, Physician Primary Care Provider [phone] Encounter Details Date Type Department Care Team [...] on filedocumented in this encounter Care Teams Buggy Operator Relationship Specialty Start Date End Date No Ref-Primary, Physician PCP - General 12/14/20 documented as of this encounter
--- OUTSIDE RECORDS SUMMARY | 2022-05-16 18:38 | XMS_ITS | Encounter Summary ---
:1990 Author Organization [facility] Address [address] [place] [address] Care Team Providers Name Role Phone No Ref-Primary, Physician Primary Care Provider [phone] Reason for Referral Diagnostic Imaging Ultrasound (Routine) - Pending Review Specialty Diagnoses / Procedures Referred By Contact Refer red To Contact Diagnoses related condition, antepartum Rh Maternal Med Procedures MFM US Comprehensive Single [address] [place] [address] Referral ID Status Reason Start Date Expiration Date Visits V isits Requested Authorized [id number] Pending 01/03/2022 01/03/2023 1 1 Review onsultation (Routine: Next available opening) - Pending Review Specialty Diagnoses / Procedures Referred By Contact Refer red To Contact Diagnoses related condition, antepartum Rh Maternal Med [address] [place] [address] Referral ID Status Reason Start Date Expiration Date Visits V isits Requested Authorized [id number] Pending 01/03/2022 01/03/2023 1 1 Review Encounter Details Date Type Department Care Team Description 01/03/2022 Transcribe Orders [facility] Lexi Mendieta, related Maternal SURVEY PARTY CH[facility] antepartum (Primary [address] Dx) [address] [place], [place] [address] Social History Tobacco Use Types Packs/Day [...] 07/02/2022 documented as of this encounter Results [facility] US Comprehensive Single (01/13/2022 9:39 [...] ESPOSITO Study Date: 01/13/2022 8:45am Pat. NO: [id number] Referring ??: NIURKA MENDIETA Site: [facility] Materials Director: Salma Piña : 1990 Age: 31 INDICATION [...] lb 15 ? oz EFW by ?Hadlock ([id number]) Head / Face / Neck Biometry: Crayon Molding Machine Operator ? 6.5 ? mm CM ?4.2 [...] cava. Inferior vena cava. 3-vessel ? view. 6-dhvotm-cblmjhh view. Cardiac position. Cardiac size. Cardiac rhythm. [...] STUBBS [place] Jose te:01/13/2022 8:45am Pat. NO: [id number] MD:LEXI MENDIETA [facility]:Germain Mcnally RDMS :1990Age:31 INDICATION COVID in [...] 0 lb 15 oz EFW by Hadlock ([id number]) Head / Face / Neck Biometry: Crayon Molding Machine Operator 6.5 mm CM 4.2 mm Nasal [...] vena cava. Inferior vena cava. 3-vessel view. 8-gilkhq-eaccigd view. Cardiac po sition. Cardiac size. Cardiac [...] were evident. Radiology Non-Fv Credentialed Provider IMG [facility] US TL LEWIS documented in this encounter Visit Diagnoses Diagnosis related condition, antepartum - Primary related condition, antepartum documented in this encounter Care Teams Feed Preparation Operator Relationship Specialty Start Date End Date No Ref-Primary, Physician PCP - General 12/14/20 documented as of this encounter
--- OUTSIDE RECORDS SUMMARY | 2022-05-16 18:38 | XMS_ITS | Encounter Summary ---
:1990 Author Organization [facility] Address [address] [place] [address] Care Team Providers Name Role Phone No Ref-Primary, Physician Primary Care Provider Unavailable Encounter Details Date Type Department Care Team Description 04/11/2017 Telephone [facility] REPORTING Pricilla Shin, [address] [place] [address] [address] [phone] [place], [place] [address] (Wo rk) Social History [...] on filedocumented in this encounter Care Teams Ring Conductor Relationship Specialty Start Date End Date No Ref-Primary, Physician PCP - General 04/06/17 documented as of this encounter
--- OUTSIDE RECORDS SUMMARY | 2022-05-16 18:38 | XMS_ITS | Encounter Summary ---
:1990 Author Organization [place] [facility] Address [address] [place] [address] Care Team Providers Name Role Phone No Ref-Primary, Physician Primary Care Provider Unavailable Encounter Details Date Type Department Care Team Description 04/06/2017 Anesthesia Event M [facility] Eleanor Alfredo waipahu [facility] MD [place] [address] [place], [place] ANESTHESIA [address] [address] [phone] [place] [address] Anesthesia Record Procedure Summary Procedure Name [...] Rahul Almaraz, Rahul Mitchell laryngeal mask airway; MICROCOMPUTER TECHNICIAN MANAGER APPOINTMENT ISABELLA Lewis MANAGER APPOINTMENT center of mouth; Equal, clear and bilateral; MANAGER APPOINTMENT Incision/Surgical Site 04/06/17; 1118; Other 04/06/17 1118 [...] benefits and alternatives discussed with: Patient or front desk representative and Patient.. . documented in this [...] prepare to transfer to PACU, Report to SULPHATE TESTER. VSS transfer care Vitals: (Last set prior to Anesthesia Care Transfer) MANAGER APPOINTMENT VITALS 04/06/2017 1106 - 04/06/2017 1140 04/06/2017 Pulse: 126 SpO2: 100 % Resp Rate (observed): 10 Electronically Signed By: Rahul Almaraz APRN MANAGER APPOINTMENT April 06, 2017 11:40 AM documented in [...] Intra-op documented in this encounter Care Teams Band Scroll Saw Operator Relationship Specialty Start Date End Date No Ref-Primary, Physician PCP - General 04/06/17 documented as of this encounter
--- OUTSIDE RECORDS SUMMARY | 2022-05-16 18:38 | XMS_ITS | Encounter Summary ---
:1990 Author Organization [facility] Address [address] [place] [address] Care Team Providers Name Role Phone No Ref-Primary, Physician Primary Care Provider Encounter Details Date Type Department Care Team [...] on filedocumented in this encounter Care Teams Last Sorter Relationship Specialty Start Date End Date No Ref-Primary, Physician PCP - General 12/14/20 documented as of this encounter
--- OUTSIDE RECORDS SUMMARY | 2022-05-16 18:38 | XMS_ITS | Encounter Summary ---
:1990 Author Organization [place] Address [address] [place] [address] Care Team Providers Name Role Phone Unavailable Primary Care Provider Unavailable Encounter Details Date Type Department Care Team Description 05/01/2017 Telephone [facility] REPORTING Chioma Harding PA-C [address] [place] [address] [facility] [phone] [facility] [address] [place], [place] [address] (Wo rk) Social History [...]
--- OUTSIDE RECORDS SUMMARY | 2022-05-16 18:38 | XMS_ITS | Encounter Summary ---
:1990 Author Organization [facility] Address [facility] [place] [address] Care Team Providers Name Role Phone No Ref-Primary, Physician Primary Care Provider [phone] Encounter Details Date Type Department Care Team Description 04/24/2022 Hospital Encounter M [facility] Cassie Coy [facility] [address] [facility] [address] [place] [address] [place] [address] [phone] (Wo rk) Social History Tobacco Use Types [...] day. Activity: Call your doctor or nurse kiln head house operator if your baby is moving less than [...] cannot be sent through Care Everywhere.Kick Counts ([place]guill[place])documented in this encounter Medications at Time of [...] 9:23 PM CDT 205 Patient arrived to [facility] ambulatory with spouse. Brought to room 2 to change into gown. History collected by Mallory RN and this RN. Patient here with complaint of increased discharge, and lost her mucus plug. Mucus-y discharge started around 1000, since then, has noticed an increase in watery discharge. Denies bleeding, denies contractions, endorses mild back ache and a heaviness. She is planning to deliver in [place]. 36 w 2 d Hx bipolar disorder, [...] by ROM Plus (04/24/2022 9:12 PM CDT) [facility] Method Time Signature Rupture of Negative [...] Address City/State/ZIP Code Phon e Number LABORATORY [facility] [place] [address] [phone] Care Lab [address] [place] [address] [...] Preadmission documented in this encounter Care Teams Research Test Engine Evaluator Relationship Specialty Start Date End Date No Ref-Primary, Physician PCP - General 12/14/20 documented as of this encounter
--- OUTSIDE RECORDS SUMMARY | 2022-05-16 18:38 | XMS_ITS | Encounter Summary ---
:1990 Author Organization [place] Address [facility] [place] [address] Care Team Providers Name Role Phone No Ref-Primary, Physician Primary Care Provider [phone] Reason for Visit Reason Comments Ultrasound L2- covid in Encounter Details Date Type Department Care Team Description 01/13/2022 Office Visit [facility] Non-Fv Credent ialed Provider, Radiology COVID-19 affecting Maternal Contag, Chau Frazier MD [address] [place], [place] [address] in [facility] Osmin Aiken MD [address] [place] [address] trimester (Primary [place] Dx) [address] [facility] [address] [place] [address] Social History Tobacco Use Types [...] for details of today's US at the [facility]. Osmin Aiken MD Maternal- Medicine documented in this encounter Plan of Treatment Not on filedocumented as of this encounter Visit Diagnoses Diagnosis COVID-19 affecting in second t rimester - Primary documented in this encounter Care Teams Waste Reduction Coordinator Relationship Specialty Start Date End Date No Ref-Primary, Physician PCP - General 12/14/20 documented as of this encounter
--- OUTSIDE RECORDS SUMMARY | 2022-05-16 18:38 | XMS_ITS | Encounter Summary ---
:1990 Author Organization [place] Address [address] [place] [address]. [place] [address] Care Team Providers Name Role Phone No Ref-Primary, Physician Primary Care Provider [phone] Encounter Details Date Type Department Care Team Description 07/13/2021 Medical Correspondence [facility] Scan, MATERNAL Health Info Mgmt Non-Provider MEDICINE CE NTER Srvcs PROVIDER SERVICE [address] [place] [address] [place] [address] [facility] [phone] [place] Social History Tobacco Use Types Packs/Day Years Used Date Smoking Tobacco: Every Day Smokeless Tobacco: Never Sex Assigned at Date Recorded Not on file documented as of this encounter Plan of Treatment Not on filedocumented as of this encounter Visit Diagnoses Not on filedocumented in this encounter Care Teams International Sales Representative Relationship Specialty Start Date End Date No Ref-Primary, Physician PCP - General 12/14/20 documented as of this encounter
--- OUTSIDE RECORDS SUMMARY | 2022-05-16 18:38 | XMS_ITS | Encounter Summary ---
:1990 Author Organization [facility] Address [address] [place] [address] Care Team Providers Name Role Phone No Ref-Primary, Physician Primary Care Provider [phone] Encounter Details Date Type Department Care Team [...] on filedocumented in this encounter Care Teams Gate Tender Relationship Specialty Start Date End Date No Ref-Primary, Physician PCP - General 12/14/20 documented as of this encounter
--- OUTSIDE RECORDS SUMMARY | 2022-05-16 18:38 | XMS_ITS | Clinical Summary ---
:1990 Author Organization [place] Address [address] [place] [address] Care Team Providers Name Role Phone No Ref-Primary, Physician Primary Care Provider [phone] Allergies Active Allergy Reactions Severity Noted [...] Specialty Care Team Description 04/24/2022 Hospital Encounter french edge operator Cassie Coy M D 04/24/2022 Travel from [...] 64 Years) Medical Devices Implanted Type Area Group Care Worker Device Shelf Model / Identifier Expiration Serial / Date Lot Stent Ureteral Dbl Pigtail Inlay [id number] Stent Left: CR BARD 05/12/2021 [id number] / Implanted: Qty: 1 on 04/06/2017 by Jae diego, Chau Ribeiro MD at [facility] [employer]-UR[employer] / [id number] Procedures Procedure Name Priority Date/Time Associated Diagnosis Comme nts RUPTURE OF STAT 04/24/2022 9:12 PM Resul ts for this MEMBRANES BY ROM CDT procedure a re in PLUS the results section. NON-STRESS 04/24/2022 12:00 AM TEST - HIM SCAN CDT from Last 3 Months Results Rupture of Membranes by ROM Plus (04/24/2022 9:12 PM CDT) [facility] gist Method Time Signature Rupture of Negative [...] Address City/State/ZIP Code Phon [place] [address] Care Lab [address] [...] ss Type Group BCBS BCBS OUT OF [id number] 2021-Present [phone] [address] [address] [place] [address] Advance Directives For more information, please contact: [phone] Latest Code Status on File Code Status Date Activated Date Inactivated Comments Full Code 04/06/2017 9:39 AM 12/14/2020 10:47 AM Code Status History Code Status Date Activated Date Inactivated Comments Full Code 04/06/2017 6:57 AM 04/06/2017 9:39 AM Care Teams Bobbin Trucker Relationship Specialty Start Date End Date No Ref-Primary, Physician PCP - General 12/14/20
--- OUTSIDE RECORDS SUMMARY | 2022-05-16 18:39 | XMS_ITS | Encounter Summary ---
:1990 Author Organization [employer] Address [address] [place] [address] Care Team Providers Name Role Phone No Ref-Primary, Physician Primary Care Provider Unavailable Reason for Visit Reason Comments Flank Pain Encounter Details Date Type Department Care Team Description 04/06/2017 Surgery [facility] Chau Ortega ED CYSTOSCOPY, [facility]ane Ribeiro MD LEFT URETEROSCOPY, [address] [place], [place] [address] LITHOTRIPSY URETER, [address] [place] [address] INSERTION LEFT STENT, (Wo rk) stone basketing, [...] PA-C - 04/06/2017 9:39 AM CDT [facility] Outpatient / Observation Unit Discharge Summary [...] [facility] VICENTE BLANDON & JORDAN [phone] During surgery, a stent may be placed [...] Please call your physician or the physician medical transcription supervisor if you experience: Fever greater than 101 degrees Severe pain not relieved by pain medication or rest Please make an appointment for the removal of the stent according to your physician's instructions. EXTRACORPOREAL SHOCK LITHOTRIPSY (ESWL) DISCHARGE INSTRUCTIONS VICENTE BLANDON & JORDAN [phone] Your stone(s) has been fragmented into many [...] hours: Yes. Name: Sindhu (mom), Contact information: [phone] Belongings/Valuables - Will be sent to Per[facility] with pt. 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 Jordan Dahl PA-C [facility] Urology (text or call, Sun-Sun & Fri [...] Independent. Lift room needed: No. 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 Infection: Not Applicable. [...] BOLUS (1,000 mLs Intravenous New Bag 04/06/17 3355) Followed by 0.9% sodium chloride infusion (not administered) ondansetron (ZOFRAN) injection 4 mg (4 mg Intravenous Given 04/06/17 0504) ciprofloxacin (CIPRO) infusion 400 mg (not administered) [...] A&O x 4 on arrival, family present Cuhla Shin RN - 04/06/2017 3:52 AM CDT [...] with flank pain. Patient woke this morning [id number] with left sided flank pain associated by [...] Admitted to hospitalist service. Osmin Whiteer 04/06/2017 [facility] EMERGENCY DEPARTMENT I, Osmin Basurtoyder, bruce serving [...] The procedure began by introducing the 22 Citizen [place] rigid cystoscope through the urethra into the [...] EM#[id number] Name: FAUZIA STUBBS MRN: [id number] Account: [id number] : 1990 Procedure Date: 04/06/2017 Document: [id number] Pharmacy-Admission Medication History - Rosie Enrique [facility] - 04/06/2017 9:41 AM CDT Admission medication history interview status for this patient is complete. See [facility] admission navigator for allergy information, prior to admission medications and immunization status. 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 Will continue to monitor. 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 Chau Ortega MD IMG DIAGNOSTIC IMAGING ORDER MARGARET Performing Organization Address City/State/ZIP Code Phon e Number [facility] Surgical pathology exam (04/06/2017 11:23 AM CDT) Component Value Ref Test Analysis Performed At [facility] Range Method Time Signature Copath Report Patient Name: FAUZIA STUBBS MR#: [id number] Specimen #: [id number] Collected: 04/06/2017 Received: 04/06/2017 Reported: 04/06/2017 13:04 Ordering Phy(s): CHAU ORTEGA For improved result formatting, select 'View Enhanced Report Format' under Linked Documents section. SPECIMEN(S): Stone, left ureteral FINAL DIAGNOSIS: Left ureteral stone(s)- - Gross pathology the admission performed. - Submitted for chemical/stone analysis (see separate [facility] report for results). Electronically signed out [...] microscopic sections are obtained. CPT Codes: A: 88407-RQ TESTING LAB LOCATION: [address] ??[address] COLLECTION SITE: Client: [facility] Location: RHE (R) Specimen Anatomical Collection Method Collection Time Receive d Time (Source) Location / / Volume Laterality 04/06/2017 11:23 04/06/2017 AM CDT 12:28 PM CDT Chau Ortega MD [facility] Performing Organization Address City/State/ZIP Code Phon e Number [place] Stone analysis (04/06/2017 11:23 AM CDT) [facility] Method Time Signature Stone SEE NOTE 04/10/2017 [place] Composition 6:47 PM CDT [facility] Comment: (Note) Calculi composed primarily of: 10% [...] omposition determined by FTIR analysis. Performed by [employer], [address] [place] [id number] www.[employer] Controller, Endy Reilly MD, Lab. Director Calculi Number Numerous 04/10/2017 6:47 PM CDT FA [facility] Calculi Size 1 to 4 mm 04/10/2017 6:47 PM CDT [facility] Calculi Description SEE NOTE 04/10/2017 6:47 PM C DT [facility] Comment: (Note) Specimen consists of numerous, small, brown/baldwin, irregular calculi fragments. Stone Mass 30 mg 04/10/2017 6:47 PM CDT [facility] Specimen (Source) Anatomical Collection Method Collection Time Re ceived Time Location / / Volume Laterality Calculus specimen STRUCTURE OF LEFT 04/06/2017 11:23 (specimen) URETER / Unknown AM CDT Chau Ortega MD LAB - BODY FLUIDS ORDERABLES Performing Organization Address City/State/ZIP Code Phon e Number [place] [address] [address] [place] [address] [facility] [address] [phone] Abd/pelvis CT no contrast - Stone Protocol [...] Signature Specimen Midstream Urine [facility] Special Specimen 04/06/2017 [facility] Requests received in 8:21 AM CDT [facility] preservative [facility] Culture Micro >100,000 colonies/mL 04/07/2017 [facility] Escherichia coli 9:26 PM CDT [facility] (A) [facility] Specimen (Source) Anatomical Collection Method Collection [...] Organization Address City/State/ZIP Code Phon e Number [address] [address] [place] Lipase (04/06/2017 4:10 AM CDT) athologist Signature Lipase 148 73 - 393 04/06/2017 [place]ABELLA TOWNSEN[place]ae U/L 4:44 AM CDT HOSPITAL Specimen Anatomical Collection Method Collection Time Receive d Time (Source) Location / / Volume Laterality Blood specimen 04/06/2017 4:10 AM 017 4:24 (specimen) CDT AM CDT Luis Jones MD LAB - BLOOD ORDERABLES Performing Organization Address City/State/ZIP Code Phon e Number [facility] [address], [place] [address] [facility] [address] [place], [place] [address] [phone] (ABNORMAL) Comprehensive metabolic panel (04/06/2017 4:[address] [facility]) athologist Signature Sodium 137 133 - 144 04/06/2017 [place] mmol/L 4:44 AM [facility] Potassium 3.2 (L) 3.4 - 5.3 04/06/2017 [place] mmol/L 4:44 AM [facility] Chloride 104 94 - 109 04/06/2017 [place] mmol/L 4:44 AM [facility] Carbon Dioxide 25 20 - 32 04/06/2017 [place] mmol/L 4:44 AM [facility] Anion Gap 8 3 - 14 04/06/2017 [place] mmol/L 4:44 AM [facility] Glucose 102 (H) 70 - 99 04/06/2017 [place] mg/dL 4:44 AM [facility] Urea Nitrogen 12 7 - 30 04/06/2017 [place] mg/dL 4:44 AM [facility] Creatinine 0.80 0.52 - 04/06/2017 [place] 1.04 mg/dL 4:44 AM [facility] GFR Estimate 88 >60 04/06/2017 [place] mL/min/1.7 4:[address] Comment: Non GFR Calc GFR Estimate If >90 >60 mL/min/1.7m2 04/06/2017 4:44 A [facility] Comment: GFR Calc Calcium 8.9 8.5 - 10.1 mg/dL 04/06/2017 4:[address] [facility] Bilirubin Total 0.4 0.2 - 1.3 mg/dL 04/06/2017 4:44 AM [facility] Albumin 4.1 3.4 - 5.0 g/dL 04/06/2017 4:44 AM [facility] Protein Total 8.1 6.8 - 8.8 g/dL 04/06/2017 4:44 AM [facility] Alkaline Phosphatase 108 40 - 150 U/L 04/06/2017 4:44 AM [facility] ALT 23 0 - 50 U/L 04/06/2017 4:44 AM [facility] AST 10 0 - 45 U/L 04/06/2017 4:44 AM [facility] Specimen Anatomical Collection Method Collection Time Receive d Time (Source) Location / / Volume Laterality Blood specimen 04/06/2017 4:10 AM 017 4:24 (specimen) CDT AM CDT Luis Jones MD LAB - BLOOD ORDERABLES Performing Organization Address City/State/ZIP Code Phon e Number [place] [address] [address], [place] [address] [facility] [address] [phone] CBC with platelets differential (04/06/2017 4:10 AM CDT) [facility] Method Time Signature WBC 8.1 4.0 - 04/06/2017 [facility] 11.0 4:28 AM [facility] 10e9/L [facility] RBC Count 4.40 3.8 - 5.2 04/06/2017 [facility] 10e12/L 4:28 AM [facility] Hemoglobin 13.5 11.7 - 04/06/2017 [facility] 15.7 g/dL 4:28 AM [facility] Hematocrit 40.0 35.0 - 04/06/2017 [facility] 47.0 % 4:28 AM [facility] MCV 91 78 - 100 04/06/2017 [facility] fl 4:28 AM [facility] MCH 30.7 26.5 - 04/06/2017 [facility] 33.0 pg 4:28 AM [facility] MCHC 33.8 31.5 - 04/06/2017 [facility] 36.5 g/dL 4:28 AM [facility] RDW 13.1 10.0 - 04/06/2017 [facility] 15.0 % 4:28 AM [facility] Platelet Count 278 150 - 450 04/06/2017 [facility] 10e9/L 4:28 AM [facility] Diff Method Automated 04/06/2017 [facility] Method 4:28 AM [facility] % Neutrophils 60.6 % 04/06/2017 [facility] 4:28 AM [facility] % Lymphocytes 29.5 % 04/06/2017 [facility] 4:28 AM [facility] % Monocytes 7.7 % 04/06/2017 [facility] 4:28 AM [facility] % Eosinophils 1.5 % 04/06/2017 [facility] 4:28 AM [facility] % Basophils 0.5 % 04/06/2017 [facility] 4:28 AM [facility] % Immature 0.2 % 04/06/2017 [facility] Granulocytes 4:28 AM [facility] Nucleated RBCs 0 0 /100 04/06/2017 [facility] 4:28 AM [facility] Absolute 4.9 1.6 - 8.3 04/06/2017 [place] Neutrophil 10e9/L 4:28 AM [facility] Absolute 2.4 0.8 - 5.3 04/06/2017 [facility] Lymphocytes 10e9/L 4:28 AM [facility] Absolute 0.6 0.0 - 1.3 04/06/2017 [facility] Monocytes 10e9/L 4:28 AM [facility] Absolute 0.1 0.0 - 0.7 04/06/2017 [facility] Eosinophils 10e9/L 4:28 AM [facility] Absolute 0.0 0.0 - 0.2 04/06/2017 [place] Basophils 10e9/L 4:28 AM [facility] Abs Immature 0.0 0 - 0.4 04/06/2017 [facility] Granulocytes 10e9/L 4:28 AM [facility] Absolute 0.0 04/06/2017 [place] Nucleated RBC 4:28 AM [facility] Specimen Anatomical Collection Method Collection Time Receive d Time (Source) Location / / Volume Laterality Blood specimen 04/06/2017 4:10 AM 017 4:24 (specimen) CDT AM T Luis Jones MD LAB - BLOOD ORDERABLES Performing Organization Address City/State/ZIP Code Phon e Number M [facility] [address] [place], [place] [address] [phone] [place] [address] [address] Yael Huang [address] [phone] (ABNORMAL) UA with Microscopic (04/06/2017 4:10 AM CDT) [facility] Method Time Signature Color Urine Yellow 04/06/2017 [facility] 4:38 AM [facility] Appearance Urine Slightly 04/06/2017 [facility] Cloudy 4:38 AM [facility] Glucose Urine Negative NEG^Negat 04/06/2017 [facility] kvng mg/dL 4:38 AM [facility] Bilirubin Urine Negative NEG^Negat 04/06/2017 [facility] kvng 4:38 AM [facility] Ketones Urine Negative NEG^Negat 04/06/2017 [place] kvng mg/dL 4:38 AM [facility] Specific [place] 1.013 1.003 - 04/06/2017 [place] Urine 1.035 4:38 AM [facility] Blood Urine Small (A) NEG^Negat 04/06/2017 [facility] kvng 4:38 AM [facility] pH Urine 5.0 5.0 - 7.0 04/06/2017 [place] pH 4:38 AM [facility] Protein Albumin 30 (A) NEG^Negat 04/06/2017 [place] Urine kvng mg/dL 4:38 AM [facility] Urobilinogen 0.0 0.0 - 2.0 04/06/2017 [place] mg/dL mg/dL 4:38 AM [facility] Nitrite Urine Negative NEG^Negat 04/06/2017 [facility] kvng 4:38 AM [facility] Leukocyte Large (A) NEG^Negat 04/06/2017 [facility] Esterase Urine kvng 4:38 AM [facility] Source Midstream 04/06/2017 [facility] Urine 4:25 AM [facility] WBC Urine 126 (H) 0 - 2 04/06/2017 [facility] /HPF 4:38 AM [facility] RBC Urine 15 (H) 0 - 2 04/06/2017 [facility] /HPF 4:38 AM [facility] WBC Clumps Present (A) NEG^Negat 04/06/2017 [facility] kvng /HPF 4:38 AM [facility] Bacteria Urine Many (A) NEG^Negat 04/06/2017 [place] kvng /HPF 4:38 AM [facility] Squamous 1 0 - 1 04/06/2017 [place] Epithelial /HPF /HPF 4:38 AM [facility] Mucous Urine Present (A) NEG^Negat 04/06/2017 [place] kvng /LPF 4:38 AM [facility] Specimen (Source) Anatomical Collection Method Collection Time Re ceived Time Location / / Volume Laterality Examination of URINE SPECIMEN 04/06/2017 4:10 04/06/20 17 4:24 midstream urine OBTAINED BY CLEAN AM CDT AM CDT specimen CATCH PROCEDURE / (procedure) Unknown Luis Jones MD LAB - URINE ORDERABLES Performing Organization Address [facility] Phon e Number [facility] [address], [place] [address] [facility] [address] [place], [place] [address], [facility] [phone] HCG qualitative urine (04/06/2017 4:10 AM CDT) athologist Signature HCG Qual Urine Negative NEG^Negati 04/06/2017 [place] ve 4:41 AM [facility] Comment: This test is for screening purposes. ??R esults should be interpreted along with the clinical picture. ??Confirmation te sting is available if warranted by ordering [id number], HCG Quantitative Pregna ncy. Specimen Anatomical Collection Method Collection Time Receive d Time (Source) Location / / Volume Laterality Urine specimen URINE SPECIMEN 04/06/2017 4:10 AM 04/06 4:24 (specimen) OBTAINED BY CLEAN CDT AM CDT CATCH PROCEDURE / Unknown Luis Jones MD LAB - URINE ORDERABLES Performing Organization Address [facility] Phon e Number M [facility] [address], [place] [address] [facility] [address] [place], [place] [address], [facility] [phone] documented in this encounter Visit Diagnoses Not [...] mg 0.3-0.5 mg, Intravenous, EVERY 10 MIN VA N, other, acute pain.?May administer if Respiratory [...] 0816 ( New Bag - Provider: Ting Nvaa RN) at 150 mL/hr, Intravenous, CONTINUOUS, S tarting Sun04/06/17 at 0658, Until Sun04/06/17 at 1652 lactated ringers infusion (CANCELED) 1051 (New Bag - Provider: Rahul Almaraz APRN COMPENSATION CONSULTANT)1140 (Anesthesia Volume Adjustment - Provider: Rahul Almaraz [...] mg 0.3-0.5 mg, Intravenous, EVERY 10 MIN VA N, Starting Sun04/06/17 at 1213, Until Sun04/06/17 [...] procedural area)1115 (Given - Provider: Rahul Almaraz MARKETING CONSULTANT COMPENSATION CONSULTANT)1652 (Unhold - Provider: Orders Generic Provider) 4 [...] area)1115 (See Alternative - Provider: Rahul Almaraz, MARKETING CONSULTANT COMPENSATION CONSULTANT)1652 (Unhold - Provider: Orders Generic Provider) 4 [...] management)
documented in this encounter Care Teams Time Signal Wirer Relationship Specialty Start Date End Date No Ref-Primary, Physician PCP - General 04/06/17 documented as of this encounter
--- OUTSIDE RECORDS SUMMARY | 2022-05-16 18:39 | XMS_ITS | Encounter Summary ---
:1990 Author Organization [place] Address [address] [place] [address] Care Team Providers Name Role Phone No Ref-Primary, Physician Primary Care Provider Unavailable Reason for Visit Reason Comments Flank Pain Encounter Details Date Type Department Care Team Description 04/06/2017 Emergency [facility] Luis Jones MD [facility] [address] [place] [address] [place] [address] [id number] Calculus of left ureter (Primary Dx); [place] PreOP/PostOP Mary Beth Barry MD Pyelonephritis; [address] [place] [address] Social History Tobacco Use Types [...] - 04/06/2017 9:39 AM CDT [facility] Outpatient / Observation Unit Discharge Summary Fauzia [...] [facility] V[facility]ENTE BLANDON [facility] JORDAN [phone] During surgery, a stent may be placed [...] Please call your physician or the physician supervisor insulation if you experience: Fever greater than 101 degrees Severe pain not relieved by pain medication or rest Please make an appointment for the removal of the stent according to your physician's instructions. EXTRACORPOREAL SHOCK LITHOTRIPSY (ESWL) DISCHARGE INSTRUCTIONS [facility]ENTE BLANDON [facility] JORDAN [phone] Your stone(s) has been fragmented into many [...] hours: Yes. Name: Sindhu (sammy), Contact information: [phone] Belongings/Valuables - Will be sent to [facility] with pt. Aquatic Ecologist - Pt DOES NOT need an pilot control operator helper. 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 Jordan Dahl PA-C [facility] Urology (text or call, Mon-Wed & [...] Jeff RN - 04/06/2017 5:33 AM CDT [facility] ED Nurse Handoff Report Fauzia Stubbs is a 26 year old female ED Chief complaint: Flank Pain . ED Diagnosis: Final diagnoses: Pyelonephritis Calculus of ureter Allergies: Allergies Allergen Reactions ??? Penicillins Code Status: Full Code Activity level - Baseline/Home: Independent. Activity Level - Current: Independent. Lift room needed: No. Bariatric: No Aquatic Ecologist Needed: No Isolation: No. Infection: Not Applicable. [...] with flank pain. Patient woke this morning [id number] with left sided flank pain associated by [...] BOLUS (1,000 mLs Intravenous New Bag 04/06/17 7934) Followed by 0.9% sodium chloride infusion (not administered) ondansetron (ZOFRAN) injection 4 mg (4 mg Intravenous Given 04/06/17 9752) ciprofloxacin (CIPRO) infusion 400 mg (400 mg Intravenous New Bag 04/06/17 8854) HYDROmorphone (PF) (DILAUDID) injection 0.5 mg (not [...] Admitted to hospitalist service. Osmin Toure 04/06/2017 [facility] EMERGENCY DEPARTMENT I, Osmin Toure, am [...] The procedure began by introducing the 22 Angolan rigid cystoscope through the urethra into the [...] MD MT: JUDSON#[id number] Name: FAUZIA STUBBS Account: [id number] : 1990 Procedure Date: 04/06/2017 Document: [id number] Pharmacy-Admission Medication History - Rosie Enrique RPH - 04/06/2017 9:41 AM CDT Admission medication history interview status for this patient is complete. See [facility] admission navigator for allergy information, prior to admission medications and immunization status. Medication history interview source(s): patient's mother Medication history resources (including written lists, pill bottles, clinic record):None Changes made to ED MANAGER medication list: Added: none Deleted: none [...] oob for safety. Will continue to monitor. Soap Worker Nurse Safe discharge environment identified: Yes Barriers [...] independent, order SW consult): ind with boyfriend auto parts counter person: Sindhu, (Mother) Activity level at baseline: [...] be read by a radiologist or a [place] non-radiologis t provider. Chau Ortega MD [facility] [place] ORDER MARGARET Performing Organization Address City/State/ZIP Code Phon e Number RADIANT Surgical pathology exam (04/06/2017 11:23 AM CDT) Component Value Ref Test Analysis Performed At [facility] gist Range Method Time Signature Copath Report Patient Name: FAUZIA STUBBS MR#: [id number] Specimen #: [id number] Collected: 04/06/2017 Received: 04/06/2017 Reported: 04/06/2017 13:04 Ordering Phy(s): CHAU ORTEGA For improved result formatting, select 'View Enhanced Report Format' under Linked Documents section. SPECIMEN(S): Stone, left ureteral FINAL DIAGNOSIS: Left ureteral stone(s)- - Gross pathology the admission performed. - Submitted for chemical/stone analysis (see [facility] oming report for results). Electronically signed out [...] microscopic sections are obtained. CPT Codes: A: 44825-TM TESTING LAB LOCATION: [address] ??[address] COLLECTION SITE: Client: [facility] Location: [facility] (R) Specimen Anatomical Collection Method Collection Time Receive d Time (Source) Location / / Volume Laterality 04/06/2017 11:23 04/06/2017 AM CDT 12:28 PM CDT Chau Ortega MD LAB - [facility] Performing Organization Address City/State/ZIP Code Phon e Number COPATH Stone analysis (04/06/2017 11:23 AM CDT) [facility] Method Time Signature Stone SEE NOTE 04/10/2017 [place] Composition 6:47 PM CDT [facility] Comment: (Note) Calculi composed primarily of: [...] omposition determined by FTIR analysis. Performed by [facility], [address] [place] [id number] [email or web address], Endy Reilly MD, Lab. Director Calculi Number Numerous 04/10/2017 6:47 PM CDT [facility] Calculi Size 1 to 4 mm 04/10/2017 6:[address] [facility] Calculi Description SEE NOTE 04/10/2017 6:47 PM C DT [facility] Comment: (Note) Specimen consists of numerous, small, brown/baldwin, irregular calculi fragments. Stone Mass 30 mg 04/10/2017 6:47 PM CDT [facility] Specimen (Source) Anatomical Collection Method Collection Time Re ceived Time Location / / Volume Laterality Calculus specimen STRUCTURE OF LEFT 04/06/2017 11:23 (specimen) URETER / Unknown AM CDT Chau Ortega MD LAB - BODY FLUIDS ORDERABLES Performing Organization Address City/State/ZIP Code Phon e Number [place] [address] [address] [facility] [address] [place], [place] [address] [place] [address] Abd/pelvis CT no contrast - Stone Protocol [...] AM CDT Luis Jones MD [facility] - [facility] POCT Performing Organization Address City/State/ZIP Code Phon e Number FV POINT OF CARE TEST, HANDHELD METER POINT OF CARE TEST, HANDHELD METER (ABNORMAL) Urine Culture Aerobic Bacterial (04/06/2017 4:10 AM CDT) Component Value Ref Test Analysis Performed At [facility] gist Range Method Time Signature Specimen Midstream Urine [facility] Special Specimen 04/06/2017 [facility] Requests received in 8:21 AM CDT [facility] preservative [facility] Culture Micro >100,000 colonies/mL 04/07/2017 [facility] Escherichia coli 9:26 PM CDT [facility] (A) [facility] Specimen (Source) Anatomical Collection Method Collection Time [...] Organization Address City/State/ZIP Code Phon e Number [address] [address] [place] Lipase (04/06/2017 4:10 AM CDT) athologist Signature Lipase 148 73 - 393 04/06/2017 [facility] U/L 4:44 AM T [facility] Specimen Anatomical Collection Method Collection Time Receive d Time (Source) Location / / Volume Laterality Blood specimen 04/06/2017 4:10 AM 017 4:24 (specimen) CDT AM CDT Luis Jones MD LAB - BLOOD ORDERABLES Performing Organization Address City/[facility]/ZIP [facility] Phon e Number [facility] [address] [address] [facility] [address] [phone] (ABNORMAL) Comprehensive metabolic panel (04/06/2017 4:10 AM CDT) athologist Signature Sodium 137 133 - 144 04/06/2017 [place] mmol/L 4:44 AM T [facility] Potassium 3.2 (L) 3.4 - 5.3 04/06/2017 [place] mmol/L 4:44 AM [facility] Chloride 104 94 - 109 04/06/2017 [place] mmol/L 4:44 AM [facility] Carbon Dioxide 25 20 - 32 04/06/2017 [place] mmol/L 4:44 AM [facility] Anion Gap 8 3 - 14 04/06/2017 [place] mmol/L 4:44 AM [facility] Glucose 102 (H) 70 - 99 04/06/2017 [place] mg/dL 4:44 AM [facility] Urea Nitrogen 12 7 - 30 04/06/2017 [place] mg/dL 4:44 AM [facility] Creatinine 0.80 0.52 - 04/06/2017 [facility] 1.04 mg/dL 4:44 AM [facility] GFR Estimate 88 >60 04/06/2017 [place] mL/min/1.7 4:[address] Comment: Non GFR Calc GFR Estimate If >90 >60 mL/min/1.7m2 04/06/2017 4:44 A M [facility] Comment: GFR Calc Calcium 8.9 8.5 - 10.1 mg/dL 04/06/2017 4:44 AM [facility] Bilirubin Total 0.4 0.2 - 1.3 mg/dL 04/06/2017 4:44 AM [facility] Albumin 4.1 3.4 - 5.0 g/dL 04/06/2017 4:[address] [facility] Protein Total 8.1 6.8 - 8.8 g/dL 04/06/2017 4:44 AM [facility] Alkaline Phosphatase 108 40 - 150 U/L 04/06/2017 4:44 AM [facility] ALT 23 0 - 50 U/L 04/06/2017 4:44 AM [facility] AST 10 0 - 45 U/L 04/06/2017 4:44 AM [facility] Specimen Anatomical Collection Method Collection Time Receive d Time (Source) Location / / Volume Laterality Blood specimen 04/06/2017 4:10 AM 017 4:24 (specimen) CD[facility] MD LAB - BLOOD ORDERABLES Performing Organization Address City/State/ZIP Code Phon e Number [facility] [address] [place], [place] [address] [facility] [address] [place], [place] [address] [facility] [phone] CBC with platelets differential (04/06/2017 4:10 AM [facility]) [facility] gist Method Time Signature WBC 8.1 4.0 - 04/06/2017 [facility] 11.0 4:28 AM [facility] 10e9/L [facility] RBC Count 4.40 3.8 - 5.2 04/06/2017 [facility] 10e12/L 4:28 AM [facility] Hemoglobin 13.5 11.7 - 04/06/2017 [facility] 15.7 g/dL 4:28 AM [facility] Hematocrit 40.0 35.0 - 04/06/2017 [facility] 47.0 % 4:28 AM [facility] MCV 91 78 - 100 04/06/2017 [facility] fl 4:28 AM [facility] MCH 30.7 26.5 - 04/06/2017 [facility] 33.0 pg 4:28 AM [facility] MCHC 33.8 31.5 - 04/06/2017 [facility] 36.5 g/dL 4:28 AM [facility] RDW 13.1 10.0 - 04/06/2017 [facility] 15.0 % 4:28 AM [facility] Platelet Count 278 150 - 450 04/06/2017 [facility] 10e9/L 4:28 AM [facility] Diff Method Automated 04/06/2017 [facility] Method 4:28 AM [facility] % Neutrophils 60.6 % 04/06/2017 [facility] 4:28 AM [facility] % Lymphocytes 29.5 % 04/06/2017 [facility] 4:28 AM [facility] % Monocytes 7.7 % 04/06/2017 [facility] 4:28 AM [facility] % Eosinophils 1.5 % 04/06/2017 [facility] 4:28 AM [facility] % Basophils 0.5 % 04/06/2017 [facility] 4:28 AM [facility] % Immature 0.2 % 04/06/2017 [facility] Granulocytes 4:28 AM [facility] Nucleated RBCs 0 0 /100 04/06/2017 [facility] 4:28 AM [facility] Absolute 4.9 1.6 - 8.3 04/06/2017 [facility] Neutrophil 10e9/L 4:28 AM [facility] Absolute 2.4 0.8 - 5.3 04/06/2017 [facility] Lymphocytes 10e9/L 4:28 AM [facility] Absolute 0.6 0.0 - 1.3 04/06/2017 [facility] Monocytes 10e9/L 4:28 AM [facility] Absolute 0.1 0.0 - 0.7 04/06/2017 [facility] Eosinophils 10e9/L 4:28 AM [facility] Absolute 0.0 0.0 - 0.2 04/06/2017 [place] Basophils 10e9/L 4:28 AM [facility] Abs Immature 0.0 0 - 0.4 04/06/2017 [facility] Granulocytes 10e9/L 4:28 AM [facility] Absolute 0.0 04/06/2017 [place] Nucleated RBC 4:28 AM [facility] Specimen Anatomical Collection Method Collection Time Receive d Time (Source) Location / / Volume Laterality Blood specimen 04/06/2017 4:10 AM 017 4:24 (specimen) CDT AM CDT Luis Jones MD LAB - BLOOD ORDERABLES Performing Organization Address City/State/ZIP Code Phon e Number [place] [address] [address] [facility] [address] [phone] (ABNORMAL) UA with Microscopic (04/06/2017 4:10 AM CDT) [facility] Method Time Signature Color Urine Yellow 04/06/2017 [place] 4:38 AM [facility] Appearance Urine Slightly 04/06/2017 [place] Cloudy 4:38 AM [facility] Glucose Urine Negative NEG^Negat 04/06/2017 [place] kvng mg/dL 4:38 AM [facility] Bilirubin Urine Negative NEG^Negat 04/06/2017 [place] kvng 4:38 AM [facility] Ketones Urine Negative NEG^Negat 04/06/2017 [place] kvng mg/dL 4:38 AM [facility] Specific [place] 1.013 1.003 - 04/06/2017 [place] Urine 1.035 4:38 AM [facility] Blood Urine Small (A) NEG^Negat 04/06/2017 [place] kvng 4:38 AM [facility] pH Urine 5.0 5.0 - 7.0 04/06/2017 [place] pH 4:38 AM [facility] Protein Albumin 30 (A) NEG^Negat 04/06/2017 [place] Urine kvng mg/dL 4:38 AM [facility] Urobilinogen 0.0 0.0 - 2.0 04/06/2017 [place] mg/dL mg/dL 4:38 AM [facility] Nitrite Urine Negative NEG^Negat 04/06/2017 [place] kvng 4:38 AM [facility] Leukocyte Large (A) NEG^Negat 04/06/2017 [place] Esterase Urine kvng 4:38 AM [facility] Source Midstream 04/06/2017 [place] Urine 4:25 AM [facility] WBC Urine 126 (H) 0 - 2 04/06/2017 [facility] /HPF 4:38 AM [facility] RBC Urine 15 (H) 0 - 2 04/06/2017 [facility] /HPF 4:38 AM [facility] WBC Clumps Present (A) NEG^Negat 04/06/2017 [place] kvng /HPF 4:38 AM [facility] Bacteria Urine Many (A) NEG^Negat 04/06/2017 [place] kvng /HPF 4:38 AM [facility] Squamous 1 0 - 1 04/06/2017 [place] Epithelial /HPF /HPF 4:38 AM [facility] Mucous Urine Present (A) NEG^Negat 04/06/2017 [place] kvng /LPF 4:38 AM [facility] Specimen (Source) Anatomical Collection Method Collection Time Re ceived Time Location / / Volume Laterality Examination of URINE SPECIMEN 04/06/2017 4:10 04/06/20 17 4:24 midstream urine OBTAINED BY CLEAN AM [facility] specimen CATCH PROCEDURE / (procedure) Unknown Luis Jones MD LAB - URINE ORDERABLES Performing Organization Address [facility]/ZIP [facility] Phon e Number [facility] [address] [place], [place] [address] [facility] [address] [place], [place] [address], [facility] [phone] HCG qualitative urine (04/06/2017 4:10 AM CDT) athologist Signature HCG Qual Urine Negative NEG^Negati 04/06/2017 [facility] 4:41 AM CDT [facility] Comment: This test is for screening purposes. ??R esults should be interpreted along with the clinical picture. ??Confirmation te sting is available if warranted by ordering [id number], HCG Quantitative Pregna ncy. Specimen Anatomical Collection Method Collection Time Receive d Time (Source) Location / / Volume Laterality Urine specimen URINE SPECIMEN 04/06/2017 4:10 AM 04/06 4:24 (specimen) OBTAINED BY CLEAN CDT AM CDT CATCH PROCEDURE / Unknown Luis Jones MD LAB - URINE ORDERABLES Performing Organization Address [facility]/ZIP [facility] Phon e Number [facility] [address] [place], [place] [address] [facility] [address] [place], [place] [address] [phone] documented in this encounter Visit Diagnoses Diagnosis [...] mg 0.3-0.5 mg, Intravenous, EVERY 10 MIN SD N, other, acute pain.?May administer if Respiratory [...] 04/05/2017 04/06/2017 0.9% sodium chloride BOLUS (COMPLETED) 2312 (New Bag - Provider: Du Daniel RN)9365 (Stopped - Provider: Du Daniel RN) Intravenous, [...] (New Bag - Provider: Rahul Almaraz APRN CALKER)1140 (Anesthesia Volume Adjustment - Provider: Rahul Almaraz APRN [facility]) at 25 mL/hr, Intravenous, CONTINUOUS, IF patient [...] mg 0.3-0.5 mg, Intravenous, EVERY 10 MIN SD N, Starting Sun04/06/17 at 1213, Until Sun04/06/17 [...] (See Alternative - Provider: Rahul Almaraz APRN [facility])1651 (Unhold - Provider: Orders Generic Provider) 4 [...] management)
documented in this encounter Care Teams Comb Machine Operator Relationship Specialty Start Date End Date No Ref-Primary, Physician PCP - General 04/06/17 documented as of this encounter
[2022-05-16 18:50] VITALS: PULSE 111; O2SAT 98
[2022-05-16 18:52] VITALS: TEMP 36.7
[2022-05-16 18:53] VITALS: BP 122/75; PULSE 94
[2022-05-16 19:15] LABS: Amnisure Rom* Negative
--- NOTE | 2022-05-16 20:18 | CRLHL7_ITS ---
For Patients: As a result of the Century Cures Act, medical imaging exams and procedure reports are released immediately into your electronic medical record. You may view this report before your referring provider. If you have questions, please contact your health care provider. INDICATION: Prolonged decelerations. TECHNIQUE: Ultrasound OB pelvis transabdominal. Real-time crawford-scale imaging of the fetus was performed without stress testing. COMPARISON: May 09, 2022. FINDINGS: Sonographic imaging demonstrates a single living intrauterine gestation. Fetus demonstrates a regular cardiac rate of 137 beats per minute. Fetus has a vertex orientation. Amniotic fluid volume single deepest pocket 9.1 cm 2/2. motion 2/2. tone 2/2. breathing movements 2/2. IMPRESSION: Single viable intrauterine with a biophysical profile 8/8. Mildy increased Amniotic fluid index of 27.7 centimeters, with deepest pocket measuring 9.1 centimeters. Dictated by Thierry Wiley MD @ 05/16/2022 9:56:24 PM (Electronically Signed)
--- NOTE | 2022-05-16 21:48 | PM.OBLDTN ---
OB - Triage/Final Diagnosis Visit Information Time Seen by Provider: 09:40 Date Seen: 05/16/22 Narrative: Fauzia is a 31 year old 3 para 1011 at 37 3/7 weeks gestation by LMP, who presents with possible rupture of membranes. This was ruled out by anmisure. Prior to discharge home she had an indeterminant FHR episode. BPP was ordered to assess status by FHR tracing was reassuring since. BPP was 8/8. MARSHALL was elevated at 27, tech report nor radiology report available to confirm. Discussed diagnosis of Mild Poly. Will plan for BPP next visit. All questions answered. Patient discharged to home. Reason for evaluation: other Evaluation Laboratory results: Laboratory Tests 05/16/22 Range/Units 19:05 Membrane Rupture Negative Vital signs: Vital Signs - 24 hr 05/16/22 18:50 05/16/22 18:53 Pulse Rate 94 Blood Pressure 122/75 Pulse Oximetry 98 Fetus (Single) Heart Rate Baseline: 130 Grinder Setup Operator Variability: Moderate (11-25) Monitor Accelerations: Absent Monitor Decelerations: None Final Diagnosis (1) Polyhydramnios affecting : Status: Acute Problem details: Mild, MARSHALL 27
--- NOTE | 2022-05-16 22:20 | PC.OBNST ---
NST Note NST Note Start: 05/16/22 19:01 Freq: ONCE Status: Active Protocol: Document 05/16/22 21:51 MARILY[place] (Rec: 05/16/22 22:20 MAR[place] [id number]) NST Note 3 Para (# of births) 1 EDC 06/03/22 Gestational Age In Weeks & Days 37 Weeks & 3 Days Patient Presented with Complaint(s) of Leaking fluid Other Complaints Indeterminant decel audibly heard at bedside during NST. BPP 02/27. Reactive Yes Appropriate for Gestational Age Yes TIFFANIE Land, RNC Date 05/16/22 Reactive Yes Appropriate for Gestational Age Yes TIFFANIE Pinon, RN Date 05/16/22 OB NST charge Yes Complete NST Note via Write Note Yes The provider's electronic signature indicates the NST is reactive/appropriate for gestational age. *Note to provider: If an addendum is required, open the patient's chart and click on the note under the Nurse/Allied Health tab.
== END 2022-05-16 21:51 | disposition home or self-care (01) ==
LOC: OB OUT 18:36 → OB 18:37
PROVIDERS: PCP Advanced Practice Midwife; Visit Provider Advanced Practice Midwife
DX: Z34.93 Encounter for supervision of normal pregnancy, unspecified, third trimester (principal); Z3A.37 37 weeks gestation of pregnancy
CPT/HCPCS: 59025; 76819; 84112; 99213

== ENCOUNTER 2022-05-23 08:36 | Outpatient (CLI) | payer BC, SELFPAY ==
--- OUTSIDE RECORDS SUMMARY | 2022-05-23 08:41 | XMS_ITS | Clinical Summary ---
:1990 Author Organization [place] Address [address] [place] [address] Care Team Providers Name Role Phone No Ref-Primary, Physician Primary Care Provider [phone] Allergies Active Allergy Reactions Severity Noted [...] Specialty Care Team Description 04/24/2022 Hospital Encounter drapery and upholstery estimator aCssie Coy M D 04/24/2022 Travel from Last [...] 64 Years) Medical Devices Implanted Type Area Cyber Transport Systems Specialist Device Shelf Model / Identifier Expiration Serial / Date Lot Stent Ureteral Dbl Pigtail Inlay [id number] Stent Left: CR BARD 05/12/2021 [id number] / Implanted: Qty: 1 on 04/06/2017 by Jae diego, Chau Ribeiro MD at [facility] [employer]UR[employer] / [id number] Procedures Procedure Name Priority Date/Time Associated Diagnosis Comme nts RUPTURE OF STAT 04/24/2022 9:12 PM Resul ts for this MEMBRANES BY ROM CDT procedure a re in PLUS the results section. NON-STRESS 04/24/2022 12:00 AM TEST - HIM SCAN CDT from Last 3 Months Results Rupture of Membranes by ROM Plus (04/24/2022 9:12 PM CDT) [facility] gist Method Time Signature Rupture of [...] Address City/State/ZIP Code [place] [address] Care Lab [address] [...] ss Type Group BCBS BCBS OUT OF [id number] 2021-Present [phone] [address] [address] [place] [address] Advance Directives For more information, please contact: [phone] Latest Code Status on File Code Status Date Activated Date Inactivated Comments Full Code 04/06/2017 9:39 AM 12/14/2020 10:47 AM Code Status History Code Status Date Activated Date Inactivated Comments Full Code 04/06/2017 6:57 AM 04/06/2017 9:39 AM Care Teams Admissions Supervisor Relationship Specialty Start Date End Date No Ref-Primary, Physician PCP - General 12/14/20
--- OUTSIDE RECORDS SUMMARY | 2022-05-23 08:42 | XMS_ITS | Encounter Summary ---
:1990 Author Organization [place] Address [address] [place] [address] Care Team Providers Name Role Phone No Ref-Primary, Physician Primary Care Provider Unavailable Encounter Details Date Type Department Care Team Description 04/11/2017 Telephone [facility] REPORTING Pricilla Shin, [address] [address] [address] [phone] [place], [place] [address] (Wo rk) Social History [...] on filedocumented in this encounter Care Teams Magnetic Resonance Imaging Coordinator Relationship Specialty Start Date End Date No Ref-Primary, Physician PCP - General 04/06/17 documented as of this encounter
--- OUTSIDE RECORDS SUMMARY | 2022-05-23 08:42 | XMS_ITS | Encounter Summary ---
:1990 Author Organization [place] Address [address] [place] [address] Care Team Providers Name Role Phone No Ref-Primary, Physician Primary Care Provider Unavailable Encounter Details Date Type Department Care Team Description 04/06/2017 Anesthesia Event M [facility] Eleanor Alfredo [facility] Services MD [place] [address] [place], [place] ANESTHESIA [address] [address] [phone] [place] [address] Anesthesia Record Procedure Summary Procedure Name [...] Rahul Almaraz, Rahul Mitchell laryngeal mask airway; HEAD CD REACTOR OPERATOR WASTE REMOVALIST ISABELLA Lewis WASTE REMOVALIST center of mouth; Equal, clear and bilateral; WASTE REMOVALIST Incision/Surgical Site 04/06/17; 1118; Other 04/06/17 1118 [...] benefits and alternatives discussed with: Patient or employee relations representative and Patient.. . documented in this [...] prepare to transfer to PACU, Report to DIRECTOR MICROBIOLOGY. VSS transfer care Vitals: (Last set prior to Anesthesia Care Transfer) WASTE REMOVALIST VITALS 04/06/2017 1106 - 04/06/2017 1140 04/06/2017 Pulse: 126 SpO2: 100 % Resp Rate (observed): 10 Electronically Signed By: Rahul Almaraz APRN WASTE REMOVALIST April 06, 2017 11:40 AM documented in [...] Intra-op documented in this encounter Care Teams Social Media Community Manager Relationship Specialty Start Date End Date No Ref-Primary, Physician PCP - General 04/06/17 documented as of this encounter
--- OUTSIDE RECORDS SUMMARY | 2022-05-23 08:42 | XMS_ITS | Encounter Summary ---
:1990 Author Organization [place] Address [facility]ly [facility] [place] [address] Care Team Providers Name Role Phone No Ref-Primary, Physician Primary Care Provider [phone] Reason for Referral Diagnostic Imaging Ultrasound (Routine) - Pending Review Specialty Diagnoses / Procedures Referred By Contact Refer red To Contact Diagnoses related condition, antepartum Rh Maternal Med Procedures [facility] US Comprehensive Single [address] [place] [address] Referral ID Status Reason Start Date Expiration Date Visits V isits Requested Authorized [id number] Pending 01/03/2022 01/03/2023 1 1 Review Reason for Visit Diagnostic Imaging Ultrasound (Routine) - Pending Review Specialty Diagnoses / Procedures Referred By Contact Refer red To Contact Diagnoses related condition, antepartum Rh Maternal Med Procedures [facility] US Comprehensive Single [address] [facility] [address] [place] [address] Referral ID Status Reason Start Date Expiration Date Visits V isits Requested Authorized [id number] Pending 01/03/2022 01/03/2023 1 1 Review Encounter Details Date Type Department Care Team Description 01/13/2022 [facility] Non-Fv Credentialed Pro vider, Radiology related Encounter Maternal Contag, Chau Frazier MD [address] [facility] [address] [place] [address] condition, Medicine Center Osmin Aiken MD [address] [place] [address] antepartum [place] [address] [facility] [address] [place] [address] Social History Tobacco Use Types [...] Procedure Name Priority Date/Time Associated Comments Diagnosis [facility] US COMPREHENSIVE Routine 01/13/2022 9:39 AM rela seferino Results for this SINGLE CDT condition, procedure are i n antepartum the results section. documented in this encounter Results [facility] US Comprehensive Single (01/13/2022 9:39 AM [...] FAUZIA Study Date: 01/13/2022 8:45am Pat. NO: [id number] Referring ??MD: NIURKA MENDIETA Site: [employer] Geotechnical Engineering Technician: Salma Piña : 1990 Age: 31 INDICATION [...] lb 15 ? oz EFW by ?Hadlock ([id number]) Head / Face / Neck Biometry: German Instructor ? 6.5 ? mm CM ?4.2 ? [...] cava. Inferior vena cava. 3-vessel ? view. 1-afzbph-eexxdar view. Cardiac position. Cardiac size. Cardiac rhythm. [...] Comprehensive Name:Newton ESPOSITO te:01/13/2022 8:45am Pat. NO: [id number] MD:MAGY MENDIETA [facility]:Germain Mcnally RDMS :1990Age:31 INDICATION COVID in METHOD [...] 0 lb 15 oz EFW by Hadlock ([id number]) Head / Face / Neck Biometry: German Instructor 6.5 mm CM 4.2 mm Nasal bone [...] vena cava. Inferior vena cava. 3-vessel view. 0-unrsqc-wupzely view. Cardiac po sition. Cardiac size. Cardiac [...] ultrasound were evident. Radiology Non-Fv Credentialed Provider [facility] US TL LEWIS documented in this encounter Visit Diagnoses Diagnosis related condition, antepartum documented in this encounter Care Teams Insurance Licensing Supervisor Relationship Specialty Start Date End Date No Ref-Primary, Physician PCP - General 12/14/20 documented as of this encounter
--- OUTSIDE RECORDS SUMMARY | 2022-05-23 08:42 | XMS_ITS | Encounter Summary ---
:1990 Author Organization [place] Address [address] [place] [address] Care Team Providers Name Role Phone No Ref-Primary, Physician Primary Care Provider [phone] Reason for Referral Diagnostic Imaging Ultrasound (Routine) - Pending Review Specialty Diagnoses / Procedures Referred By Contact Refer red To Contact Diagnoses related condition, antepartum Rh Maternal Med Procedures [facility] US Comprehensive Single [address] [place] [address] Referral ID Status Reason Start Date Expiration Date Visits V isits Requested Authorized [id number] Pending 01/03/2022 01/03/2023 1 1 Review onsultation (Routine: Next available opening) - Pending Review Specialty Diagnoses / Procedures Referred By Contact Refer red To Contact Diagnoses related condition, antepartum Rh Maternal Med [address] [place] [address] Referral ID Status Reason Start Date Expiration Date Visits V isits Requested Authorized [id number] Pending 01/03/2022 01/03/2023 1 1 Review Encounter Details Date Type Department Care Team Description 01/03/2022 Transcribe Orders [facility] Lexi Mendieta, related Maternal TAPPET AD[facility]ER [facility] antepartum (Primary [address] Dx) [address] [employer] [address] [place], [place] [address] Social History Tobacco Use Types Packs/Day [...] 07/02/2022 documented as of this encounter Results [facility] US Comprehensive Single (01/13/2022 9:39 AM [...] ESPOSITO Study Date: 01/13/2022 8:45am Pat. NO: [id number] Referring ??: NIURKA MENDIETA Site: [facility] Ship Officer: Salma Piña : 1990 Age: 31 INDICATION [...] lb 15 ? oz EFW by ?Hadlock ([id number]-FL) Head / Face / Neck Biometry: Edger Hand ? 6.5 ? mm CM ?4.2 ? [...] cava. Inferior vena cava. 3-vessel ? view. 9-vuqhkw-jnucpao view. Cardiac position. Cardiac size. Cardiac rhythm. [...] STUBBS Newton Jose te:01/13/2022 8:45am Pat. NO: [id number] MD:LEXI MENDIETA [facility]Germain Mcnally [...] 0 lb 15 oz EFW by Hadlock (SCP-EB-TC-FL) Head / Face / Neck Biometry: Edger Hand 6.5 mm CM 4.2 mm Nasal bone [...] vena cava. Inferior vena cava. 3-vessel view. 7-ekqmve-wptrnqn view. Cardiac po sition. Cardiac size. Cardiac [...] were evident. Radiology Non-Fv Credentialed Provider [facility] US TL LEWIS documented in this encounter Visit Diagnoses Diagnosis related condition, antepartum - Primary related condition, antepartum documented in this encounter Care Teams Customer Service Coordinator Relationship Specialty Start Date End Date No Ref-Primary, Physician PCP - General 12/14/20 documented as of this encounter
--- OUTSIDE RECORDS SUMMARY | 2022-05-23 08:42 | XMS_ITS | Encounter Summary ---
:1990 Author Organization [place] Address [address] [place] [address] Care Team Providers Name Role Phone No Ref-Primary, Physician Primary Care Provider [phone] Reason for Visit Reason Comments Chest Pain Encounter Details Date Type Department Care Team Description 12/14/2020 [facility] PA-C [address] [facility] [place] [address] [address] [phone] [address] [place], [place] [address] (Wo rk) Social History Tobacco Use Types [...] sent through Care Everywhere. Chest Pain, Noncardiac (Bahamian)documented in this encounter Medications at Time of [...] sinus arrhythmia. Normal ECG. Rate 66 bpm. FL interval 138 ms. QRS duration 104 ms. [...] patient is a HEART score of 1 ([id number]) and I feel ACS or mycocarditis is [...] with platelets differential (12/14/2020 3:45 PM CDT) [facility] Method Time Signature WBC 5.5 4.0 - 12/14/2020 [facility] 11.0 4:09 PM [facility] 10e9/L [facility] RBC Count 3.79 (L) 3.8 - 5.2 12/14/2020 [facility] 10e12/L 4:09 PM [facility] Hemoglobin 11.9 11.7 - 12/14/2020 [facility] 15.7 g/dL 4:09 PM [facility] Hematocrit 37.2 35.0 - 12/14/2020 [facility] 47.0 % 4:09 PM [facility] MCV 98 78 - 100 12/14/2020 [facility] fl 4:09 PM [facility] MCH 31.4 26.5 - 12/14/2020 [facility] 33.0 pg 4:09 PM [facility] MCHC 32.0 31.5 - 12/14/2020 [facility] 36.5 g/dL 4:09 PM [facility] RDW 12.8 10.0 - 12/14/2020 [facility] 15.0 % 4:09 PM [facility] Platelet Count 195 150 - 450 12/14/2020 [facility] 10e9/L 4:09 PM [facility] Diff Method Automated 12/14/2020 [facility] Method 4:09 PM [facility] % Neutrophils 58.3 % 12/14/2020 [facility] 4:09 PM [facility] % Lymphocytes 27.5 % 12/14/2020 [facility] 4:09 PM [facility] % Monocytes 11.5 % 12/14/2020 [facility] 4:09 PM [facility] % Eosinophils 1.8 % 12/14/2020 [facility] 4:09 PM [facility] % Basophils 0.5 % 12/14/2020 [facility] 4:09 PM [facility] % Immature 0.4 % 12/14/2020 [facility] Granulocytes 4:09 PM [facility] Nucleated RBCs 0 0 /100 12/14/2020 [facility] 4:09 PM [facility] Absolute 3.2 1.6 - 8.3 12/14/2020 [facility] Neutrophil 10e9/L 4:09 PM [facility] Absolute 1.5 0.8 - 5.3 12/14/2020 [facility] Lymphocytes 10e9/L 4:09 PM [facility] Absolute 0.6 0.0 - 1.3 12/14/2020 [facility] Monocytes 10e9/L 4:09 PM [facility] Absolute 0.1 0.0 - 0.7 12/14/2020 [facility] Eosinophils 10e9/L 4:09 PM [facility] Absolute 0.0 0.0 - 0.2 12/14/2020 [facility] Basophils 10e9/L 4:09 PM [facility] Abs Immature 0.0 0 - 0.4 12/14/2020 [facility] Granulocytes 10e9/L 4:09 PM [facility] Absolute 0.0 12/14/2020 [place] Nucleated RBC 4:09 PM [facility] Specimen Anatomical Collection Method Collection Time Receive d Time (Source) Location / / Volume Laterality 12/14/2020 3:45 PM 3:58 CDT PM CDT Daniel Mckinnon PA-C LAB - BLOOD ORDERABLES Performing Organization Address City/State/ZIP Code Phon e Number M [facility] [address] [place], [place] [address] [facility] [address] [phone] D dimer quantitative (12/14/2020 3:45 PM CDT) athologist Signature D Dimer 0.3 0.0 - 0.50 12/14/2020 [facility] 2001 ug/ml FEU 4:30 PM CDT [facility] Comment: This D-dimer assay is intended [...] LAB - BLOOD ORDERABLES Performing Organization Address [facility] Phon e Number [facility] [address] [place], [place] [address] [address] [address] [phone], [facility] [phone] HCG qualitative (12/14/2020 1:55 PM CDT) [facility] gist Method Time Signature HCG Qualitative Negative NEG^Negati 12/14/2020 [place] Serum ve 3:57 PM CDT [facility] Comment: This test is for screening purposes. ??R esults should be interpreted along with the clinical picture. ??Confirmation te sting is available if warranted by ordering [id number], HCG Quantitative Pregna ncy. Specimen Anatomical Collection Method Collection Time Receive d Time (Source) Location / / Volume Laterality 12/14/2020 1:55 PM 1 2:45 CDT PM CDT Edith Ortega MD LAB - BLOOD ORDERABLES Performing Organization Address [facility]/ZIP [facility] Phon e Number M [facility] [address] [place], [place] [address] [facility] [address] [address] 7, [facility] [phone] Troponin I (12/14/2020 1:55 PM CDT) athologist Signature Troponin I ES <0.015 0.000 - 12/14/2020 [place] 0.045 ug/L 3:23 PM [facility] Comment: The 99th percentile for [...] Address City/State/ZIP Code Phon e Number M [facility] [address] [address] [facility] [address] [address], [place] [phone] (ABNORMAL) Basic metabolic panel (12/14/2020 1:55 PM CDT) athologist Signature Sodium 139 133 - 144 12/14/2020 [place] mmol/L 3:23 PM [facility] Potassium 3.8 3.4 - 5.3 12/14/2020 [place] mmol/L 3:23 PM [facility] Comment: Specimen slightly hemolyzed, po tassium may be falsely elevated Chloride 110 (H) 94 - 109 mmol/L 12/14/2020 3:23 PM [facility] Carbon Dioxide 23 20 - 32 mmol/L 12/14/2020 3:23 PM [facility] Anion Gap 6 3 - 14 mmol/L 12/14/2020 3:23 PM [facility] Glucose 84 70 - 99 mg/dL 12/14/2020 3:23 PM [facility] Urea Nitrogen 12 7 - 30 mg/dL 12/14/2020 3:23 PM [facility] Creatinine 0.88 0.52 - 1.04 mg/dL 12/14/2020 3:23 PM [facility] GFR Estimate 89 >60 12/14/2020 3:23 PM [facility] mL/min/{1.73_m2} [facility] Comment: Non GFR Calc Starting 07/09/2018, serum creatinine ba sed estimated GFR (eGFR) will be calculated using the Chronic Kidney Dise [facility] Epidemiology Collaboration (CKD-EPI) equation. GFR Estimate If >90 >60 mL/min/{1.73_m2} 12/14/2020 3: 23 PM [facility] Black [facility] Comment: GFR Calc Starting 07/09/2018, serum creatinine ba sed estimated GFR (eGFR) will be calculated using the Chronic Kidney Dise [facility] Epidemiology Collaboration (CKD-EPI) equation. Calcium 8.7 8.5 - 10.1 mg/dL 12/14/2020 3:23 PM CDT [facility] Specimen Anatomical Collection Method Collection Time Receive d Time (Source) Location / / Volume Laterality Blood 12/14/2020 1:55 PM 2:45 CDT PM CDT Daniel Mckinnon PA-C LAB - BLOOD ORDERABLES Performing Organization Address City/State/ZIP Code Phon e Number [facility] [address] [place], [place] [address] [facility] [address] [place] [address], [facility] [phone] EKG 12 lead (12/14/2020 12:42 PM CDT) [facility] Method Time Signature Interpretation ECG Click [...] unspecified documented in this encounter Care Teams Steam Tunnel Feeder Relationship Specialty Start Date End Date No Ref-Primary, Physician PCP - General 12/14/20 documented as of this encounter
--- OUTSIDE RECORDS SUMMARY | 2022-05-23 08:42 | XMS_ITS | Encounter Summary ---
:1990 Author Organization [place] Address [address] [place] [address] Care Team Providers Name Role Phone No Ref-Primary, Physician Primary Care Provider [phone] Encounter Details Date Type Department Care [...] on filedocumented in this encounter Care Teams Hammer Shop Supervisor Relationship Specialty Start Date End Date No Ref-Primary, Physician PCP - General 12/14/20 documented as of this encounter
--- OUTSIDE RECORDS SUMMARY | 2022-05-23 08:42 | XMS_ITS | Encounter Summary ---
:1990 Author Organization [place] Address [address] [place] [address]. [place] [address] Care Team Providers Name Role Phone No Ref-Primary, Physician Primary Care Provider Unavailable Reason for Visit Reason Comments Cystoscopy Stent Removal: Ureteral Ston e Encounter Details Date Type Department Care Team Description 04/17/2017 Office Visit [facility] George Goldberg [facility] [address] (Primary Urology Clinic Rowena Babin MD Dx) [address] [place] [address] [place] [address] [phone] Social History Tobacco Use Types Packs/Day Years [...] our office with any concerns or questions [facility] documented in this encounter Progress Notes [...] kidney documented in this encounter Care Teams Banking Attorney Relationship Specialty Start Date End Date No Ref-Primary, Physician PCP - General 04/06/17 documented as of this encounter
--- OUTSIDE RECORDS SUMMARY | 2022-05-23 08:42 | XMS_ITS | Encounter Summary ---
:1990 Author Organization [place] Address [address] [place] [address] Care Team Providers Name Role Phone No Ref-Primary, Physician Primary Care Provider [phone] Reason for Visit Reason Comments Ultrasound L2- covid in Encounter Details Date Type Department Care Team Description 01/05/2022 PRE VISIT [facility], Ultrasound (L2- covid in Maternal Medicine TIFFANIE Chavira ) [place] [address] [facility] [address] [place] [address] Social History Tobacco Use Types Packs/Day Years Used Date Smoking Tobacco: Every Day Smokeless Tobacco: Never Sex Assigned at Date Recorded Not on file documented as of this encounter Plan of Treatment Not on filedocumented as of this encounter Visit Diagnoses Not on filedocumented in this encounter Care Teams Piping Design Specialist Relationship Specialty Start Date End Date No Ref-Primary, Physician PCP - General 12/14/20 documented as of this encounter
--- OUTSIDE RECORDS SUMMARY | 2022-05-23 08:42 | XMS_ITS | Encounter Summary ---
:1990 Author Organization [place] Address [address] [place] [address]. [place] [address] Care Team Providers Name Role Phone No Ref-Primary, Physician Primary Care Provider [phone] Encounter Details Date Type Department Care Team Description 07/13/2021 Medical Correspondence [facility] Scan, MATERNAL Health Info Mgmt Non-Provider MEDICINE CE NTER Srvcs PROVIDER SERVICE [address] [place] [address] [place] [address] [facility] [phone] [place] Social History Tobacco Use Types Packs/Day Years Used Date Smoking Tobacco: Every Day Smokeless Tobacco: Never Sex Assigned at Date Recorded Not on file documented as of this encounter Plan of Treatment Not on filedocumented as of this encounter Visit Diagnoses Not on filedocumented in this encounter Care Teams Spray Cementer Relationship Specialty Start Date End Date No Ref-Primary, Physician PCP - General 12/14/20 documented as of this encounter
--- OUTSIDE RECORDS SUMMARY | 2022-05-23 08:42 | XMS_ITS | Encounter Summary ---
:1990 Author Organization [place] Address [address] [place] [address] Care Team Providers Name Role Phone No Ref-Primary, Physician Primary Care Provider [phone] Encounter Details Date Type Department Care [...] on filedocumented in this encounter Care Teams Directional Driller Relationship Specialty Start Date End Date No Ref-Primary, Physician PCP - General 12/14/20 documented as of this encounter
--- OUTSIDE RECORDS SUMMARY | 2022-05-23 08:42 | XMS_ITS | Encounter Summary ---
:1990 Author Organization [place] Address [facility] [place] [address] Care Team Providers Name Role Phone No Ref-Primary, Physician Primary Care Provider [phone] Encounter Details Date Type Department Care Team Description 04/24/2022 Hospital Encounter [facility] Cassie [facility] [address] [facility] [address] [place] [address] [place] [address] [phone] (Wo rk) Social History Tobacco Use Types [...] day. Activity: Call your doctor or nurse multifocal button grinder if your baby is moving less than [...] cannot be sent through Care Everywhere.Kick Counts (Cape Verdean)documented in this encounter Medications at Time of [...] 9:23 PM CDT [address] [facility] ambulatory with spouse. Brought to room 2 to change into gown. History collected by Mallory RN and this RN. Patient here with complaint of increased discharge, and lost her mucus plug. Mucus-y discharge started around 1000, since then, has noticed an increase in watery discharge. Denies bleeding, denies contractions, endorses mild back ache and a heaviness. She is planning to deliver [place]. 36 w 2 d Hx bipolar disorder, [...] by ROM Plus (04/24/2022 9:12 PM CDT) [facility] Method Time Signature Rupture of Negative [...] Address City/State/ZIP Code Phon e Number [place] [address] [phone] Care [facility] [address] [place] [address] [...] Preadmission documented in this encounter Care Teams Assembly Loader Relationship Specialty Start Date End Date No Ref-Primary, Physician PCP - General 12/14/20 documented as of this encounter
--- OUTSIDE RECORDS SUMMARY | 2022-05-23 08:42 | XMS_ITS | Encounter Summary ---
:1990 Author Organization [place] Address [facility] [place] [address] Care Team Providers Name Role Phone No Ref-Primary, Physician Primary Care Provider [phone] Reason for Visit Reason Comments Ultrasound L2- covid in Encounter Details Date Type Department Care Team Description 01/13/2022 Office Visit [facility] Non-Fv Credent ialed Provider, Radiology COVID-19 affecting Maternal Contag, Chau Frazier MD [address] [place], [place] [address] in [facility] Osmin Aiken MD [address] [place] [address] trimester (Primary [place] Dx) [address] [facility] [address] [place] [address] Social History Tobacco Use Types [...] for details of today's US at the [facility]. Osmin Aiken MD Maternal- Medicine documented in this encounter Plan of Treatment Not on filedocumented as of this encounter Visit Diagnoses Diagnosis COVID-19 affecting in second t rimester - Primary documented in this encounter Care Teams Stone Breaker Relationship Specialty Start Date End Date No Ref-Primary, Physician PCP - General 12/14/20 documented as of this encounter
--- OUTSIDE RECORDS SUMMARY | 2022-05-23 08:42 | XMS_ITS | Encounter Summary ---
:1990 Author Organization [place] Address [address] [place] [address] Care Team Providers Name Role Phone No Ref-Primary, Physician Primary Care Provider [phone] Encounter Details Date Type Department Care Team [...] on filedocumented in this encounter Care Teams Icing Maker Relationship Specialty Start Date End Date No Ref-Primary, Physician PCP - General 12/14/20 documented as of this encounter
--- OUTSIDE RECORDS SUMMARY | 2022-05-23 08:42 | XMS_ITS | Encounter Summary ---
:1990 Author Organization [place] Address [address] [place] [address] Care Team Providers Name Role Phone Unavailable Primary Care Provider Unavailable Encounter Details Date Type Department Care Team Description 05/01/2017 Telephone [facility] REPORTING Chioma Harding PA-C [address] [place] [address] [address] [facility] [phone] [facility] [address] [place], [place] [address] (Wo rk) Social History [...]
--- OUTSIDE RECORDS SUMMARY | 2022-05-23 08:43 | XMS_ITS | Encounter Summary ---
:1990 Author Organization [place] Address [address] [place] [address] Care Team Providers Name Role Phone No Ref-Primary, Physician Primary Care Provider Unavailable Reason for Visit Reason Comments Flank Pain Encounter Details Date Type Department Care Team Description 04/06/[address] [facility] Luis Jones MD [facility] [address] [place] [address] [place] [address] [id number] Calculus of left ureter (Primary Dx); [place] PreOP/PostOP Mary Beth Barry MD Pyelonephritis; [address] [place] [address] Social History Tobacco Use Types [...] Taylor PA-C - 04/06/2017 9:39 AM CDT [facility] Outpatient / Observation Unit Discharge Summary Fauzia [...] [facility] VICENTE BLANDON & JORDAN [phone] During surgery, a stent may be placed [...] call your physician or the physician supervisor nutritional yeast if you experience: Fever greater than 101 degrees Severe pain not relieved by pain medication or rest Please make an appointment for the removal of the stent according to your physician's instructions. EXTRACORPOREAL SHOCK LITHOTRIPSY (ESWL) DISCHARGE INSTRUCTIONS VICENTE BLANDON [facility] JORDAN [phone] Your stone(s) has been fragmented into many [...] hours: Yes. Name: Sindhu (sammy), Contact information: [phone] Belongings/Valuables - Will be sent to [facility] with pt. Stakeholder Manager - Pt DOES NOT need an degreasing solution reclaimer. 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 Jordan Dahl PA-C [facility] Urology (text or call, Mon-Wed & [...] Jeff RN - 04/06/2017 5:33 AM CDT [facility] ED Nurse Handoff Report Fauzia Stubbs is a 26 year old female ED Chief complaint: Flank Pain . ED Diagnosis: Final diagnoses: Pyelonephritis Calculus of ureter Allergies: Allergies Allergen Reactions ??? Penicillins Code Status: Full Code Activity level - Baseline/Home: Independent. Activity Level - Current: Independent. Lift room needed: No. Bariatric: No Stakeholder Manager Needed: No Isolation: No. Infection: Not Applicable. [...] with flank pain. Patient woke this morning [id number] with left sided flank pain associated by [...] BOLUS (1,000 mLs Intravenous New Bag 04/06/17 9129) Followed by 0.9% sodium chloride infusion (not administered) ondansetron (ZOFRAN) injection 4 mg (4 mg Intravenous Given 04/06/17 9714) ciprofloxacin (CIPRO) infusion 400 mg (400 mg Intravenous New Bag 04/06/17 9229) HYDROmorphone (PF) (DILAUDID) injection 0.5 mg (not [...] Admitted to hospitalist service. Osmin Toure 04/06/2017 [facility] EMERGENCY DEPARTMENT I, Osmin Toure, am serving [...] The procedure began by introducing the 22 [place] rigid cystoscope through the urethra into the [...] MD MT: [id number] Name: FAUZIA STUBBS Account: [id number] : 1990 Procedure Date: 04/06/2017 Document: [id number] Pharmacy-Admission Medication History - Rosie Enrique RPH - 04/06/2017 9:41 AM CDT Admission medication history interview status for this patient is complete. See [facility] admission navigator for allergy information, prior to admission medications and immunization status. Medication history interview source(s): patient's mother Medication history resources (including written lists, pill bottles, clinic record):None Changes made to ACTIVITIES ATTENDANT medication list: Added: none Deleted: none Changed: [...] oob for safety. Will continue to monitor. Dragline Oiler Nurse Safe discharge environment identified: Yes Barriers [...] independent, order SW consult): ind with boyfriend fireperson: Sindhu, (Mother) Activity level at baseline: Ind [...] be read by a radiologist or a [place] non-radiologis t provider. Chau Ortega MD [facility] ORDER MARGARET Performing Organization Address City/State/ZIP Code Phon e Number RADIANT Surgical pathology exam (04/06/2017 11:23 AM CDT) Component Value Ref Test Analysis Performed At [facility] gist Range Method Time Signature Copath Report Patient Name: FAUZIA STUBBS MR#: [id number] Specimen #: [id number] Collected: 04/06/2017 Received: 04/06/2017 Reported: 04/06/2017 13:04 Ordering Phy(s): CHAU ORTEGA For improved result formatting, select 'View Enhanced Report Format' under Linked Documents section. SPECIMEN(S): Stone, left ureteral FINAL DIAGNOSIS: Left ureteral stone(s)- - Gross pathology the admission performed. - Submitted for chemical/stone analysis (see separate [facility] oming report for results). Electronically signed [...] microscopic sections are obtained. CPT Codes: A: 79532-HW TESTING LAB LOCATION: [address] ??[address] COLLECTION SITE: Client: [facility] Location: [facility] (R) Specimen Anatomical Collection Method Collection Time Receive d Time (Source) Location / / Volume Laterality 04/06/2017 11:23 04/06/2017 AM CDT 12:28 PM CDT Chau Ortega MD LAB - [facility] Performing Organization Address City/State/ZIP Code Phon e Number COPATH Stone analysis (04/06/2017 11:23 AM CDT) [facility] Method Time Signature Stone SEE NOTE 04/10/2017 [place] Composition 6:47 PM CDT [facility] Comment: (Note) Calculi composed primarily of: [...] omposition determined by FTIR analysis. Performed by [employer] [facility], [address] [place] [id number] [email or web address], Endy Reilly MD, Lab. Director Calculi Number Numerous 04/10/2017 6:47 PM CDT [facility] Calculi Size 1 to 4 mm 04/10/2017 6:47 PM CDT [facility] Calculi Description SEE NOTE 04/10/2017 6:47 PM C DT [facility] Comment: (Note) Specimen consists of numerous, small, brown/baldwin, irregular calculi fragments. Stone Mass 30 mg 04/10/2017 6:47 PM CDT [facility] Specimen (Source) Anatomical Collection Method Collection Time Re ceived Time Location / / Volume Laterality Calculus specimen STRUCTURE OF LEFT 04/06/2017 11:23 (specimen) URETER / Unknown AM CDT Chau Ortega MD LAB - BODY FLUIDS ORDERABLES Performing Organization Address City/State/ZIP Code Phon e Number [place] [address] [address] [facility] [address] [place], [place] [address] [place] [address] Abd/pelvis CT no contrast - Stone Protocol [...] CDT Luis Jones MD LAB - [facility] Performing Organization Address City/State/ZIP Code Phon e Number FV POINT OF CARE TEST, HANDHELD METER POINT OF CARE TEST, HANDHELD METER (ABNORMAL) Urine Culture Aerobic Bacterial (04/06/2017 4:10 AM CDT) Component Value Ref Test Analysis Performed At [facility] gist Range Method Time Signature Specimen Midstream Urine [facility] Special Specimen 04/06/2017 [facility] Requests received in 8:21 AM CDT [facility] preservative [facility] Culture Micro >100,000 colonies/mL 04/07/2017 [facility] Escherichia coli 9:26 PM CDT [facility] (A) [facility] Specimen (Source) Anatomical Collection Method Collection Time [...] Address City/State/ZIP Code Phon e Number [address] [address] [place] Lipase (04/06/2017 4:10 AM CDT) athologist Signature Lipase 148 73 - 393 04/06/2017 [facility] U/L 4:44 AM T [facility] Specimen Anatomical Collection Method Collection Time Receive d Time (Source) Location / / Volume Laterality Blood specimen 04/06/2017 4:10 AM 017 4:24 (specimen) CDT AM CDT Luis Jones MD LAB - BLOOD ORDERABLES Performing Organization Address City/[facility]/ZIP [facility] Phon e Number [facility] [address] [address] [facility] [address] [phone] (ABNORMAL) Comprehensive metabolic panel (04/06/2017 4:10 AM CDT) athologist Signature Sodium 137 133 - 144 04/06/2017 [place] mmol/L 4:44 AM T [facility] Potassium 3.2 (L) 3.4 - 5.3 04/06/2017 [place] mmol/L 4:44 AM [facility] Chloride 104 94 - 109 04/06/2017 [place] mmol/L 4:44 AM [facility] Carbon Dioxide 25 20 - 32 04/06/2017 [place] mmol/L 4:44 AM [facility] Anion Gap 8 3 - 14 04/06/2017 [place] mmol/L 4:44 AM [facility] Glucose 102 (H) 70 - 99 04/06/2017 [place] mg/dL 4:44 AM [facility] Urea Nitrogen 12 7 - 30 04/06/2017 [place] mg/dL 4:44 AM [facility] Creatinine 0.80 0.52 - 04/06/2017 [facility] 1.04 mg/dL 4:44 AM [facility] GFR Estimate 88 >60 04/06/2017 [place] mL/min/1.7 4:[address] Comment: Non GFR Calc GFR Estimate If >90 >60 mL/min/1.7m2 04/06/2017 4:[address] [facility] Comment: GFR Calc Calcium 8.9 8.5 - 10.1 mg/dL 04/06/2017 4:44 AM [facility] Bilirubin Total 0.4 0.2 - 1.3 mg/dL 04/06/2017 4:44 AM [facility] Albumin 4.1 3.4 - 5.0 g/dL 04/06/2017 4:44 AM [facility] Protein Total 8.1 6.8 - 8.8 g/dL 04/06/2017 4:44 AM [facility] Alkaline Phosphatase 108 40 - 150 U/L 04/06/2017 4:44 AM [facility] ALT 23 0 - 50 U/L 04/06/2017 4:44 AM [facility] AST 10 0 - 45 U/L 04/06/2017 4:44 AM [facility] Specimen Anatomical Collection Method Collection Time Receive d Time (Source) Location / / Volume Laterality Blood specimen 04/06/2017 4:10 AM 017 4:24 (specimen) CDT [facility] MD LAB - BLOOD ORDERABLES Performing Organization Address City/State/ZIP Code Phon e Number [facility] [address] [place], [place] [address] [facility] [address] [place], [place] [address] [facility] [phone] CBC with platelets differential (04/06/2017 4:10 AM [facility]) [facility] gist Method Time Signature WBC 8.1 4.0 - 04/06/2017 [facility] 11.0 4:28 AM [facility] 10e9/L [facility] RBC Count 4.40 3.8 - 5.2 04/06/2017 [facility] 10e12/L 4:28 AM [facility] Hemoglobin 13.5 11.7 - 04/06/2017 [facility] 15.7 g/dL 4:28 AM [facility] Hematocrit 40.0 35.0 - 04/06/2017 [facility] 47.0 % 4:28 AM [facility] MCV 91 78 - 100 04/06/2017 [facility] fl 4:28 AM [facility] MCH 30.7 26.5 - 04/06/2017 [facility] 33.0 pg 4:28 AM [facility] MCHC 33.8 31.5 - 04/06/2017 [facility] 36.5 g/dL 4:28 AM [facility] RDW 13.1 10.0 - 04/06/2017 [facility] 15.0 % 4:28 AM [facility] Platelet Count 278 150 - 450 04/06/2017 [facility] 10e9/L 4:28 AM [facility] Diff Method Automated 04/06/2017 [facility] Method 4:28 AM [facility] % Neutrophils 60.6 % 04/06/2017 [facility] 4:28 AM [facility] % Lymphocytes 29.5 % 04/06/2017 [facility] 4:28 AM [facility] % Monocytes 7.7 % 04/06/2017 [facility] 4:28 AM [facility] % Eosinophils 1.5 % 04/06/2017 [facility] 4:28 AM [facility] % Basophils 0.5 % 04/06/2017 [facility] 4:28 AM [facility] % Immature 0.2 % 04/06/2017 [facility] Granulocytes 4:28 AM [facility] Nucleated RBCs 0 0 /100 04/06/2017 [facility] 4:28 AM [facility] Absolute 4.9 1.6 - 8.3 04/06/2017 [facility] Neutrophil 10e9/L 4:28 AM [facility] Absolute 2.4 0.8 - 5.3 04/06/2017 [facility] Lymphocytes 10e9/L 4:28 AM [facility] Absolute 0.6 0.0 - 1.3 04/06/2017 [facility] Monocytes 10e9/L 4:28 AM [facility] Absolute 0.1 0.0 - 0.7 04/06/2017 [facility] Eosinophils 10e9/L 4:28 AM [facility] Absolute 0.0 0.0 - 0.2 04/06/2017 [place] Basophils 10e9/L 4:28 AM [facility] Abs Immature 0.0 0 - 0.4 04/06/2017 [facility] Granulocytes 10e9/L 4:28 AM [facility] Absolute 0.0 04/06/2017 [place] Nucleated RBC 4:28 AM [facility] Specimen Anatomical Collection Method Collection Time Receive d Time (Source) Location / / Volume Laterality Blood specimen 04/06/2017 4:10 AM 017 4:24 (specimen) CDT AM CDT Luis Jones MD LAB - BLOOD ORDERABLES Performing Organization Address City/State/ZIP Code Phon e Number [place] [address] [address] [address] [facility] [address] [phone] (ABNORMAL) UA with Microscopic (04/06/2017 4:10 AM CDT) [facility] Method Time Signature Color Urine Yellow 04/06/2017 [place] 4:38 AM [facility] Appearance Urine Slightly 04/06/2017 [place] Cloudy 4:38 AM [facility] Glucose Urine Negative NEG^Negat 04/06/2017 [place] mg/dL 4:38 AM [facility] Bilirubin Urine Negative NEG^Negat 04/06/2017 [place] kvng 4:38 AM [facility] Ketones Urine Negative NEG^Negat 04/06/2017 [place] mg/dL 4:38 AM [facility] Specific [place] 1.013 1.003 - 04/06/2017 [place] Urine 1.035 4:38 AM [facility] Blood Urine Small (A) NEG^Negat 04/06/2017 [place] kvng 4:38 AM [facility] pH Urine 5.0 5.0 - 7.0 04/06/2017 [place] pH 4:38 AM [facility] Protein Albumin 30 (A) NEG^Negat 04/06/2017 [place] Urine kvng mg/dL 4:38 AM [facility] Urobilinogen 0.0 0.0 - 2.0 04/06/2017 [place] mg/dL mg/dL 4:38 AM [facility] Nitrite Urine Negative NEG^Negat 04/06/2017 [place] kvng 4:38 AM [facility] Leukocyte Large (A) NEG^Negat 04/06/2017 [place] Esterase Urine kvng 4:38 AM [facility] Source Midstream 04/06/2017 [place] Urine 4:25 AM [facility] WBC Urine 126 (H) 0 - 2 04/06/2017 [facility] /HPF 4:38 AM [facility] RBC Urine 15 (H) 0 - 2 04/06/2017 [facility] /HPF 4:38 AM [facility] WBC Clumps Present (A) NEG^Negat 04/06/2017 [place] kvng /HPF 4:38 AM [facility] Bacteria Urine Many (A) NEG^Negat 04/06/2017 [place] kvng /HPF 4:38 AM [facility] Squamous 1 0 - 1 04/06/2017 [place] Epithelial /HPF /HPF 4:38 AM [facility] Mucous Urine Present (A) NEG^Negat 04/06/2017 [place]ng /LPF 4:38 AM [facility] Specimen (Source) Anatomical Collection Method Collection Time Re ceived Time Location / / Volume Laterality Examination of URINE SPECIMEN 04/06/2017 4:10 04/06/20 17 4:24 midstream urine OBTAINED BY CLEAN AM [facility] specimen CATCH PROCEDURE / (procedure) Unknown Luis Jones MD LAB - URINE ORDERABLES Performing Organization Address [facility]/ZIP [facility] Phon e Number [facility] [address] [place], [place] [address] [facility] [address] [place], [place] [address], [facility] [phone] HCG qualitative urine (04/06/2017 4:10 AM CDT) athologist Signature HCG Qual Urine Negative NEG^Negati 04/06/2017 [facility] 4:41 AM CDT [facility] Comment: This test is for screening purposes. ??R esults should be interpreted along with the clinical picture. ??Confirmation te sting is available if warranted by ordering [id number], HCG Quantitative Pregna ncy. Specimen Anatomical Collection Method Collection Time Receive d Time (Source) Location / / Volume Laterality Urine specimen URINE SPECIMEN 04/06/2017 4:10 AM 04/06 4:24 (specimen) OBTAINED BY CLEAN CDT AM CDT CATCH PROCEDURE / Unknown Luis Jones MD LAB - URINE ORDERABLES Performing Organization Address [facility]/ZIP [facility] Phon e Number [facility] [address] [place], [place] [address] [facility] [address] [place], [place] [address] [phone] documented in this encounter Visit Diagnoses Diagnosis [...] mg 0.3-0.5 mg, Intravenous, EVERY 10 MIN [place] N, other, acute pain.?May administer if Respiratory [...] 04/05/2017 04/06/2017 0.9% sodium chloride BOLUS (COMPLETED) 9726 (New Bag - Provider: Du Daniel RN)6925 (Stopped - Provider: Du Daniel RN) Intravenous, [...] (New Bag - Provider: Rahul Almaraz APRN ACUPUNCTURIST)1140 (Anesthesia Volume Adjustment - Provider: Rahul Almaraz APRN ACUPUNCTURIST) at 25 mL/hr, Intravenous, CONTINUOUS, IF patient [...] mg 0.3-0.5 mg, Intravenous, EVERY 10 MIN [place] N, Starting Sun04/06/17 at 1213, Until Sun04/06/17 [...] (See Alternative - Provider: Rahul Almaraz APRN ACUPUNCTURIST)1651 (Unhold - Provider: Orders Generic Provider) 4 [...] management)
documented in this encounter Care Teams Silverlight Developer Relationship Specialty Start Date End Date No Ref-Primary, Physician PCP - General 04/06/17 documented as of this encounter
--- OUTSIDE RECORDS SUMMARY | 2022-05-23 08:43 | XMS_ITS | Encounter Summary ---
:1990 Author Organization [facility] Address [address] [place] [address] Care Team Providers Name Role Phone No Ref-Primary, Physician Primary Care Provider Unavailable Reason for Visit Reason Comments Flank Pain Encounter Details Date Type Department Care Team Description 04/06/2017 Surgery [facility] Chau Ortega ED CYSTOSCOPY, [facility]ane Ribeiro MD LEFT URETEROSCOPY, [address] [place], [place] [address] LITHOTRIPSY [address]TER, [address] [place] [address] INSERTION LEFT STENT, (Wo rk) stone basketing, [...] Taylor PA-C - 04/06/2017 9:39 AM CDT [facility] Outpatient / Observation Unit Discharge Summary [...] [facility] VICENTE BLANDON & JORDAN [phone] During surgery, a stent may be placed [...] Please call your physician or the physician pump installation and servicer if you experience: Fever greater than 101 degrees Severe pain not relieved by pain medication or rest Please make an appointment for the removal of the stent according to your physician's instructions. EXTRACORPOREAL SHOCK LITHOTRIPSY (ESWL) DISCHARGE INSTRUCTIONS VICENTE BLANDON & JORDAN [phone] Your stone(s) has been fragmented into many [...] hours: Yes. Name: Sindhu (mom), Contact information: [phone] Belongings/Valuables - Will be sent to PeriOp with pt. Wood Caulker - Pt DOES NOT need an deaf interpreter. 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 Jordan Dahl PA-C [facility] Urology (text or call, Sun-Sun & [...] RN - 04/06/2017 5:[address] [facility] ED Nurse Handoff Report Fauzia Stubbs is a 26 year old female ED Chief complaint: Flank Pain . ED Diagnosis: Final diagnoses: Pyelonephritis Calculus of ureter Allergies: Allergies Allergen Reactions ??? Penicillins Code Status: Full Code Activity level - Baseline/Home: Independent. Activity Level - Current: Independent. Lift room needed: No. Bariatric: No Wood Caulker Needed: No Isolation: No. Infection: Not Applicable. [...] BOLUS (1,000 mLs Intravenous New Bag 04/06/17 8390) Followed by 0.9% sodium chloride infusion (not administered) ondansetron (ZOFRAN) injection 4 mg (4 mg Intravenous Given 04/06/17 8243) ciprofloxacin (CIPRO) infusion 400 mg (not administered) [...] with flank pain. Patient woke this morning [id number] with left sided flank pain associated by [...] Admitted to hospitalist service. Osmin Whiteer 04/06/2017 [facility] EMERGENCY DEPARTMENT I, Osmin Basurtoyder, [...] The procedure began by introducing the 22 Trinidadian rigid cystoscope through the urethra into the [...] EM#[id number] Name: FAUZIA STUBBS MRN: [id number] Account: [id number] : 1990 Procedure Date: 04/06/2017 Document: [id number] Pharmacy-Admission Medication History - [facility] - 04/06/2017 9:41 AM CDT Admission medication history interview status for this patient is complete. See [facility] admission navigator for allergy information, prior to admission medications and immunization status. Medication history interview source(s): patient's mother Medication history resources (including written lists, pill bottles, clinic record):None Changes made to [facility] medication list: Added: none Deleted: none Changed: [...] oob for safety. Will continue to monitor. Low Altitude Air Defense Officer Nurse Safe discharge environment identified: Yes Barriers [...] independent, order SW consult): ind with boyfriend automotive parts counter person: Sindhu, (Mother) Activity level [...] be read by a radiologist or a [facility] non-radiologis t provider. Chau Ortega MD IMG DIAGNOSTIC IMAGING ORDER MARGARET Performing Organization Address City/State/ZIP Code Phon e Number [facility] Surgical pathology exam (04/06/2017 11:23 AM CDT) Component Value Ref Test Analysis Performed At [facility] Range Method Time Signature Copath Report Patient Name: FAUZIA STUBBS MR#: [id number] Specimen #: [id number] Collected: 04/06/2017 Received: 04/06/2017 Reported: 04/06/2017 13:04 Ordering Phy(s): CHAU ORTEGA For improved result formatting, select 'View Enhanced Report Format' under Linked Documents section. SPECIMEN(S): Stone, left ureteral FINAL DIAGNOSIS: Left ureteral stone(s)- - Gross pathology the admission performed. - Submitted for chemical/stone analysis (see separate [facility] oming report for results). Electronically [...] microscopic sections are obtained. CPT Codes: A: 73773-IA TESTING LAB LOCATION: [address] ??[address] COLLECTION SITE: Client: [facility] Location: RHE (R) Specimen Anatomical Collection Method Collection Time Receive d Time (Source) Location / / Volume Laterality 04/06/2017 11:23 04/06/2017 AM CDT 12:28 PM CDT Chau Ortega MD [facility] Performing Organization Address City/State/ZIP Code Phon e Number COPATH Stone analysis (04/06/2017 11:23 AM CDT) [facility] Method Time Signature Stone SEE NOTE 04/10/2017 [place] Composition 6:47 PM CDT [facility] Comment: (Note) Calculi composed primarily [...] omposition determined by FTIR analysis. Performed by [facility], [address] [place] [address] [email or web address], Endy Reilly MD, Lab. Director Calculi Number Numerous 04/10/2017 6:[address] [facility] Calculi Size 1 to 4 mm 04/10/2017 6:47 PM CDT [facility] Calculi Description SEE NOTE 04/10/2017 6:47 PM C DT [facility] Comment: (Note) Specimen consists of numerous, small, brown/baldwin, irregular calculi fragments. Stone Mass 30 mg 04/10/2017 6:47 PM CDT [facility] Specimen (Source) Anatomical Collection Method Collection Time Re ceived Time Location / / Volume Laterality Calculus specimen STRUCTURE OF LEFT 04/06/2017 11:23 (specimen) URETER / Unknown AM CDT Chau Ortega MD LAB - BODY FLUIDS ORDERABLES Performing Organization Address City/State/ZIP Code Phon e Number [place] [address] [address] [place] [address] [facility] [address] [phone] Abd/pelvis CT no contrast - Stone Protocol [...] Signature Specimen Midstream Urine [facility] Description [facility] Special Specimen 04/06/2017 [facility] Requests received in 8:21 AM CDT [facility] preservative [facility] Culture Micro >100,000 colonies/mL 04/07/2017 [facility] Escherichia coli 9:26 PM CDT [facility] (A) [facility] Specimen (Source) Anatomical Collection [...] Organization Address City/State/ZIP Code Phon e Number [address] [address] [place] Lipase (04/06/2017 4:10 AM CDT) athologist Signature Lipase 148 73 - 393 04/06/2017 ISABELLA LOCKEFORDLashae U/L 4:44 AM CDT HOSPITAL Specimen Anatomical Collection Method Collection Time Receive d Time (Source) Location / / Volume Laterality Blood specimen 04/06/2017 4:10 AM 017 4:24 (specimen) CDT AM CDT Luis Jones MD LAB - BLOOD ORDERABLES Performing Organization Address City/State/ZIP Code Phon e Number [facility] [address] [place], [place] [address] H[facility] [address] [place], [place] [address] [phone] (ABNORMAL) Comprehensive metabolic panel (04/06/2017 4:10 AM [facility]) athologist Signature Sodium 137 133 - 144 04/06/2017 [place] mmol/L 4:44 AM [facility] Potassium 3.2 (L) 3.4 - 5.3 04/06/2017 [place] mmol/L 4:44 AM [facility] Chloride 104 94 - 109 04/06/2017 [place] mmol/L 4:44 AM [facility] Carbon Dioxide 25 20 - 32 04/06/2017 [place] mmol/L 4:44 AM [facility] Anion Gap 8 3 - 14 04/06/2017 [place] mmol/L 4:44 AM [facility] Glucose 102 (H) 70 - 99 04/06/2017 [place] mg/dL 4:44 AM [facility] Urea Nitrogen 12 7 - 30 04/06/2017 [place] mg/dL 4:44 AM [facility] Creatinine 0.80 0.52 - 04/06/2017 [place] 1.04 mg/dL 4:44 AM [facility] GFR Estimate 88 >60 04/06/2017 [place] mL/min/1.7 4:[address] Comment: Non GFR Calc GFR Estimate If >90 >60 mL/min/1.7m2 04/06/2017 4:44 A [facility] Comment: GFR Calc Calcium 8.9 8.5 - 10.1 mg/dL 04/06/2017 4:44 AM [facility] Bilirubin Total 0.4 0.2 - 1.3 mg/dL 04/06/2017 4:44 AM [facility] Albumin 4.1 3.4 - 5.0 g/dL 04/06/2017 4:44 AM [facility] Protein Total 8.1 6.8 - 8.8 g/dL 04/06/2017 4:44 AM [facility] Alkaline Phosphatase 108 40 - 150 U/L 04/06/2017 4:44 AM [facility] ALT 23 0 - 50 U/L 04/06/2017 4:44 AM [facility] AST 10 0 - 45 U/L 04/06/2017 4:44 AM [facility] Specimen Anatomical Collection Method Collection Time Receive d Time (Source) Location / / Volume Laterality Blood specimen 04/06/2017 4:10 AM 017 4:24 (specimen) CDT AM CDT Luis Jones MD LAB - BLOOD ORDERABLES Performing Organization Address City/State/ZIP Code Phon e Number [place] [address] [address] [place], [place] [address] [facility] [address] [phone] CBC with platelets differential (04/06/2017 4:10 AM CDT) [facility] Method Time Signature WBC 8.1 4.0 - 04/06/2017 [facility] 11.0 4:28 AM [facility] 10e9/L [facility] RBC Count 4.40 3.8 - 5.2 04/06/2017 [facility] 10e12/L 4:28 AM [facility] Hemoglobin 13.5 11.7 - 04/06/2017 [facility] 15.7 g/dL 4:28 AM [facility] Hematocrit 40.0 35.0 - 04/06/2017 [facility] 47.0 % 4:28 AM [facility] MCV 91 78 - 100 04/06/2017 [facility] fl 4:28 AM [facility] MCH 30.7 26.5 - 04/06/2017 [facility] 33.0 pg 4:28 AM [facility] MCHC 33.8 31.5 - 04/06/2017 [facility] 36.5 g/dL 4:28 AM [facility] RDW 13.1 10.0 - 04/06/2017 [facility] 15.0 % 4:28 AM [facility] Platelet Count 278 150 - 450 04/06/2017 [facility] 10e9/L 4:28 AM [facility] Diff Method Automated 04/06/2017 [facility] Method 4:28 AM [facility] % Neutrophils 60.6 % 04/06/2017 [facility] 4:28 AM [facility] % Lymphocytes 29.5 % 04/06/2017 [facility] 4:28 AM [facility] % Monocytes 7.7 % 04/06/2017 [facility] 4:28 AM [facility] % Eosinophils 1.5 % 04/06/2017 [facility] 4:28 AM [facility] % Basophils 0.5 % 04/06/2017 [facility] 4:28 AM [facility] % Immature 0.2 % 04/06/2017 [facility] Granulocytes 4:28 AM [facility] Nucleated RBCs 0 0 /100 04/06/2017 [facility] 4:28 AM [facility] Absolute 4.9 1.6 - 8.3 04/06/2017 [place] Neutrophil 10e9/L 4:28 AM [facility] Absolute 2.4 0.8 - 5.3 04/06/2017 [facility] Lymphocytes 10e9/L 4:28 AM [facility] Absolute 0.6 0.0 - 1.3 04/06/2017 [facility] Monocytes 10e9/L 4:28 AM [facility] Absolute 0.1 0.0 - 0.7 04/06/2017 [facility] Eosinophils 10e9/L 4:28 AM [facility] Absolute 0.0 0.0 - 0.2 04/06/2017 [place] Basophils 10e9/L 4:28 AM [facility] Abs Immature 0.0 0 - 0.4 04/06/2017 [facility] Granulocytes 10e9/L 4:28 AM [facility] Absolute 0.0 04/06/2017 [place] Nucleated RBC 4:28 AM [facility] Specimen Anatomical Collection Method Collection Time Receive d Time (Source) Location / / Volume Laterality Blood specimen 04/06/2017 4:10 AM 017 4:24 (specimen) CDT AM T Luis Jones MD LAB - BLOOD ORDERABLES Performing Organization Address City/State/ZIP Code Phon e Number M [facility] [address] [place], [place] [address] [address] [phone] [place] [address] [address] Yael Huang [address] [phone] (ABNORMAL) UA with Microscopic (04/06/2017 4:10 AM CDT) [facility] Method Time Signature Color Urine Yellow 04/06/2017 [facility] 4:38 AM [facility] Appearance Urine Slightly 04/06/2017 [facility] Cloudy 4:38 AM [facility] Glucose Urine Negative NEG^Negat 04/06/2017 [facility] kvng mg/dL 4:38 AM [facility] Bilirubin Urine Negative NEG^Negat 04/06/2017 [facility] kvng 4:38 AM [facility] Ketones Urine Negative NEG^Negat 04/06/2017 [place] kvng mg/dL 4:38 AM [facility] Specific [place] 1.013 1.003 - 04/06/2017 [place] Urine 1.035 4:38 AM [facility] Blood Urine Small (A) NEG^Negat 04/06/2017 [facility] kvng 4:38 AM [facility] pH Urine 5.0 5.0 - 7.0 04/06/2017 [place] pH 4:38 AM [facility] Protein Albumin 30 (A) NEG^Negat 04/06/2017 [place] Urine kvng mg/dL 4:38 AM [facility] Urobilinogen 0.0 0.0 - 2.0 04/06/2017 [place] mg/dL mg/dL 4:38 AM [facility] Nitrite Urine Negative NEG^Negat 04/06/2017 [facility] kvng 4:38 AM [facility] Leukocyte Large (A) NEG^Negat 04/06/2017 [facility] Esterase Urine kvng 4:38 AM [facility] Source Midstream 04/06/2017 [facility] Urine 4:25 AM [facility] WBC Urine 126 (H) 0 - 2 04/06/2017 [facility] /HPF 4:38 AM [facility] RBC Urine 15 (H) 0 - 2 04/06/2017 [facility] /HPF 4:38 AM [facility] WBC Clumps Present (A) NEG^Negat 04/06/2017 [facility] kvng /HPF 4:38 AM [facility] Bacteria Urine Many (A) NEG^Negat 04/06/2017 [place] kvng /HPF 4:38 AM [facility] Squamous 1 0 - 1 04/06/2017 [place] Epithelial /HPF /HPF 4:38 AM [facility] Mucous Urine Present (A) NEG^Negat 04/06/2017 [place] kvng /LPF 4:38 AM [facility] Specimen (Source) Anatomical Collection Method Collection Time Re ceived Time Location / / Volume Laterality Examination of URINE SPECIMEN 04/06/2017 4:10 04/06/20 17 4:24 midstream urine OBTAINED BY CLEAN AM CDT AM CDT specimen CATCH PROCEDURE / (procedure) Unknown Luis Jones MD LAB - URINE ORDERABLES Performing Organization Address [facility] Phon e Number [facility] [address] [place], [place] [address] [facility] [address] [place], [place] [address], [facility] [phone] HCG qualitative urine (04/06/2017 4:10 AM CDT) athologist Signature HCG Qual Urine Negative NEG^Negati 04/06/2017 [place] ve 4:41 AM [facility] Comment: This test is for screening purposes. ??R esults should be interpreted along with the clinical picture. ??Confirmation te sting is available if warranted by ordering CXI083, HCG Quantitative Pregna ncy. Specimen Anatomical Collection Method Collection Time Receive d Time (Source) Location / / Volume Laterality Urine specimen URINE SPECIMEN 04/06/2017 4:10 AM 04/06 4:24 (specimen) OBTAINED BY CLEAN CDT AM CDT CATCH PROCEDURE / Unknown Luis Jones MD LAB - URINE ORDERABLES Performing Organization Address [facility] Phon e Number M [facility] [address] [place], [place] [address] [facility] [address] [place], [place] [address], [facility] [phone] documented in this encounter Visit Diagnoses Not [...] (New Bag - Provider: Rahul Almaraz APRN SIXTH GRADE TEACHER)1140 (Anesthesia Volume Adjustment - Provider: Rahul Almaraz [...] procedural area)1115 (Given - Provider: Rahul Almaraz CONSULTING SALES MANAGER SIXTH GRADE TEACHER)1652 (Unhold - Provider: Orders Generic Provider) 4 [...] area)1115 (See Alternative - Provider: Rahul Almaraz, CONSULTING SALES MANAGER SIXTH GRADE TEACHER)1652 (Unhold - Provider: Orders Generic Provider) 4 [...] management)
documented in this encounter Care Teams Hand Cutter Apprentice Relationship Specialty Start Date End Date No Ref-Primary, Physician PCP - General 04/06/17 documented as of this encounter
--- NOTE | 2022-05-23 08:45 | CRLHL7_ITS ---
For Patients: As a result of the Century Cures Act, medical imaging exams and procedure reports are released immediately into your electronic medical record. You may view this report before your referring provider. If you have questions, please contact your health care provider. INDICATION: Mild polyhydramnios COMPARISON: 05/16/2022 TECHNIQUE: Real time crawford scale imaging of the fetus was performed. Without non-stress testing. FINDINGS: Sonographic imaging demonstrates a single living intrauterine gestation. Fetus demonstrates a regular cardiac rate of 150 beats per minute. Fetus has a vertex position. The amniotic fluid volume appears normal and there is a single deepest pocket measurement of 7.3 cm. MARSHALL 17.9 cm. The fetus was active and demonstrated normal breathing movements. There was normal flexion and extension of the trunk and extremities. IMPRESSION: Normal biophysical profile score of 8 out of 8. Dictated by Quintin Leach MD @ 05/23/2022 9:46:32 AM (Electronically Signed)
== END 2022-05-23 08:37 | disposition home or self-care (01) ==
LOC: US 08:37
PROVIDERS: PCP Advanced Practice Midwife; Visit Provider Advanced Practice Midwife
DX: O40.9XX0 Polyhydramnios, unspecified trimester, not applicable or unspecified (principal)
CPT/HCPCS: 76819

== ENCOUNTER 2022-06-03 19:27 | Inpatient (IN) | payer BC, SELFPAY ==
[2022-06-03] VITALS (33 sets, daily range): BP systolic 119–161; BP diastolic 64–98; PULSE 55–176; RESP 18; TEMP 36.6–36.7; O2SAT 96–100
--- OUTSIDE RECORDS SUMMARY | 2022-06-03 18:43 | XMS_ITS | Encounter Summary ---
:1990 Author Organization [facility] Address [address] [place] [address] Care Team Providers Name Role Phone No Ref-Primary, Physician Primary Care Provider Unavailable Encounter Details Date Type Department Care Team Description 04/06/[address] [facility] Eleanor Alfredo andover PeriOp Services MD [place] [address] [place], [place] ANESTHESIA [address] [address] [place] [phone] [place] [address] Anesthesia Record Procedure Summary Procedure Name [...] Rahul Almaraz, Rahul Mitchell laryngeal mask airway; SENIOR JAVA SOFTWARE ENGINEER SALES SERVICE ASSISTANT ISABELLA Lewis SALES SERVICE ASSISTANT center of mouth; Equal, clear and bilateral; SALES SERVICE ASSISTANT Incision/Surgical Site 04/06/17; 1118; Other 04/06/17 1118 [...] benefits and alternatives discussed with: Patient or personal service representative and Patient.. . documented in [...] prepare to transfer to PACU, Report to SPECIAL AGENT. VSS transfer care Vitals: (Last set prior to Anesthesia Care Transfer) SALES SERVICE ASSISTANT VITALS 04/06/2017 1106 - 04/06/2017 1140 04/06/2017 Pulse: 126 SpO2: 100 % Resp Rate (observed): 10 Electronically Signed By: Rahul Almaraz APRN SALES SERVICE ASSISTANT April 06, 2017 11:40 AM documented in [...] Intra-op documented in this encounter Care Teams Cathode Ray Tube Assembler Relationship Specialty Start Date End Date No Ref-Primary, Physician PCP - General 04/06/17 documented as of this encounter
--- OUTSIDE RECORDS SUMMARY | 2022-06-03 18:43 | XMS_ITS | Clinical Summary ---
:1990 Author Organization [facility] Address [address] [place] [address] Care Team Providers Name Role Phone No Ref-Primary, Physician Primary Care Provider [phone] Allergies Active Allergy Reactions Severity Noted [...] Specialty Care Team Description 04/24/2022 Hospital Encounter business risk analyst Cassie Coy M D 04/24/2022 Travel [...] 64 Years) Medical Devices Implanted Type Area Speech Teacher Device Shelf Model / Identifier Expiration Serial / Date Lot Stent Ureteral Dbl Pigtail Inlay [id number] Stent Left: CR BARD 05/12/2021 [id number] / Implanted: Qty: 1 on 04/06/2017 by Jae diego, Chau Ribeiro MD at [facility] [employer]-UROLOGIC / [id number] Procedures Procedure Name Priority Date/Time Associated Diagnosis Comme nts RUPTURE OF STAT 04/24/2022 9:12 PM Resul ts for this MEMBRANES BY ROM CDT procedure a re in PLUS the results section. NON-STRESS 04/24/2022 12:00 AM TEST - HIM SCAN CDT from Last 3 Months Results Rupture of Membranes by ROM Plus (04/24/2022 9:12 PM CDT) [facility] Method Time Signature Rupture of Negative Negative, REMA 04/24/2022 LABORATORY Invalid, 9:45 PM CDT Membranes by Suggest ROM Plus Repeat Specimen Anatomical Collection Method Collection Time Receive d Time (Source) Location / / Volume Laterality Swab VAGINAL STRUCTURE Non-blood 04/24/2022 9:12 PM 100 09/2021 9:18 / Unknown Collection / CDT PM CDT Unknown Narrative LABORATORY - 04/24/2022 9:45 PM CDT It is recommended that the tests to dete ct rupture of the amniotic membranes should not be used without other clinical asses sments to make clinical patient management decision. Cassie Coy MD LAB - BODY FLUIDS ORDERABLES Performing Organization Address City/State/ZIP Code [place] [address] Care Lab [address] [...] ss Type Group BCBS BCBS OUT OF [id number] 2021-Present [phone] [address] [address] [place] [address] Advance Directives For more information, please contact: [phone] Latest Code Status on File Code Status Date Activated Date Inactivated Comments Full Code 04/06/2017 9:39 AM 12/14/2020 10:47 AM Code Status History Code Status Date Activated Date Inactivated Comments Full Code 04/06/2017 6:57 AM 04/06/2017 9:39 AM Care Teams Water Superintendent Relationship Specialty Start Date End Date No Ref-Primary, Physician PCP - General 12/14/20
--- OUTSIDE RECORDS SUMMARY | 2022-06-03 18:43 | XMS_ITS | Encounter Summary ---
:1990 Author Organization [facility] Address [address] [place] [address] Care Team Providers Name Role Phone No Ref-Primary, Physician Primary Care Provider Unavailable Reason for Visit Reason Comments Flank Pain Encounter Details Date Type Department Care Team Description 04/06/2017 Emergency [facility] Luis Jones MD [facility] [address] [facility] [address] [place] [address] [id number] Calculus of left ureter (Primary Dx); [place] PreOP/PostOP Mary Beth Barry MD Pyelonephritis; [address] [address] Social History Tobacco Use Types [...] Taylor PA-C - 04/06/2017 9:39 AM CDT [facility] Outpatient / Observation Unit Discharge Summary [...] an advanced practice provider only discharge. Jesse Zaraogza Date of Service (when I saw the [...] [facility]ON [facility] JORDAN [phone] During surgery, a stent may be placed [...] Please call your physician or the physician fabrication and assembly supervisor if you experience: Fever greater than 101 degrees Severe pain not relieved by pain medication or rest Please make an appointment for the removal of the stent according to your physician's instructions. EXTRACORPOREAL SHOCK LITHOTRIPSY (ESWL) DISCHARGE INSTRUCTIONS [facility]ON [facility] JORDAN [phone] Your stone(s) has been fragmented into many [...] hours: Yes. Name: Sindhu (sammy), Contact information: [phone] Belongings/Valuables - Will be sent to [facility] with pt. Manager Research Development - Pt DOES NOT need an child care team lead. 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 Jordan Dahl PA-C [facility] Urology (text or call, Mon-Wed & [...] Jeff RN - 04/06/2017 5:33 AM CDT [facility] ED Nurse Handoff Report Fauzia Stubbs is a 26 year old female ED Chief complaint: Flank Pain . ED Diagnosis: Final diagnoses: Pyelonephritis Calculus of ureter Allergies: Allergies Allergen Reactions ??? Penicillins Code Status: Full Code Activity level - Baseline/Home: Independent. Activity Level - Current: Independent. Lift room needed: No. Bariatric: No Manager Research Development Needed: No Isolation: No. Infection: Not Applicable. [...] with flank pain. Patient woke this morning [id number] with left sided flank pain associated by [...] BOLUS (1,000 mLs Intravenous New Bag 04/06/17 9920) Followed by 0.9% sodium chloride infusion (not administered) ondansetron (ZOFRAN) injection 4 mg (4 mg Intravenous Given 04/06/17 6694) ciprofloxacin (CIPRO) infusion 400 mg (400 mg Intravenous New Bag 04/06/17 7595) HYDROmorphone (PF) (DILAUDID) injection 0.5 mg (not [...] 04/06/2017 [facility] EMERGENCY DEPARTMENT I, Osmin Toure, am serving [...] The procedure began by introducing the 22 Libyan rigid cystoscope through the urethra into the [...] MD MT: [id number] Name: FAUZIA STUBBS Account: [id number] : 1990 Procedure Date: 04/06/2017 Document: [id number] Pharmacy-Admission Medication History - Rosie Enrique RPH - 04/06/2017 9:41 AM CDT Admission medication history interview status for this patient is complete. See [facility] admission navigator for allergy information, prior to admission medications and immunization status. Medication history interview source(s): patient's mother Medication history resources (including written lists, pill bottles, clinic record):None Changes made to DISTILLERY MANAGER medication list: Added: none Deleted: none [...] oob for safety. Will continue to monitor. Collections Officer Nurse Safe discharge environment identified: Yes [...] order SW consult): ind with boyfriend personal attendant: Sindhu, (Mother) Activity level at baseline: Ind [...] be read by a radiologist or a [facility] non-radiologis t provider. Chau Ortega MD [facility] DIAGNOSTIC IMAGING ORDER MARGARET Performing Organization Address City/State/ZIP Code Phon e Number [facility] Surgical pathology exam (04/06/2017 11:23 AM CDT) Component Value Ref Test Analysis Performed At [facility] gist Range Method Time Signature Copath Report Patient Name: FAUZIA STUBBS MR#: [id number] Specimen #: [id number] Collected: 04/06/2017 Received: 04/06/2017 Reported: 04/06/2017 13:04 Ordering Phy(s): CHAU ORTEGA For improved result formatting, select 'View Enhanced Report Format' under Linked Documents section. SPECIMEN(S): Stone, left ureteral FINAL DIAGNOSIS: Left ureteral stone(s)- - Gross pathology the admission performed. - Submitted for chemical/stone analysis (see separate [facility] oming report for results). Electronically signed [...] microscopic sections are obtained. CPT Codes: A: 20981-FV TESTING LAB LOCATION: [address] ??[address] COLLECTION SITE: Client: [facility] Location: [facility] (R) Specimen Anatomical Collection Method Collection Time Receive d Time (Source) Location / / Volume Laterality 04/06/2017 11:23 04/06/2017 AM CDT 12:28 PM CDT Chau Ortega MD LAB - [facility] Performing Organization Address City/State/ZIP Code Phon e Number COPATH Stone analysis (04/06/2017 11:23 AM CDT) [facility] Method Time Signature Stone SEE NOTE 04/10/2017 [place] Composition 6:47 PM CDT [facility] Comment: (Note) Calculi composed primarily [...] omposition determined by FTIR analysis. Performed by [employer], [address] [place] [id number] [email or web address], Endy Reilly MD, Lab. Director Calculi Number Numerous 04/10/2017 6:47 PM CDT [facility] Calculi Size 1 to 4 mm 04/10/2017 6:47 PM CDT [facility] Calculi Description SEE NOTE 04/10/2017 6:47 PM C DT [facility] Comment: (Note) Specimen consists of numerous, small, brown/baldwin, irregular calculi fragments. Stone Mass 30 mg 04/10/2017 6:47 PM CDT [facility] Specimen (Source) Anatomical Collection Method Collection Time Re ceived Time Location / / Volume Laterality Calculus specimen STRUCTURE OF LEFT 04/06/2017 11:23 (specimen) URETER / Unknown AM CDT Chau Ortega MD LAB - BODY FLUIDS ORDERABLES Performing Organization Address City/State/ZIP Code Phon e Number [place] [address] [address] [facility] [address] [place], [place] [address] [place] [address] Abd/pelvis CT no contrast - Stone Protocol [...] AM CDT Luis [facility] PO[facility] Performing Organization Address City/State/ZIP Code Phon e Number FV POINT OF CARE TEST, HANDHELD METER POINT OF CARE TEST, HANDHELD METER (ABNORMAL) Urine Culture Aerobic Bacterial (04/06/2017 4:10 AM CDT) Component Value Ref Test Analysis Performed At [facility] gist Range Method Time Signature Specimen Midstream Urine [facility] Special Specimen 04/06/2017 [facility] Requests received in 8:21 AM CDT [facility] preservative [facility] Culture Micro >100,000 colonies/mL 04/07/2017 [facility] Escherichia coli 9:26 PM CDT [facility] (A) [facility] Specimen (Source) Anatomical Collection Method Collection [...] Organization Address City/State/ZIP Code Phon e Number [address] [address] [place] Lipase (04/06/2017 4:10 AM CDT) athologist Signature Lipase 148 73 - 393 04/06/2017 [facility] U/L 4:44 AM T [facility] Specimen Anatomical Collection Method Collection Time Receive d Time (Source) Location / / Volume Laterality Blood specimen 04/06/2017 4:10 AM 017 4:24 (specimen) CDT AM CDT Luis Jones MD LAB - BLOOD ORDERABLES Performing Organization Address City/[facility]/ZIP [facility] Phon e Number [facility] [address] [address] [facility] [address] [phone] (ABNORMAL) Comprehensive metabolic panel (04/06/2017 4:10 AM CDT) athologist Signature Sodium 137 133 - 144 04/06/2017 [place] mmol/L 4:44 AM T [facility] Potassium 3.2 (L) 3.4 - 5.3 04/06/2017 [place] mmol/L 4:44 AM [facility] Chloride 104 94 - 109 04/06/2017 [place] mmol/L 4:44 AM [facility] Carbon Dioxide 25 20 - 32 04/06/2017 [place] mmol/L 4:44 AM [facility] Anion Gap 8 3 - 14 04/06/2017 [place] mmol/L 4:44 AM [facility] Glucose 102 (H) 70 - 99 04/06/2017 [place] mg/dL 4:44 AM [facility] Urea Nitrogen 12 7 - 30 04/06/2017 [place] mg/dL 4:44 AM [facility] Creatinine 0.80 0.52 - 04/06/2017 [facility] 1.04 mg/dL 4:44 AM [facility] GFR Estimate 88 >60 04/06/2017 [place] mL/min/1.7 4:[address] Comment: Non GFR Calc GFR Estimate If >90 >60 mL/min/1.7m2 04/06/2017 4:[address] [facility] Comment: GFR Calc Calcium 8.9 8.5 - 10.1 mg/dL 04/06/2017 4:44 AM [facility] Bilirubin Total 0.4 0.2 - 1.3 mg/dL 04/06/2017 4:44 AM [facility] Albumin 4.1 3.4 - 5.0 g/dL 04/06/2017 4:44 AM [facility] Protein Total 8.1 6.8 - 8.8 g/dL 04/06/2017 4:44 AM [facility] Alkaline Phosphatase 108 40 - 150 U/L 04/06/2017 4:44 AM [facility] ALT 23 0 - 50 U/L 04/06/2017 4:44 AM [facility] AST 10 0 - 45 U/L 04/06/2017 4:44 AM [facility] Specimen Anatomical Collection Method Collection Time Receive d Time (Source) Location / / Volume Laterality Blood specimen 04/06/2017 4:10 AM 017 4:24 (specimen) CDT [facility] Luis Jones MD LAB - BLOOD ORDERABLES Performing Organization Address City/State/ZIP Code Phon e Number M [facility] [address] [place], [place] [address] [facility] [address] [place], [place] [address] [facility] [phone] CBC with platelets differential (04/06/2017 4:10 AM [facility]) [facility] gist Method Time Signature WBC 8.1 4.0 - 04/06/2017 [facility] 11.0 4:28 AM [facility] 10e9/L [facility] RBC Count 4.40 3.8 - 5.2 04/06/2017 [facility] 10e12/L 4:28 AM [facility] Hemoglobin 13.5 11.7 - 04/06/2017 [facility] 15.7 g/dL 4:28 AM [facility] Hematocrit 40.0 35.0 - 04/06/2017 [facility] 47.0 % 4:28 AM [facility] MCV 91 78 - 100 04/06/2017 [facility] fl 4:28 AM [facility] MCH 30.7 26.5 - 04/06/2017 [facility] 33.0 pg 4:28 AM [facility] MCHC 33.8 31.5 - 04/06/2017 [facility] 36.5 g/dL 4:28 AM [facility] RDW 13.1 10.0 - 04/06/2017 [facility] 15.0 % 4:28 AM [facility] Platelet Count 278 150 - 450 04/06/2017 [facility] 10e9/L 4:28 AM [facility] Diff Method Automated 04/06/2017 [facility] Method 4:28 AM [facility] % Neutrophils 60.6 % 04/06/2017 [facility] 4:28 AM [facility] % Lymphocytes 29.5 % 04/06/2017 [facility] 4:28 AM [facility] % Monocytes 7.7 % 04/06/2017 [facility] 4:28 AM [facility] % Eosinophils 1.5 % 04/06/2017 [facility] 4:28 AM [facility] % Basophils 0.5 % 04/06/2017 [facility] 4:28 AM [facility] % Immature 0.2 % 04/06/2017 [facility] Granulocytes 4:28 AM [facility] Nucleated RBCs 0 0 /100 04/06/2017 [facility] 4:28 AM [facility] Absolute 4.9 1.6 - 8.3 04/06/2017 [facility] Neutrophil 10e9/L 4:28 AM [facility] Absolute 2.4 0.8 - 5.3 04/06/2017 [facility] Lymphocytes 10e9/L 4:28 AM [facility] Absolute 0.6 0.0 - 1.3 04/06/2017 [facility] Monocytes 10e9/L 4:28 AM [facility] Absolute 0.1 0.0 - 0.7 04/06/2017 [facility] Eosinophils 10e9/L 4:28 AM [facility] Absolute 0.0 0.0 - 0.2 04/06/2017 [place] Basophils 10e9/L 4:28 AM [facility] Abs Immature 0.0 0 - 0.4 04/06/2017 [facility] Granulocytes 10e9/L 4:28 AM [facility] Absolute 0.0 04/06/2017 [place] Nucleated RBC 4:28 AM [facility] Specimen Anatomical Collection Method Collection Time Receive d Time (Source) Location / / Volume Laterality Blood specimen 04/06/2017 4:10 AM 017 4:24 (specimen) CDT AM CDT Luis Jones MD LAB - BLOOD ORDERABLES Performing Organization Address City/State/ZIP Code Phon e Number [place] [address] [address] [address] [facility] [address] [phone] (ABNORMAL) UA with Microscopic (04/06/2017 4:10 AM CDT) [facility] Method Time Signature Color Urine Yellow 04/06/2017 [place] 4:38 AM [facility] Appearance Urine Slightly 04/06/2017 [place] Cloudy 4:38 AM [facility] Glucose Urine Negative NEG^Negat 04/06/2017 [place] mg/dL 4:38 AM [facility] Bilirubin Urine Negative NEG^Negat 04/06/2017 [place] kvng 4:38 AM [facility] Ketones Urine Negative NEG^Negat 04/06/2017 [place] mg/dL 4:38 AM [facility] Specific [place] 1.013 1.003 - 04/06/2017 [place] Urine 1.035 4:38 AM [facility] Blood Urine Small (A) NEG^Negat 04/06/2017 [place] kvng 4:38 AM [facility] pH Urine 5.0 5.0 - 7.0 04/06/2017 [place] pH 4:38 AM [facility] Protein Albumin 30 (A) NEG^Negat 04/06/2017 [place] Urine kvng mg/dL 4:38 AM [facility] Urobilinogen 0.0 0.0 - 2.0 04/06/2017 [place] mg/dL mg/dL 4:38 AM [facility] Nitrite Urine Negative NEG^Negat 04/06/2017 [place] kvng 4:38 AM [facility] Leukocyte Large (A) NEG^Negat 04/06/2017 [place] Esterase Urine kvng 4:38 AM [facility] Source Midstream 04/06/2017 [place] Urine 4:25 AM [facility] WBC Urine 126 (H) 0 - 2 04/06/2017 [facility] /HPF 4:38 AM [facility] RBC Urine 15 (H) 0 - 2 04/06/2017 [facility] /HPF 4:38 AM [facility] WBC Clumps Present (A) NEG^Negat 04/06/2017 [place] kvng /HPF 4:38 AM [facility] Bacteria Urine Many (A) NEG^Negat 04/06/2017 [place] kvng /HPF 4:38 AM [facility] Squamous 1 0 - 1 04/06/2017 [place] Epithelial /HPF /HPF 4:38 AM [facility] Mucous Urine Present (A) NEG^Negat 04/06/2017 [place] kvng /LPF 4:38 AM [facility] Specimen (Source) Anatomical Collection Method Collection Time Re ceived Time Location / / Volume Laterality Examination of URINE SPECIMEN 04/06/2017 4:10 04/06/20 17 4:24 midstream urine OBTAINED BY CLEAN AM [facility] specimen CATCH PROCEDURE / (procedure) Unknown Luis Jones MD LAB - URINE ORDERABLES Performing Organization Address [facility]/ZIP [facility] Phon e Number [facility] [address] [place], [place] [address] [facility] [address] [place], [place] [address], [facility] [phone] HCG qualitative urine (04/06/2017 4:10 AM CDT) athologist Signature HCG Qual Urine Negative NEG^Negati 04/06/2017 [facility] 4:41 AM CDT [facility] Comment: This test is for screening purposes. ??R esults should be interpreted along with the clinical picture. ??Confirmation te sting is available if warranted by ordering [id number], HCG Quantitative Pregna ncy. Specimen Anatomical Collection Method Collection Time Receive d Time (Source) Location / / Volume Laterality Urine specimen URINE SPECIMEN 04/06/2017 4:10 AM 04/06 4:24 (specimen) OBTAINED BY CLEAN CDT AM CDT CATCH PROCEDURE / Unknown Luis Jones MD LAB - URINE ORDERABLES Performing Organization Address [facility]/ZIP [facility] Phon e Number [facility] [address] [place], [place] [address] [facility] [address] [place], [place] [address] [phone] documented in this encounter Visit Diagnoses Diagnosis [...] mg 0.3-0.5 mg, Intravenous, EVERY 10 MIN UT N, other, acute pain.?May administer if Respiratory [...] 04/05/2017 04/06/2017 0.9% sodium chloride BOLUS (COMPLETED) 8191 (New Bag - Provider: Du Daniel RN)6672 (Stopped - Provider: Du Daniel RN) Intravenous, [...] (New Bag - Provider: Rahul Almaraz APRN SMOKE TESTER)1140 (Anesthesia Volume Adjustment - Provider: Rahul Almaraz APRN SMOKE TESTER) at 25 mL/hr, Intravenous, CONTINUOUS, IF patient [...] mg 0.3-0.5 mg, Intravenous, EVERY 10 MIN UT N, Starting Sun04/06/17 at 1213, Until Sun04/06/17 [...] (See Alternative - Provider: Rahul Almaraz APRN SMOKE TESTER)1651 (Unhold - Provider: Orders Generic Provider) 4 [...] management)
documented in this encounter Care Teams Web Analytics Specialist Relationship Specialty Start Date End Date No Ref-Primary, Physician PCP - General 04/06/17 documented as of this encounter
--- OUTSIDE RECORDS SUMMARY | 2022-06-03 18:43 | XMS_ITS | Encounter Summary ---
:1990 Author Organization [facility] Address [facility] [place] [address] Care Team Providers Name Role Phone No Ref-Primary, Physician Primary Care Provider [phone] Reason for Referral Diagnostic Imaging Ultrasound (Routine) - Pending Review Specialty Diagnoses / Procedures Referred By Contact Refer red To Contact Diagnoses related condition, antepartum Rh Maternal Med Procedures [facility] US Comprehensive Single [address] [address] [place] [address] Referral ID Status Reason Start Date Expiration Date Visits V isits Requested Authorized [id number] Pending 01/03/2022 01/03/2023 1 1 Review Reason for Visit Diagnostic Imaging Ultrasound (Routine) - Pending Review Specialty Diagnoses / Procedures Referred By Contact Refer red To Contact Diagnoses related condition, antepartum Rh Maternal Med Procedures [facility] US Comprehensive Single [address] [address] [place] [address] Referral ID Status Reason Start Date Expiration Date Visits V isits Requested Authorized [id number] Pending 01/03/2022 01/03/2023 1 1 Review Encounter Details Date Type Department Care Team Description 01/13/2022 [facility] Non-Fv Credentialed Pro vider, Radiology related Encounter Maternal Contag, Chau Frazier MD [address] [facility] [address] [place] [address] condition, Medicine Center Osmin Aiken MD [address] [place] [address] [place] [address] antepartum [place] [address] [facility] [address] [place] [address] Social History Tobacco Use Types [...] Procedure Name Priority Date/Time Associated Comments Diagnosis [facility] US COMPREHENSIVE Routine 01/13/2022 9:39 AM rela seferino Results for this SINGLE CDT condition, procedure are i n antepartum the results section. documented in this encounter Results [facility] US Comprehensive Single (01/13/2022 9:39 AM [...] FAUZIA Study Date: 01/13/2022 8:45am Pat. NO: [id number] Referring ??MD: NIURKA MENDIETA Site: [facility] Production Editor: Salma Piña : 1990 Age: 31 INDICATION [...] lb 15 ? oz EFW by ?Hadlock ([id number]) Head / Face / Neck Biometry: Application Support Lead ? 6.5 ? mm CM ?4.2 ? [...] cava. Inferior vena cava. 3-vessel ? view. 7-hjfina-ttnbwpf view. Cardiac position. Cardiac size. Cardiac rhythm. [...] Comprehensive Name:Newton ESPOSITO te:01/13/2022 8:45am Pat. NO: [id number] MD:MAGY MENDIETA [facility]Germain Mcnally RDMS :1990Age:31 INDICATION COVID in [...] 0 lb 15 oz EFW by Hadlock ([id number]) Head / Face / Neck Biometry: Application Support Lead 6.5 mm CM 4.2 mm Nasal bone [...] vena cava. Inferior vena cava. 3-vessel view. 5-tylueh-zuqahgc view. Cardiac po sition. Cardiac size. Cardiac [...] ultrasound were evident. Radiology Non-Fv Credentialed Provider [facility] US TL LEWIS documented in this encounter Visit Diagnoses Diagnosis related condition, antepartum documented in this encounter Care Teams Brand Mgr Relationship Specialty Start Date End Date No Ref-Primary, Physician PCP - General 12/14/20 documented as of this encounter
--- OUTSIDE RECORDS SUMMARY | 2022-06-03 18:43 | XMS_ITS | Encounter Summary ---
:1990 Author Organization [place] Address [address] [place] [address] Care Team Providers Name Role Phone No Ref-Primary, Physician Primary Care Provider Unavailable Reason for Visit Reason Comments Flank Pain Encounter Details Date Type Department Care Team Description 04/06/2017 Surgery [facility] Chau Ortega ED CYSTOSCOPY, [facility]ane Ribeiro MD LEFT URETEROSCOPY, [address] [place], [place] [address] LITHOTRIPSY URETER, [address] [place] [address] INSERTION LEFT STENT, (Wo rk) stone basketing, [...] Taylor PA-C - 04/06/2017 9:39 AM CDT [facility] Outpatient / Observation Unit Discharge [...] practice provider their discharge plan for Fauzia tSubbs. I did not participate in a shared [...] [facility]ICENTE BLANDON [facility] JORDAN [phone] During surgery, a stent may be placed [...] Please call your physician or the physician transportation job titles if you experience: Fever greater than 101 degrees Severe pain not relieved by pain medication or rest Please make an appointment for the removal of the stent according to your physician's instructions. EXTRACORPOREAL SHOCK LITHOTRIPSY (ESWL) DISCHARGE INSTRUCTIONS [facility]IC[facility]E BL[facility]ON [facility] JORDAN [phone] Your stone(s) has been fragmented into many [...] hours: Yes. Name: Sindhu (mom), Contact information: [phone] Belongings/Valuables - Will be sent to PeriOp with pt. Counselor Nurses' Association - Pt DOES NOT need an lang interpreter. 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 Jordan Dahl PA-C [facility] Urology (text or call, Sun-Sun & [...] Jeff RN - 04/06/2017 5:33 AM CDT [facility] ED Nurse Handoff Report Fauzia Stubbs is a 26 year old female ED Chief complaint: Flank Pain . ED Diagnosis: Final diagnoses: Pyelonephritis Calculus of ureter Allergies: Allergies Allergen Reactions ??? Penicillins Code Status: Full Code Activity level - Baseline/Home: Independent. Activity Level - Current: Independent. Lift room needed: No. Bariatric: No Counselor Nurs[employer] Association Needed: No Isolation: No. Infection: Not Applicable. [...] BOLUS (1,000 mLs Intravenous New Bag 04/06/17 8077) Followed by 0.9% sodium chloride infusion (not administered) ondansetron (ZOFRAN) injection 4 mg (4 mg Intravenous Given 04/06/17 2522) ciprofloxacin (CIPRO) infusion 400 mg (not administered) [...] with flank pain. Patient woke this morning [id number] with left sided flank pain associated by [...] Admitted to hospitalist service. Osmin Whiteer 04/06/2017 [facility] EMERGENCY DEPARTMENT I, Osmin Basurtoyder, bruce [...] The procedure began by introducing the 22 Macanese rigid cystoscope through the urethra into the [...] EM#[id number] Name: FAUZIA STUBBS MRN: [id number] Account: [id number] : 1990 Procedure Date: 04/06/2017 Document: [id number] Pharmacy-Admission Medication History - Rosie Enrique [facility] - 04/06/2017 9:41 AM CDT Admission medication history interview status for this patient is complete. See [facility] admission navigator for allergy information, prior to admission medications and immunization status. Medication history interview source(s): patient's mother Medication history resources (including written lists, pill bottles, clinic record):None Changes made to ROAD PRODUCTION GENERAL MANAGER medication list: Added: none Deleted: none [...] oob for safety. Will continue to monitor. Machinist Apprentice Nurse Safe discharge environment identified: Yes Barriers [...] independent, order SW consult): ind with boyfriend crack off person: Sindhu, (Mother) Activity level at baseline: [...] be read by a radiologist or a [place] non-radiologis t provider. Chau Ortega MD IMG DIAGNOSTIC IMAGING ORDER MARGARET Performing Organization Address City/State/ZIP Code Phon e Number RADIANT Surgical pathology exam (04/06/2017 11:23 AM CDT) Component Value Ref Test Analysis Performed At [facility] Range Method Time Signature Copath Report Patient Name: FAUZIA STUBBS MR#: [id number] Specimen #: [id number] Collected: 04/06/2017 Received: 04/06/2017 Reported: 04/06/2017 13:04 [...] microscopic sections are obtained. CPT Codes: A: 01877-NG TESTING LAB LOCATION: [address] ??[address] COLLECTION SITE: Client: [facility] Location: RHE (R) Specimen Anatomical Collection Method Collection Time Receive d Time (Source) Location / / Volume Laterality 04/06/2017 11:23 04/06/2017 AM CDT 12:28 PM CDT Chau Ortega MD [facility] Performing Organization Address City/State/ZIP Code Phon e Number [place] Stone analysis (04/06/2017 11:23 AM CDT) [facility] Method Time Signature Stone SEE NOTE 04/10/2017 [place] Composition 6:47 PM CDT [facility] [...] omposition determined by FTIR analysis. Performed by [facility], [address] [place] [id number] [email or web address], Endy Reilly MD, Lab. Director Calculi Number Numerous 04/10/2017 6:47 PM CDT [facility] Calculi Size 1 to 4 mm 04/10/2017 6:47 PM CDT [facility] Calculi Description SEE NOTE 04/10/2017 6:47 PM C DT [facility] Comment: (Note) Specimen consists of numerous, small, brown/baldwin, irregular calculi fragments. Stone Mass 30 mg 04/10/2017 6:47 PM CDT [facility] Specimen (Source) Anatomical Collection Method Collection Time Re ceived Time Location / / Volume Laterality Calculus specimen STRUCTURE OF LEFT 04/06/2017 11:23 (specimen) URETER / Unknown AM CDT Chau Ortega MD LAB - BODY FLUIDS ORDERABLES Performing Organization Address City/State/ZIP Code Phon e Number [place] [address] [address] [facility] [address] [phone] Abd/pelvis CT no contrast - Stone Protocol [...] Signature Specimen Midstream Urine [facility] Description [facility] Special Specimen 04/06/2017 [facility] Requests received in 8:21 AM CDT [facility] preservative [facility] Culture Micro >100,000 colonies/mL 04/07/2017 [facility] Escherichia coli 9:26 PM CDT [facility] (A) [facility] Specimen (Source) Anatomical Collection Method Collection Time [...] Organization Address City/State/ZIP Code Phon e Number [address] [address] [place] Lipase (04/06/2017 4:10 AM CDT) athologist Signature Lipase 148 73 - 393 04/06/2017 ISABELLA JELMLashae U/L 4:44 AM CDT HOSPITAL Specimen Anatomical Collection Method Collection Time Receive d Time (Source) Location / / Volume Laterality Blood specimen 04/06/2017 4:10 AM 017 4:24 (specimen) CDT AM CDT Luis Jones MD LAB - BLOOD ORDERABLES Performing Organization Address City/State/ZIP Code Phon e Number [facility] [address] [place], [place] [address] HOSPITAL [facility] [address] [place], [place] [address] [phone] (ABNORMAL) Comprehensive metabolic panel (04/06/2017 4:10 AM [facility]) athologist Signature Sodium 137 133 - 144 04/06/2017 [place] mmol/L 4:44 AM [facility] Potassium 3.2 (L) 3.4 - 5.3 04/06/2017 [place] mmol/L 4:44 AM [facility] Chloride 104 94 - 109 04/06/2017 [place] mmol/L 4:44 AM [facility] Carbon Dioxide 25 20 - 32 04/06/2017 [place] mmol/L 4:44 AM [facility] Anion Gap 8 3 - 14 04/06/2017 [place] mmol/L 4:44 AM [facility] Glucose 102 (H) 70 - 99 04/06/2017 [place] mg/dL 4:44 AM [facility] Urea Nitrogen 12 7 - 30 04/06/2017 [place] mg/dL 4:44 AM [facility] Creatinine 0.80 0.52 - 04/06/2017 [place] 1.04 mg/dL 4:44 AM [facility] GFR Estimate 88 >60 04/06/2017 [place] mL/min/1.7 4:[address] Comment: Non GFR Calc GFR Estimate If >90 >60 mL/min/1.7m2 04/06/2017 4:44 A [facility] Comment: GFR Calc Calcium 8.9 8.5 - 10.1 mg/dL 04/06/2017 4:44 AM [facility] Bilirubin Total 0.4 0.2 - 1.3 mg/dL 04/06/2017 4:44 AM [facility] Albumin 4.1 3.4 - 5.0 g/dL 04/06/2017 4:44 AM [facility] Protein Total 8.1 6.8 - 8.8 g/dL 04/06/2017 4:44 AM [facility] Alkaline Phosphatase 108 40 - 150 [...] Address City/State/ZIP Code Phon e Number [place] [address] [address] [place], [place] [address] [facility] [address] [phone] CBC with platelets differential (04/06/2017 4:10 AM CDT) [facility] Method Time Signature WBC 8.1 4.0 - 04/06/2017 [facility] 11.0 4:28 AM [facility] 10e9/L [facility] RBC Count 4.40 3.8 - 5.2 04/06/2017 [facility] 10e12/L 4:28 AM [facility] Hemoglobin 13.5 11.7 - 04/06/2017 [facility] 15.7 g/dL 4:28 AM [facility] Hematocrit 40.0 35.0 - 04/06/2017 [facility] 47.0 % 4:28 AM [facility] MCV 91 78 - 100 04/06/2017 [facility] fl 4:28 AM [facility] MCH 30.7 26.5 - 04/06/2017 [facility] 33.0 pg 4:28 AM [facility] MCHC 33.8 31.5 - 04/06/2017 [facility] 36.5 g/dL 4:28 AM [facility] RDW 13.1 10.0 - 04/06/2017 [facility] 15.0 % 4:28 AM [facility] Platelet Count 278 150 - 450 04/06/2017 [facility] 10e9/L 4:28 AM [facility] Diff Method Automated 04/06/2017 [facility] Method 4:28 AM [facility] % Neutrophils 60.6 % 04/06/2017 [facility] 4:28 AM [facility] % Lymphocytes 29.5 % 04/06/2017 [facility] 4:28 AM [facility] % Monocytes 7.7 % 04/06/2017 [facility] 4:28 AM [facility] % Eosinophils 1.5 % 04/06/2017 [facility] 4:28 AM [facility] % Basophils 0.5 % 04/06/2017 [facility] 4:28 AM [facility] % Immature 0.2 % 04/06/2017 [facility] Granulocytes 4:28 AM [facility] Nucleated RBCs 0 0 /100 04/06/2017 [facility] 4:28 AM [facility] Absolute 4.9 1.6 - 8.3 04/06/2017 [place] Neutrophil 10e9/L 4:28 AM [facility] Absolute 2.4 0.8 - 5.3 04/06/2017 [facility] Lymphocytes 10e9/L 4:28 AM [facility] Absolute 0.6 0.0 - 1.3 04/06/2017 [facility] Monocytes 10e9/L 4:28 AM [facility] Absolute 0.1 0.0 - 0.7 04/06/2017 [facility] Eosinophils 10e9/L 4:28 AM [facility] Absolute 0.0 0.0 - 0.2 04/06/2017 [place] Basophils 10e9/L 4:28 AM [facility] Abs Immature 0.0 0 - 0.4 04/06/2017 [facility] Granulocytes 10e9/L 4:28 AM [facility] Absolute 0.0 04/06/2017 [place] Nucleated RBC 4:28 AM [facility] Specimen Anatomical Collection Method Collection Time Receive d Time (Source) Location / / Volume Laterality Blood specimen 04/06/2017 4:10 AM 017 4:24 (specimen) CDT AM T Luis Jones MD LAB - BLOOD ORDERABLES Performing Organization Address City/State/ZIP Code Phon e Number [facility] [address] [place], [place] [address] [phone] [place] [address] 201 Yael Huang [address] [phone] (ABNORMAL) UA with Microscopic (04/06/2017 4:10 AM CDT) [facility] Method Time Signature Color Urine Yellow 04/06/2017 [facility] 4:38 AM [facility] Appearance Urine Slightly 04/06/2017 [facility] Cloudy 4:38 AM [facility] Glucose Urine Negative NEG^Negat 04/06/2017 [facility] kvng mg/dL 4:38 AM [facility] Bilirubin Urine Negative NEG^Negat 04/06/2017 [facility] kvng 4:38 AM [facility] Ketones Urine Negative NEG^Negat 04/06/2017 [place] kvng mg/dL 4:38 AM [facility] Specific [place] 1.013 1.003 - 04/06/2017 [place] Urine 1.035 4:38 AM [facility] Blood Urine Small (A) NEG^Negat 04/06/2017 [facility] kvng 4:38 AM [facility] pH Urine 5.0 5.0 - 7.0 04/06/2017 [place] pH 4:38 AM [facility] Protein Albumin 30 (A) NEG^Negat 04/06/2017 [place] Urine kvng mg/dL 4:38 AM [facility] Urobilinogen 0.0 0.0 - 2.0 04/06/2017 [place] mg/dL mg/dL 4:38 AM [facility] Nitrite Urine Negative NEG^Negat 04/06/2017 [facility] kvng 4:38 AM [facility] Leukocyte Large (A) NEG^Negat 04/06/2017 [facility] Esterase Urine kvng 4:38 AM [facility] Source Midstream 04/06/2017 [facility] Urine 4:25 AM [facility] WBC Urine 126 (H) 0 - 2 04/06/2017 [facility] /HPF 4:38 AM [facility] RBC Urine 15 (H) 0 - 2 04/06/2017 [facility] /HPF 4:38 AM [facility] WBC Clumps Present (A) NEG^Negat 04/06/2017 [facility] kvng /HPF 4:38 AM [facility] Bacteria Urine Many (A) NEG^Negat 04/06/2017 [place] kvng /HPF 4:38 AM [facility] Squamous 1 0 - 1 04/06/2017 [place] Epithelial /HPF /HPF 4:38 AM [facility] Mucous Urine Present (A) NEG^Negat 04/06/2017 [place] kvng /LPF 4:38 AM [facility] Specimen (Source) Anatomical Collection Method Collection Time Re ceived Time Location / / Volume Laterality Examination of URINE SPECIMEN 04/06/2017 4:10 04/06/20 17 4:24 midstream urine OBTAINED BY CLEAN AM CDT AM CDT specimen CATCH PROCEDURE / (procedure) Unknown Luis Jones MD LAB - URINE ORDERABLES Performing Organization Address [facility] Phon e Number [facility] [address] [place], [place] [address] [facility] [address] [place], [place] [address], [facility] [phone] HCG qualitative urine (04/06/2017 4:10 AM CDT) athologist Signature HCG Qual Urine Negative NEG^Negati 04/06/2017 [place] ve 4:41 AM [facility] Comment: This test is for screening purposes. ??R esults should be interpreted along with the clinical picture. ??Confirmation te sting is available if warranted by ordering [id number], HCG Quantitative Pregna ncy. Specimen Anatomical Collection Method Collection Time Receive d Time (Source) Location / / Volume Laterality Urine specimen URINE SPECIMEN 04/06/2017 4:10 AM 04/06 4:24 (specimen) OBTAINED BY CLEAN CDT AM CDT CATCH PROCEDURE / Unknown Luis Jones MD LAB - URINE ORDERABLES Performing Organization Address [facility] Phon e Number [facility] [address] [place], [place] [address] [facility] [address] [place], [place] [address], [facility] [phone] documented in this encounter Visit Diagnoses Not [...] mg 0.3-0.5 mg, Intravenous, EVERY 10 MIN WI N, other, acute pain.?May administer if Respiratory [...] (New Bag - Provider: Rahul Almaraz APRN CLOCK AND WATCH HANDS DIPPER)1140 (Anesthesia Volume Adjustment - Provider: Rahul Almaraz [...] mg 0.3-0.5 mg, Intravenous, EVERY 10 MIN WI N, Starting Sun04/06/17 at 1213, Until Sun04/06/17 [...] procedural area)1115 (Given - Provider: Rahul Almaraz WELFARE ELIGIBILITY INTERVIEWER CLOCK AND WATCH HANDS DIPPER)1652 (Unhold - Provider: Orders Generic Provider) 4 [...] area)1115 (See Alternative - Provider: Rahul Almaraz, WELFARE ELIGIBILITY INTERVIEWER CLOCK AND WATCH HANDS DIPPER)1652 (Unhold - Provider: Orders Generic Provider) 4 [...] management)
documented in this encounter Care Teams Social Service Director Relationship Specialty Start Date End Date No Ref-Primary, Physician PCP - General 04/06/17 documented as of this encounter
--- OUTSIDE RECORDS SUMMARY | 2022-06-03 18:43 | XMS_ITS | Encounter Summary ---
:1990 Author Organization [place] Address [address] [place] [address] Care Team Providers Name Role Phone Unavailable Primary Care Provider Unavailable Encounter Details Date Type Department Care Team Description 05/01/2017 Telephone [facility] REPORTING Chioma Harding PA-C [address] [place] [address] [facility] [phone] [facility] [address] [place], [place] [address] (Wo rk) Social History [...]
--- OUTSIDE RECORDS SUMMARY | 2022-06-03 18:43 | XMS_ITS | Encounter Summary ---
:1990 Author Organization [place] Address [address] [place] [address] Care Team Providers Name Role Phone No Ref-Primary, Physician Primary Care Provider [phone] Encounter Details Date Type Department Care [...] on filedocumented in this encounter Care Teams Quiller Tender Relationship Specialty Start Date End Date No Ref-Primary, Physician PCP - General 12/14/20 documented as of this encounter
--- OUTSIDE RECORDS SUMMARY | 2022-06-03 18:43 | XMS_ITS | Encounter Summary ---
:1990 Author Organization [place] Address [address] [place] [address] Care Team Providers Name Role Phone No Ref-Primary, Physician Primary Care Provider [phone] Reason for Visit Reason Comments Ultrasound L2- covid in Encounter Details Date Type Department Care Team Description 01/05/[address] [facility], Ultrasound (L2- covid in Maternal Medicine TIFFANIE Chavira ) [place] [address] [address] [facility] [address] [place] [address] Social History Tobacco Use Types Packs/Day Years Used Date Smoking Tobacco: Every Day Smokeless Tobacco: Never Sex Assigned at Date Recorded Not on file documented as of this encounter Plan of Treatment Not on filedocumented as of this encounter Visit Diagnoses Not on filedocumented in this encounter Care Teams Interlibrary Loan Services Librarian Relationship Specialty Start Date End Date No Ref-Primary, Physician PCP - General 12/14/20 documented as of this encounter
--- OUTSIDE RECORDS SUMMARY | 2022-06-03 18:43 | XMS_ITS | Encounter Summary ---
:1990 Author Organization [place] Address [facility] [place] [address] Care Team Providers Name Role Phone No Ref-Primary, Physician Primary Care Provider [phone] Encounter Details Date Type Department Care Team Description 04/24/2022 Hospital Encounter [facility] Cassie [facility] [address] [facility] [address] [place] [address] [place] [address] [phone] (Wo rk) Social History Tobacco Use Types [...] day. Activity: Call your doctor or nurse survey research center director if your baby is moving less than [...] cannot be sent through Care Everywhere.[employer] (Swiss)documented in this encounter Medications at Time of [...] 9:23 PM CDT 205 Patient arrived to [facility] ambulatory with spouse. Brought to room 2 to change into gown. History collected by Mallory RN and this RN. Patient here with complaint of increased discharge, and lost her mucus plug. Mucus-y discharge started around 1000, since then, has noticed an increase in watery discharge. Denies bleeding, denies contractions, endorses mild back ache and a heaviness. She is planning to deliver in [place]. 36 w 2 d Hx bipolar disorder, [...] by [facility] Plus (04/24/2022 9:12 PM CDT) [facility] Method Time Signature Rupture of Negative [...] Address City/State/ZIP Code Phon e Number LABORATORY [place] [address] [phone] Care [facility] [address] [place] [address] [...] Preadmission documented in this encounter Care Teams Geotechnician Relationship Specialty Start Date End Date No Ref-Primary, Physician PCP - General 12/14/20 documented as of this encounter
--- OUTSIDE RECORDS SUMMARY | 2022-06-03 18:43 | XMS_ITS | Encounter Summary ---
:1990 Author Organization [place] Address [address] [place] [address]. [place] [address] Care Team Providers Name Role Phone No Ref-Primary, Physician Primary Care Provider [phone] Encounter Details Date Type Department Care Team Description 07/13/2021 Medical Correspondence [facility] Scan, MATERNAL Health Info Mgmt Non-Provider MEDICINE CE NTER Srvcs PROVIDER SERVICE [address] [place] [address] [place] [address] [facility] [phone] [place] Social History Tobacco Use Types Packs/Day Years Used Date Smoking Tobacco: Every Day Smokeless Tobacco: Never Sex Assigned at Date Recorded Not on file documented as of this encounter Plan of Treatment Not on filedocumented as of this encounter Visit Diagnoses Not on filedocumented in this encounter Care Teams Electrical Equipment Assembler Relationship Specialty Start Date End Date No Ref-Primary, Physician PCP - General 12/14/20 documented as of this encounter
--- OUTSIDE RECORDS SUMMARY | 2022-06-03 18:43 | XMS_ITS | Encounter Summary ---
:1990 Author Organization [place] Address [address] [place] [address] Care Team Providers Name Role Phone No [...] on filedocumented in this encounter Care Teams Hair Boiler Relationship Specialty Start Date End Date No Ref-Primary, Physician PCP - General 12/14/20 documented as of this encounter
--- OUTSIDE RECORDS SUMMARY | 2022-06-03 18:43 | XMS_ITS | Encounter Summary ---
:1990 Author Organization [facility] Address [address] [place] [address] Care Team Providers Name Role Phone No Ref-Primary, Physician Primary Care Provider [phone] Reason for Referral Diagnostic Imaging Ultrasound (Routine) - Pending Review Specialty Diagnoses / Procedures Referred By Contact Refer red To Contact Diagnoses related condition, antepartum Rh Maternal Med Procedures MFM US Comprehensive Single [address] [place] [address] Referral ID Status Reason Start Date Expiration Date Visits V isits Requested Authorized [id number] Pending 01/03/2022 01/03/2023 1 1 Review onsultation (Routine: Next available opening) - Pending Review Specialty Diagnoses / Procedures Referred By Contact Refer red To Contact Diagnoses related condition, antepartum Rh Maternal Med [address] [place] [address] Referral ID Status Reason Start Date Expiration Date Visits V isits Requested Authorized [id number] Pending 01/03/2022 01/03/2023 1 1 Review Encounter Details Date Type Department Care Team Description 01/03/2022 Transcribe Orders [facility] Lexi Mendieta, related Maternal CHILD PROTECTIVE SERVICES SOCIAL WORKER [facility], Medicine [facility] antepartum (Primary [address] Dx) [address] [employer] [address] [place], [place] [id number] Social History Tobacco Use Types Packs/Day [...] 07/02/2022 documented as of this encounter Results [facility] US Comprehensive Single (01/13/2022 9:39 AM [...] ESPOSITO Study Date: 01/13/2022 8:45am Pat. NO: [id number] Referring ??: NIURKA MENDIETA Site: [facility] Percussion Teacher: Salma Piña : 1990 Age: 31 [...] lb 15 ? oz EFW by ?Hadlock ([id number]) Head / Face / Neck Biometry: [employer] ? 6.5 ? mm CM ?4.2 ? [...] cava. Inferior vena cava. 3-vessel ? view. 9-vmngai-mlwsokl view. Cardiac position. Cardiac size. Cardiac rhythm. [...] STUBBS [place] Jose te:01/13/2022 8:45am Pat. NO: [id number] MD:LEXI MENDIETA [facility]Germain Mcnally RDMS :1990Age:31 INDICATION COVID in [...] 0 lb 15 oz EFW by Hadlock ([id number]) Head / Face / Neck Biometry: [employer] 6.5 mm CM 4.2 mm Nasal bone [...] vena cava. Inferior vena cava. 3-vessel view. 2-ysbxhd-nogpuuf view. Cardiac po sition. Cardiac size. Cardiac [...] were evident. Radiology Non-Fv Credentialed Provider IMG [facility] US TL LEWIS documented in this encounter Visit Diagnoses Diagnosis related condition, antepartum - Primary related condition, antepartum documented in this encounter Care Teams Director Of Blood Relationship Specialty Start Date End Date No Ref-Primary, Physician PCP - General 12/14/20 documented as of this encounter
--- OUTSIDE RECORDS SUMMARY | 2022-06-03 18:43 | XMS_ITS | Encounter Summary ---
:1990 Author Organization [facility] Address [address] [place] [address] Care Team Providers Name Role Phone No Ref-Primary, Physician Primary Care Provider Unavailable Encounter Details Date Type Department Care Team Description 04/11/2017 Telephone [facility] REPORTING Pricilla Shin, [address] [place] [place] [address] [address] [phone] [place], [place] [address] (Wo rk) Social History [...] on filedocumented in this encounter Care Teams Junior Php Developer Relationship Specialty Start Date End Date No Ref-Primary, Physician PCP - General 04/06/17 documented as of this encounter
--- OUTSIDE RECORDS SUMMARY | 2022-06-03 18:43 | XMS_ITS | Encounter Summary ---
:1990 Author Organization [facility] Address [facility] [place] [address] Care Team Providers Name Role Phone No Ref-Primary, Physician Primary Care Provider [phone] Reason for Visit Reason Comments Ultrasound L2- covid in Encounter Details Date Type Department Care Team Description 01/13/2022 Office Visit [facility] Non-Fv Credent ialed Provider, Radiology COVID-19 affecting Maternal Contag, Chau Frazier MD [address] [place], [place] [address] in [facility] Osmin Aiken MD [address] [place] [address] trimester (Primary [place] Dx) [address] [facility] [address] [place] [address] Social History Tobacco Use Types [...] for details of today's US at the [facility]. Osmin Aiken MD Maternal- Medicine documented in this encounter Plan of Treatment Not on filedocumented as of this encounter Visit Diagnoses Diagnosis COVID-19 affecting in second t rimester - Primary documented in this encounter Care Teams Punchboard Filling Machine Operator Relationship Specialty Start Date End Date No Ref-Primary, Physician PCP - General 12/14/20 documented as of this encounter
--- OUTSIDE RECORDS SUMMARY | 2022-06-03 18:43 | XMS_ITS | Encounter Summary ---
:1990 Author Organization [facility] Address [address] [place] [address] Care Team Providers Name Role Phone No Ref-Primary, Physician Primary Care Provider [phone] Encounter Details Date Type Department Care Team [...] on filedocumented in this encounter Care Teams Bird Cage Assembler Relationship Specialty Start Date End Date No Ref-Primary, Physician PCP - General 12/14/20 documented as of this encounter
--- OUTSIDE RECORDS SUMMARY | 2022-06-03 18:43 | XMS_ITS | Encounter Summary ---
:1990 Author Organization [facility] Address [address] [place] [address] Care Team Providers Name Role Phone No Ref-Primary, Physician Primary Care Provider [phone] Reason for Visit Reason Comments Chest Pain Encounter Details Date Type Department Care Team Description 12/14/2020 [facility] PA-C [address] [facility] [place] [address] [address] [phone] [address] [place], [place] [address] (Wo rk) Social History Tobacco Use Types [...] sent through Care Everywhere. Chest Pain, Noncardiac (Lithuanian)documented in this encounter Medications at Time of [...] sinus arrhythmia. Normal ECG. Rate 66 bpm. MD interval 138 ms. QRS duration 104 ms. [...] patient is a HEART score of 1 ([id number]) and I feel ACS or mycocarditis is [...] with platelets differential (12/14/2020 3:45 PM CDT) [facility] Method Time Signature WBC 5.5 4.0 - 12/14/2020 [facility] 11.0 4:09 PM [facility] 10e9/L [facility] RBC Count 3.79 (L) 3.8 - 5.2 12/14/2020 [facility] 10e12/L 4:09 PM [facility] Hemoglobin 11.9 11.7 - 12/14/2020 [facility] 15.7 g/dL 4:09 PM [facility] Hematocrit 37.2 35.0 - 12/14/2020 [facility] 47.0 % 4:09 PM [facility] MCV 98 78 - 100 12/14/2020 [facility] fl 4:09 PM [facility] MCH 31.4 26.5 - 12/14/2020 [facility] 33.0 pg 4:09 PM [facility] MCHC 32.0 31.5 - 12/14/2020 [facility] 36.5 g/dL 4:09 PM [facility] RDW 12.8 10.0 - 12/14/2020 [facility] 15.0 % 4:09 PM [facility] Platelet Count 195 150 - 450 12/14/2020 [facility] 10e9/L 4:09 PM [facility] Diff Method Automated 12/14/2020 [facility] Method 4:09 PM [facility] % Neutrophils 58.3 % 12/14/2020 [facility] 4:09 PM [facility] % Lymphocytes 27.5 % 12/14/2020 [facility] 4:09 PM [facility] % Monocytes 11.5 % 12/14/2020 [facility] 4:09 PM [facility] % Eosinophils 1.8 % 12/14/2020 [facility] 4:09 PM [facility] % Basophils 0.5 % 12/14/2020 [facility] 4:09 PM [facility] % Immature 0.4 % 12/14/2020 [facility] Granulocytes 4:09 PM [facility] Nucleated RBCs 0 0 /100 12/14/2020 [facility] 4:09 PM [facility] Absolute 3.2 1.6 - 8.3 12/14/2020 [facility] Neutrophil 10e9/L 4:09 PM [facility] Absolute 1.5 0.8 - 5.3 12/14/2020 [facility] Lymphocytes 10e9/L 4:09 PM [facility] Absolute 0.6 0.0 - 1.3 12/14/2020 [facility] Monocytes 10e9/L 4:09 PM [facility] Absolute 0.1 0.0 - 0.7 12/14/2020 [facility] Eosinophils 10e9/L 4:09 PM [facility] Absolute 0.0 0.0 - 0.2 12/14/2020 [facility] Basophils 10e9/L 4:09 PM [facility] Abs Immature 0.0 0 - 0.4 12/14/2020 [facility] Granulocytes 10e9/L 4:09 PM [facility] Absolute 0.0 12/14/2020 [facility] Nucleated RBC 4:09 PM [facility] Specimen Anatomical Collection Method Collection Time Receive d Time (Source) Location / / Volume Laterality 12/14/2020 3:45 PM 3:58 CDT PM CDT Daniel Mckinnon PA-C LAB - BLOOD ORDERABLES Performing Organization Address City/State/ZIP Code Phon e Number M [facility] [address], [place] [address] [facility] [address] [phone] D dimer quantitative (12/14/2020 3:45 PM CDT) athologist Signature D Dimer 0.3 0.0 - 0.50 12/14/2020 [facility] ug/ml FEU 4:30 PM CDT [facility] Comment: This D-dimer assay is [...] LAB - BLOOD ORDERABLES Performing Organization Address [facility] Phon e Number [facility] [address], [place] [address] [place] [address] [address] [phone], [facility] [phone] HCG qualitative (12/14/2020 1:55 PM CDT) [facility] gist Method Time Signature HCG Qualitative Negative NEG^Negati 12/14/2020 [facility] Serum ve 3:57 PM CDT [facility] Comment: This test is for screening purposes. ??R esults should be interpreted along with the clinical picture. ??Confirmation te sting is available if warranted by ordering [id number], HCG Quantitative Pregna ncy. Specimen Anatomical Collection Method Collection Time Receive d Time (Source) Location / / Volume Laterality 12/14/2020 1:55 PM 1 2:45 CDT PM CDT Edith Ortega MD LAB - BLOOD ORDERABLES Performing Organization Address [facility]/ZIP [facility] Phon e Number [facility] [address], [place] [address] [facility] [address] [place] [address], [facility] [phone] Troponin I (12/14/2020 1:55 PM CDT) athologist Signature Troponin I ES <0.015 0.000 - 12/14/2020 [facility] 0.045 ug/L 3:23 PM [facility] Comment: The 99th percentile for upper reference [...] Address City/State/ZIP Code Phon e Number M [facility] [address] [place] [address] [facility] [address] [place] [address], [place] [phone] (ABNORMAL) Basic metabolic panel (12/14/2020 1:55 PM CDT) athologist Signature Sodium 139 133 - 144 12/14/2020 [facility] mmol/L 3:23 PM [facility] Potassium 3.8 3.4 - 5.3 12/14/2020 [facility] mmol/L 3:23 PM [facility] Comment: Specimen slightly hemolyzed, po tassium may be falsely elevated Chloride 110 (H) 94 - 109 mmol/L 12/14/2020 3:23 PM [facility] Carbon Dioxide 23 20 - 32 mmol/L 12/14/2020 3:23 PM [facility] Anion Gap 6 3 - 14 mmol/L 12/14/2020 3:23 PM [facility] Glucose 84 70 - 99 mg/dL 12/14/2020 3:23 PM [facility] Urea Nitrogen 12 7 - 30 mg/dL 12/14/2020 3:23 PM [facility] Creatinine 0.88 0.52 - 1.04 mg/dL 12/14/2020 3:23 PM [facility] GFR Estimate 89 >60 12/14/2020 3:23 PM [facility] mL/min/{1.73_m2} [facility] Comment: Non GFR Calc Starting 07/09/2018, serum creatinine ba sed estimated GFR (eGFR) will be calculated using the Chronic Kidney Dise [facility] Epidemiology Collaboration (CKD-EPI) equation. GFR Estimate If >90 >60 mL/min/{1.73_m2} 12/14/2020 3: 23 PM [facility] Black [facility] Comment: GFR Calc Starting 07/09/2018, serum creatinine ba sed estimated GFR (eGFR) will be calculated using the Chronic Kidney Dise [facility] Epidemiology Collaboration (CKD-EPI) equation. Calcium 8.7 8.5 - 10.1 mg/dL 12/14/2020 3:23 PM CDT [facility] Specimen Anatomical Collection Method Collection Time Receive d Time (Source) Location / / Volume Laterality Blood 12/14/2020 1:55 PM 2:45 CDT PM CDT Daniel Mckinnon PA-C LAB - BLOOD ORDERABLES Performing Organization Address City/State/ZIP Code Phon e Number [facility] [address] [place], [place] [address] [facility] [address] [place] [address], [facility] [phone] EKG 12 lead (12/14/2020 12:42 PM CDT) [facility] Method Time Signature Interpretation ECG Click View [...] unspecified documented in this encounter Care Teams Copywriting Intern Relationship Specialty Start Date End Date No Ref-Primary, Physician PCP - General 12/14/20 documented as of this encounter
--- OUTSIDE RECORDS SUMMARY | 2022-06-03 18:43 | XMS_ITS | Encounter Summary ---
:1990 Author Organization [facility] Address [address] [place] [address]. [place] [address] Care Team Providers Name Role Phone No Ref-Primary, Physician Primary Care Provider Unavailable Reason for Visit Reason Comments Cystoscopy Stent Removal: Ureteral Ston e Encounter Details Date Type Department Care Team Description 04/17/2017 Office Visit [facility] George Goldberg [facility] [address] (Primary Urology Clinic Rowena Babin MD Dx) [address] [place] [address] [place] [address] [phone] Social History Tobacco Use Types Packs/Day Years [...] office with any concerns or questions @[facility]. documented in this encounter Progress Notes George [...] kidney documented in this encounter Care Teams Baker Bread Relationship Specialty Start Date End Date No Ref-Primary, Physician PCP - General 04/06/17 documented as of this encounter
[2022-06-03] MEDS: LACTATED RINGERS 1000 ML 1,000 ML 900 ML IV ×2 (19:45→20:46)
--- NOTE | 2022-06-03 20:02 | W.PM.LDBA ---
Subjective History of Present Illness Time Seen by Provider: 20:03 Date Seen: 06/03/22 Narrative: Fauzia is being admitted to Labor and Delivery for active labor. She is a 31 year old at 40 weeks 0 days gestation. Her full history and physical was dictated by Savanna Choi CNM on 05/16/2022. Please see this for details. Fauzia is supported by her Philip. Contractions started last night and intensified through the day. She is planning an epidural for pain management. Blood type: A positive Partner: Philip 1. Bipolar w/ Anxiety/Depression, PP depression with son Taking Lamotrigine 100 mg BID, working well 2. Allergy to Penicillin NEEDS sensitivities with GBS swab, negative 3. Hx of E Coli infection (age [age]); E Coli infected kidney stone in last (on antibiotic for the remaining ) 4. Nicotine User/Smoker 4-5 cigs per day at [facility] Wants assistance with quitting, Patch low dose and inhalers ordered try for 4-6 weeks and reducing amount over time 7/8: <1cig per week, occasional inhaler use 5. THC user. Remote hx of Cocaine use (as a teenager) UDS 11/28 negative 6. Reactive RPR, non-reactive TP-PA -Plan to re-screen @ 28 weeks Reactive RPR, non-reactive TP-PA 7. Hx of COVID in November (week of ) Discuss follow-up options at next visit Level II US: Completed by [facility] US 32 weeks: Completed, EFW >97%ile Growth US 36 weeks: ordered, EFW 94%ile 8. Failed 1 hr glucose, passed all 3 hour values 9. Mild Poly diagnosis confirmed 05/16/22 w/ BPP 05/09. Mildy elevated SDP 8.25, MARSHALL 21.3, WNL BPP q 1-2 weeks until Del; ordered for 38 weeks 38w BPP: 05/23/22: 8/8, FHR: 150, vertex position, SDP 7.3 cm. MARSHALL 17.9 cm. Mild poly resolved 05/23/22, Consider MARSHALL @ 40 weeks if still . 10. Anemia, Hgb 10.8 at 36 weeks, recommend iron supplement (already taking) Flu: vaccinated 05/09/2022. Covid: Vaccinated, not boosted;recommended Tdap: 04/11/2022 OB - H&P: Exam Physical Exam: Vital signs: Temp Pulse Resp BP Pulse Ox 97.8 F 74 18 131/82 99 06/03/22 18:56 06/03/22 18:53 06/03/22 18:56 06/03/22 18:53 06/03/22 19:50 Constitutional: Constitutional: no acute distress Routine HEENT Exam: Head: Present normocephalic Eye: Present normal appearance ENT: Present mucous membranes moist and normal external ear exam Routine Neck Exam: Neck: Present full ROM Routine Respiratory Exam: Respiratory: Present CTA bilaterally Routine Cardiovascular Exam: Cardiovascular: RRR Routine Abdominal Exam: Comments: Gravid Routine Exam: Perineum Description: Normal Detailed Labor and Delivery Exam: Patient Gravid: yes Dilation (cm): 6 Effacement (%): 75 Tachysystole: No Contraction intensity: Strong/Firm Fetus (Single): Station: -3 Heart Rate Baseline: 130 Monitor Accelerations: Present Monitor Decelerations: Prolonged (One prolonged decel (7min) that resolved with repositioning. No other decels.....) Supervisor Irrigation Variability: Moderate (6-25) Routine Extremities Exam: Extremities: Present full ROM and pedal edema Routine Back/Spine/Pelvis Exam: Back/Spine: full ROM Routine Skin Exam: Present intact, dry and warm Routine Neurological Exam: Present alert and oriented X3 Detailed Neurological Exam: Coma Scale: Eye Opening: Spontaneous (4) Verbal Response: Orientated (5) Motor Response: Obey commands (6) Madison Coma Scale Total: 15 Routine Psychiatric Exam: Present normal affect, normal thought process, cooperative, good insight and good judgment OB - Problem Based A/P Additional Plan (1) Active labor at term: Status: Acute (2) Anxiety: Status: Acute (3) Bipolar disorder: Status: Acute Plan ASSESSMENT:? 31 at 40 0/7 weeks gestation? complicated by:? Labor type: Spontaneous, Active labor? Category 1 FHR pattern.?? GBS negative? PLAN:? 1. Routine intrapartum cares as ordered. Continue with expectant management? 2. Monitoring per policy, continuous with epidural? 3. Planning epidural for pain management? 4. Patient encouraged to reposition to promote physiologic labor and .? 5. Anticipate progress to ? ? Delivery/Labor/Induction Plan Plan: expectant management
[2022-06-03 20:11] LABS: Basophils Percent Auto 0.2 % (0.0-3.0); Eosinophils Percent Auto 0.4 % (0.0-7.0); Hematocrit 34.1 % (33.0-51.0); Hemoglobin* 11.5 gm/dL (12.0-16.0); Immature Granulocytes Pct Auto 0.3 %; Lymphocytes Percent Auto 19.8 % (20-44); Mean Corpuscular HGB Conc 34 gm/dL (32-36); Mean Corpuscular Hemoglobin 31 pg (26-34); Mean Corpuscular Volume 93 fL (80-100); Monocytes Percent Auto 6.5 % (0.0-11.0); Neutrophils Percent Auto 72.8 % (42.0-72.0); Platelet Count* 258 K/uL (140-440); RDW Coefficient of Variation % 12.3 % (11.5-15.5); Red Blood Count 3.67 m/uL (4.00-5.20)
[2022-06-03 20:14] LABS: Amphetamine Screen Urine Negative (Negative); Barbiturate Screen Urine Negative (Negative); Benzodiazepines Screen Urine Negative (Negative); Cannabinoid Screen Urine Negative (Negative); Cocaine Screen Urine Negative (Negative); Methadone Screen Urine Negative (Negative); Methamphetamines Screen Urine Negative (Negative); Opiate Screen Urine Negative (Negative); Oxycodone Screen Urine Negative (Negative); Phencyclidine Screen Urine Negative (Negative); Tricyclic Antidepressant Urine Negative (Negative)
[2022-06-03 20:30] LABS: Slide Review Reflex No
[2022-06-03 20:41] LABS: SARS PCR* Negative SARS-CoV-2 (Negative)
[2022-06-03] MEDS: ROPIVACAINE 0.2% 100 ml 100 ML 12 MG EPIDURAL (20:47)
[2022-06-03] MEDS: LIDOCAINE 2% (PF) 5 ML VIAL EPIDURAL (20:48)
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
--- NOTE | 2022-06-03 21:43 | PM.OBPNL ---
Subjective Time Seen by Provider: 21:44 Date Seen: 06/03/22 Narrative: Fauzia is resting comfortably in bed with epidural, except for a few spots on her lower abdomen where the epidural was not covering yet. She is currently being supported by her Philip. Discussed option for AROM, but pt prefered expectant management. As we were finishing that conversation SROM for clear fluid noted. Encouraged pt to rest with epidural while she can. Questions answered to her satisfaction. She would like to continue with her epidural for comfort and pain management.?? ? Objective Exam: VSS, afebrileGeneral Appearance:? Calm, cooperative. ?No acute distress. ? Psychiatric Exam: Alert and oriented, appropriate affect Abdomen: Gravid Ctx: ?Q 1-7 min apart. ?Strong FHTs: ?Baseline: 125 ? ? Variability: Moderate ? Accels: Present ? ?Decels: ?Absent SVE: Membranes: Intact Vital Signs: Last Vital Signs Temp 97.8 F 06/03/22 18:56 Pulse 69 06/03/22 21:29 Resp 18 06/03/22 18:56 BP 145/95 H 06/03/22 21:29 Pulse Ox 100 06/03/22 20:42 Pelvic Exam Dilation (cm): 8 Effacement (%): 90 Station: -1 Contractions Monitor mode: External Contraction pattern: Irregular Contraction intensity: Strong/Firm Plan Plan: Assessment:?? 31 at 40 0/7 weeks gestation?? Patient is comfortable with epidural?? Labor type: Spontaneous, Active labor? Category 1 FHR pattern.?? SROM for clear fluid ? Plan:?? Continue with routine intrapartum cares as ordered.?? Patient encouraged to change positions to promote physiologic labor and .?? Epidural for comfort measures per patient preference.
--- NOTE | 2022-06-03 22:45 | PM.OBPNL ---
Subjective Time Seen by Provider: 22:45 Date Seen: 06/03/22 Narrative: Into room to check progress. Fauzia resting with epidural comfortably in bed in flying cowgirl position. Philip supportive at bedside. Amniotic sac partially out of the vagina with a gush of fluid right before SVE. Discussed possibility of pitocin if contractions do not become more regular, Pt agreeable. Understands the current plan of care. ?Denies concerns. Questions answered to her satisfaction. ?She would like to continue with epidural for comfort and pain management.?? Objective Exam: VSS, afebrileGeneral Appearance:? Calm, cooperative. ?No acute distress. ? Psychiatric Exam: Alert and oriented, appropriate affect Abdomen: Gravid Ctx: ?Q 1-4 min apart. ?Strong FHTs: ?Baseline: 125? ? Variability: Moderate ? Accels: Absent? ?Decels: ?Absent SVE: Membranes: AROM X 1 hour Vital Signs: Last Vital Signs Temp 97.8 F 06/03/22 18:56 Pulse 78 06/03/22 22:34 Resp 18 06/03/22 18:56 BP 125/73 06/03/22 22:34 Pulse Ox 100 06/03/22 20:42 Pelvic Exam Dilation (cm): 8 Effacement (%): 90 Station: -1 Contractions Monitor mode: External Contraction pattern: Irregular Contraction intensity: Strong/Firm Assessment Heart Rate Baseline: 130 Plan Plan: Assessment:?? 31 at 40 0/7 weeks gestation?? Patient is comfortable with epidural?? Labor type: Spontaneous, Active labor? Category 1 FHR pattern.?? SROM for clear fluid ? Plan:?? Continue with routine intrapartum cares as ordered.?? Patient encouraged to change positions to promote physiologic labor and .?? Epidural for comfort measures per patient preference.
[2022-06-03] MEDS: OXYTOCIN 30 unit/500 ML in NS 30 UNIT/500 ML BAG 300 UNIT IVPB (23:30)
[2022-06-04] VITALS (15 sets, daily range): BP systolic 102–134; BP diastolic 67–90; PULSE 60–83; RESP 16; TEMP 36.6–36.8; O2SAT 97–100
--- NOTE | 2022-06-04 00:36 | PM.OBPRCVD ---
Procedure Delivery date: 06/03/22 Procedure Done: Global Procedure Details: Fauzia is a 31 year-old G3 now ?P2 admitted on 06/03/22 at 40 Weeks, 0 Days gestation for active labor. ?Cervical exam on admission was 6.5 cm /75 % effaced/-3 station with membranes intact in vertex presentation.? SROM? occurred at 2129 with cear fluid. Anterior lip noted. Position changes with peanut ball encouraged, pt found to be complete shortly after. Fauzia pushed with good effort, baby's heart rate dropped as low as 70 during pushes but returned to baseline between contractions and with maternal repositioning. Pressure applied to posterior and lateral vaginal parson during pushing to decrease pressure on baby's head during contractions. Baby born with in a few strong pushes, head delivered, nuchal cord x1 noted but unable to be reduced, body delivered through easily. Labor Analgesia:? Epidural Pitocin:?No, PP only for AMTSL Labor onset:?1924 Complete: 2299 Pushing:? 2303 heart tones during second stage: ranged from 70-190 with return to baseline of 120's between contractions/pushes, and accels present with scalp stimulation At 2312 a viable? male delivered in vertex OA presentation over intact perineum via spontaneous vaginal?delivery. ?Infant was placed on maternal abdomen, vigorously crying. ?Cord was clamped and cut after a 5+ minute delay.? Infant weight: 9lbs 13oz. ? 8 at 1 minute and 9 at 5 minutes. ?Shoulder dystocia: no. ?Nuchal cord: x1, delivered through and easily reduced immediately after delivery. Placenta delivered spontaneously and complete at 2324 with a 3 vessel cord. Mother and infant were stable after?delivery. Lacerations:? Periurethral 1st degree, repaired with 4-0 vicryl.? Perineal 2nd degree laceration, repaired with 4-0 vicryl. Blood loss: 200 mL. Blood loss measurement type: QBL? Sponge and needles counts are correct. Events: Covid Infection in Intrapartal Events: None Delivery monitor: external FHT and external uterine Route of delivery: Laceration description: Perineal - 2nd Degree Delivery repair: Vicryl Estimated blood loss (mL): 200 Anesthesia type: Epidural Disposition: floor [place] Infant Gender: Male presentation: vertex Placental Delivery Description: Spontaneous Cord Description: 3 Vessels and Nuchal Cord OB Vag Delivery Procedures Additional Procedures ECV: No Cook Catheter Insertion: No NST: No D&C: No Laceration Repair: Yes Tubal Ligation : No Other: No
[2022-06-04] MEDS: IBUPROFEN 600 MG TABLET PO ×3 (03:30→19:27)
--- NOTE | 2022-06-04 10:03 | P.OBPN_ITS ---
OB - PN:Subj Subjective Time Seen by Provider: 09:30 Date Seen: 06/04/22 Interval history: Mary is a 31 year old, G 3 now P 2? admitted on 06/03/22 at 40 Weeks, 0 Days gestation for Active Labor.? She had an uncomplicated vaginal delivery.? She delivered a viable male infant, Abelardo.? She is formula feeding and reports things are well.? the patient has done well.? Vitals have been stable.? She has remained afebrile.? She is voiding without difficulty.? She is passing gas and has not had a bowel movement.? She is ambulating and denies any dizziness.? She is planning IUD for control.? Patient comments OB post-: pain well controlled, tolerating diet and flatus present status: bottle and doing well Ladd feeding status: exclusively bottle feeding OB - PN: Obj Exam Physical Exam: Vital signs: Temp Pulse Resp BP Pulse Ox O2 Del Method 98.1 F 64 16 119/71 97 06/04/22 06:46 06/04/22 06:46 06/04/22 06:46 06/04/22 06:46 06/04/22 06:46 06/04/22 06:46 Constitutional: Constitutional: no acute distress and cooperative Routine HEENT Exam: Head: Present normocephalic Eye: Present normal appearance ENT: Present mucous membranes moist Routine Neck Exam: Neck: Present full ROM Routine Respiratory Exam: Respiratory: Present CTA bilaterally Routine Cardiovascular Exam: Cardiovascular: Present RRR Routine Abdominal Exam: Abdominal: Present normal bowel sounds, soft and tenderness Fundus: Present firm (3/U) Routine Exam: External: Present normal external exam Perineum Description: Normal Comments: Lochia small, rubra Routine Extremities Exam: Extremities: Present full ROM; Absent pedal edema Routine Back/Spine/Pelvis Exam: Back/Spine: Present full ROM Routine Skin Exam: Skin: Present dry, intact, normal color and warm; Absent rash Routine Neurological Exam: Neurological: Present alert and oriented X3 Detailed Neurological Exam: Coma Scale: Eye Opening: Spontaneous (4) Verbal Response: Orientated (5) Routine Psychiatric Exam: Psychiatric: Present normal affect, normal thought process, cooperative, good insight and good judgment OB - PN: Obj Data Labs Labs: Laboratory Results - last 24 hr 06/03/22 06/03/22 06/03/22 19:30 19:55 20:00 WBC 12.00 H RBC 3.67 L Hgb 11.5 L Hct 34.1 MCV 93 MCH 31 MCHC 34 RDW Coeff of Dong 12.3 Plt Count 258 Neut % (Auto) 72.8 H Lymph % (Auto) 19.8 L [place] % (Auto) 6.5 Eos % (Auto) 0.4 Baso % (Auto) 0.2 Neut # (Auto) 8.70 H Lymph # (Auto) 2.40 [place] # (Auto) 0.80 Eos # (Auto) 0.00 Baso # (Auto) 0.00 Abs Immat Gran (auto) 0.00 Imm/Tot Granulo (auto) 0.3 Urine Opiates Screen Negative Ur Oxycodone Screen Negative Urine Methadone Screen Negative Ur Propoxyphene Screen Negative Ur Barbiturates Screen Negative U Tricyclic Antidepress Negative Ur Phencyclidine Scrn Negative Ur Amphetamines Screen Negative U Methamphetamines Scrn Negative U Benzodiazepines Scrn Negative Urine Cocaine Screen Negative U Marijuana (THC) Screen Negative SARS-CoV-2 (PCR) Negative SARS-CoV-2 Blood Type Antibody Screen 06/03/22 20:00 WBC RBC Hgb Hct MCV MCH MCHC RDW Coeff of Dong Plt Count Neut % (Auto) Lymph % (Auto) [place] % (Auto) Eos % (Auto) Baso % (Auto) Neut # (Auto) Lymph # (Auto) [place] # (Auto) Eos # (Auto) Baso # (Auto) Abs Immat Gran (auto) Imm/Tot Granulo (auto) Urine Opiates Screen Ur Oxycodone Screen Urine Methadone Screen Ur Propoxyphene Screen Ur Barbiturates Screen U Tricyclic Antidepress Ur Phencyclidine Scrn Ur Amphetamines Screen U Methamphetamines Scrn U Benzodiazepines Scrn Urine Cocaine Screen U Marijuana (THC) Screen SARS-CoV-2 (PCR) Blood Type A Positive Antibody Screen NEGATIVE OB - PN: A/P Vaginal Delivery Assessment and Plan (1) state: Status: Acute Plan 31 yo G3 now P2 Day 1 Routine care Plan to discharge home tomorrow Plan day: 1 Plan: routine care
[2022-06-04] MEDS: DOCUSATE SODIUM 100 MG CAPSULE PO (10:40)
[2022-06-05 06:24] LABS: Hemoglobin* 9.8 gm/dL (12.0-16.0)
--- NOTE | 2022-06-05 09:06 | PM.OBDSVD1 ---
DS: Providers Provider Date Seen: 06/05/22 Date of admission: 06/03/22 19:27 Primary care physician: Suzanne Pisano CNM Admitting Clinician: Dora English CNM Consults: 06/03/22 20:00 Consult to Radiation / Chemistry Technician [CONS] Routine Comment: Reason for Consult:: Substance Abuse Screening Attending Physician on discharge: Suzanne Pisano CNM Date of Discharge: 06/05/22 DS: Diagnosis Discharge Diagnosis (1) state: Status: Acute (2) Anemia: Status: Acute (3) Lactating mother: Status: Acute Exam Narrative: Exam Narrative: GENERAL APPEARANCE:? normal affect, alert, no distress? MOOD:? appropriate? CHEST:? clear to auscultation and percussion? HEART:? regular rate and rhythm? ABDOMEN:? soft, non-tender the uterine fundus is 2 cm Below Umbilicus, Midline and is appropriate for the stage of recovery.? PERINEUM:? mild edema of the perineum, there is a 2nd degree that is healing well.? EXTREMITIES:? normal and no edema? Patient has no complaints? No active bleeding?? Doing well? Const: Vital Signs, click to edit/add: Vital Signs - 24 hr 06/04/22 10:34 06/04/22 15:36 06/04/22 19:43 Temperature 98.2 F 98 F 98.1 F Pulse Rate [Pulse Oximeter] 83 77 72 Respiratory Rate 16 16 16 Blood Pressure [Le ft Arm] 102/67 131/77 125/75 Pulse Oximetry 98 98 98 Oxygen Delivery Me thod Room Air Room Air Room Air 06/04/22 23:36 Temperature 98.2 F Pulse Rate [Pulse Oximeter] 66 Respiratory Rate 16 Blood Pressure [Le ft Arm] 122/76 Pulse Oximetry 98 Oxygen Delivery Me thod Room Air Documenting provider has reviewed patient's vital signs: yes OB - DS: Summary Hospital Course Hospital Course: Patient is a 31year old, G 3 now P 2? admitted on 06/03/2022 at 40 Weeks, 1 Days gestation for active labor.? She had an uncomplicated vaginal delivery.? She delivered a viable male .? She is pumping and bottle feeding pumped milk and formula and reports things are well.? the patient has done well.? Her pain is well controlled with current medications.? She has no new complaints.? Vitals have been stable. She has remained afebrile. She is voiding without difficulty. She is passing gas and has not had a bowel movement. She is ambulating and denies any dizziness. She is anemic and was encouraged to take PO iron supplementation. She is planning an IUD for control.?She is requesting to be discharged home today.?? Peripartum Data Infant delivery method: Vaginal Laceration description: Perineal - 2nd Degree (and 1st degree periurethral) Episiotomy description: None complications: none [place] Gender: Male Infant Discharge Plan: Home Status at Discharge Functional status at discharge: independent ambulation Overall status at discharge: patient is progressing back to baseline Time Spent with Patient Time attestation: Total time spent providing and/or coordinating discharge services: Discharge Plan Discharge Disposition: Home, Self-Care Date of Admission: 06/03/22 19:27 Attending Provider on Discharge: Suzanne Pisano Primary Care Provider: Suzanne Pisano Condition: Stable Anticipated Discharge Date/Time: 06/05/22 10:00 Discharge Medications: New docusate sodium 100 mg Capsule 100 mg PO DAILY Qty: 90 0RF Continued lamotrigine 100 mg tablet 100 mg PO BID ibuprofen 600 mg tablet 600 mg PO Q6H PRNQty: 60 0RF Discontinued lamotrigine 100 mg tablet 100 mg PO BID Qty: 180 0RF Discharge Orders: Discharge Order (Routine); Ordered 06/05/22 Ordered By: Suzanne Pisano Patient Education: OB Over the Counter Medication Information, OB Vaginal/Breast Feeding Additional Instructions: Discharge instructions were reviewed with the patient including signs and symptoms of infection and home going medications.? Do not drive while taking narcotic pain meds.? Off Work or School for 6 weeks.? ?? Symptoms to report to doctor:? -Bleeding that saturates more than one pad per hour? -Passing clots larger than the size of a golf ball? -Pain not relieved by prescribed medication? -Fever above 100.4 degrees Fahrenheit? -A foul vaginal odor? -Difficulty in emotions, mood and functions? -Thoughts of hurting yourself and/or ? -Painful, reddened area in your breast? -Any drainage, redness or tenderness in your IV/epidural site? -Severe headache that doesn't improve after taking medications? -Changes in vision, including temporary loss of vision, blurred vision, and/or light sensitivity? -Upper abdominal pain (usually under ribs on the right side)? -Decrease in urination or painful, frequent urinating? -Chest pain? -Shortness of breath? -Tenderness or pain with redness and/swelling in the calf(s) of your leg? ?? Follow Up in clinic in 2 and 6 weeks.? ?? consultation services are available to all mothers and babies for the first year after delivery.? To make an appointment, please call [phone].? Activity Level: No Restrictions and Activity as Tolerated Discharge Diet: Regular Follow Up Appointments: Suzanne Pisano CNM [Primary Care Provider] - Forms: MyHealth Info Instructions
[2022-06-05 09:18] VITALS: BP 118/77; PULSE 76; RESP 16; O2SAT 98
== END 2022-06-05 13:44 | disposition home or self-care (01) | DRG 560 ==
LOC: OB OUT 06-14 07:30
PROVIDERS: Admitting Provider Advanced Practice Midwife; PCP Advanced Practice Midwife; Visit Provider Advanced Practice Midwife
DX: O76 Abnormality in fetal heart rate and rhythm complicating labor and delivery (principal); O70.1 Second degree perineal laceration during delivery; O99.344 Other mental disorders complicating childbirth; F41.9 Anxiety disorder, unspecified; O99.02 Anemia complicating childbirth; D64.9 Anemia, unspecified; F31.9 Bipolar disorder, unspecified; Z86.16 Personal history of COVID-19; Z3A.40 40 weeks gestation of pregnancy; Z37.0 Single live birth
CPT/HCPCS: 01967; 36415; 80306; 85018; 85025; 86850; 86900; 86901; 87635; 99213; A9270; J2795; J7120